=== PATIENT | female | born 1935 | race Caucasian/White ===

== ENCOUNTER 2017-12-14 06:39 | Emergency (ER) | payer MEDICARE ==
[2017-12-14 06:48] VITALS: TEMP 98
--- NOTE | 2017-12-14 07:25 | ED ---
General Adult HPI - General Chief complaint: Recheck/Abnormal Lab/Rx Stated complaint: hypertension Time Seen by Provider: 12/14/17 07:00 Source: patient, RN notes reviewed Mode of arrival: ambulatory Limitations: no limitations - History of Present Illness Initial comments: Patient is a pleasant 82-year-old female presenting to the emergency department for just not feeling well. Onset was last night. Patient does admit to feeling somewhat lightheaded however states this is a chronic problem for her. Patient is unable to state any other complaints. Patient states she took her blood pressure and it was near 200. Patient believes maybe she just got nervous. Patient denies any weakness or isolated area of weakness. No chest pain. No dyspnea. Patient also questions if she could have a urinary tract infection because she did urinate a couple times throughout the night. - Related Data Home Medications Medication Instructions Recorded Confirmed Acetaminophen Tab [Tylenol] 1,000 mg PO Q6H PRN 02/25/16 12/14/17 Dorzolamide HCl [Dorzolamide HCl] 1 drop LEFT EYE BID 02/25/16 12/14/17 Latanoprost [Latanoprost] 1 drop LEFT EYE HS 02/25/16 12/14/17 Multivitamins, Thera [Multivitamin] 1 tab PO DAILY 02/25/16 12/14/17 L.acidoph,Paracasei, B.lactis 1 cap PO DAILY 12/14/17 12/14/17 [Probiotic] Loperamide HCl [Imodium A-D] 2 mg PO HS 12/14/17 12/14/17 Previous Rx's Medication Instructions Recorded amLODIPine [Norvasc] 2.5 mg PO DAILY #7 tablet 12/14/17 Allergies Allergy/AdvReac Type Severity Reaction Status Date / Time No Known Allergies Allergy Verified 12/14/17 07:46 Review of Systems ROS Statement: Those systems with pertinent positive or pertinent negative responses have been documented in the HPI. ROS Other: All systems not noted in ROS Statement are negative. 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 Wilson; bilateral cataracts removed, Past Anesthesia/Blood Transfusion Reactions: No Reported Reaction Past Psychological History: Anxiety Smoking Status: Never smoker Past Alcohol Use History: None Reported Past Drug Use History: None Reported - Past Family History Father Additional Family Medical History / Comment(s): kidney disorder per patient Mother Additional Family Medical History / Comment(s): fell had surgery and from a hospital aquired infection per patient General Exam Limitations: no limitations General appearance: alert, in no apparent distress Head exam: Present: atraumatic Eye exam: Present: normal appearance, PERRL, EOMI. Absent: nystagmus ENT exam: Present: normal oropharynx Neck exam: Present: normal inspection Respiratory exam: Present: normal lung sounds bilaterally Cardiovascular Exam: Present: regular rate, normal rhythm GI/Abdominal exam: Present: soft. Absent: tenderness Extremities exam: Present: normal inspection Neurological exam: Present: alert, oriented X3, CN II-XII intact. Absent: motor sensory deficit Expanded Neurological exam: Present: protecting the airway Speech: Present: fluid speech Cranial nerves: EOM's Intact: Normal, Facial Sensation: Normal Cerebellar function: Finger to Nose: Normal Sensory exam: Upper Extremity Light Touch: Normal, Lower Extremity Light Touch: Normal Motor strength exam: RUE: 5, LUE: 5, RLE: 5, LLE: 5 Eye Response: (4) open spontaneously Motor Response: (6) obeys commands Verbal Response: (5) oriented Psychiatric exam: Present: normal affect, normal mood Skin exam: Present: normal color Course Vital Signs 12/14/17 12/14/17 12/14/17 06:41 07:19 08:17 Temperature 98 F Pulse Rate 74 61 64 Respiratory 18 16 16 Rate Blood Pressure 221/100 179/77 224/94 O2 Sat by Pulse 96 97 97 Oximetry 12/14/17 12/14/17 12/14/17 08:46 09:08 09:21 Temperature Pulse Rate 76 71 69 Respiratory 18 18 16 Rate Blood Pressure 219/98 189/89 186/90 O2 Sat by Pulse 96 96 96 Oximetry EKG Findings - EKG Comments: EKG Findings:: Normal sinus rhythm 61. [place] 152. QRS 106. QT 442. QTC 444. Left axis. Incomplete right bundle-branch block. Nonspecific T waves. Medical Decision Making - Medical Decision Making Patient reevaluated and symptom-free and comfortable with discharge. Blood pressure is improved. Patient states she does have an appointment with her doctor in the beginning of the week. - Lab Data Result diagrams: 12/14/17 06:55 12/14/17 06:55 Lab Results 12/14/17 12/14/17 12/14/17 Range/Units 06:55 06:55 06:55 WBC 6.0 (3.8-10.6) k/uL RBC 5.18 (3.80-5.40) m/uL Hgb 14.9 (11.4-16.0) gm/dL Hct 46.0 (34.0-46.0) % MCV 88.9 (80.0-100.0) fL MCH 28.7 (25.0-35.0) pg MCHC 32.3 (31.0-37.0) g/dL RDW 14.0 (11.5-15.5) % Plt Count 263 (150-450) k/uL Neutrophils % 58 % Lymphocytes % 27 % Monocytes % 10 % Eosinophils % 3 % Basophils % 1 % Neutrophils # 3.4 (1.3-7.7) k/uL Lymphocytes # 1.6 (1.0-4.8) k/uL Monocytes # 0.6 (0-1.0) k/uL Eosinophils # 0.2 (0-0.7) k/uL Basophils # 0.0 (0-0.2) k/uL Sodium 146 H (137-145) mmol/L Potassium 3.8 (3.5-5.1) mmol/L Chloride 106 (98-107) mmol/L Carbon Dioxide 29 (22-30) mmol/L Anion Gap 11 mmol/L BUN 22 H (7-17) mg/dL Creatinine 0.85 (0.52-1.04) mg/dL Est GFR (CKD-EPI)AfAm 74 (>60 ml/min/1.73 sqM) Est GFR (CKD-EPI)NonAf 64 (>60 ml/min/1.73 sqM) Glucose 86 (74-99) mg/dL Calcium 9.7 (8.4-10.2) mg/dL Total Bilirubin 0.6 (0.2-1.3) mg/dL AST 24 (14-36) U/L ALT 23 (9-52) U/L Alkaline Phosphatase 100 (38-126) U/L Total Creatine Kinase 43 (30-135) U/L CK-MB (CK-2) 0.7 (0.0-2.4) ng/mL CK-MB (CK-2) Rel Index 1.6 Troponin I <0.012 (0.000-0.034) ng/mL Total Protein 7.4 (6.3-8.2) g/dL Albumin 4.5 (3.5-5.0) g/dL Urine Color Urine Appearance (Clear) Urine pH (5.0-8.0) Ur Specific [place] (1.001-1.035) Urine Protein (Negative) Urine Glucose (UA) (Negative) Urine Ketones (Negative) Urine Blood (Negative) Urine Nitrite (Negative) Urine Bilirubin (Negative) Urine Urobilinogen (<2.0) mg/dL Ur Leukocyte Esterase (Negative) 12/14/17 Range/Units 07:50 WBC (3.8-10.6) k/uL RBC (3.80-5.40) m/uL Hgb (11.4-16.0) gm/dL Hct (34.0-46.0) % MCV (80.0-100.0) fL MCH (25.0-35.0) pg MCHC (31.0-37.0) g/dL RDW (11.5-15.5) % Plt Count (150-450) k/uL Neutrophils % % Lymphocytes % % Monocytes % % Eosinophils % % Basophils % % Neutrophils # (1.3-7.7) k/uL Lymphocytes # (1.0-4.8) k/uL Monocytes # (0-1.0) k/uL Eosinophils # (0-0.7) k/uL Basophils # (0-0.2) k/uL Sodium (137-145) mmol/L Potassium (3.5-5.1) mmol/L Chloride (98-107) mmol/L Carbon Dioxide (22-30) mmol/L Anion Gap mmol/L BUN (7-17) mg/dL Creatinine (0.52-1.04) mg/dL Est GFR (CKD-EPI)AfAm (>60 ml/min/1.73 sqM) Est GFR (CKD-EPI)NonAf (>60 ml/min/1.73 sqM) Glucose (74-99) mg/dL Calcium (8.4-10.2) mg/dL Total Bilirubin (0.2-1.3) mg/dL AST (14-36) U/L ALT (9-52) U/L Alkaline Phosphatase (38-126) U/L Total Creatine Kinase (30-135) U/L CK-MB (CK-2) (0.0-2.4) ng/mL CK-MB (CK-2) Rel Index Troponin I (0.000-0.034) ng/mL Total Protein (6.3-8.2) g/dL Albumin (3.5-5.0) g/dL Urine Color Colorless Urine Appearance Clear (Clear) Urine pH 6.5 (5.0-8.0) Ur Specific [place] 1.005 (1.001-1.035) Urine Protein Negative (Negative) Urine Glucose (UA) Negative (Negative) Urine Ketones Negative (Negative) Urine Blood Negative (Negative) Urine Nitrite Negative (Negative) Urine Bilirubin Negative (Negative) Urine Urobilinogen <2.0 (<2.0) mg/dL Ur Leukocyte Esterase Negative (Negative) - Radiology Data Radiology results: image reviewed (Chest x-ray shows no acute process) Disposition Clinical Impression: Hypertension Disposition: HOME SELF-CARE Condition: Stable Instructions: Hypertension (ED) Additional Instructions: Please follow-up with your primary care physician in the beginning of the week. Return for increased blood pressure, weakness, chest pain, confusion, worsening symptoms or other concerns. Prescriptions: amLODIPine [Norvasc] 2.5 mg PO DAILY #7 tablet Referrals: Tamika Oquendo MD [Primary Care Provider] - 1-2 days Time of Disposition: 09:31
--- NOTE | 2017-12-14 07:45 | XR ---
EXAMINATION TYPE: XR chest 2V DATE OF EXAM: 12/14/2017 COMPARISON: 02/25/2016 HISTORY: Shortness of breath TECHNIQUE: Frontal and lateral views of the chest are obtained. FINDINGS: Scattered senescent parenchymal changes noted. Hyperinflation compatible with COPD. No evidence for infiltrate. No evidence for atelectasis. Heart size is stable. Mediastinal structures are stable and grossly unremarkable. No evidence for hilar prominence. Degenerative changes dorsal spine. IMPRESSION: 1. No evidence for acute pulmonary disease.
[2017-12-14 07:46] LABS: Albumin 4.5 g/dL (3.5-5.0); Calcium 9.7 mg/dL (8.4-10.2); Potassium 3.8 mmol/L (3.5-5.1); Total Bilirubin 0.6 mg/dL (0.2-1.3); Total Protein 7.4 g/dL (6.3-8.2)
[2017-12-14 07:51] LABS: Creatine Kinase 43 U/L (30-135)
[2017-12-14 08:00] LABS: Appearance,Urine Clear (Clear); Bilirubin,Urine Negative (Negative); Blood,Urine Negative (Negative); Color,Urine Colorless; Glucose,Urine (UA) Negative (Negative); Ketones,Urine Negative (Negative); Leukocyte Esterase,Urine Negative (Negative); Nitrite,Urine Negative (Negative); PH, Urine 6.5 (5.0-8.0); Protein,Urine Negative (Negative); Specific Gravity,Urine 1.005 (1.001-1.035); Urobilinogen,Urine <2.0 mg/dL (<2.0)
[2017-12-14 08:03] LABS: Basophils % (A) 1 %; Eosinophils # (A) 0.2 k/uL (0-0.7); Eosinophils % (A) 3 %; HGB 14.9 gm/dL (11.4-16.0); Lymphocytes # (A) 1.6 k/uL (1.0-4.8); Lymphocytes % (A) 27 %; MCH 28.7 pg (25.0-35.0); MCHC 32.3 g/dL (31.0-37.0); MCV 88.9 fL (80.0-100.0); Mean Platelet Volume 11.5; Monocytes # (A) 0.6 k/uL (0-1.0); Monocytes % (A) 10 %; Neutrophils # (A) 3.4 k/uL (1.3-7.7); Neutrophils % (A) 58 %; Platelet Count 263 k/uL (150-450); RBC 5.18 m/uL (3.80-5.40)
[2017-12-14 08:04] LABS: Creatine Kinase MB 0.7 ng/mL (0.0-2.4); Troponin I <0.012 ng/mL (0.000-0.034)
[2017-12-14] MEDS ORDERED: LORazepam 2 MG/ML INJ IV STA (08:18)
[2017-12-14] MEDS ORDERED: ENALAPRILAT 1.25 MG/ML 1 ML VIAL IVP STA (08:46)
[2017-12-14 09:22] VITALS: BP 186/90; PULSE 69; RESP 16
== END 2017-12-14 09:38 | disposition home or self-care (01) ==
LOC: EC 06:39
DX: I10 Essential (primary) hypertension (principal); R42 Dizziness and giddiness; K58.9 Irritable bowel syndrome, unspecified; Z79.899 Other long term (current) drug therapy
CPT/HCPCS: 36415; 93005; 80053; 82550; 82553; 84484; 85025; 81003; 87086; 71046; 99283; 96374; 96375; J2060

== ENCOUNTER 2019-09-20 06:45 | Emergency (ER) | payer MEDICARE ==
--- NOTE | 2019-09-20 07:27 | ED ---
General Adult HPI - General Chief complaint: Urogenital Stated complaint: female Time Seen by Provider: 09/20/19 07:02 Source: patient, family, RN notes reviewed Mode of arrival: wheelchair Limitations: no limitations - History of Present Illness Initial comments: Patient is a pleasant 84-year-old female presenting to the emergency department with urinary problems. Onset of symptoms was last night. Patient had urinary urgency however and difficulty with urinating. Symptoms lasted a couple hours then seemed to resolve around 4 AM. Patient states urination has been fairly normal since that time. No incontinence. Patient is also complaining of some right sciatic discomfort/low back pain also since yesterday. Patient does have history of similar symptoms previously associated with her sciatica. Patient denies any leg weakness however does have some burning going more towards the right leg. No abdominal pain. No fevers. - Related Data Home Medications Medication Instructions Recorded Confirmed Acetaminophen Tab [Tylenol] 1,000 mg PO Q6H PRN 02/25/16 06/11/18 Latanoprost 1 drop LEFT EYE HS 02/25/16 06/11/18 L.acidoph,Paracasei, B.lactis 1 cap PO DAILY 12/14/17 06/11/18 [Probiotic] Loperamide HCl [Imodium A-D] 2 mg PO HS 12/14/17 06/11/18 Celecoxib [CeleBREX] 200 mg PO HS 06/11/18 06/11/18 Dorzolamide HCl [Trusopt 2%] 1 drop BOTH EYES HS 06/11/18 06/11/18 Naproxen Sodium [Aleve] 220 mg PO DAILY PRN 06/11/18 06/11/18 tiZANidine HCL [Zanaflex] 4 mg PO DAILY PRN 06/11/18 06/11/18 Previous Rx's Medication Instructions Recorded amLODIPine [Norvasc] 2.5 mg PO DAILY #7 tablet 12/14/17 Cyclobenzaprine [Flexeril] 10 mg PO TID PRN #12 tablet 09/20/19 methylPREDNISolone Dose Pack 24 mg PO DAILY #1 tab 09/20/19 [Medrol Dose Pack] Allergies Allergy/AdvReac Type Severity Reaction Status Date / Time No Known Allergies Allergy Verified 09/20/19 07:00 Review of Systems ROS Statement: Those systems with pertinent positive or pertinent negative responses have been documented in the HPI. ROS Other: All systems not noted in ROS Statement are negative. 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 Wilson; bilateral cataracts removed, Past Anesthesia/Blood Transfusion Reactions: No Reported Reaction Past Psychological History: No Psychological Hx Reported Smoking Status: Never smoker Past Alcohol Use History: None Reported Past Drug Use History: None Reported - Past Family History Father Additional Family Medical History / Comment(s): kidney disorder per patient Mother Additional Family Medical History / Comment(s): fell had surgery and from a hospital aquired infection per patient General Exam Limitations: no limitations General appearance: alert, in no apparent distress Head exam: Present: normocephalic Eye exam: Present: normal appearance, PERRL ENT exam: Present: normal oropharynx Neck exam: Present: normal inspection Respiratory exam: Present: normal lung sounds bilaterally Cardiovascular Exam: Present: regular rate, normal rhythm Expanded Peripheral pulses: 2+: Dorsalis Pedis (R), Dorsalis Pedis (L) GI/Abdominal exam: Present: soft. Absent: distended, tenderness, pulsatile mass Extremities exam: Present: normal inspection, full ROM (Pain with straight leg raise on the right). Absent: tenderness Back exam: Present: tenderness (Sacral region, more so on the right, specifically right sacroiliac.) Neurological exam: Present: alert. Absent: motor sensory deficit Expanded Sensory exam: Lower Extremity Light Touch: Normal Motor strength exam: RUE: 5, LUE: 5, RLE: 5, LLE: 5 Psychiatric exam: Present: normal affect, normal mood Skin exam: Present: normal color Course Vital Signs 09/20/19 06:55 Temperature 98.3 F Pulse Rate 68 Respiratory 20 Rate Blood Pressure 196/65 O2 Sat by Pulse 97 Oximetry Medical Decision Making - Medical Decision Making Patient requesting discharge home. Patient had 120 on bladder scan prior to urination. Patient and family updated on results and plan. Patient walking around the emergency department without any difficulty. - Lab Data Result diagrams: 09/20/19 08:21 09/20/19 08:21 Lab Results 09/20/19 09/20/19 09/20/19 Range/Units 07:28 08:21 08:21 WBC 5.7 (3.8-10.6) k/uL RBC 4.91 (3.80-5.40) m/uL Hgb 14.6 (11.4-16.0) gm/dL Hct 43.5 (34.0-46.0) % MCV 88.6 (80.0-100.0) fL MCH 29.7 (25.0-35.0) pg MCHC 33.5 (31.0-37.0) g/dL RDW 13.9 (11.5-15.5) % Plt Count 222 (150-450) k/uL Neutrophils % 71 % Lymphocytes % 15 % Monocytes % 9 % Eosinophils % 2 % Basophils % 0 % Neutrophils # 4.0 (1.3-7.7) k/uL Lymphocytes # 0.9 L (1.0-4.8) k/uL Monocytes # 0.5 (0-1.0) k/uL Eosinophils # 0.1 (0-0.7) k/uL Basophils # 0.0 (0-0.2) k/uL Manual Slide Review Performed Large Platelets Present RBC Morphology Normal PT (9.0-12.0) sec INR (<1.2) APTT (22.0-30.0) sec Sodium 144 (137-145) mmol/L Potassium 3.9 (3.5-5.1) mmol/L Chloride 109 H (98-107) mmol/L Carbon Dioxide 27 (22-30) mmol/L Anion Gap 8 mmol/L BUN 18 H (7-17) mg/dL Creatinine 0.75 (0.52-1.04) mg/dL Est GFR (CKD-EPI)AfAm 85 (>60 ml/min/1.73 sqM) Est GFR (CKD-EPI)NonAf 74 (>60 ml/min/1.73 sqM) Glucose 99 (74-99) mg/dL Calcium 9.9 (8.4-10.2) mg/dL Total Bilirubin 1.0 (0.2-1.3) mg/dL AST 26 (14-36) U/L ALT 15 (4-34) U/L Alkaline Phosphatase 95 (38-126) U/L Total Protein 7.2 (6.3-8.2) g/dL Albumin 4.5 (3.5-5.0) g/dL Amylase 33 (30-110) U/L Lipase 25 (23-300) U/L Urine Color Light Yellow Urine Appearance Clear (Clear) Urine pH 5.5 (5.0-8.0) Ur Specific [place] 1.009 (1.001-1.035) Urine Protein Negative (Negative) Urine Glucose (UA) Negative (Negative) Urine Ketones Negative (Negative) Urine Blood Negative (Negative) Urine Nitrite Negative (Negative) Urine Bilirubin Negative (Negative) Urine Urobilinogen <2.0 (<2.0) mg/dL Ur Leukocyte Esterase Negative (Negative) 09/20/19 Range/Units 08:21 WBC (3.8-10.6) k/uL RBC (3.80-5.40) m/uL Hgb (11.4-16.0) gm/dL Hct (34.0-46.0) % MCV (80.0-100.0) fL MCH (25.0-35.0) pg MCHC (31.0-37.0) g/dL RDW (11.5-15.5) % Plt Count (150-450) k/uL Neutrophils % % Lymphocytes % % Monocytes % % Eosinophils % % Basophils % % Neutrophils # (1.3-7.7) k/uL Lymphocytes # (1.0-4.8) k/uL Monocytes # (0-1.0) k/uL Eosinophils # (0-0.7) k/uL Basophils # (0-0.2) k/uL Manual Slide Review Large Platelets RBC Morphology PT 10.2 (9.0-12.0) sec INR 0.9 (<1.2) APTT 24.4 (22.0-30.0) sec Sodium (137-145) mmol/L Potassium (3.5-5.1) mmol/L Chloride (98-107) mmol/L Carbon Dioxide (22-30) mmol/L Anion Gap mmol/L BUN (7-17) mg/dL Creatinine (0.52-1.04) mg/dL Est GFR (CKD-EPI)AfAm (>60 ml/min/1.73 sqM) Est GFR (CKD-EPI)NonAf (>60 ml/min/1.73 sqM) Glucose (74-99) mg/dL Calcium (8.4-10.2) mg/dL Total Bilirubin (0.2-1.3) mg/dL AST (14-36) U/L ALT (4-34) U/L Alkaline Phosphatase (38-126) U/L Total Protein (6.3-8.2) g/dL Albumin (3.5-5.0) g/dL Amylase (30-110) U/L Lipase (23-300) U/L Urine Color Urine Appearance (Clear) Urine pH (5.0-8.0) Ur Specific [place] (1.001-1.035) Urine Protein (Negative) Urine Glucose (UA) (Negative) Urine Ketones (Negative) Urine Blood (Negative) Urine Nitrite (Negative) Urine Bilirubin (Negative) Urine Urobilinogen (<2.0) mg/dL Ur Leukocyte Esterase (Negative) - Radiology Data Radiology results: report reviewed (ET scan abdomen pelvis does show cholelithiasis. There is also degenerative changes lumbar spine, mostly L4-L5 loss. Grade 1 spondylolisthesis. ) Disposition Clinical Impression: Low back pain Disposition: HOME SELF-CARE Condition: Stable Instructions (If sedation given, give patient instructions): Lumbar Radiculopathy (ED), Acute Low Back Pain (ED) Additional Instructions: Please follow-up with primary care physician and Dr. Barron in the being the week. Return for difficulty with urination, unable to urinate or loss of control of urination or bowel movements, leg weakness, loss of sensation, worsening symptoms or any other concerns. Prescriptions have been sent to pharmacy in [place]. Prescriptions: Cyclobenzaprine [Flexeril] 10 mg PO TID PRN #12 tablet PRN Reason: Pain methylPREDNISolone Dose Pack [Medrol Dose Pack] 24 mg PO DAILY #1 tab Is patient prescribed a controlled substance at d/c from ED?: No Referrals: Tamika Oquendo MD [Primary Care Provider] - 1-2 days Time of Disposition: 10:27
[2019-09-20 08:11] LABS: Appearance,Urine Clear (Clear); Bilirubin,Urine Negative (Negative); Blood,Urine Negative (Negative); Color,Urine Light Yellow; Glucose,Urine (UA) Negative (Negative); Ketones,Urine Negative (Negative); Leukocyte Esterase,Urine Negative (Negative); Nitrite,Urine Negative (Negative); PH, Urine 5.5 (5.0-8.0); Protein,Urine Negative (Negative); Specific Gravity,Urine 1.009 (1.001-1.035); Urobilinogen,Urine <2.0 mg/dL (<2.0)
[2019-09-20] MEDS ORDERED: MORPHINE SULFATE 4 MG/ML SYRINGE IV STA (08:11)
[2019-09-20 08:43] LABS: Albumin 4.5 g/dL (3.5-5.0); Calcium 9.9 mg/dL (8.4-10.2); Potassium 3.9 mmol/L (3.5-5.1); Total Protein 7.2 g/dL (6.3-8.2)
[2019-09-20 08:49] LABS: Basophils % (A) 0 %; Eosinophils # (A) 0.1 k/uL (0-0.7); Eosinophils % (A) 2 %; HCT 43.5 % (34.0-46.0); HGB 14.6 gm/dL (11.4-16.0); Lymphocytes # (A) 0.9 k/uL (1.0-4.8); Lymphocytes % (A) 15 %; MCH 29.7 pg (25.0-35.0); MCHC 33.5 g/dL (31.0-37.0); MCV 88.6 fL (80.0-100.0); Mean Platelet Volume 12.6; Monocytes # (A) 0.5 k/uL (0-1.0); Monocytes % (A) 9 %; Neutrophils % (A) 71 %; Platelet Count 222 k/uL (150-450); RBC 4.91 m/uL (3.80-5.40); RDW 13.9 % (11.5-15.5); WBC 5.7 k/uL (3.8-10.6)
[2019-09-20 08:56] LABS: INR 0.9 (<1.2)
[2019-09-20 08:57] LABS: Partial Thromboplastin Time 24.4 sec (22.0-30.0); Prothrombin Time 10.2 sec (9.0-12.0)
[2019-09-20 09:05] LABS: Large Platelets Present
--- NOTE | 2019-09-20 10:12 | CT ---
EXAMINATION TYPE: CT abdomen pelvis w con DATE OF EXAM: 09/20/2019 REFERENCE: Previous study dated 02/25/2016. HISTORY: Low back pain HISTORY: Low back pain, difficult urination CT DLP: 1236.9 mGy Automated exposure control for dose reduction was used. TECHNIQUE: Helical acquisition through the abdomen and pelvis was obtained following the oral ingesti on of without Oral Contrast and following intravenous administration of 100 mL of Isovue 300. The donald a was reformatted in axial, coronal and sagittal projections. FINDINGS: There is minimal dependent atelectasis in the dependent portions of both lungs. There is n o pleural or pericardial fluid. The heart is enlarged. There is partial eventration of the right hemidiaphragm. The liver is slightly low attenuating and may be fatty infiltrated. There are innumerable gallstones within the gallbladder. No definite gallbladder wall thickening or pericholecystic fluid is seen. Both adrenal glands are normal. A simple appearing cyst in the upper pole of the left kidney is increased in size from 4.8 cm to 6.1 cm since the previous study. The kidneys are otherwise normal. There is stable atrophy and fatty infiltration of the pancreas. There is no significant retroperitoneal, iliac or inguinal adenopathy. The uterus and ovaries are not visualized. The bladder is unremarkable. There is colonic wall thickening involving the sigmoid colon. There are scattered diverticula. There is no radiographic evidence of diverticulitis. There are also scattered diverticula throughout the le ft-sided colon. There is a large ventral hernia containing loops of large bowel which appear unobstru cted. The mouth measures 6 cm. There has been a previous partial right hemicolectomy. The appendix is not visualized. Small bowel loops are normal in size. There is degenerative disc disease within the lower dorsal and lumbar spines. This is most severe at L4-5 where there is a degenerative grade 1 spondylolisthesis of L4 on L5. IMPRESSION: 1. MILD CARDIOMEGALY. 2. CHOLELITHIASIS. 3. PROBABLE FATTY INFILTRATION OF THE LIVER. 4. SIMPLE APPEARING LEFT RENAL CYST HAS INCREASED IN SIZE. 5. POSTSURGICAL CHANGE. 6. DEGENERATIVE CHANGES WITHIN THE SPINE MOST MARKED AT L4-5 WHERE THERE IS NEAR COMPLETE LOSS OF DIS C SPACE WELL A DEGENERATIVE GRADE 1 SPONDYLOLISTHESIS OF L4 ON L5.
[2019-09-20 10:30] VITALS: BP 144/77; PULSE 70; RESP 16; TEMP 98
== END 2019-09-20 10:30 | disposition home or self-care (01) ==
LOC: EC 06:45
DX: M54.5 Low back pain (principal); M19.90 Unspecified osteoarthritis, unspecified site; H40.9 Unspecified glaucoma; K58.9 Irritable bowel syndrome, unspecified; Z79.1 Long term (current) use of non-steroidal anti-inflammatories (NSAID); Z79.899 Other long term (current) drug therapy; Z87.718 Personal history of other specified (corrected) congenital malformations of genitourinary system
CPT/HCPCS: 51798; 36415; 80053; 82150; 83690; 85025; 85610; 85730; 81003; 74177; 99284; 96374; J2270; Q9967

== ENCOUNTER 2019-10-25 01:59 | Inpatient (IN) | payer MEDICARE ==
[2019-10-25] MEDS ORDERED: MORPHINE SULFATE 4 MG/ML SYRINGE IV STA ×2 (02:26→05:20)
[2019-10-25] MEDS ORDERED: ONDANSETRON 4 MG/2 ML VIAL IVP STA (02:51)
[2019-10-25 03:10] LABS: Basophils # (A) 0.2 k/uL (0-0.2); Basophils % (A) 2 %; Eosinophils # (A) 0.2 k/uL (0-0.7); Eosinophils % (A) 2 %; HCT 49.8 % (34.0-46.0); HGB 16.2 gm/dL (11.4-16.0); Lymphocytes # (A) 1.1 k/uL (1.0-4.8); Lymphocytes % (A) 9 %; MCHC 32.5 g/dL (31.0-37.0); MCV 89.1 fL (80.0-100.0); Mean Platelet Volume 12.6; Monocytes # (A) 1.1 k/uL (0-1.0); Monocytes % (A) 9 %; Neutrophils # (A) 8.5 k/uL (1.3-7.7); Neutrophils % (A) 76 %; Platelet Count 261 k/uL (150-450); RBC 5.59 m/uL (3.80-5.40); RDW 14.1 % (11.5-15.5); WBC 11.3 k/uL (3.8-10.6)
[2019-10-25 03:15] LABS: Albumin 4.1 g/dL (3.5-5.0); Calcium 9.6 mg/dL (8.4-10.2); Potassium 4.2 mmol/L (3.5-5.1); Total Bilirubin 0.7 mg/dL (0.2-1.3); Total Protein 6.7 g/dL (6.3-8.2)
--- NOTE | 2019-10-25 03:19 | ED ---
Abdominal Pain HPI - General Chief Complaint: Abdominal Pain Stated Complaint: Abd Pain Time Seen by Provider: 10/25/19 02:11 Source: patient, family Mode of arrival: wheelchair Limitations: no limitations - History of Present Illness Initial Comments: This patient is an 84-year-old woman presenting to be evaluated for abdominal pains that started approximately 9 PM. She indicates the periumbilical area. The pains have been intermittent. She states that when they come on they are sharp and severe. They seem to last for about 30 seconds at a time. She has not noted worsening or relieving factors. MD Complaint: abdominal pain Onset/Timin -: hour(s) Location: periumbilical Radiation: none Migration to: no migration Severity: severe Quality: sharp Consistency: intermittent Improves With: nothing Worsens With: nothing Associated Symptoms: nausea - Related Data Home Medications Medication Instructions Recorded Confirmed Acetaminophen Tab [Tylenol] 1,000 mg PO Q6H PRN 02/25/16 10/25/19 Latanoprost 1 drop LEFT EYE HS 02/25/16 10/25/19 Dorzolamide HCl [Trusopt 2%] 1 drop BOTH EYES BID 06/11/18 10/25/19 Triamcinolone 0.1% Ointment 1 applic TOPICAL TID PRN 10/25/19 10/25/19 [Kenalog 0.1% Ointment] Previous Rx's Medication Instructions Recorded amLODIPine [Norvasc] 2.5 mg PO DAILY #7 tablet 12/14/17 Allergies Allergy/AdvReac Type Severity Reaction Status Date / Time No Known Allergies Allergy Verified 10/25/19 08:15 Review of Systems ROS Statement: Those systems with pertinent positive or pertinent negative responses have been documented in the HPI. ROS Other: All systems not noted in ROS Statement are negative. Constitutional: Denies: fever, chills Respiratory: Denies: cough, dyspnea Cardiovascular: Denies: chest pain, palpitations Gastrointestinal: Reports: abdominal pain, nausea. 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 Wilson; bilateral cataracts removed, Past Anesthesia/Blood Transfusion Reactions: No Reported Reaction Past Psychological History: No Psychological Hx Reported Smoking Status: Never smoker Past Alcohol Use History: None Reported Past Drug Use History: None Reported - Past Family History Father Additional Family Medical History / Comment(s): kidney disorder per patient Mother Additional Family Medical History / Comment(s): fell had surgery and from a hospital aquired infection per patient General Exam Limitations: no limitations General appearance: alert, in no apparent distress Head exam: Present: atraumatic, normocephalic Eye exam: Present: normal appearance. Absent: scleral icterus, conjunctival injection Respiratory exam: Present: normal lung sounds bilaterally. Absent: respiratory distress, wheezes, rales, rhonchi, stridor Cardiovascular Exam: Present: regular rate, normal rhythm, systolic murmur (4/6 systolic ejection murmur). Absent: diastolic murmur, rubs, gallop GI/Abdominal exam: Present: soft. Absent: distended, tenderness, guarding, rebound, rigid, mass, pulsatile mass, hernia Extremities exam: Present: normal inspection, normal capillary refill. Absent: pedal edema, calf tenderness Back exam: Present: normal inspection. Absent: CVA tenderness (R), CVA tenderness (L) Neurological exam: Present: alert Skin exam: Present: warm, dry, intact, normal color. Absent: rash Course Vital Signs 10/25/19 10/25/19 10/25/19 02:02 03:07 05:00 Temperature 97.5 F L 97.8 F 97.8 F Pulse Rate 68 80 80 Respiratory 18 18 18 Rate Blood Pressure 171/94 175/75 165/70 O2 Sat by Pulse 99 98 100 Oximetry Medical Decision Making - Lab Data Result diagrams: 10/26/19 06:41 10/25/19 02:38 Lab Results 10/25/19 10/25/19 10/25/19 Range/Units 02:38 02:38 02:38 WBC 11.3 H (3.8-10.6) k/uL RBC 5.59 H (3.80-5.40) m/uL Hgb 16.2 H (11.4-16.0) gm/dL Hct 49.8 H (34.0-46.0) % MCV 89.1 (80.0-100.0) fL MCH 29.0 (25.0-35.0) pg MCHC 32.5 (31.0-37.0) g/dL RDW 14.1 (11.5-15.5) % Plt Count 261 (150-450) k/uL Neutrophils % 76 % Lymphocytes % 9 % Monocytes % 9 % Eosinophils % 2 % Basophils % 2 % Neutrophils # 8.5 H (1.3-7.7) k/uL Lymphocytes # 1.1 (1.0-4.8) k/uL Monocytes # 1.1 H (0-1.0) k/uL Eosinophils # 0.2 (0-0.7) k/uL Basophils # 0.2 (0-0.2) k/uL Sodium 140 (137-145) mmol/L Potassium 4.2 (3.5-5.1) mmol/L Chloride 106 (98-107) mmol/L Carbon Dioxide 25 (22-30) mmol/L Anion Gap 9 mmol/L BUN 32 H (7-17) mg/dL Creatinine 0.85 (0.52-1.04) mg/dL Est GFR (CKD-EPI)AfAm 73 (>60 ml/min/1.73 sqM) Est GFR (CKD-EPI)NonAf 63 (>60 ml/min/1.73 sqM) Glucose 95 (74-99) mg/dL Lactic Ac Sepsis Rflx Plasma Lactic Acid Pepe 2.9 H* (0.7-2.0) mmol/L Calcium 9.6 (8.4-10.2) mg/dL Total Bilirubin 0.7 (0.2-1.3) mg/dL AST 119 H (14-36) U/L ALT 44 H (4-34) U/L Alkaline Phosphatase 82 (38-126) U/L Total Protein 6.7 (6.3-8.2) g/dL Albumin 4.1 (3.5-5.0) g/dL Amylase 39 (30-110) U/L Lipase 113 (23-300) U/L 10/25/19 Range/Units 03:30 WBC (3.8-10.6) k/uL RBC (3.80-5.40) m/uL Hgb (11.4-16.0) gm/dL Hct (34.0-46.0) % MCV (80.0-100.0) fL MCH (25.0-35.0) pg MCHC (31.0-37.0) g/dL RDW (11.5-15.5) % Plt Count (150-450) k/uL Neutrophils % % Lymphocytes % % Monocytes % % Eosinophils % % Basophils % % Neutrophils # (1.3-7.7) k/uL Lymphocytes # (1.0-4.8) k/uL Monocytes # (0-1.0) k/uL Eosinophils # (0-0.7) k/uL Basophils # (0-0.2) k/uL Sodium (137-145) mmol/L Potassium (3.5-5.1) mmol/L Chloride (98-107) mmol/L Carbon Dioxide (22-30) mmol/L Anion Gap mmol/L BUN (7-17) mg/dL Creatinine (0.52-1.04) mg/dL Est GFR (CKD-EPI)AfAm (>60 ml/min/1.73 sqM) Est GFR (CKD-EPI)NonAf (>60 ml/min/1.73 sqM) Glucose (74-99) mg/dL Lactic Ac Sepsis Rflx Y Plasma Lactic Acid Pepe (0.7-2.0) mmol/L Calcium (8.4-10.2) mg/dL Total Bilirubin (0.2-1.3) mg/dL AST (14-36) U/L ALT (4-34) U/L Alkaline Phosphatase (38-126) U/L Total Protein (6.3-8.2) g/dL Albumin (3.5-5.0) g/dL Amylase (30-110) U/L Lipase (23-300) U/L Disposition Clinical Impression: Abdominal pain Disposition: ADMITTED IP TO THIS HOSP Condition: Fair
[2019-10-25] MEDS ORDERED: SODIUM CHLORIDE 0.9% 1,700 ML IV ONE (03:30)
--- NOTE | 2019-10-25 03:40 | CT ---
EXAMINATION TYPE: CT abdomen pelvis w con DATE OF EXAM: 10/25/2019 COMPARISON: 09/20/2019 HISTORY: Abd pain CT DLP: 1008.6 mGycm Automated exposure control for dose reduction was used. CONTRAST: Performed with IV Contrast, patient injected with 100 mL of Isovue 300. There is mild subsegmental atelectasis at the lung bases. Heart is borderline enlarged. There is no p ericardial effusion. There is no pleural effusion. Liver spleen stomach pancreas appear normal. Bile ducts are not dilated. There are calcified multiple gallstones. There is no adrenal mass. Kidneys show satisfactory contrast opacification. There is no hydronephrosi s. There is 5.5 cm cortical cyst posterior left kidney. Ureters are not dilated. There is no retroper itoneal adenopathy. Bladder distends smoothly. There is no inguinal hernia. There are a few distended fluid-filled loops of small bowel in the mid abdomen. There is previous jorge balaji and apparent right hemicolectomy. There is ventral hernia that contains some incarcerated loop of transverse colon. I do not see eviden ce for obstruction. There is a few millimeter degenerative spondylolisthesis at L4-5. There is no lumbar compression frac ture. Bony pelvis is intact. There is L4-5 and L2-3 disc space narrowing. Hip joints are intact. There is no mesenteric edema. There is no ascites or free air. IMPRESSION: Distended small bowel with fluid could relate to mild ileus or partial mechanical obstruction. Transition point not seen. Sigmoid diverticulosis without diverticulitis. Incarcerated ventral hernia contains transverse colon without definite sign of obstruction. Hernia appears unchanged compared to old exam. Numerous gallstones. Distended small bowel is a change compared to old exam.
[2019-10-25] MEDS ORDERED: diphenhydrAMINE 50 MG/ML 1 ML VIAL IVP STA (05:27)
[2019-10-25] MEDS ORDERED: NALOXONE 0.4 MG/ML 1 ML VIAL IV PRN (05:33)
[2019-10-25] MEDS ORDERED: ONDANSETRON 4 MG/2 ML VIAL IVP PRN (05:33)
[2019-10-25 06:09] LABS: Appearance,Urine Clear (Clear); Bilirubin,Urine Negative (Negative); Blood,Urine Negative (Negative); Color,Urine Yellow; Glucose,Urine (UA) Negative (Negative); Ketones,Urine Negative (Negative); Leukocyte Esterase,Urine Negative (Negative); Nitrite,Urine Negative (Negative); PH, Urine 5.5 (5.0-8.0); Protein,Urine Negative (Negative); Urobilinogen,Urine <2.0 mg/dL (<2.0)
[2019-10-25] MEDS: SODIUM CHLORIDE 0.9% 1,000 ML IV SCH ×3 (06:29→23:16)
[2019-10-25 06:32] LABS: Specific Gravity,Urine >1.050 (1.001-1.035)
[2019-10-25] MEDS: amLODIPine 2.5 MG TAB PO SCH (09:22)
[2019-10-25] MEDS: MORPHINE SULFATE 4 MG/ML SYRINGE IV PRN ×2 (09:26→13:21)
[2019-10-25] MEDS ORDERED: SODIUM CHLORIDE 0.9% 1,000 ML IV ONE (12:41)
--- NOTE | 2019-10-25 14:04 | P.HPIM ---
History of Present Illness H&P Date: 10/25/19 Chief Complaint: Abdominal pain Ekta Yañez is an 84-year-old female patient of Dr. Oquendo, who presented to [facility] emergency room with a chief complaint of abdominal pain, patient stated that last night she started having abdominal pain which was quite severe in the periumbilical area there was no fever or chills no nausea or vomiting no diarrhea no blood in the stools, pain was severe and patient decided to come to emergency room for evaluation. Computed tomography scan of the abdomen and pelvis was done in the emergency room and revealed evidence of distended small bowel related to mild ileus or partial mechanical obstruction patient was admitted to medical floor and surgical consultation was requested. Computed tomography scan also revealed evidence of incarcerated ventral hernia containing transverse colon on without definite signs of obstruction, this is a chronic finding that was present on previous exams and is unchanged from pre vious. 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 Wilson; bilateral cataracts removed, Past Anesthesia/Blood Transfusion Reactions: No Reported Reaction Past Psychological History: No Psychological Hx Reported Additional Psychological History / Comment(s): claustrophobic Smoking Status: Never smoker Past Alcohol Use History: None Reported Past Drug Use History: None Reported - Past Family History Father Additional Family Medical History / Comment(s): kidney disorder per patient Mother Additional Family Medical History / Comment(s): fell had surgery and from a hospital aquired infection per patient Medications and Allergies Home Medications Medication Instructions Recorded Confirmed Type Acetaminophen Tab [Tylenol] 1,000 mg PO Q6H PRN 02/25/16 10/25/19 History Latanoprost 1 drop LEFT EYE HS 02/25/16 10/25/19 History amLODIPine [Norvasc] 2.5 mg PO DAILY #7 tablet 12/14/17 10/25/19 Rx Dorzolamide HCl [Trusopt 2%] 1 drop BOTH EYES BID 06/11/18 10/25/19 History Triamcinolone 0.1% Ointment 1 applic TOPICAL TID PRN 10/25/19 10/25/19 History [Kenalog 0.1% Ointment] Allergies Allergy/AdvReac Type Severity Reaction Status Date / Time No Known Allergies Allergy Verified 10/25/19 08:15 Physical Exam Vitals: Vital Signs Temp Pulse Pulse Resp BP BP Pulse Ox 10/25/19 07:51 65 12 10/25/19 06:23 97.9 F 65 12 149/74 99 10/25/19 05:00 97.8 F 80 18 165/70 100 10/25/19 03:07 97.8 F 80 18 175/75 98 10/25/19 02:02 97.5 F L 68 18 171/94 99 Intake and Output 10/24/19 10/25/19 10/25/19 22:59 06:59 14:59 Other: Weight 71.668 kg In general patient is alert and oriented 3 in no apparent distress HEENT head normocephalic and atraumatic Neck is supple no JVD no goiter no lymphadenopathy Chest exam reveals a few scattered rhonchi bilaterally no wheezing Cardiac exam reveals regular heart sounds S1 and S2 no gallops no murmurs Abdomen is soft nontender no organomegaly with normal bowel sounds Extremity exam reveals no edema no cyanosis or clubbing Neurological examination reveals no gross focal deficit Results CBC & Chem 7: 10/25/19 02:38 10/25/19 02:38 Labs: Abnormal Lab Results - Last 24 Hours (Table) 10/25/19 10/25/19 10/25/19 Range/Units 02:38 02:38 02:38 WBC 11.3 H (3.8-10.6) k/uL RBC 5.59 H (3.80-5.40) m/uL Hgb 16.2 H (11.4-16.0) gm/dL Hct 49.8 H (34.0-46.0) % Neutrophils # 8.5 H (1.3-7.7) k/uL Monocytes # 1.1 H (0-1.0) k/uL BUN 32 H (7-17) mg/dL Plasma Lactic Acid Pepe 2.9 H* (0.7-2.0) mmol/L AST 119 H (14-36) U/L ALT 44 H (4-34) U/L Ur Specific [place] (1.001-1.035) 10/25/19 Range/Units 05:37 WBC (3.8-10.6) k/uL RBC (3.80-5.40) m/uL Hgb (11.4-16.0) gm/dL Hct (34.0-46.0) % Neutrophils # (1.3-7.7) k/uL Monocytes # (0-1.0) k/uL BUN (7-17) mg/dL Plasma Lactic Acid Pepe (0.7-2.0) mmol/L AST (14-36) U/L ALT (4-34) U/L Ur Specific [place] >1.050 H (1.001-1.035) Thrombosis Risk Factor Assmnt - Choose All That Apply Each Factor Represents 1 point: Obesity (BMI >25) Other Risk Factors: Yes Each Risk Factor Represents 3 Points: Age 75 years or older Thrombosis Risk Factor Assessment Total Risk Factor Score: 4 Thrombosis Risk Factor Assessment Level: Moderate Risk Assessment and Plan Plan: #1 abdominal pain with computed tomography scan findings revealing evidence of distended small bowel related to ileus versus partial mechanical obstruction at this time patient is kept nothing by mouth surgical consultation is requested, abdominal pain has improved with conservative measures Will monitor. #2 ventral hernia, containing transverse colon without signs of obstruction, unchanged from previous testing #3 evidence of numerous gallstones on computed tomography scan #4 underlying history of hypertension maintained on Norvasc at home continue #5 evidence of diverticulosis without evidence of acute diverticulitis #6 underlying history of glaucoma #7 skin rash on chest back scalp and bilateral upper extremity cause is unclear Will consult dermatology #7 for DVT prophylaxis SCD stockings and ambulation For GI prophylaxis Will add Pepcid
--- NOTE | 2019-10-25 15:18 | P.GSCN ---
History of Present Illness Consult date: 10/25/19 History of present illness: CHIEF COMPLAINT: Abdominal pain HISTORY OF PRESENT ILLNESS: The patient is a 84-year-old female reports last night developed an acute crampy abdominal pain after getting ready for bed last night. She has known history of incisional hernia prior and present for over 2 years. She sees her surgeon for blood in stools. She reports her abdominal pain is now resolved today. She reports positive stool study Cologaurd. She has not followed up with her surgeon regarding repeat colonoscopy. She reports past history of perforated colon following colonoscopy and barium enema requiring colectomy Over 3+ years ago. She has known history of diverticulosis including intermittent left lower quadrant abdominal pain. She has been hospitalized for similar episode last 2 years. She has hunger. She is passing flatus. She was admitted secondary to potential bowel obstruction. PAST MEDICAL HISTORY: See list. PAST SURGICAL HISTORY: See list. MEDICATIONS: See list. ALLERGIES: See list. SOCIAL HISTORY: See list. FAMILY HISTORY: See list. REVIEW OF ORGAN SYSTEMS: CONSTITUTIONAL: No fevers or chills. . EYES: No glasses. HEENT: No difficulties with hearing. No nosebleeds. No difficulty swallowing. RESPIRATORY: Denies pneumonia. Denies any troubles with breathing or dyspnea on exertion. CARDIOVASCULAR: Denies any chest pain, palpitations, or recent heart attacks. GASTROINTESTINAL: Denies fatty food intolerance. Past history of colon perforation including diverticulosis GENITOURINARY: Denies any blood in urine or increased urinary frequency. NEUROLOGICAL: Denies any numbness or tingling along the distal extremities. No seizure disorders or headaches. MUSCULOSKELETAL: Hasback pain, stiffness or joint arthritis. SKIN: Has rash PSYCHIATRIC: Denies current depression or suicidal thoughts. ENDOCRINE: Denies current thyroid disorders. Denies any blood sugar glucose intolerance. HEME/LYMPHATIC: Denies any lumps and bumps around the neck. No recent deep venous thrombosis. ALLERGY/IMMUNOLOGY: No immunoglobulin therapy. No immune deficiencies. BREAST: Denies current breast lumps, pain or nipple discharge. PHYSICAL EXAM: VITALS: Reviewed CONSTITUTIONAL: Well developed and in no acute distress. EYES: Conjuctivae without sclera icterus. Pupils are equally round and reactive to light. Extraocular movements grossly intact. HEAD, EARS, NOSE, THROAT: Moist buccal mucosa. Head is atraumatic, normoc ephalic. Hears conversational speech. No nasal drainage. NECK: Supple. No JV distention. RESPIRATORY: Non-labored respirations and equal bilateral excursions. No gross wheezes. CARDIOVASCULAR: Regular rate and rhythm. Extremities without moderate edema. Palpable 2+ radial pulses. ABDOMEN: Soft. Non-tender. Nondistended. LYMPH: No neck lymphadenopathy. No axillary lymphadenopathy. MUSCULOSKELETAL: Nail and fingers with good capillary refill. SKIN: Warm and well perfused with good skin turgor. NEUROLOGIC: Cranial nerves I through XII grossly intact. Sensation upper and extremities intact. No focal or lateralizing signs. PSYCH: Alert and oriented to person, place and time. Displays appropriate insight. She has mild forgetfulness. CLINCAL LABS: Reviewed WBC over 11,000. Lactate 2. now now normal at 1.3. ALT and AST elevated IMAGING: Independently reviewed CT of the abdomen and pelvis with incisional hernia involving mid transverse colon without bowel obstruction of the large colon. No free air. Also multiple gallstones. Has moderate mistry diverticulosis including the sigmoid colon RADIOLOGY: Report reviewed consistent with gallstones including incisional hernia without large bowel obstruction ASSESSMENT: 1. Incisional hernia with transverse colon 2. Abdominal pain 3. Elevated lactate 4. Past history of colectomy secondary to perforated bowel PLAN: 1. May start trial of diet. She reports abdominal pain is resolved 2. May discharge home once tolerating diet 3. Follow-up with her surgeon regarding positive Cologaurd and symptomatic incisional hernia involving transverse colon Thank you for this kind consultation. 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 Wilson; bilateral cataracts removed, Past Anesthesia/Blood Transfusion Reactions: No Reported Reaction Past Psychological History: No Psychological Hx Reported Additional Psychological History / Comment(s): claustrophobic Smoking Status: Never smoker Past Alcohol Use History: None Reported Past Drug Use History: None Reported - Past Family History Father Additional Family Medical History / Comment(s): kidney disorder per patient Mother Additional Family Medical History / Comment(s): fell had surgery and from a hospital aquired infection per patient Medications and Allergies Home Medications Medication Instructions Recorded Confirmed Type Acetaminophen Tab [Tylenol] 1,000 mg PO Q6H PRN 02/25/16 10/25/19 History Latanoprost 1 drop LEFT EYE HS 02/25/16 10/25/19 History amLODIPine [Norvasc] 2.5 mg PO DAILY #7 tablet 12/14/17 10/25/19 Rx Dorzolamide HCl [Trusopt 2%] 1 drop BOTH EYES BID 06/11/18 10/25/19 History Triamcinolone 0.1% Ointment 1 applic TOPICAL TID PRN 10/25/19 10/25/19 History [Kenalog 0.1% Ointment] Allergies Allergy/AdvReac Type Severity Reaction Status Date / Time No Known Allergies Allergy Verified 10/25/19 08:15 Surgical - Exam Vital Signs Temp Pulse Resp BP Pulse Ox 97.5 F L 68 18 171/94 99 10/25/19 02:02 10/25/19 02:02 10/25/19 02:02 10/25/19 02:02 10/25/19 02:02 Results - Labs 10/25/19 02:38 10/25/19 02:38 Abnormal Lab Results - Last 24 Hours (Table) 10/25/19 10/25/19 10/25/19 Range/Units 02:38 02:38 02:38 WBC 11.3 H (3.8-10.6) k/uL RBC 5.59 H (3.80-5.40) m/uL Hgb 16.2 H (11.4-16.0) gm/dL Hct 49.8 H (34.0-46.0) % Neutrophils # 8.5 H (1.3-7.7) k/uL Monocytes # 1.1 H (0-1.0) k/uL BUN 32 H (7-17) mg/dL Plasma Lactic Acid Pepe 2.9 H* (0.7-2.0) mmol/L AST 119 H (14-36) U/L ALT 44 H (4-34) U/L Ur Specific [place] (1.001-1.035) 10/25/19 Range/Units 05:37 WBC (3.8-10.6) k/uL RBC (3.80-5.40) m/uL Hgb (11.4-16.0) gm/dL Hct (34.0-46.0) % Neutrophils # (1.3-7.7) k/uL Monocytes # (0-1.0) k/uL BUN (7-17) mg/dL Plasma Lactic Acid Pepe (0.7-2.0) mmol/L AST (14-36) U/L ALT (4-34) U/L Ur Specific [place] >1.050 H (1.001-1.035) Diabetes panel 10/25/19 Range/Units 02:38 Sodium 140 (137-145) mmol/L Potassium 4.2 (3.5-5.1) mmol/L Chloride 106 (98-107) mmol/L Carbon Dioxide 25 (22-30) mmol/L BUN 32 H (7-17) mg/dL Creatinine 0.85 (0.52-1.04) mg/dL Glucose 95 (74-99) mg/dL Calcium 9.6 (8.4-10.2) mg/dL AST 119 H (14-36) U/L ALT 44 H (4-34) U/L Alkaline Phosphatase 82 (38-126) U/L Total Protein 6.7 (6.3-8.2) g/dL Albumin 4.1 (3.5-5.0) g/dL Calcium panel 10/25/19 Range/Units 02:38 Calcium 9.6 (8.4-10.2) mg/dL Albumin 4.1 (3.5-5.0) g/dL Pituitary panel 10/25/19 Range/Units 02:38 Sodium 140 (137-145) mmol/L Potassium 4.2 (3.5-5.1) mmol/L Chloride 106 (98-107) mmol/L Carbon Dioxide 25 (22-30) mmol/L BUN 32 H (7-17) mg/dL Creatinine 0.85 (0.52-1.04) mg/dL Glucose 95 (74-99) mg/dL Calcium 9.6 (8.4-10.2) mg/dL Adrenal panel 10/25/19 Range/Units 02:38 Sodium 140 (137-145) mmol/L Potassium 4.2 (3.5-5.1) mmol/L Chloride 106 (98-107) mmol/L Carbon Dioxide 25 (22-30) mmol/L BUN 32 H (7-17) mg/dL Creatinine 0.85 (0.52-1.04) mg/dL Glucose 95 (74-99) mg/dL Calcium 9.6 (8.4-10.2) mg/dL Total Bilirubin 0.7 (0.2-1.3) mg/dL AST 119 H (14-36) U/L ALT 44 H (4-34) U/L Alkaline Phosphatase 82 (38-126) U/L Total Protein 6.7 (6.3-8.2) g/dL Albumin 4.1 (3.5-5.0) g/dL Assessment and Plan (1) Incisional hernia with obstruction Current Visit: Yes Status: Acute Code(s): K43.0 - INCISIONAL HERNIA WITH OBSTRUCTION, WITHOUT GANGRENE SNOMED Code(s): 965939636 (2) H/O colectomy Current Visit: Yes Status: Acute Code(s): Z90.49 - ACQUIRED ABSENCE OF OTHER SPECIFIED PARTS OF DIGESTIVE TRACT SNOMED Code(s): 201484080 (3) Diverticulosis Current Visit: Yes Status: Acute Code(s): K57.90 - DVRTCLOS OF INTEST, PART UNSP, W/O PERF OR ABSCESS W/O BLEED SNOMED Code(s): 143846923 (4) Gallstone Current Visit: Yes Status: Acute Code(s): K80.20 - CALCULUS OF GALLBLADDER W/O CHOLECYSTITIS W/O OBSTRUCTION SNOMED Code(s): 073477790 (5) Elevated liver enzymes Current Visit: Yes Status: Acute Code(s): R74.8 - ABNORMAL LEVELS OF OTHER SERUM ENZYMES SNOMED Code(s): 226888756
[2019-10-25] MEDS ORDERED: LATANOPROST 0.005% OPHTH DROPS 2.5 ML BTL LEFT EYE SCH (21:00)
[2019-10-25] MEDS ORDERED: DORZOLAMIDE HCL 2% DROPS 10 ML BTL BOTH EYES SCH (21:00)
[2019-10-26 01:38] VITALS: RESP 16
[2019-10-26] MEDS: SODIUM CHLORIDE 0.9% 1,000 ML IV SCH ×2 (01:56→11:30)
[2019-10-26 07:15] LABS: Basophils # (A) 0.1 k/uL (0-0.2); Basophils % (A) 1 %; Eosinophils # (A) 0.2 k/uL (0-0.7); Eosinophils % (A) 2 %; HCT 43.8 % (34.0-46.0); HGB 13.7 gm/dL (11.4-16.0); Lymphocytes # (A) 0.8 k/uL (1.0-4.8); Lymphocytes % (A) 9 %; MCH 28.9 pg (25.0-35.0); MCHC 31.3 g/dL (31.0-37.0); MCV 92.3 fL (80.0-100.0); Mean Platelet Volume 11.3; Monocytes # (A) 0.7 k/uL (0-1.0); Monocytes % (A) 8 %; Neutrophils # (A) 6.3 k/uL (1.3-7.7); Neutrophils % (A) 77 %; Platelet Count 181 k/uL (150-450); RBC 4.75 m/uL (3.80-5.40); RDW 14.3 % (11.5-15.5); WBC 8.2 k/uL (3.8-10.6)
[2019-10-26 07:25] LABS: ALT 46 U/L (4-34); AST 123 U/L (14-36); African American GFR (CKD) >90 (>60 ml/min/1.73 sqM); Albumin 3.5 g/dL (3.5-5.0); Alkaline Phosphatase 66 U/L (38-126); Anion Gap 5 mmol/L; Blood Urea Nitrogen 19 mg/dL (7-17); Calcium 8.7 mg/dL (8.4-10.2); Carbon Dioxide 26 mmol/L (22-30); Chloride 110 mmol/L (98-107); Glucose 107 mg/dL (74-99); Non-African American GFR(CKD) 79 (>60 ml/min/1.73 sqM); Potassium 4.3 mmol/L (3.5-5.1); Sodium 141 mmol/L (137-145); Total Bilirubin 0.8 mg/dL (0.2-1.3)
[2019-10-26] MEDS: amLODIPine 2.5 MG TAB PO SCH (07:39)
[2019-10-26] MEDS ORDERED: FAMOTIDINE 20 MG/2 ML VIAL IV SCH (09:00)
[2019-10-26 11:08] VITALS: BP 174/77; PULSE 57; TEMP 98.5
--- NOTE | 2019-10-26 13:33 | P.DS ---
Providers Date of admission: 10/25/19 05:33 Expected date of discharge: 10/26/19 Attending physician: Juany Hamilton Consults: 10/25/19 05:33 Consult Physician Stat Consulting Provider: Jess King Consult Reason/Comments: abdominal pain Do you want consulting provider notified?: Already Contacted 10/25/19 15:42 Consult Physician Routine Consulting Provider: Zain Hernandez Consult Reason/Comments: generalized skin rash Do you want consulting provider notified?: Yes Primary care physician: Tamika Oquendo Hospital Course: Diagnoses on discharge: #1 abdominal pain with computed tomography scan findings revealing evidence of distended small bowel related to ileus versus partial mechanical obstruction at this time patient is kept nothing by mouth surgical consultation is requested, abdominal pain has improved with conservative measures Will monitor. Patient was seen by surgery her symptoms improved, she was able to tolerate liquid diet which was gradually increased to regular diet, she started having bowel movements, patient was cleared by surgery to be discharged home, most likely diagnosis is ileus which resolved spontaneously. #2 ventral hernia, containing transverse colon without signs of obstruction, unchanged from previous testing #3 evidence of numerous gallstones on computed tomography scan #4 underlying history of hypertension maintained on Norvasc at home continue #5 evidence of diverticulosis without evidence of acute diverticulitis #6 underlying history of glaucoma. Hospital course: Ekta Yañez is an 84-year-old female patient of Dr. Oquendo, who presented to [facility] emergency room with a chief complaint of abdominal pain, patient stated that last night she started having abdominal pain which was quite severe in the periumbilical area there was no fever or chills no nausea or vomiting no diarrhea no blood in the stools, pain was severe and patient decided to come to emergency room for evaluation. Computed tomography scan of the abdomen and pelvis was done in the emergency room and revealed evidence of distended small bowel related to mild ileus or partial mechanical obstruction patient was admitted to medical floor and surgical consultation was requested. Computed tomography scan also revealed evidence of incarcerated ventral hernia containing transverse colon on without definite signs of obstruction, this is a chronic finding that was present on previous exams and is unchanged from previous.Patient was asymptomatic throughout this admission she was started on liquid diet which was gradually increased to regular diet patient was able to tolerate well, on 10/26/2019 she was having bowel movements, she was evaluated by surgery and was cleared for discharge, patient was eager to go home, she was discharged home on 10/26/2019 no change in her medications she will follow-up with her primary care physician within one week. Patient Condition at Discharge: Fair Plan - Discharge Summary Discharge Rx Participant: No New Discharge Prescriptions: Continue Latanoprost 1 drop LEFT EYE HS Acetaminophen Tab [Tylenol] 1,000 mg PO Q6H PRN PRN Reason: Pain amLODIPine [Norvasc] 2.5 mg PO DAILY #7 tablet Dorzolamide HCl [Trusopt 2%] 1 drop BOTH EYES BID Triamcinolone 0.1% Ointment [Kenalog 0.1% Ointment] 1 applic TOPICAL TID PRN PRN Reason: Rash Discharge Medication List Acetaminophen Tab [Tylenol] 1,000 mg PO Q6H PRN 02/25/16 [History] Latanoprost 1 drop LEFT EYE HS 02/25/16 [History] amLODIPine [Norvasc] 2.5 mg PO DAILY #7 tablet 12/14/17 [Rx] Dorzolamide HCl [Trusopt 2%] 1 drop BOTH EYES BID 06/11/18 [History] Triamcinolone 0.1% Ointment [Kenalog 0.1% Ointment] 1 applic TOPICAL TID PRN 10/25/19 [History] Follow up Appointment(s)/Referral(s): Tamika Oquendo MD [Primary Care Provider] - 1-2 days Patient Instructions/Handouts: Abdominal Pain (ED)
--- NOTE | 2019-10-26 14:24 | P.PN ---
Subjective Progress Note Date: 10/26/19 CHIEF COMPLAINT: Abdominal pain HISTORY OF PRESENT ILLNESS: The patient is a 84-year-old female admitted secondary to abdominal pain and history of incisional hernia involving the transverse colon. She is passing flatus. She is tolerating diet. Abdominal pain improved. REVIEW OF ORGAN SYSTEMS: No fevers. No chills. Passing flatus. No chest pain. PHYSICAL EXAM: VITALS: Reviewed CONSTITUTIONAL: Well developed and in no acute distress. EYES: Conjuctivae without sclera icterus. Pupils are equally round and reactive to light. Extraocular movements grossly intact. HEAD, EARS, NOSE, THROAT: Moist buccal mucosa. Head is atraumatic, normocephalic. Hears conversational speech. No nasal drainage. RESPIRATORY: Non-labored respirations and equal bilateral excursions. CARDIOVASCULAR: Palpable 2+ radial pulses. ABDOMEN: Soft. Non-tender. Nondistended. Large palpable incisional hernia re ducible epigastrium MUSCULOSKELETAL: Nail and fingers with good capillary refill. SKIN: Warm and well perfused with good skin turgor. NEUROLOGIC: Cranial nerves I through XII grossly intact. Sensation upper and extremities intact. No focal or lateralizing signs. PSYCH: Alert and oriented to person, place and time. Displays appropriate insight. She has mild forgetfulness. CLINCAL LABS: Reviewed WBC over 11,000 now normal 8200 ASSESSMENT: 1. Incisional hernia with transverse colon 2. Abdominal pain, resolved 3. Elevated lactate 4. Past history of colectomy secondary to perforated bowel PLAN: 1. Overall, stable for discharge. 2. I have discussed with her meet follow-up with her surgeon regarding her symptomatic incisional hernia Objective - Vital Signs Vital signs: Vital Signs Temp 98.5 F 10/26/19 07:39 Pulse 57 L 10/26/19 07:39 Resp 16 10/26/19 07:39 BP 174/77 10/26/19 07:39 Pulse Ox 98 10/26/19 07:39 Intake & Output 10/25/19 10/26/19 10/26/19 18:59 06:59 18:59 Intake Total 2149 Balance 2149 Intake: Intake, IV Titration 1749 Amount Sodium Chloride 0.9% 1, 750 000 ml @ 125 mls/hr IV . Q8H [facility] Rx#:[id number] Sodium Chloride 0.9% 1, 999 000 ml @ 999 mls/hr IV . Q1H1M ONE Rx#:[id number] Oral 400 Other: Voiding Method Toilet # Voids 3 1 - Labs CBC & Chem 7: 10/26/19 06:41 10/26/19 06:41 Labs: Abnormal Lab Results - Last 24 Hours (Table) 10/26/19 10/26/19 Range/Units 06:41 06:41 Lymphocytes # 0.8 L (1.0-4.8) k/uL Chloride 110 H (98-107) mmol/L BUN 19 H (7-17) mg/dL Glucose 107 H (74-99) mg/dL AST 123 H (14-36) U/L ALT 46 H (4-34) U/L Total Protein 6.0 L (6.3-8.2) g/dL Assessment and Plan (1) Incisional hernia with obstruction Current Visit: Yes Status: Acute Code(s): K43.0 - INCISIONAL HERNIA WITH OBSTRUCTION, WITHOUT GANGRENE SNOMED Code(s): 400074152 (2) H/O colectomy Current Visit: Yes Status: Acute Code(s): Z90.49 - ACQUIRED ABSENCE OF OTHER SPECIFIED PARTS OF DIGESTIVE TRACT SNOMED Code(s): 701419112 (3) Diverticulosis Current Visit: Yes Status: Acute Code(s): K57.90 - DVRTCLOS OF INTEST, PART UNSP, W/O PERF OR ABSCESS W/O BLEED SNOMED Code(s): 978265460 (4) Gallstone Current Visit: Yes Status: Acute Code(s): K80.20 - CALCULUS OF GALLBLADDER W/O CHOLECYSTITIS W/O OBSTRUCTION SNOMED Code(s): 477411709 (5) Elevated liver enzymes Current Visit: Yes Status: Acute Code(s): R74.8 - ABNORMAL LEVELS OF OTHER SERUM ENZYMES SNOMED Code(s): 196916133
--- NOTE | 2019-10-31 04:32 | CDI ---
Documentation Clarification Form Date: 10/31/2019 From: Rickie Hilliard Phone: If you have a question about this query, please contact Kathy Motley Outreach Clinician at [phone] between 8am and 5pm. Admit Date: 10/25/2019 Discharge Date: 10/26/2019 Patient Name: Ekta Yañez Visit Number: [id number] ATTENTION: The Clinical Documentation Specialists (CDI) and [facility] Coding Staff appreciate your assistance in clarifying documentation. Please respond to the clarification below the line at the bottom and electronically sign. The CDI & [facility] Coding staff will review the response and follow-up if needed. Please note: Queries are made part of the Legal Health Record. If you have any questions, please contact the author of this message via ITS. Dear Juany Reynoso., The patient presented with the Ileus vs small bowel obstruction History/Risk Factors: Bowel resection Radiology findings: Computed tomography scan of the abdomen and pelvis was done in the emergency room and revealed evidence of distended small bowel related to mild ileus or partial mechanical obstruction. Other Clinical Indicators:Computed tomography scan also revealed evidence of incarcerated ventral hernia containing transverse colon Consults: Jess King MD Patient was seen by surgery her symptoms improved, she was able to tolerate liquid diet which was gradually increased to regular diet, she started having bowel movements, patient was cleared by surgery to be discharged home, most likely diagnosis is ileus which resolved spontaneously. -Colectomy Over 3+ years ago. In your professional opinion, can you please clarify Ileus resulted from Previous Colectomy surgical complication? YES NO Other, please specify Unable to determine unable to determine MTDD
== END 2019-10-26 14:50 | disposition home or self-care (01) | DRG 389 ==
LOC: EC 01:59 → 4SSUR 05:33
PROVIDERS: ADMIT Internal Medicine; ATTEND Internal Medicine
DX: K56.7 Ileus, unspecified (principal); K43.0 Incisional hernia with obstruction, without gangrene; K43.9 Ventral hernia without obstruction or gangrene; M19.90 Unspecified osteoarthritis, unspecified site; I10 Essential (primary) hypertension; K58.0 Irritable bowel syndrome with diarrhea; K80.20 Calculus of gallbladder without cholecystitis without obstruction; K57.90 Diverticulosis of intestine, part unspecified, without perforation or abscess without bleeding; H40.9 Unspecified glaucoma; R21 Rash and other nonspecific skin eruption; Z90.49 Acquired absence of other specified parts of digestive tract; Z79.899 Other long term (current) drug therapy; Z90.89 Acquired absence of other organs; Z90.710 Acquired absence of both cervix and uterus; Z84.1 Family history of disorders of kidney and ureter
CPT/HCPCS: 36415; 74177; 80053; 81003; 82150; 83605; 83690; 85025; 96361; 96374; 96375; 96376; 99285

== ENCOUNTER → 2019-11-06 | Outpatient (CLI) | payer MEDICARE ==
--- NOTE | 2019-11-06 14:49 | CT ---
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 CONTRAST: CT scan of the chest is performed with IV Contrast, patient injected with 100 mL of Isovue 300. FINDINGS: The heart is mildly enlarged. LUNGS: The lungs are grossly clear, there is no concerning parenchymal mass or nodule identified. [place] bpleural nodular focus on axial image 14 is thought likely to be postinflammatory. There are intersti tial changes within the lungs. Some areas of probable scarring noted. There is no pleural effusion or pneumothorax seen. The tracheobronchial tree is patent. MEDIASTINUM: There are no greater than 1 cm hilar or mediastinal lymph nodes. No pericardial effusi on is seen. AORTA: No additional significant abnormality is seen. OTHER: Large exophytic cyst present at the upper pole left kidney measures 5.7 cm. Multiple calcifie d gallstones are noted to be contracted gallbladder. Low-attenuation within the liver may be due to h epatic steatosis. IMPRESSION: Cardiomegaly. Interstitial lung disease. Nonspecific nodular density at the lung felt li sandhya to be benign, follow-up could be performed to assess for stability. Cholelithiasis. Additional f indings above.
== END | disposition home or self-care (01) ==
LOC: RADCTMAIN 13:44
PROVIDERS: ATTEND Internal Medicine Rheumatology
DX: J84.9 Interstitial pulmonary disease, unspecified (principal); I51.7 Cardiomegaly; J98.4 Other disorders of lung
CPT/HCPCS: 71260; Q9967

== ENCOUNTER 2019-11-16 08:22 | Inpatient (IN) | payer MEDICARE ==
--- NOTE | 2019-11-16 08:52 | ED ---
General Adult HPI - General Chief complaint: Weakness Stated complaint: weakness Time Seen by Provider: 11/16/19 08:27 Source: patient, RN notes reviewed Mode of arrival: wheelchair Limitations: no limitations - History of Present Illness Initial comments: Patient is a pleasant 84-year-old female presenting to the emergency Department with general weakness. Symptoms have been occurring for a month. Patient saw Dr. Medina week ago and was started on steroids. Symptoms have been improving and then worsened again last night. Patient is proximal muscle weakness of her arms and legs. Patient does have difficulty walking. Patient does have diffuse rash of her upper body. No isolated area of weakness. Patient states there was an episode this morning when she forgot her address otherwise no confusion. No speech problems. - Related Data Home Medications Medication Instructions Recorded Confirmed Acetaminophen Tab [Tylenol] 1,000 mg PO Q6H PRN 02/25/16 10/25/19 Latanoprost 1 drop LEFT EYE HS 02/25/16 10/25/19 Dorzolamide HCl [Trusopt 2%] 1 drop BOTH EYES BID 06/11/18 10/25/19 Triamcinolone 0.1% Ointment 1 applic TOPICAL TID PRN 10/25/19 10/25/19 [Kenalog 0.1% Ointment] Previous Rx's Medication Instructions Recorded amLODIPine [Norvasc] 2.5 mg PO DAILY #7 tablet 12/14/17 Allergies Allergy/AdvReac Type Severity Reaction Status Date / Time No Known Allergies Allergy Verified 11/16/19 08:30 Review of Systems ROS Statement: Those systems with pertinent positive or pertinent negative responses have been documented in the HPI. ROS Other: All systems not noted in ROS Statement are negative. 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 Wilson; bilateral cataracts removed, L leg muscle biopsy Past Anesthesia/Blood Transfusion Reactions: No Reported Reaction Past Psychological History: No Psychological Hx Reported Smoking Status: Never smoker Past Alcohol Use History: None Reported Past Drug Use History: None Reported - Past Family History Father Additional Family Medical History / Comment(s): kidney disorder per patient Mother Additional Family Medical History / Comment(s): fell had surgery and from a hospital aquired infection per patient General Exam Limitations: no limitations General appearance: alert, in no apparent distress Head exam: Present: normocephalic Eye exam: Present: normal appearance, PERRL, EOMI ENT exam: Present: normal oropharynx Neck exam: Present: normal inspection. Absent: tenderness Respiratory exam: Present: normal lung sounds bilaterally Cardiovascular Exam: Present: regular rate, normal rhythm GI/Abdominal exam: Present: soft, hernia (Easily reducible ventral hernia). Absent: tenderness Extremities exam: Present: normal inspection Back exam: Present: normal inspection Neurological exam: Present: alert, oriented X3, CN II-XII intact Expanded Neurological exam: Present: protecting the airway Patient oriented to: Present: person, place, time Speech: Present: fluid speech Cranial nerves: EOM's Intact: Normal Motor strength exam: RUE: 3, LUE: 3, RLE: 3, LLE: 2/1 Eye Response: (4) open spontaneously Motor Response: (6) obeys commands Verbal Response: (5) oriented Psychiatric exam: Present: normal affect, normal mood Skin exam: Present: rash (Diffuse patchy erythematous rash of the face upper back and bilateral arms, mild on the abdomen.) Course Vital Signs 11/16/19 11/16/19 11/16/19 08:27 08:52 09:12 Temperature 97.7 F 98.6 F Pulse Rate 72 72 Pulse Rate [ 67 [employer] Adjuster ] Respiratory 18 20 22 Rate Blood Pressure 178/89 146/65 O2 Sat by Pulse 99 97 Oximetry - Reevaluation(s) Reevaluation #1: 11/16/19 08:59 Case was discussed with Dr. Medina who states patient did have recent positive biopsy for dermatomyositis. She does recommend admission of patient with IV soluMedrol 125 bolus followed by 60 q6. She is out of town until Sunday and can be consult at that time if needed, however she would hope patient does not need to be in the hospital that long. She states she could always be called if needed. 11/16/19 09:19 Case was discussed in detail with Dr. Rodgers, covering for Dr. Hamilton, who admits for Dr. sinclair. Patient reevaluated. Patient and family updated. EKG Findings - EKG Comments: EKG Findings:: Sinus rhythm at 75. PA 128. QRS 98. QT 370. QTc 413. Left axis. Incomplete right bundle-branch block. Nonspecific ST-T. Medical Decision Making - Lab Data Result diagrams: 11/16/19 08:42 Lab Results 11/16/19 11/16/19 11/16/19 Range/Units 08:42 08:42 08:42 PT 10.9 (9.0-12.0) sec INR 1.1 (<1.2) APTT 20.1 L (22.0-30.0) sec Sodium 139 (137-145) mmol/L Potassium 4.0 (3.5-5.1) mmol/L Chloride 106 (98-107) mmol/L Carbon Dioxide 23 (22-30) mmol/L Anion Gap 10 mmol/L BUN 33 H (7-17) mg/dL Creatinine 0.84 (0.52-1.04) mg/dL Est GFR (CKD-EPI)AfAm 74 (>60 ml/min/1.73 sqM) Est GFR (CKD-EPI)NonAf 64 (>60 ml/min/1.73 sqM) Glucose 137 H (74-99) mg/dL Plasma Lactic Acid Pepe 3.2 H* (0.7-2.0) mmol/L Calcium 9.7 (8.4-10.2) mg/dL Phosphorus 2.7 (2.5-4.5) mg/dL Magnesium 2.4 H (1.6-2.3) mg/dL Total Bilirubin 1.1 (0.2-1.3) mg/dL AST 40 H (14-36) U/L ALT 43 H (4-34) U/L Alkaline Phosphatase 61 (38-126) U/L Creatine Kinase 166 H (30-135) U/L Total Protein 6.7 (6.3-8.2) g/dL Albumin 4.1 (3.5-5.0) g/dL Disposition Clinical Impression: Dermatomyositis, Proximal muscle weakness, Ataxia Disposition: ADMITTED IP TO THIS HOSP Condition: Serious Is patient prescribed a controlled substance at d/c from ED?: No Referrals: Tamika Oquendo MD [Primary Care Provider] - 1-2 days Decision Time: 09:02
[2019-11-16] MEDS ORDERED: methylPREDNISolone SOD SUCCI 125 MG/2 ML VIAL IV STA (09:02)
[2019-11-16] MEDS ORDERED: NALOXONE 0.4 MG/ML 1 ML VIAL IV PRN (09:03)
[2019-11-16 09:11] LABS: Albumin 4.1 g/dL (3.5-5.0); Calcium 9.7 mg/dL (8.4-10.2); Magnesium 2.4 mg/dL (1.6-2.3); Phosphorus 2.7 mg/dL (2.5-4.5); Total Bilirubin 1.1 mg/dL (0.2-1.3); Total Protein 6.7 g/dL (6.3-8.2)
[2019-11-16] MEDS: SODIUM CHLORIDE 0.9% 1,000 ML IV SCH (09:11)
[2019-11-16 09:16] LABS: INR 1.1 (<1.2); Prothrombin Time 10.9 sec (9.0-12.0)
[2019-11-16 09:19] LABS: Partial Thromboplastin Time 20.1 sec (22.0-30.0)
[2019-11-16 09:21] LABS: Basophils # (A) 0.2 k/uL (0-0.2); Basophils % (A) 1 %; Eosinophils % (A) 0 %; HCT 52.1 % (34.0-46.0); HGB 17.3 gm/dL (11.4-16.0); Lymphocytes # (A) 0.7 k/uL (1.0-4.8); Lymphocytes % (A) 5 %; MCH 29.4 pg (25.0-35.0); MCHC 33.2 g/dL (31.0-37.0); MCV 88.8 fL (80.0-100.0); Mean Platelet Volume 12.7; Monocytes # (A) 0.7 k/uL (0-1.0); Monocytes % (A) 5 %; Neutrophils % (A) 89 %; Platelet Count 318 k/uL (150-450); RBC 5.87 m/uL (3.80-5.40); RDW 14.6 % (11.5-15.5); WBC 14.6 k/uL (3.8-10.6)
[2019-11-16 09:26] LABS: T4, Free (Free Thyroxine) 1.24 ng/dL (0.78-2.19)
[2019-11-16] MEDS ORDERED: SODIUM CHLORIDE 0.9% 250 ML IV STA (09:28)
--- NOTE | 2019-11-16 09:32 | XR ---
EXAMINATION TYPE: XR chest 2V DATE OF EXAM: 11/16/2019 HISTORY: Weakness. REFERENCE: Previous study dated 12/14/2017. FINDINGS: The heart is enlarged. The lungs are clear. Pleural spaces are clear. IMPRESSION: CARDIOMEGALY.
[2019-11-16 09:37] LABS: Large Platelets Present
[2019-11-16] MEDS: FAMOTIDINE 20 MG TAB PO SCH (12:31)
[2019-11-16] MEDS: methylPREDNISolone SOD SUCCI 125 MG/2 ML VIAL IV SCH ×3 (13:09→23:35)
[2019-11-16 13:31] LABS: Appearance,Urine Clear (Clear); Bilirubin,Urine Negative (Negative); Blood,Urine Negative (Negative); Color,Urine Yellow; Glucose,Urine (UA) Negative (Negative); Ketones,Urine Negative (Negative); Protein,Urine Negative (Negative)
[2019-11-16 13:32] LABS: Leukocyte Esterase,Urine Negative (Negative); Nitrite,Urine Negative (Negative); Urobilinogen,Urine <2.0 mg/dL (<2.0)
[2019-11-16] MEDS ORDERED: ACETAMINOPHEN TAB 500 MG TAB PO PRN (14:19)
[2019-11-16] MEDS: LOSARTAN 50 MG TAB PO SCH (15:06)
[2019-11-16 20:16] LABS: Glucose,Whole Blood 146 mg/dL (75-99)
[2019-11-16] MEDS ORDERED: FAMOTIDINE 20 MG TAB PO SCH (21:00)
[2019-11-16] MEDS: LATANOPROST 0.005% OPHTH DROPS 2.5 ML BTL LEFT EYE SCH (21:00)
[2019-11-16] MEDS: DORZOLAMIDE HCL 2% DROPS 10 ML BTL LEFT EYE SCH (21:00)
[2019-11-16] MEDS: INSULIN ASPART (NovoLOG) 100 UNIT/ML VIAL SQ SCH (21:01)
[2019-11-16] MEDS ORDERED: amLODIPine 5 MG TAB PO STA (22:09)
--- NOTE | 2019-11-17 01:27 | P.HPPUL ---
History of Present Illness H&P Date: 11/16/19 Chief Complaint: Exacerbation of dermatomyositis This is a 84-year-old female who presented with them generalized weakness to emergency department symptoms have been progressive for a month now patient has been seen by Dr. Medina advised to have IV steroids due to progressive weakness, recent biopsy done by Dr. 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 Wilson; bilateral cataracts removed, L leg muscle biopsy Past Anesthesia/Blood Transfusion Reactions: No Reported Reaction Past Psychological History: No Psychological Hx Reported Additional Psychological History / Comment(s): claustrophobic Smoking Status: Never smoker Past Alcohol Use History: None Reported Past Drug Use History: None Reported - Past Family History Father Additional Family Medical History / Comment(s): kidney disorder per patient Mother Additional Family Medical History / Comment(s): fell had surgery and from a hospital aquired infection per patient Medications and Allergies Home Medications Medication Instructions Recorded Confirmed Type Acetaminophen Tab [Tylenol] 1,000 mg PO Q6H PRN 02/25/16 11/16/19 History Latanoprost 1 drop LEFT EYE HS 02/25/16 11/16/19 History Dorzolamide HCl [Trusopt 2%] 1 drop LEFT EYE BID 06/11/18 11/16/19 History Loperamide HCl [Imodium A-D] 4 mg PO DAILY 11/16/19 11/16/19 History predniSONE [Deltasone] 20 mg PO TID 11/16/19 11/16/19 History Allergies Allergy/AdvReac Type Severity Reaction Status Date / Time No Known Allergies Allergy Verified 11/16/19 10:15 Physical Examination Vital signs: Vital Signs Temp Pulse Resp BP Pulse Ox 97.7 F 72 18 178/89 99 11/16/19 08:27 11/16/19 08:27 11/16/19 08:27 11/16/19 08:27 11/16/19 08:27 General appearance: no acute distress, alert Eyes: nonicteric ENT: oropharynx moist Effort: normal Percussion: Bilateral: not dull Tactile fremitus: Bilateral: normal Cardiovascular: regular rate and rhythm Gastrointestinal: normoactive bowel sounds Integumentary: normal Extremities: pink and warm, pulses normal, no ischemia or petechiae Musculoskeletal: no deformities normal mental status, non-focal exam, pupils equal and round, CN II-XII normal, motor strength normal and symmetric Results - Laboratory Findings CBC and BMP: 11/16/19 08:42 11/16/19 08:42 PT/INR, D-dimer PT 10.9 sec (9.0-12.0) 11/16/19 08:42 INR 1.1 (<1.2) 11/16/19 08:42 Abnormal lab findings: Abnormal Labs 11/16/19 11/16/19 11/16/19 08:42 08:42 08:42 WBC 14.6 H RBC 5.87 H Hgb 17.3 H Hct 52.1 H Neutrophils # 13.0 H Lymphocytes # 0.7 L APTT BUN 33 H Glucose 137 H POC Glucose (mg/dL) Plasma Lactic Acid Pepe 3.2 H* Magnesium 2.4 H AST 40 H ALT 43 H Creatine Kinase 166 H Troponin I Free T3 pg/mL 2.5 L 11/16/19 11/16/19 11/16/19 08:42 08:42 14:49 WBC RBC Hgb Hct Neutrophils # Lymphocytes # APTT 20.1 L BUN Glucose POC Glucose (mg/dL) Plasma Lactic Acid Pepe Magnesium AST ALT Creatine Kinase Troponin I 0.070 H* 0.064 H* Free T3 pg/mL 11/16/19 11/16/19 20:08 20:11 WBC RBC Hgb Hct Neutrophils # Lymphocytes # APTT BUN Glucose POC Glucose (mg/dL) 146 H Plasma Lactic Acid Pepe Magnesium AST ALT Creatine Kinase Troponin I 0.083 H* Free T3 pg/mL - Diagnostic Findings Chest x-ray: report reviewed (Besides cardiomegaly otherwise fairly unremarkable), image reviewed Assessment and Plan Assessment: Acute exacerbation of her dermatomyositis Plan: IV steroids as per recommendation of Dr. Medina Time with Patient: Greater than 30
[2019-11-17] MEDS: methylPREDNISolone SOD SUCCI 125 MG/2 ML VIAL IV SCH ×3 (05:55→17:56)
[2019-11-17 07:06] LABS: Glucose,Whole Blood 110 mg/dL (75-99)
[2019-11-17] MEDS: INSULIN ASPART (NovoLOG) 100 UNIT/ML VIAL SQ SCH ×4 (07:35→20:21)
[2019-11-17] MEDS: DORZOLAMIDE HCL 2% DROPS 10 ML BTL LEFT EYE SCH ×2 (07:51→20:23)
[2019-11-17] MEDS: LOSARTAN 50 MG TAB PO SCH (07:53)
[2019-11-17] MEDS: FAMOTIDINE 20 MG TAB PO SCH (07:53)
[2019-11-17] MEDS: LOPERAMIDE 2 MG CAP PO SCH (07:53)
[2019-11-17 10:54] LABS: Glucose,Whole Blood 153 mg/dL (75-99)
[2019-11-17] MEDS: SODIUM CHLORIDE 0.9% 1,000 ML IV SCH (12:40)
--- NOTE | 2019-11-17 15:56 | P.PN ---
Subjective Progress Note Date: 11/17/19 Principal diagnosis: Acute exacerbation of dermatomyositis Elevated troponin related to above Irritable bowel syndrome Glaucoma of the right eye History of shingles 11/17/2019, patient seen eval examined and updated about biopsy finding, also updated about plans of rheumatology service, patient continued to be on high- dose steroid already very well will follow clinical course closely labs reviewed medications reviewed This is a 84-year-old female who presented with them generalized weakness to emergency department symptoms have been progressive for a month now patient has been seen by Dr. Medina advised to have IV steroids due to progressive weakness, recent biopsy done by Dr. Crane is positive Objective - Vital Signs Vital signs: Vital Signs Temp 98.9 F 11/17/19 11:48 Pulse 72 11/17/19 11:48 Resp 18 11/17/19 11:48 BP 127/73 11/17/19 11:48 Pulse Ox 93 L 11/17/19 11:48 Intake & Output 11/16/19 11/17/19 11/17/19 18:59 06:59 18:59 Intake Total 1510 240 Balance 1510 240 Weight 68.492 kg Intake: Intake, IV Titration 310 Amount Sodium Chloride 0.9% 1, 60 000 ml @ 20 mls/hr IV . Q24H [facility] Rx#:[id number] Sodium Chloride 0.9% 250 250 ml @ 999 mls/hr IV .Q16M [facility] Rx#:[id number] Oral 1200 240 Other: Voiding Method Toilet Toilet Toilet Bedside Commode Bedside Commode Bedside Commode # Voids 2 1 - Exam General appearance: no acute distress, alert Eyes: nonicteric ENT: oropharynx moist Effort: normal Percussion: Bilateral: not dull Tactile fremitus: Bilateral: normal Cardiovascular: regular rate and rhythm Gastrointestinal: normoactive bowel sounds Integumentary: normal Extremities: pink and warm, pulses normal, no ischemia or petechiae Musculoskeletal: no deformities normal mental status, non-focal exam, pupils equal and round, CN II-XII normal, motor strength normal and symmetric - Labs CBC & Chem 7: 11/16/19 08:42 11/16/19 08:42 Labs: Abnormal Lab Results - Last 24 Hours (Table) 11/16/19 11/16/19 11/16/19 Range/Units 14:49 20:08 20:11 POC Glucose (mg/dL) 146 H (75-99) mg/dL Troponin I 0.064 H* 0.083 H* (0.000-0.034) ng/mL 11/17/19 11/17/19 11/17/19 Range/Units 07:04 09:24 10:54 POC Glucose (mg/dL) 110 H 153 H (75-99) mg/dL Troponin I 0.070 H* (0.000-0.034) ng/mL Assessment and Plan Assessment: Acute exacerbation of dermatomyositis Elevated troponin related to above Irritable bowel syndrome Glaucoma of the right eye History of shingles Plan: IV steroids as per recommendation of Dr. Medina Follow clinical course closely closely Mildly elevated troponin likely due to dermatomyositis we'll observe clinical course closely Time with Patient: Greater than 30
[2019-11-17 17:09] LABS: Glucose,Whole Blood 126 mg/dL (75-99)
--- NOTE | 2019-11-17 19:31 | P.CRDCN ---
History of Present Illness History of present illness: This is Dr. Neff dictating a consult on this patient The patient was interviewed and examined by me IMPRESSION / ASSESSMENT: Minimally abnormal troponins without a rise and fall pattern likely skeletal muscle origin. 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 Hold off and statins Twelve-lead EKG HPI Patient presented to the emergency room with generalized weakness and discomfort. 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 She is complaining of possible proximal muscle weakness with difficulty walking she also has diffuse rash in the upper half of her body Coronary was consulted and content of abnormal troponins She denies any angina like symptoms undue shortness of breath dizziness or palpitations ROS: No fever chills or rigors, no cough, phlegm or expectoration, no nausea, vomiting or diarrhea, no hematuria, dysuria, no musculoskeletal complaints, no strokes or seizures, no skin lesions. EXAMINATION: On examination blood pressure is 146/72 mmHg 167/76 mg of mercury Heart rates in the 60s and 70s Afebrile 97.8F Breath sounds are clear no rhonchi no crackles Normal heart sounds normal S1 normal S2 REVIEW OF LABS, ECG & MEDICAL DATA White count elevated hemoglobin 17.3 BUN 33 creatinine 0.84 Troponins are 0.07 0.06 0.08 and 0.07, flat pattern TSH 2.9, normal Twelve-lead ECG shows sinus rhythm with left axis deviation, incomplete right bundle branch block pattern PVCs Past Medical History Past Medical History: Hypertension, Osteoarthritis (OA) Additional Past Medical History / Comment(s): 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 Wilson; bilateral cataracts removed, L leg muscle biopsy Past Anesthesia/Blood Transfusion Reactions: No Reported Reaction Past Psychological History: No Psychological Hx Reported Additional Psychological History / Comment(s): claustrophobic Smoking Status: Never smoker Past Alcohol Use History: None Reported Past Drug Use History: None Reported - Past Family History Father Additional Family Medical History / Comment(s): kidney disorder per patient Mother Additional Family Medical History / Comment(s): fell had surgery and from a hospital aquired infection per patient Medications and Allergies Home Medications Medication Instructions Recorded Confirmed Type RX: Acetaminophen Tab [Tylenol] 1,000 mg PO Q6H PRN 02/25/16 11/16/19 History RX: Latanoprost 1 drop LEFT EYE HS 02/25/16 11/16/19 History RX: Dorzolamide HCl [Trusopt 2%] 1 drop LEFT EYE BID 06/11/18 11/16/19 History Loperamide HCl [Imodium A-D] 4 mg PO DAILY 11/16/19 11/16/19 History predniSONE [Deltasone] 20 mg PO TID 11/16/19 11/16/19 History Allergies Allergy/AdvReac Type Severity Reaction Status Date / Time No Known Allergies Allergy Verified 11/16/19 10:15 Physical Exam Vitals: Vital Signs Temp Pulse Resp BP Pulse Ox 11/17/19 11:48 98.9 F 72 18 127/73 93 L 11/17/19 04:52 97.8 F 66 22 167/76 97 11/16/19 23:36 146/72 11/16/19 22:20 161/78 11/16/19 20:57 98.2 F 61 18 173/81 94 L Intake and Output 11/17/19 11/17/19 11/17/19 06:59 14:59 22:59 Intake Total 240 Balance 240 Intake: Oral 240 Other: Voiding Method Toilet Toilet Toilet Bedside Commode Bedside Commode Bedside Commode # Voids 1 3 Results 11/16/19 08:42 11/16/19 08:42 Cardiac Enzymes 11/16/19 11/17/19 Range/Units 20:08 09:24 Troponin I 0.083 H* 0.070 H* (0.000-0.034) ng/mL Current Medications Generic Name Dose Route Start Last Admin Trade Name Freq PRN Reason Stop Dose Admin Acetaminophen 1,000 mg 11/16/19 14:19 Tylenol Tab PO Q6H PRN Mild Pain Dorzolamide HCl 1 drops 11/16/19 21:00 11/17/19 07:51 Trusopt LEFT EYE 1 drops BID SANTY Administration Famotidine 20 mg 11/16/19 12:00 11/17/19 07:53 Pepcid PO 20 mg DAILY SANTY Administration Sodium Chloride 1,000 mls @ 20 mls/hr 11/16/19 09:15 11/17/19 12:40 Saline 0.9% IV Not Given .Q24H SANTY Insulin Aspart 0 unit 11/16/19 21:00 11/17/19 17:09 Novolog SQ Not Given ACHS [facility] Protocol Latanoprost 1 drops 11/16/19 21:00 11/16/19 21:00 Xalatan 0.005% LEFT EYE 1 drops HS SANTY Administration Loperamide HCl 4 mg 11/17/19 09:00 11/17/19 07:53 Imodium PO 4 mg DAILY SANTY Administration Losartan Potassium 50 mg 11/16/19 14:30 11/17/19 07:53 Cozaar PO 50 mg DAILY SANTY Administration Methylprednisolone Sodium Succinate 60 mg 11/16/19 12:00 11/17/19 17:56 Solu-Medrol IV 60 mg Q6HR SANTY Administration Naloxone HCl 0.2 mg 11/16/19 09:03 Narcan IV Q2M PRN Opioid Reversal Intake and Output 11/17/19 11/17/19 11/17/19 06:59 14:59 22:59 Intake Total 240 Balance 240 Intake: Oral 240 Other: Voiding Method Toilet Toilet Toilet Bedside Commode Bedside Commode Bedside Commode # Voids 1 3 11/16/19 08:42 11/16/19 08:42
[2019-11-17 20:16] LABS: Glucose,Whole Blood 144 mg/dL (75-99)
[2019-11-17] MEDS: LATANOPROST 0.005% OPHTH DROPS 2.5 ML BTL LEFT EYE SCH (20:23)
[2019-11-18] MEDS ORDERED: HALOPERIDOL 5 MG TAB PO STA (00:02)
[2019-11-18] MEDS: methylPREDNISolone SOD SUCCI 125 MG/2 ML VIAL IV SCH (00:19)
[2019-11-18 07:17] LABS: Glucose,Whole Blood 105 mg/dL (75-99)
[2019-11-18] MEDS: DORZOLAMIDE HCL 2% DROPS 10 ML BTL LEFT EYE SCH ×2 (07:53→21:42)
[2019-11-18] MEDS: INSULIN ASPART (NovoLOG) 100 UNIT/ML VIAL SQ SCH ×4 (07:53→21:00)
[2019-11-18] MEDS: FAMOTIDINE 20 MG TAB PO SCH (07:54)
[2019-11-18] MEDS: LOPERAMIDE 2 MG CAP PO SCH (07:54)
[2019-11-18] MEDS: methylPREDNISolone SOD SUCCI 40 MG/ML 1 ML VIAL IV SCH ×2 (07:54→21:47)
[2019-11-18] MEDS: LOSARTAN 50 MG TAB PO SCH ×2 (07:54→21:42)
[2019-11-18 08:19] LABS: Basophils % (A) 0 %; Eosinophils % (A) 0 %; HCT 45.7 % (34.0-46.0); HGB 14.9 gm/dL (11.4-16.0); Lymphocytes # (A) 0.7 k/uL (1.0-4.8); Lymphocytes % (A) 3 %; MCHC 32.5 g/dL (31.0-37.0); MCV 89.1 fL (80.0-100.0); Mean Platelet Volume 12.4; Monocytes # (A) 1.4 k/uL (0-1.0); Monocytes % (A) 7 %; Neutrophils # (A) 18.1 k/uL (1.3-7.7); Neutrophils % (A) 88 %; Platelet Count 250 k/uL (150-450); RBC 5.13 m/uL (3.80-5.40); RDW 14.7 % (11.5-15.5); WBC 20.5 k/uL (3.8-10.6)
[2019-11-18 08:30] LABS: Albumin 3.5 g/dL (3.5-5.0); Calcium 9.3 mg/dL (8.4-10.2); Potassium 4.2 mmol/L (3.5-5.1); Total Bilirubin 1.1 mg/dL (0.2-1.3); Total Protein 5.9 g/dL (6.3-8.2)
[2019-11-18 10:46] LABS: Large Platelets Present
[2019-11-18 11:50] LABS: Glucose,Whole Blood 128 mg/dL (75-99)
[2019-11-18] MEDS: SODIUM CHLORIDE 0.9% 1,000 ML IV SCH (12:14)
[2019-11-18 16:59] LABS: Glucose,Whole Blood 138 mg/dL (75-99)
[2019-11-18 20:17] LABS: Glucose,Whole Blood 84 mg/dL (75-99)
[2019-11-18] MEDS: LATANOPROST 0.005% OPHTH DROPS 2.5 ML BTL LEFT EYE SCH (21:42)
[2019-11-19 07:41] LABS: Glucose,Whole Blood 81 mg/dL (75-99)
[2019-11-19] MEDS: INSULIN ASPART (NovoLOG) 100 UNIT/ML VIAL SQ SCH ×4 (08:39→21:38)
[2019-11-19] MEDS: DORZOLAMIDE HCL 2% DROPS 10 ML BTL LEFT EYE SCH ×2 (09:06→21:48)
[2019-11-19] MEDS: LOSARTAN 50 MG TAB PO SCH ×2 (09:06→21:48)
[2019-11-19] MEDS: methylPREDNISolone SOD SUCCI 40 MG/ML 1 ML VIAL IV SCH ×2 (09:07→21:48)
[2019-11-19] MEDS: LOPERAMIDE 2 MG CAP PO SCH ×2 (09:07→12:17)
[2019-11-19] MEDS: FAMOTIDINE 20 MG TAB PO SCH (09:07)
[2019-11-19 10:46] LABS: Albumin 3.3 g/dL (3.5-5.0); Potassium 4.1 mmol/L (3.5-5.1); Total Protein 5.5 g/dL (6.3-8.2)
[2019-11-19 11:02] LABS: Glucose,Whole Blood 114 mg/dL (75-99)
[2019-11-19 11:26] LABS: Basophils % (A) 0 %; Eosinophils % (A) 0 %; HCT 45.4 % (34.0-46.0); HGB 14.8 gm/dL (11.4-16.0); Lymphocytes # (A) 0.6 k/uL (1.0-4.8); Lymphocytes % (A) 3 %; MCH 29.4 pg (25.0-35.0); MCHC 32.5 g/dL (31.0-37.0); MCV 90.3 fL (80.0-100.0); Mean Platelet Volume 13.8; Monocytes # (A) 0.8 k/uL (0-1.0); Monocytes % (A) 5 %; Neutrophils # (A) 15.7 k/uL (1.3-7.7); Neutrophils % (A) 90 %; Platelet Count 239 k/uL (150-450); RBC 5.03 m/uL (3.80-5.40); RDW 14.7 % (11.5-15.5); WBC 17.3 k/uL (3.8-10.6)
--- NOTE | 2019-11-19 11:31 | ECHOF ---
Referral Reason:abnormal troponins, weakness MEASUREMENTS -------- HEIGHT: 154.9 cm WEIGHT: 68.5 kg BP: 169/79 RVIDd: 2.7 cm (< 3.3) IVSd: 1.4 cm (0.6 - 1.1) LVIDd: 3.9 cm (3.9 - 5.3) LVPWd: 1.2 cm (0.6 - 1.1) IVSs: 1.7 cm LVIDs: 2.5 cm LVPWs: 1.6 cm LA Diam: 3.1 cm (2.7 - 3.8) LAESV Index (A-L): 18.10 ml/m Ao Diam: 3.6 cm (2.0 - 3.7) AV Cusp: 2.1 cm (1.5 - 2.6) MV EXCURSION: 11.892 mm (> 18.000) MV EF SLOPE: 8 mm/s (70 - 150) EPSS: 0.4 cm MV E Pablito: 0.58 m/s MV DecT: 381 ms MV A P[place]ito: 1.28 m/s MV E/A Ratio: 0.45 AV maxP.73 mmHg AV meanP.59 mmHg AR PHT: 738 ms RAP: 5.00 mmHg RVSP: 38.76 mmHg FINDINGS -------- Sinus rhythm. This was a technically adequate study. The left ventricular size is normal. There is moderate concentric left ventricular hypertrophy. O verall left ventricular systolic function is normal with, an EF between 65 - 70 %. The right ventricle is normal in size. Normal LA size by volume 22+/-6 ml/m2. The right atrium is normal in size. Interatrial and interventricular septum intact. There is mild aortic valve sclerosis. There is itbe-nh-[id number] aortic regurgitation. There is mi ld aortic stenosis present. The mitral valve leaflets are mildly thickened. Mild mitral annular calcification present. There is trace mitral regurgitation. Mild tricuspid regurgitation present. There is mild pulmonary hypertension. Trace/mild (physiologic) pulmonic regurgitation. The aortic root size is normal. Normal inferior vena cava with normal inspiratory collapse consistent with estimated right atrial pre ssure of 5 mmHg. There is a trivial pericardial effusion present. CONCLUSIONS -------- 1. Sinus rhythm. 2. This was a technically adequate study. 3. The left ventricular size is normal. 4. There is moderate concentric left ventricular hypertrophy. 5. Overall left ventricular systolic function is normal with, an EF between 65 - 70 %. 6. The right ventricle is normal in size. 7. Normal LA size by volume 22+/-6 ml/m2. 8. The right atrium is normal in size. 9. Interatrial and interventricular septum intact. 10. There is mild aortic valve sclerosis. 11. There is lgus-rq-[id number] aortic regurgitation. 12. There is mild aortic stenosis present. 13. The mitral valve leaflets are mildly thickened. 14. Mild mitral annular calcification present. 15. There is trace mitral regurgitation. 16. Mild tricuspid regurgitation present. 17. There is mild pulmonary hypertension. 18. Trace/mild (physiologic) pulmonic regurgitation. 19. The aortic root size is normal. 20. Normal inferior vena cava with normal inspiratory collapse consistent with estimated right atrial pressure of 5 mmHg. 21. There is a trivial pericardial effusion present. [employer]: AUNDREA Espino
--- NOTE | 2019-11-19 11:46 | P.PN ---
Subjective Progress Note Date: 11/19/19 Patient was seen evaluated by Dr. Rodgers from 11/16/2019 until 11/18/2019 he was covering for Dr. Hamilton. 11/19/2019 patient currently on a regular medical floor. 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 She's currently on IV steroids which was advised by rheumatology. Per patient rheumatology's library clerical assistant and did come through and evaluate her yesterday. Apparently there was a muscle biopsy done by Dr. Crane which was positive for the dermatomyositis. Patient is still complaining of feeling very weak. She denies any pain. She was evaluated by cardiology due to her elevated troponins. Echo was ordered. She denies any chest pain or shortness of breath. Denies any nausea or vomiting. Reports having a bowel movement. Denies any difficulty urinating. Echo was completed this morning. Objective - Vital Signs Vital signs: Vital Signs Temp 98.5 F 11/19/19 11:23 Pulse 72 11/19/19 11:23 Resp 16 11/19/19 11:23 BP 136/75 11/19/19 11:23 Pulse Ox 97 11/19/19 11:23 Intake & Output 11/18/19 11/19/19 11/19/19 18:59 06:59 18:59 Intake Total 910 290 Balance 910 290 Intake: Oral 910 290 Other: Voiding Method Toilet Toilet Toilet Bedside Commode Bedside Commode Bedside Commode # Voids 3 1 - Exam Head normocephalic Neck supple Lungs clear to auscultation bilaterally no wheezing or crackles Heart regular rate and rhythm S1-S2, no rub or gallop Abdomen is soft nontender nondistended positive bowel sounds no hepatosplenomegaly Extremities no edema Neuro alert and orientated to 3. Patient sitting at bedside chair. She is receiving a massage. Hand dictaphone typist equal bilaterally. Lower extremity strength equal bilaterally. Patient is able to take a cough and raise it from the table to her mouth with some effort. - Labs CBC & Chem 7: 11/18/19 07:35 11/19/19 09:28 Labs: Abnormal Lab Results - Last 24 Hours (Table) 11/18/19 11/18/19 11/19/19 Range/Units 11:42 16:57 09:28 Sodium 136 L (137-145) mmol/L BUN 46 H (7-17) mg/dL Glucose 196 H (74-99) mg/dL POC Glucose (mg/dL) 128 H 138 H (75-99) mg/dL ALT 36 H (4-34) U/L Total Protein 5.5 L (6.3-8.2) g/dL Albumin 3.3 L (3.5-5.0) g/dL 11/19/19 Range/Units 11:00 Sodium (137-145) mmol/L BUN (7-17) mg/dL Glucose (74-99) mg/dL POC Glucose (mg/dL) 114 H (75-99) mg/dL ALT (4-34) U/L Total Protein (6.3-8.2) g/dL Albumin (3.5-5.0) g/dL Assessment and Plan Assessment: 1. Acute exacerbation of dermatomyositis. Continue with the IV Solu-Medrol. Patient seen by rheumatology 2. elevated troponin related to dermatomyositis. Patient seen by cardiology. They have ordered an echo. 3. Histor of Irritable bowel syndrome 4. Glaucoma of the right eye 5. History of shingles Continue with PT OT GI prophylaxis Pepcid and DVT prophylaxis subcu Lovenox I performed an examination of the patient and discussed their management with the physician Dining Service Supervisor. I have reviewed the Physician Dining Service Supervisor's notes and agree with the documented findings and plan of care
[2019-11-19] MEDS: SODIUM CHLORIDE 0.9% 1,000 ML IV SCH (12:17)
[2019-11-19 13:10] LABS: Large Platelets Present
[2019-11-19 13:11] LABS: Toxic Granulation Present
[2019-11-19] MEDS: ENOXAPARIN 40 MG/0.4 ML SYRINGE SQ SCH (14:51)
[2019-11-19 17:01] LABS: Glucose,Whole Blood 109 mg/dL (75-99)
[2019-11-19 20:17] LABS: Glucose,Whole Blood 127 mg/dL (75-99)
[2019-11-19] MEDS: LATANOPROST 0.005% OPHTH DROPS 2.5 ML BTL LEFT EYE SCH (21:49)
[2019-11-20 07:11] LABS: Glucose,Whole Blood 96 mg/dL (75-99)
[2019-11-20] MEDS: INSULIN ASPART (NovoLOG) 100 UNIT/ML VIAL SQ SCH ×4 (07:48→21:34)
--- NOTE | 2019-11-20 08:08 | P.CON ---
Consult Note - . Consult date: 11/18/19 Assessment/Plan:: Patient initially seen us on 11/05/2019 sent as a referral by Dr. Hernandez for dermatomyositis. Patient stated for the past month and a half she has been having an all over body rash. Dermatology did a skin biopsy and results were pending. She complained of weakness in the upper and lower extremities and was found to have a violaceous erythematous rash in a shawl-like distribution, as well as on the left superior chest, face, and trunk. There was also concern of neoplasm as this can be the etiology of dermatomyositis at times. Labs performed by dermatology on 10/20/2019 revealed an elevated CPK of 3553, negative Cooper antibody, negative Cooper/WIRE MESH FILTER FABRICATOR antibody, negative SSA, negative SSB, positive BLAKE 1:320 speckled pattern, and elevated aldolase at 8.5. We performed labs in the office in 11/05/2019 which revealed a elevated CRP at 0.9 protein electrophoresis revealing low albumin at 3.5 which may be due to insufficient protein, intestinal malabsorption, impaired synthesis, protein- losing enteropathy, nephrotic syndrome, and other various disorders, elevated alpha-1 globulin at 0.4, and elevated alpha-2 globulin at 1.0 which may be due to an acute phase response, low total protein at 6.0, low beta-1 globulin at 0.3, and low gammaglobulin at 0.5 and was without monoclonal immunoglobulin, normal light chains, positive BLAKE 1:160 nuclear speckled pattern, and a myositis panel revealing elevated nxp-2 Ab above 100. In the myositis panel interpretation it is noted that Eighty-three percent of adults with cancer-associated dermatomyositis test positive for either TIF-1 y or NXP-2 antibodies. Patients CK Trends: 10/20/2019: 3,553 11/05/2019: 2,938 11/16/2019: 166 11/17/2019:[address] did have a [address] of the abdomen with contrast performed on 10/25/2019 which revealed dilated small bowel with differentials of possible mild ileus or partial mechanical obstruction. When we seen her as a new patient she did mention that she had blood in his stool prior to the holidays and had a positive fecal occult blood test. CT of the chest performed on 11/06/2019 revealed cardiomegaly, interstitial lung disease, nonspecific nodular density at the lung but likely to be benign. No concerning parenchymal mass or nodule identified. Subpleural nodular focus on axial image 14 is thought likely to be postinflammatory. No greater than 1 cm hilar or mediastinal lymph nodes. No pericardial effusion is seen. Large exophytic cyst present at the upper pole left kidney measures 5.7 cm. Multiple calcified gallstones are noted and contracted gallbladder. Low-attenuation within the liver may be due to hepatic steatosis. Patient was supposed to have an EMG performed at Dr. [place] office. She was scheduled for this yesterday at noon and today at noon although she was in the hospital so these were not performed. Muscle biopsy performed on 11/10/2019 of the left quadriceps muscle revealed skeletal muscle with moderate fiber size variation including. Fascicular atrophy, inflammatory cells not identified but expression of the MHC class I present, mild neurogenic atrophy, mild to moderate chronic neurogenic changes, and mild to moderate type II fiber atrophy. There is no final diagnosis although we did receive a call from dermatopathologists out of [facility] stating it did have the appearance of dermatomyositis although it was not severe. Patient started prednisone 60 mg daily after muscle biopsy was performed on 11/10. Prednisone was increased by patient's PCP to 80 mg daily around 11/12/2019. Patient stated after increasing to prednisone 80 mg daily she was feeling somewhat better and had less weakness in the hips and a little bit more range of motion in the shoulders. Patient states on 11/16/2019 symptoms worsened and she had significant weakness in the hips and was unable to walk which is why she went to ED. Today patient is ambulating independently with a walker and states the weakness in the hips and legs is significantly better. Her rash is clearing on the arms and seems to be drying up on the chest. She continues to have weakness and decreased range of motion in the shoulders and this is somewhat better compared to when she initially presented to us although still significantly decreased. We are still awaiting final diagnostic results of the muscle biopsy. I feel symptoms are due to dermatomyositis and at this time this is likely related to malignancy. Sometimes malignancy is not apparent on initial presentation so we recommend routine cancer screening at this time. From my standpoint she is okay to be discharged home on 60 mg of prednisone daily after her workup from other s pecialties as completed. I will need to see her within 1 week of discharge. Document scribed by Siomara Hsu PA-C
[2019-11-20 08:17] LABS: Basophils % (A) 0 %; Eosinophils % (A) 0 %; HCT 47.2 % (34.0-46.0); HGB 15.3 gm/dL (11.4-16.0); Lymphocytes # (A) 0.6 k/uL (1.0-4.8); Lymphocytes % (A) 4 %; MCH 29.2 pg (25.0-35.0); MCHC 32.4 g/dL (31.0-37.0); MCV 90.1 fL (80.0-100.0); Mean Platelet Volume 13.1; Monocytes # (A) 0.7 k/uL (0-1.0); Monocytes % (A) 4 %; Neutrophils # (A) 14.2 k/uL (1.3-7.7); Neutrophils % (A) 90 %; Platelet Count 241 k/uL (150-450); RBC 5.24 m/uL (3.80-5.40); RDW 14.8 % (11.5-15.5); WBC 15.7 k/uL (3.8-10.6)
[2019-11-20 08:21] LABS: Albumin 3.7 g/dL (3.5-5.0); Calcium 9.1 mg/dL (8.4-10.2); Potassium 4.6 mmol/L (3.5-5.1); Total Bilirubin 1.4 mg/dL (0.2-1.3); Total Protein 6.1 g/dL (6.3-8.2)
[2019-11-20 09:02] LABS: Large Platelets Present
[2019-11-20] MEDS: LOPERAMIDE 2 MG CAP PO SCH (09:34)
[2019-11-20] MEDS: LOSARTAN 50 MG TAB PO SCH ×2 (09:35→21:44)
[2019-11-20] MEDS: FAMOTIDINE 20 MG TAB PO SCH (09:35)
[2019-11-20] MEDS: ENOXAPARIN 40 MG/0.4 ML SYRINGE SQ SCH (09:35)
[2019-11-20] MEDS: methylPREDNISolone SOD SUCCI 40 MG/ML 1 ML VIAL IV SCH ×2 (09:35→21:44)
[2019-11-20] MEDS: SODIUM CHLORIDE 0.9% 1,000 ML IV SCH (09:36)
[2019-11-20] MEDS: DORZOLAMIDE HCL 2% DROPS 10 ML BTL LEFT EYE SCH ×2 (09:36→21:44)
[2019-11-20 12:00] LABS: Glucose,Whole Blood 92 mg/dL (75-99)
[2019-11-20] MEDS: amLODIPine 5 MG TAB PO SCH (13:18)
--- NOTE | 2019-11-20 13:21 | P.PN ---
Subjective Progress Note Date: 11/20/19 Patient was seen evaluated by Dr. Rodgers from 11/16/2019 until 11/18/2019 he was covering for Dr. Hamilton. 11/19/2019 patient currently on a regular medical floor. 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 She's currently on IV steroids which was advised by rheumatology. Per patient rheumatology's payroll and benefits assistant and did come through and evaluate her yesterday. Apparently there was a muscle biopsy done by Dr. Gamino which was positive for the dermatomyositis. Patient is still complaining of feeling very weak. She denies any pain. She was evaluated by cardiology due to her elevated troponins. Echo was ordered. She denies any chest pain or shortness of breath. Denies any nausea or vomiting. Reports having a bowel movement. Denies any difficulty urinating. Echo was completed this morning. 11/20/2019 patient is sitting in bedside chair. She is still having muscle weakness noted especially when grabbing for objects. However she does report improvement with the IV steroids. She has been up and ambulating with physical therapy. She has noted some lower extremity edema bilaterally. Denies any pain in the legs. Blood pressure is elevated at 175/85. Patient does report being on Norvasc the past. She says her PCP had stopped it outpatient. Norvasc will be resumed at 5 mg daily. Patient denies any chest pain, shortness of breath, nausea or vomiting, urinary symptoms. She does report having bowel movements. Objective - Vital Signs Vital signs: Vital Signs Temp 97.6 F 11/20/19 12:32 Pulse 71 11/20/19 12:32 Resp 17 11/20/19 12:32 BP 161/77 11/20/19 12:32 Pulse Ox 97 11/20/19 12:32 Intake & Output 11/19/19 11/20/19 11/20/19 18:59 06:59 18:59 Other: Voiding Method Toilet Toilet Toilet Bedside Commode Bedside Commode Bedside Commode # Voids 3 4 - Exam Head normocephalic Neck supple Lungs clear to auscultation bilaterally no wheezing or crackles Heart regular rate and rhythm S1-S2, no rub or gallop Abdomen is soft nontender nondistended positive bowel sounds no hepatospl enomegaly Extremities edema plus 1 present bilaterally Neuro alert and orientated to 3. Patient sitting at bedside chair. She is receiving a massage. Hand manager sign equal bilaterally. Lower extremity strength equal bilaterally. Patient is able to take a cough and raise it from the table to her mouth with some effort. skin: rash on the chest wall and back - Labs CBC & Chem 7: 11/20/19 07:28 11/20/19 07:28 Labs: Abnormal Lab Results - Last 24 Hours (Table) 11/19/19 11/19/19 11/20/19 Range/Units 16:58 20:15 07:28 WBC 15.7 H (3.8-10.6) k/uL Hct 47.2 H (34.0-46.0) % Neutrophils # 14.2 H (1.3-7.7) k/uL Lymphocytes # 0.6 L (1.0-4.8) k/uL BUN (7-17) mg/dL POC Glucose (mg/dL) 109 H 127 H (75-99) mg/dL Total Bilirubin (0.2-1.3) mg/dL ALT (4-34) U/L Total Protein (6.3-8.2) g/dL 11/20/19 Range/Units 07:28 WBC (3.8-10.6) k/uL Hct (34.0-46.0) % Neutrophils # (1.3-7.7) k/uL Lymphocytes # (1.0-4.8) k/uL BUN 40 H (7-17) mg/dL POC Glucose (mg/dL) (75-99) mg/dL Total Bilirubin 1.4 H (0.2-1.3) mg/dL ALT 40 H (4-34) U/L Total Protein 6.1 L (6.3-8.2) g/dL Assessment and Plan Assessment: 1. Acute exacerbation of dermatomyositis. Continue with the IV Solu-Medrol. Patient seen by rheumatology. Final diagnostic results of the muscle biopsy are pending. Rheumatology felt patient's symptoms are due to dermatomyositis and at this present time is likely related to malignancy. And they are recommending routine cancer screening. Also recommending at time of discharge the patient be discharged on prednisone 60 mg daily. 2. elevated troponin related to dermatomyositis. Patient seen by cardiology. Echo completed showing an EF of 65-70%, mild to moderate aortic regurgitation, mild aortic stenosis, mild tricuspid regurgitation, mild pulmonary hypertension. And trivial pericardial effusion. 3. History of Irritable bowel syndrome 4. Glaucoma of the right eye. Continue eyedrops 5. History of shingles 6. Essential hypertension: Blood pressures are elevated. We'll add Norvasc 5 mg daily. 7. Bilateral lower extremity edema: Add DIAMOND hose. Keep legs elevated. Patient is always sitting with her legs down. Encourage patient to keep legs elevated. Continue with PT OT GI prophylaxis Pepcid and DVT prophylaxis subcu Lovenox I performed an examination of the patient and discussed their management with the physician Glass Scullion. I have reviewed the Physician Glass Scullion's notes and agree with the documented findings and plan of care
[2019-11-20 17:09] LABS: Glucose,Whole Blood 125 mg/dL (75-99)
[2019-11-20 19:55] LABS: Glucose,Whole Blood 115 mg/dL (75-99)
[2019-11-20] MEDS: LATANOPROST 0.005% OPHTH DROPS 2.5 ML BTL LEFT EYE SCH (21:43)
[2019-11-21 06:51] LABS: Glucose,Whole Blood 98 mg/dL (75-99)
[2019-11-21 08:12] LABS: Basophils % (A) 0 %; Eosinophils % (A) 0 %; HCT 46.3 % (34.0-46.0); HGB 15.2 gm/dL (11.4-16.0); Lymphocytes # (A) 0.6 k/uL (1.0-4.8); Lymphocytes % (A) 4 %; MCH 29.7 pg (25.0-35.0); MCHC 32.8 g/dL (31.0-37.0); MCV 90.5 fL (80.0-100.0); Mean Platelet Volume 12.5; Monocytes # (A) 0.7 k/uL (0-1.0); Monocytes % (A) 5 %; Neutrophils # (A) 14.7 k/uL (1.3-7.7); Neutrophils % (A) 90 %; Platelet Count 253 k/uL (150-450); RBC 5.11 m/uL (3.80-5.40); RDW 14.8 % (11.5-15.5); WBC 16.4 k/uL (3.8-10.6)
[2019-11-21 08:19] LABS: Albumin 3.7 g/dL (3.5-5.0); Calcium 9.2 mg/dL (8.4-10.2); Potassium 4.7 mmol/L (3.5-5.1); Total Bilirubin 1.4 mg/dL (0.2-1.3); Total Protein 6.2 g/dL (6.3-8.2)
[2019-11-21] MEDS: INSULIN ASPART (NovoLOG) 100 UNIT/ML VIAL SQ SCH ×4 (08:46→20:36)
[2019-11-21] MEDS: LOPERAMIDE 2 MG CAP PO SCH (08:47)
[2019-11-21] MEDS: LOSARTAN 50 MG TAB PO SCH ×2 (08:47→20:37)
[2019-11-21] MEDS: ENOXAPARIN 40 MG/0.4 ML SYRINGE SQ SCH (08:48)
[2019-11-21] MEDS: FAMOTIDINE 20 MG TAB PO SCH (08:48)
[2019-11-21] MEDS: amLODIPine 5 MG TAB PO SCH (08:48)
[2019-11-21] MEDS: DORZOLAMIDE HCL 2% DROPS 10 ML BTL LEFT EYE SCH ×2 (08:48→20:37)
[2019-11-21] MEDS: methylPREDNISolone SOD SUCCI 40 MG/ML 1 ML VIAL IV SCH ×2 (08:48→20:37)
--- NOTE | 2019-11-21 09:57 | P.PN ---
Subjective Progress Note Date: 11/21/19 Patient was seen evaluated by Dr. Rodgers from 11/16/2019 until 11/18/2019 he was covering for Dr. Hamilton. 11/19/2019 patient currently on a regular medical floor. 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 She's currently on IV steroids which was advised by rheumatology. Per patient rheumatology's hearing aid assistant and did come through and evaluate her yesterday. Apparently there was a muscle biopsy done by Dr. Gamino which was positive for the dermatomyositis. Patient is still complaining of feeling very weak. She denies any pain. She was evaluated by cardiology due to her elevated troponins. Echo was ordered. She denies any chest pain or shortness of breath. Denies any nausea or vomiting. Reports having a bowel movement. Denies any difficulty urinating. Echo was completed this morning. 11/20/2019 patient is sitting in bedside chair. She is still having muscle weakness noted especially when grabbing for objects. However she does report improvement with the IV steroids. She has been up and ambulating with physical therapy. She has noted some lower extremity edema bilaterally. Denies any pain in the legs. Blood pressure is elevated at 175/85. Patient does report being on Norvasc the past. She says her PCP had stopped it outpatient. Norvasc will be resumed at 5 mg daily. Patient denies any chest pain, shortness of breath, nausea or vomiting, urinary symptoms. She does report having bowel movements. 11/21/2019 patient still reporting weakness in her arms when she tries to lift things. Her rash is improving. She remains on the IV steroids. She is awaiting the oncology consult regarding possible cancer screening for evaluation of the cause of her dermatomyositis. Patient denies any chest pain or shortness of breath. Denies any nausea or vomiting. Reports having bowel movements. Denies any difficulty urinating. Objective - Vital Signs Vital signs: Vital Signs Temp 97.7 F 11/21/19 04:57 Pulse 67 11/21/19 04:57 Resp 20 11/21/19 04:57 BP 171/86 11/21/19 04:57 Pulse Ox 97 11/21/19 04:57 Intake & Output 11/20/19 11/21/19 11/21/19 18:59 06:59 18:59 Intake Total 480 720 350 Balance 480 720 350 Intake: Intake, IV Titration 480 Amount Sodium Chloride 0.9% 1, 480 000 ml @ 20 mls/hr IV . Q24H [facility] Rx#:[id number] Oral 480 240 350 Other: Voiding Method Toilet Toilet Toilet Bedside Commode Bedside Commode Bedside Commode # Voids 2 2 # Bowel Movements 1 - Exam Head normocephalic Neck supple Lungs clear to auscultation bilaterally no wheezing or crackles Heart regular rate and rhythm S1-S2, no rub or gallop Abdomen is soft nontender nondistended positive bowel sounds no hepatosplenomegaly Extremities edema plus 1 present bilaterally Neuro alert and orientated to 3. Patient sitting at bedside chair. She is receiving a massage. Hand cuprous chloride helper equal bilaterally. Lower extremity strength equal bilaterally. Patient is able to take a cup and raise it from the table to her mouth with some effort. skin: rash on the chest wall and back - Labs CBC & Chem 7: 11/21/19 07:51 11/21/19 07:51 Labs: Abnormal Lab Results - Last 24 Hours (Table) 11/20/19 11/20/19 11/21/19 Range/Units 17:05 19:54 07:51 WBC 16.4 H (3.8-10.6) k/uL Hct 46.3 H (34.0-46.0) % Neutrophils # 14.7 H (1.3-7.7) k/uL Lymphocytes # 0.6 L (1.0-4.8) k/uL BUN (7-17) mg/dL POC Glucose (mg/dL) 125 H 115 H (75-99) mg/dL Total Bilirubin (0.2-1.3) mg/dL ALT (4-34) U/L Total Protein (6.3-8.2) g/dL 11/21/19 Range/Units 07:51 WBC (3.8-10.6) k/uL Hct (34.0-46.0) % Neutrophils # (1.3-7.7) k/uL Lymphocytes # (1.0-4.8) k/uL BUN 33 H (7-17) mg/dL POC Glucose (mg/dL) (75-99) mg/dL Total Bilirubin 1.4 H (0.2-1.3) mg/dL ALT 42 H (4-34) U/L Total Protein 6.2 L (6.3-8.2) g/dL Assessment and Plan Assessment: 1. Acute exacerbation of dermatomyositis. Continue with the IV Solu-Medrol. Patient seen by rheumatology. Final diagnostic results of the muscle biopsy are pending. Rheumatology felt patient's symptoms are due to dermatomyositis and at this present time is likely related to malignancy. And they are recommending routine cancer screening. Also recommending at time of discharge the patient be discharged on prednisone 60 mg daily. Consult oncology for evaluation regarding the cancer screening 2. elevated troponin related to dermatomyositis. Patient seen by cardiology. Echo completed showing an EF of 65-70%, mild to moderate aortic regurgitation, mild aortic stenosis, mild tricuspid regurgitation, mild pulmonary hypertension. And trivial pericardial effusion. 3. History of Irritable bowel syndrome 4. Glaucoma of the right eye. Continue eyedrops 5. History of shingles 6. Essential hypertension: Blood pressures are elevated. We'll add Norvasc 5 mg daily. 7. Bilateral lower extremity edema: Discussed with nursing staff to place DIAMOND hose on patient's legs. Keep legs elevated. Patient is always sitting with her legs down. Encourage patient to keep legs elevated. Continue with PT OT GI prophylaxis Pepcid and DVT prophylaxis subcu Lovenox I performed an examination of the patient and discussed their management with the physician Hose Inspector And Patcher. I have reviewed the Physician Hose Inspector And Patcher's notes and agree with the documented findings and plan of care
[2019-11-21 11:19] LABS: Glucose,Whole Blood 101 mg/dL (75-99)
[2019-11-21 13:14] VITALS: BMI 28.5
[2019-11-21] MEDS: SODIUM CHLORIDE 0.9% 1,000 ML IV SCH (14:01)
--- NOTE | 2019-11-21 16:57 | USB ---
Ultrasound of the left axilla. History possible mass. Comparison none. FINDINGS: The left axilla was scanned in the area of concern and no discrete solid or cystic mass identified in the upper outer quadrant of the left breast. IMPRESSION: Negative ultrasound of the left axilla.
[2019-11-21 17:14] LABS: Glucose,Whole Blood 116 mg/dL (75-99)
[2019-11-21 20:26] LABS: Glucose,Whole Blood 132 mg/dL (75-99)
[2019-11-21] MEDS: LATANOPROST 0.005% OPHTH DROPS 2.5 ML BTL LEFT EYE SCH (20:37)
--- NOTE | 2019-11-22 00:15 | P.CONS ---
History of Present Illness - Reason for Consult Consult date: 11/21/19 Dermatomyositis, concern for underlying malignancy - History of Present Illness Patient is a 89-year-old white female with a fairly complicated past medical/surgical history, especially recently. She had been referred to r heumatology in early 11/20 with a skin rash, and muscle weakness especially around the shoulder girdle, that had started about a month ago. Clinical evaluation was highly suggestive of dermatomyositis. The patient had muscle biopsy confirming myositis. 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 The patient had been started on oral steroids as an outpatient but due to suboptimal response was admitted for IV steroids. Consult was placed for further evaluation and recommendations The patient had a CT of the abdomen and pelvis done on 10/25/19 when she was admitted with abdominal pain. This revealed small bowel dilatation concerning for ileus versus partial obstruction. However no abnormal masses or adenopathy suggestive of malignancy were seen. She had CT chest this admission, also negative for any definite masses or adenopathy The patient states that she has never had a mammogram. She had a Pap smear many years ago. Her last colonoscopy was about 8 or 9 years ago when she developed a bowel perforation and had to have surgery. Therefore she has been very reluctant to have a repeat procedure. Within the last couple of months she has had at least one episode where she noted some bright red blood in the toilet. She is also had a positive Cologard as an outpatient. There is no prior history of malignancy. She denies any weight loss, unexplained fevers or loss of appetite. Review of Systems Constitutional: Reports fatigue, Reports weakness Eyes: denies blurred vision, denies pain Ears: deny: decreased hearing, ear discharge, earache, tinnitus Ears, nose, mouth and throat: Denies headache, Denies sore throat Cardiovascular: Reports decreased exercise tolerance Respiratory: Denies cough Gastrointestinal: Reports abdominal pain, Reports bloating, Reports diarrhea, Denies nausea, Denies vomiting Genitourinary: Denies dysuria, Denies hematuria Menstruation: Reports postmenopausal Musculoskeletal: Reports as per HPI, Reports muscle weakness Musculoskeletal: bilateral: shoulder stiffness Integumentary: Reports rash, Reports sores Neurological: Reports weakness Psychiatric: Denies anxiety, Denies depression Endocrine: Reports fatigue Hematologic/Lymphatic: Reports as per HPI Past Medical History Past Medical History: Hypertension, Osteoarthritis (OA) Additional Past Medical History / Comment(s): 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 Wilson; bilateral cataracts removed, L leg muscle biopsy Past Anesthesia/Blood Transfusion Reactions: No Reported Reaction Past Psychological History: No Psychological Hx Reported Additional Psychological History / Comment(s): claustrophobic Smoking Status: Never smoker Past Alcohol Use History: None Reported Past Drug Use History: None Reported - Past Family History Father Additional Family Medical History / Comment(s): kidney disorder per patient Mother Additional Family Medical History / Comment(s): fell had surgery and from a hospital aquired infection per patient Medications and Allergies Home Medications Medication Instructions Recorded Confirmed Type Acetaminophen Tab [Tylenol] 1,000 mg PO Q6H PRN 02/25/16 11/16/19 History Latanoprost 1 drop LEFT EYE HS 02/25/16 11/16/19 History Dorzolamide HCl [Trusopt 2%] 1 drop LEFT EYE BID 06/11/18 11/16/19 History Loperamide HCl [Imodium A-D] 4 mg PO DAILY 11/16/19 11/16/19 History predniSONE [Deltasone] 20 mg PO TID 11/16/19 11/16/19 History Allergies Allergy/AdvReac Type Severity Reaction Status Date / Time No Known Allergies Allergy Verified 11/16/19 10:15 Physical Exam Vitals: Vital Signs Temp Pulse Resp BP Pulse Ox 11/21/19 11:48 97.4 F L 75 17 162/76 97 11/21/19 04:57 97.7 F 67 20 171/86 97 11/21/19 00:00 16 11/20/19 21:00 97.5 F L 72 16 146/82 96 Intake and Output 11/21/19 11/21/19 11/21/19 06:59 14:59 22:59 Intake Total 240 1300 Balance 240 1300 Intake: Intake, IV Titration 240 Amount Sodium Chloride 0.9% 1, 240 000 ml @ 20 mls/hr IV . Q24H [facility] Rx#:[id number] Oral 1300 Other: Voiding Method Toilet Toilet Bedside Commode Bedside Commode # Voids 2 3 # Bowel Movements 1 Weight 68.492 kg - Constitutional General appearance: no acute distress - EENT Eyes: EOMI, PERRLA ENT: hearing grossly normal, normal oropharynx - Neck Neck: no lymphadenopathy Thyroid: bilateral: normal size - Respiratory Respiratory: bilateral: CTA - Cardiovascular Rhythm: regular Heart sounds: normal: S1, S2 - Gastrointestinal General gastrointestinal: normal bowel sounds, soft - Integumentary Integumentary: rash (Linear confluent erythematous rash involving upper back and chest, with scattered ulcers, mostly scabbed), ulcer - Neurologic Neurologic: CNII-XII intact - Musculoskeletal Weakness and shoulder and pelvic girdle. Patient unable to raise arms above shoulders. 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 Rt _ No mass, tenderness or discharge Lt - mass like area 2.5-3cm UOQ /medial axilla, mildly tender Results CBC & Chem 7: 11/21/19 07:51 11/21/19 07:51 Labs: Abnormal Lab Results - Last 24 Hours (Table) 11/20/19 11/20/19 11/21/19 Range/Units 17:05 19:54 07:51 WBC 16.4 H (3.8-10.6) k/uL Hct 46.3 H (34.0-46.0) % Neutrophils # 14.7 H (1.3-7.7) k/uL Lymphocytes # 0.6 L (1.0-4.8) k/uL BUN (7-17) mg/dL POC Glucose (mg/dL) 125 H 115 H (75-99) mg/dL Total Bilirubin (0.2-1.3) mg/dL ALT (4-34) U/L Total Protein (6.3-8.2) g/dL 11/21/19 11/21/19 Range/Units 07:51 11:18 WBC (3.8-10.6) k/uL Hct (34.0-46.0) % Neutrophils # (1.3-7.7) k/uL Lymphocytes # (1.0-4.8) k/uL BUN 33 H (7-17) mg/dL POC Glucose (mg/dL) 101 H (75-99) mg/dL Total Bilirubin 1.4 H (0.2-1.3) mg/dL ALT 42 H (4-34) U/L Total Protein 6.2 L (6.3-8.2) g/dL Comments: ECHO report reviewed Chest x-ray: report reviewed CT scan - abdomen: report reviewed CT scan - chest: report reviewed CT scan - pelvis: report reviewed Assessment and Plan (1) Dermatomyositis Narrative/Plan: This can often occur as a paraneoplastic auto immune syndrome, thus there is concern for underlying malignancy, Leading to this consult. Case was discussed in detail with the admitting service and with rheumatology. The concern is more marked, as the patient has a specific antibody positive that has a higher association with underlying malignancy. Defer to rheumatology for ongoing treatment. Current Visit: Yes Status: Acute Code(s): M33.90 - DERMATOPOLYMYOSITIS, UNSP, ORGAN INVOLVEMENT UNSPECIFIED SNOMED Code(s): 024421752 (2) Occult malignancy Narrative/Plan: There is concern for occult malignancy as noted above. On evaluation areas of concern include possible masslike area in the left upper outer breast/left axilla, as well as the GI tract, given the patient's symptoms and finding on recent CT scan. The patient is also not up-to-date with her age-appropriate cancer workup as described in the HPI. CT of the chest abdomen pelvis did not show any definite mass or adenopathy. there was small bowel dilatation with concern for possible obstruction or ileus For additional workup ultrasound of the left breast/axilla will be ordered. I will also order upper GI with small bowel follow-through. Case discussed with rheumatology and admitting service as noted. Surgery has been consulted. The patient was strongly urged to consider repeat endoscopic evaluation to rule out possible occult GI malignancy. At this time she appears to be agreeable to the same. Await results of above testing for further recommendation Current Visit: Yes Status: Acute Code(s): C80.1 - MALIGNANT (PRIMARY) NEOPLASM, UNSPECIFIED SNOMED Code(s): 727545621 Plan: Defer to the admitting service and other consultants for management of her other medical problems.
[2019-11-22 07:02] LABS: Glucose,Whole Blood 101 mg/dL (75-99)
[2019-11-22] MEDS: INSULIN ASPART (NovoLOG) 100 UNIT/ML VIAL SQ SCH ×4 (07:11→21:22)
[2019-11-22 07:57] LABS: Albumin 3.6 g/dL (3.5-5.0); Calcium 9.2 mg/dL (8.4-10.2); Potassium 4.4 mmol/L (3.5-5.1); Total Bilirubin 1.3 mg/dL (0.2-1.3)
[2019-11-22] MEDS: ENOXAPARIN 40 MG/0.4 ML SYRINGE SQ SCH (08:04)
[2019-11-22] MEDS: LOPERAMIDE 2 MG CAP PO SCH (08:04)
[2019-11-22 08:24] LABS: Basophils % (A) 0 %; Eosinophils % (A) 0 %; HCT 46.6 % (34.0-46.0); HGB 15.1 gm/dL (11.4-16.0); Lymphocytes # (A) 0.6 k/uL (1.0-4.8); Lymphocytes % (A) 4 %; MCH 29.5 pg (25.0-35.0); MCHC 32.4 g/dL (31.0-37.0); MCV 91.1 fL (80.0-100.0); Mean Platelet Volume 13.4; Monocytes # (A) 0.9 k/uL (0-1.0); Monocytes % (A) 6 %; Neutrophils # (A) 14.2 k/uL (1.3-7.7); Neutrophils % (A) 88 %; Platelet Count 211 k/uL (150-450); RBC 5.11 m/uL (3.80-5.40); RDW 14.8 % (11.5-15.5); WBC 16.1 k/uL (3.8-10.6)
[2019-11-22] MEDS: amLODIPine 5 MG TAB PO SCH (09:27)
[2019-11-22] MEDS: FAMOTIDINE 20 MG TAB PO SCH (09:27)
[2019-11-22] MEDS: LOSARTAN 50 MG TAB PO SCH ×2 (09:27→21:22)
[2019-11-22] MEDS: methylPREDNISolone SOD SUCCI 40 MG/ML 1 ML VIAL IV SCH ×2 (09:27→21:22)
[2019-11-22] MEDS: DORZOLAMIDE HCL 2% DROPS 10 ML BTL LEFT EYE SCH ×2 (09:28→21:23)
[2019-11-22] MEDS: SODIUM CHLORIDE 0.9% 1,000 ML IV SCH (09:31)
[2019-11-22 09:39] LABS: Large Platelets Present
--- NOTE | 2019-11-22 10:15 | FL ---
EXAMINATION TYPE: FL small bowel follow through , DATE OF EXAM ORDERED: 11/22/2019 HISTORY: Small bowel ileus or obstruction. COMPARISON: None. FINDINGS: Small bowel caliber is normal. Mucosal pattern is unremarkable. There is a normal transit time of 130 minutes. The terminal ileum was spotted and is unremarkable. IMPRESSION: NORMAL DEDICATED SMALL BOWEL FOLLOW-THROUGH.
[2019-11-22 11:39] LABS: Glucose,Whole Blood 161 mg/dL (75-99)
--- NOTE | 2019-11-22 12:17 | P.GSCN ---
History of Present Illness Consult date: 11/22/19 Reason for Consult: Rectal bleeding History of present illness: 84-year-old female well-known to our service. Patient underwent recent left qu adriceps muscle biopsy. Patient with rash and muscle weakness consistent with dermatomyositis. Some of the patient's labs however suggest the possibility of underlying malignancy. Patient has had rectal bleeding within the last few months. No colonoscopy for the last 8-10 years. Last colonoscopy was complicated by a a postprocedural barium enema resulting in cecal perforation. Patient required right colectomy at that time. She did undergo cologuard testing 1-2 months ago which was positive. She has been reluctant to have colonoscopy. She is now agreeable. Also on recent CT chest some abnormalities left breast were noted. Patient underwent ultrasound left breast which was normal. Review of Systems The patient denies any acute changes in vision or hearing, no dysphagia or odynophagia, no chest pain or shortness of breath, no dysuria or hematuria, no h eadache, no runny nose, no melena, no unexplained weight loss Past Medical History Past Medical History: Hypertension, Osteoarthritis (OA) Additional Past Medical History / Comment(s): Glaucoma in right eye, gallstones, shingles, IBS, Dermatomyositis History of Any Multi-Drug Resistant Organisms: None Reported Past Surgical History: Bowel Resection, Hysterectomy, Tonsillectomy Additional Past Surgical History / Comment(s): "kidney surgery" due to congenti joann abnormality causing a blockage in ureter dr. Wilson; bilateral cataracts removed, L leg muscle biopsy Past Anesthesia/Blood Transfusion Reactions: No Reported Reaction Past Psychological History: No Psychological Hx Reported Additional Psychological History / Comment(s): claustrophobic Smoking Status: Never smoker Past Alcohol Use History: None Reported Past Drug Use History: None Reported - Past Family History Father Additional Family Medical History / Comment(s): kidney disorder per patient Mother Additional Family Medical History / Comment(s): fell had surgery and from a hospital aquired infection per patient Medications and Allergies Home Medications Medication Instructions Recorded Confirmed Type Acetaminophen Tab [Tylenol] 1,000 mg PO Q6H PRN 02/25/16 11/16/19 History Latanoprost 1 drop LEFT EYE HS 02/25/16 11/16/19 History Dorzolamide HCl [Trusopt 2%] 1 drop LEFT EYE BID 06/11/18 11/16/19 History Loperamide HCl [Imodium A-D] 4 mg PO DAILY 11/16/19 11/16/19 History predniSONE [Deltasone] 20 mg PO TID 11/16/19 11/16/19 History Allergies Allergy/AdvReac Type Severity Reaction Status Date / Time No Known Allergies Allergy Verified 11/16/19 10:15 Surgical - Exam Vital Signs Temp Pulse Resp BP Pulse Ox 97.7 F 72 18 178/89 99 11/16/19 08:27 11/16/19 08:27 11/16/19 08:27 11/16/19 08:27 11/16/19 08:27 Physical exam: General: Well-developed, well-nourished HEENT: Normocephalic, sclerae nonicteric Abdomen: Nontender, nondistended, hernia noted Extremities: Left thigh incision clean and dry, generalized weakness noted, rash present Neuro: Alert and oriented Results - Labs 11/22/19 07:02 11/22/19 07:02 Abnormal Lab Results - Last 24 Hours (Table) 11/21/19 11/21/19 11/22/19 Range/Units 17:12 20:25 07:01 WBC (3.8-10.6) k/uL Hct (34.0-46.0) % Neutrophils # (1.3-7.7) k/uL Lymphocytes # (1.0-4.8) k/uL Carbon Dioxide (22-30) mmol/L BUN (7-17) mg/dL POC Glucose (mg/dL) 116 H 132 H 101 H (75-99) mg/dL AST (14-36) U/L ALT (4-34) U/L Total Protein (6.3-8.2) g/dL 11/22/19 11/22/19 11/22/19 Range/Units 07:02 07:02 11:37 WBC 16.1 H (3.8-10.6) k/uL Hct 46.6 H (34.0-46.0) % Neutrophils # 14.2 H (1.3-7.7) k/uL Lymphocytes # 0.6 L (1.0-4.8) k/uL Carbon Dioxide 32 H (22-30) mmol/L BUN 36 H (7-17) mg/dL POC Glucose (mg/dL) 161 H (75-99) mg/dL AST 38 H (14-36) U/L ALT 52 H (4-34) U/L Total Protein 6.0 L (6.3-8.2) g/dL Diabetes panel 11/22/19 Range/Units 07:02 Sodium 137 (137-145) mmol/L Potassium 4.4 (3.5-5.1) mmol/L Chloride 101 (98-107) mmol/L Carbon Dioxide 32 H (22-30) mmol/L BUN 36 H (7-17) mg/dL Creatinine 0.83 (0.52-1.04) mg/dL Glucose 88 (74-99) mg/dL Calcium 9.2 (8.4-10.2) mg/dL AST 38 H (14-36) U/L ALT 52 H (4-34) U/L Alkaline Phosphatase 51 (38-126) U/L Total Protein 6.0 L (6.3-8.2) g/dL Albumin 3.6 (3.5-5.0) g/dL Calcium panel 11/22/19 Range/Units 07:02 Calcium 9.2 (8.4-10.2) mg/dL Albumin 3.6 (3.5-5.0) g/dL Pituitary panel 11/22/19 Range/Units 07:02 Sodium 137 (137-145) mmol/L Potassium 4.4 (3.5-5.1) mmol/L Chloride 101 (98-107) mmol/L Carbon Dioxide 32 H (22-30) mmol/L BUN 36 H (7-17) mg/dL Creatinine 0.83 (0.52-1.04) mg/dL Glucose 88 (74-99) mg/dL Calcium 9.2 (8.4-10.2) mg/dL Adrenal panel 11/22/19 Range/Units 07:02 Sodium 137 (137-145) mmol/L Potassium 4.4 (3.5-5.1) mmol/L Chloride 101 (98-107) mmol/L Carbon Dioxide 32 H (22-30) mmol/L BUN 36 H (7-17) mg/dL Creatinine 0.83 (0.52-1.04) mg/dL Glucose 88 (74-99) mg/dL Calcium 9.2 (8.4-10.2) mg/dL Total Bilirubin 1.3 (0.2-1.3) mg/dL AST 38 H (14-36) U/L ALT 52 H (4-34) U/L Alkaline Phosphatase 51 (38-126) U/L Total Protein 6.0 L (6.3-8.2) g/dL Albumin 3.6 (3.5-5.0) g/dL Assessment and Plan (1) Rectal bleeding Narrative/Plan: Options reviewed with the patient. We'll proceed with colonoscopy 11/24. Begin bowel prep tomorrow. Current Visit: Yes Status: Acute Code(s): K62.5 - HEMORRHAGE OF ANUS AND RECTUM SNOMED Code(s): 17638308
[2019-11-22 17:00] LABS: Glucose,Whole Blood 98 mg/dL (75-99)
--- NOTE | 2019-11-22 18:01 | P.PN ---
Subjective Progress Note Date: 11/22/19 11/19/2019 patient currently on a regular medical floor. 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 She's currently on IV steroids which was advised by rheumatology. Per patient rheumatology's speech correction assistant and did come through and evaluate her yesterday. Apparently there was a muscle biopsy done by Dr. Gamino which was positive for the dermatomyositis. Patient is still complaining of feeling very weak. She denies any pain. She was evaluated by cardiology due to her elevated troponins. Echo was ordered. She denies any chest pain or shortness of breath. Denies any nausea or vomiting. Reports having a bowel movement. Denies any difficulty urinating. Echo was completed this morning. 11/20/2019 patient is sitting in bedside chair. She is still having muscle weakness noted especially when grabbing for objects. However she does report improvement with the IV steroids. She has been up and ambulating with physical therapy. She has noted some lower extremity edema bilaterally. Denies any pain in the legs. Blood pressure is elevated at 175/85. Patient does report being on Norvasc the past. She says her PCP had stopped it outpatient. Norvasc will be resumed at 5 mg daily. Patient denies any chest pain, shortness of breath, nausea or vomiting, urinary symptoms. She does report having bowel movements. 11/21/2019 patient still reporting weakness in her arms when she tries to lift things. Her rash is improving. She remains on the IV steroids. She is awaiting the oncology consult regarding possible cancer screening for evaluation of the cause of her dermatomyositis. Patient denies any chest pain or shortness of breath. Denies any nausea or vomiting. Reports having bowel movements. Denies any difficulty urinating. On 11/22/2019 patient is alert and oriented 3 in no apparent distress still complaining of weakness in the proximal upper extremity muscle groups otherwise no complaints at this time Objective - Vital Signs Vital signs: Vital Signs Temp 97.5 F L 11/22/19 12:11 Pulse 77 11/22/19 15:45 Resp 17 11/22/19 15:45 BP 125/65 11/22/19 12:11 Pulse Ox 97 11/22/19 12:11 Intake & Output 11/21/19 11/22/19 11/22/19 18:59 06:59 18:59 Intake Total 1540 1580 Balance 1540 1580 Weight 68.492 kg Intake: Oral 1540 1580 Other: Voiding Method Toilet Toilet Toilet Bedside Commode Bedside Commode # Voids 3 1 3 # Bowel Movements 2 - Exam Head normocephalic and atraumatic Neck supple no JVD no goiter Lungs clear to auscultation bilaterally no wheezing or crackles Heart regular rate and rhythm S1-S2, no rub or gallop Abdomen is soft nontender nondistended positive bowel sounds no hepatosplenomegaly Extremities edema plus 1 present bilaterally Neuro alert and orientated to 3. Patient sitting at bedside chair. She is receiving a massage. Hand jewel stringer equal bilaterally. Lower extremity strength equal bilaterally. Patient is able to take a cup and raise it from the table to her mouth with some effort. skin: rash on the chest wall and back - Labs CBC & Chem 7: 11/22/19 07:02 11/22/19 07:02 Labs: Abnormal Lab Results - Last 24 Hours (Table) 11/21/19 11/22/19 11/22/19 Range/Units 20:25 07:01 07:02 WBC 16.1 H (3.8-10.6) k/uL Hct 46.6 H (34.0-46.0) % Neutrophils # 14.2 H (1.3-7.7) k/uL Lymphocytes # 0.6 L (1.0-4.8) k/uL Carbon Dioxide (22-30) mmol/L BUN (7-17) mg/dL POC Glucose (mg/dL) 132 H 101 H (75-99) mg/dL AST (14-36) U/L ALT (4-34) U/L Total Protein (6.3-8.2) g/dL 11/22/19 11/22/19 Range/Units 07:02 11:37 WBC (3.8-10.6) k/uL Hct (34.0-46.0) % Neutrophils # (1.3-7.7) k/uL Lymphocytes # (1.0-4.8) k/uL Carbon Dioxide 32 H (22-30) mmol/L BUN 36 H (7-17) mg/dL POC Glucose (mg/dL) 161 H (75-99) mg/dL AST 38 H (14-36) U/L ALT 52 H (4-34) U/L Total Protein 6.0 L (6.3-8.2) g/dL Assessment and Plan Plan: 1. Acute exacerbation of dermatomyositis. Continue with the IV Solu-Medrol. Patient seen by rheumatology. Final diagnostic results of the muscle biopsy are pending. Rheumatology felt patient's symptoms are due to dermatomyositis and at this present time is likely related to malignancy. And they are recommending routine cancer screening. Also recommending at time of discharge the patient be discharged on prednisone 60 mg daily. Consult oncology for evaluation regarding the cancer screening 2. elevated troponin related to dermatomyositis. Patient seen by cardiology. Echo completed showing an EF of 65-70%, mild to moderate aortic regurgitation, mild aortic stenosis, mild tricuspid regurgitation, mild pulmonary hypertension. And trivial pericardial effusion. 3. History of Irritable bowel syndrome 4. Glaucoma of the right eye. Continue eyedrops 5. History of shingles 6. Essential hypertension: Blood pressures are elevated. We'll add Norvasc 5 mg daily. 7. Bilateral lower extremity edema: Discussed with nursing staff to place DIAMOND hose on patient's legs. Keep legs elevated. Patient is always sitting with her legs down. Encourage patient to keep legs elevated. Continue with PT OT GI prophylaxis Pepcid and DVT prophylaxis subcu Lovenox
[2019-11-22 20:09] LABS: Glucose,Whole Blood 139 mg/dL (75-99)
[2019-11-22] MEDS: LATANOPROST 0.005% OPHTH DROPS 2.5 ML BTL LEFT EYE SCH (21:23)
[2019-11-23 07:06] LABS: Glucose,Whole Blood 97 mg/dL (75-99)
[2019-11-23] MEDS: INSULIN ASPART (NovoLOG) 100 UNIT/ML VIAL SQ SCH ×4 (07:31→21:13)
[2019-11-23 07:35] LABS: Basophils % (A) 0 %; Eosinophils % (A) 0 %; HCT 48.7 % (34.0-46.0); HGB 15.5 gm/dL (11.4-16.0); Lymphocytes # (A) 0.5 k/uL (1.0-4.8); Lymphocytes % (A) 3 %; MCH 28.9 pg (25.0-35.0); MCHC 31.9 g/dL (31.0-37.0); MCV 90.7 fL (80.0-100.0); Mean Platelet Volume 12.8; Monocytes # (A) 0.9 k/uL (0-1.0); Monocytes % (A) 6 %; Neutrophils % (A) 90 %; RBC 5.37 m/uL (3.80-5.40); RDW 14.9 % (11.5-15.5); WBC 15.6 k/uL (3.8-10.6)
[2019-11-23] MEDS: DORZOLAMIDE HCL 2% DROPS 10 ML BTL LEFT EYE SCH ×2 (07:37→21:17)
[2019-11-23] MEDS: ENOXAPARIN 40 MG/0.4 ML SYRINGE SQ SCH (07:38)
[2019-11-23] MEDS: FAMOTIDINE 20 MG TAB PO SCH (07:38)
[2019-11-23] MEDS: amLODIPine 5 MG TAB PO SCH (07:38)
[2019-11-23] MEDS: LOSARTAN 50 MG TAB PO SCH ×2 (07:38→21:16)
[2019-11-23] MEDS: methylPREDNISolone SOD SUCCI 40 MG/ML 1 ML VIAL IV SCH ×2 (07:38→21:16)
[2019-11-23] MEDS: LOPERAMIDE 2 MG CAP PO SCH (07:39)
[2019-11-23 07:52] LABS: Albumin 3.7 g/dL (3.5-5.0); Calcium 9.2 mg/dL (8.4-10.2); Potassium 4.7 mmol/L (3.5-5.1); Total Bilirubin 1.4 mg/dL (0.2-1.3); Total Protein 5.7 g/dL (6.3-8.2)
[2019-11-23 08:31] LABS: Large Platelets Present
[2019-11-23 08:33] LABS: Platelet Count 214 k/uL (150-450)
--- NOTE | 2019-11-23 10:34 | P.PN ---
Subjective Progress Note Date: 11/23/19 11/19/2019 patient currently on a regular medical floor. 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 She's currently on IV steroids which was advised by rheumatology. Per patient rheumatology's spa assistant manager and did come through and evaluate her yesterday. Apparently there was a muscle biopsy done by Dr. Gamino which was positive for the dermatomyositis. Patient is still complaining of feeling very weak. She denies any pain. She was evaluated by cardiology due to her elevated troponins. Echo was ordered. She denies any chest pain or shortness of breath. Denies any nausea or vomiting. Reports having a bowel movement. Denies any difficulty urinating. Echo was completed this morning. 11/20/2019 patient is sitting in bedside chair. She is still having muscle weakness noted especially when grabbing for objects. However she does report improvement with the IV steroids. She has been up and ambulating with physical therapy. She has noted some lower extremity edema bilaterally. Denies any pain in the legs. Blood pressure is elevated at 175/85. Patient does report being on Norvasc the past. She says her PCP had stopped it outpatient. Norvasc will be resumed at 5 mg daily. Patient denies any chest pain, shortness of breath, nausea or vomiting, urinary symptoms. She does report having bowel movements. 11/21/2019 patient still reporting weakness in her arms when she tries to lift things. Her rash is improving. She remains on the IV steroids. She is awaiting the oncology consult regarding possible cancer screening for evaluation of the cause of her dermatomyositis. Patient denies any chest pain or shortness of breath. Denies any nausea or vomiting. Reports having bowel movements. Denies any difficulty urinating. On 11/22/2019 patient is alert and oriented 3 in no apparent distress still complaining of weakness in the proximal upper extremity muscle groups otherwise no complaints at this time. On 11/23/2019 patient was seen and examined on the medical floor she is alert and oriented 3 in no distress she is still complaining of weakness in her arm muscles and inability to lift her arms otherwise she denies any complaints there is no fever or chills no headache or dizziness no chest pain no shortness of breath no cough no nausea or vomiting no diarrhea and no urinary symptoms, case was discussed with Dr. Boutt yesterday plan for colonoscopy tomorrow, case was also discussed with oncology. Objective - Vital Signs Vital signs: Vital Signs Temp 97.5 F L 11/23/19 05:00 Pulse 75 11/23/19 05:00 Resp 16 11/23/19 05:00 BP 161/92 11/23/19 05:00 Pulse Ox 99 11/23/19 05:00 Intake & Output 11/22/19 11/23/19 11/23/19 18:59 06:59 18:59 Intake Total 1580 Balance 1580 Intake: Oral 1580 Other: Voiding Method Toilet Toilet Bedside Commode Bedside Commode # Voids 3 1 # Bowel Movements 2 - Exam Head normocephalic and atraumatic Neck supple no JVD no goiter Lungs clear to auscultation bilaterally no wheezing or crackles Heart regular rate and rhythm S1-S2, no rub or gallop Abdomen is soft nontender nondistended positive bowel sounds no hepatos plenomegaly Extremities edema plus 1 present bilaterally Neuro alert and orientated to 3. Patient sitting at bedside chair. She is receiving a massage. Hand life care planner equal bilaterally. Lower extremity strength equal bilaterally. Patient is able to take a cup and raise it from the table to her mouth with some effort. skin: rash on the chest wall and back - Labs CBC & Chem 7: 11/23/19 06:52 11/23/19 06:52 Labs: Abnormal Lab Results - Last 24 Hours (Table) 11/22/19 11/22/19 11/22/19 Range/Units 07:02 07:02 11:37 WBC 16.1 H (3.8-10.6) k/uL Hct 46.6 H (34.0-46.0) % Neutrophils # 14.2 H (1.3-7.7) k/uL Lymphocytes # 0.6 L (1.0-4.8) k/uL Carbon Dioxide 32 H (22-30) mmol/L BUN 36 H (7-17) mg/dL POC Glucose (mg/dL) 161 H (75-99) mg/dL AST 38 H (14-36) U/L ALT 52 H (4-34) U/L Total Protein 6.0 L (6.3-8.2) g/dL 11/22/19 Range/Units 20:08 WBC (3.8-10.6) k/uL Hct (34.0-46.0) % Neutrophils # (1.3-7.7) k/uL Lymphocytes # (1.0-4.8) k/uL Carbon Dioxide (22-30) mmol/L BUN (7-17) mg/dL POC Glucose (mg/dL) 139 H (75-99) mg/dL AST (14-36) U/L ALT (4-34) U/L Total Protein (6.3-8.2) g/dL Assessment and Plan Plan: 1. Acute exacerbation of dermatomyositis. Continue with the IV Solu-Medrol. Patient seen by rheumatology. Final diagnostic results of the muscle biopsy are pending. Rheumatology felt patient's symptoms are due to dermatomyositis and at this present time is likely related to malignancy. And they are recommending routine cancer screening. Also recommending at time of discharge the patient be discharged on prednisone 60 mg daily. Consult oncology for evaluation regarding the cancer screening 2. elevated troponin related to dermatomyositis. Patient seen by cardiology. Echo completed showing an EF of 65-70%, mild to moderate aortic regurgitation, mild aortic stenosis, mild tricuspid regurgitation, mild pulmonary hypertension. And trivial pericardial effusion. 3. History of Irritable bowel syndrome 4. Glaucoma of the right eye. Continue eyedrops 5. History of shingles 6. Essential hypertension: Blood pressures are elevated. We'll add Norvasc 5 mg daily. 7. Bilateral lower extremity edema: Discussed with nursing staff to place DIAMOND hose on patient's legs. Keep legs elevated. Patient is always sitting with her legs down. Encourage patient to keep legs elevated. Continue with PT OT GI prophylaxis Pepcid and DVT prophylaxis subcu Lovenox
[2019-11-23] MEDS: SODIUM CHLORIDE 0.9% 1,000 ML IV SCH (11:02)
--- NOTE | 2019-11-23 11:03 | P.PN ---
Subjective Progress Note Date: 11/18/19 Principal diagnosis: Acute exacerbation of dermatomyositis Elevated troponin related to above Irritable bowel syndrome Glaucoma of the right eye History of shingles 11/18/2019, patient had a rough night last night was a V/Q agitated and anxious, likely due to high-dose IV steroids they have been cut down to a smaller dose, she required a dose of Haldol as well with that agitation improved and able to get some sleep, patient to be evaluated by rheumatology 11/17/2019, patient seen eval examined and updated about biopsy finding, also updated about plans of rheumatology service, patient continued to be on high- dose steroid already very well will follow clinical course closely labs reviewed medications reviewed This is a 84-year-old female who presented with them generalized weakness to emergency department symptoms have been progressive for a month now patient has been seen by Dr. Medina advised to have IV steroids due to progressive weakness, recent biopsy done by Dr. Crane is positive Objective - Vital Signs Vital signs: Vital Signs Temp 97.7 F 11/18/19 12:33 Pulse 62 11/18/19 12:33 Resp 17 11/18/19 12:33 BP 166/71 11/18/19 12:33 Pulse Ox 98 11/18/19 12:33 Intake & Output 11/17/19 11/18/19 11/18/19 18:59 06:59 18:59 Intake Total 240 290 240 Balance 240 290 240 Intake: Oral 240 290 240 Other: Voiding Method Toilet Toilet Toilet Bedside Commode Bedside Commode Bedside Commode # Voids 3 3 - Exam General appearance: no acute distress, alert Eyes: nonicteric ENT: oropharynx moist Effort: normal Percussion: Bilateral: not dull Tactile fremitus: Bilateral: normal Cardiovascular: regular rate and rhythm Gastrointestinal: normoactive bowel sounds Integumentary: normal Extremities: pink and warm, pulses normal, no ischemia or petechiae Musculoskeletal: no deformities normal mental status, non-focal exam, pupils equal and round, CN II-XII normal, motor strength normal and symmetric - Labs CBC & Chem 7: 11/23/19 06:52 11/23/19 06:52 Labs: Abnormal Lab Results - Last 24 Hours (Table) 11/17/19 11/17/19 11/18/19 Range/Units 17:06 20:15 07:10 WBC (3.8-10.6) k/uL Neutrophils # (1.3-7.7) k/uL Lymphocytes # (1.0-4.8) k/uL Monocytes # (0-1.0) k/uL BUN (7-17) mg/dL POC Glucose (mg/dL) 126 H 144 H 105 H (75-99) mg/dL Troponin I (0.000-0.034) ng/mL Total Protein (6.3-8.2) g/dL 11/18/19 11/18/19 11/18/19 Range/Units 07:35 07:35 07:35 WBC 20.5 H (3.8-10.6) k/uL Neutrophils # 18.1 H (1.3-7.7) k/uL Lymphocytes # 0.7 L (1.0-4.8) k/uL Monocytes # 1.4 H (0-1.0) k/uL BUN 41 H (7-17) mg/dL POC Glucose (mg/dL) (75-99) mg/dL Troponin I 0.097 H* (0.000-0.034) ng/mL Total Protein 5.9 L (6.3-8.2) g/dL 11/18/19 Range/Units 11:42 WBC (3.8-10.6) k/uL Neutrophils # (1.3-7.7) k/uL Lymphocytes # (1.0-4.8) k/uL Monocytes # (0-1.0) k/uL BUN (7-17) mg/dL POC Glucose (mg/dL) 128 H (75-99) mg/dL Troponin I (0.000-0.034) ng/mL Total Protein (6.3-8.2) g/dL Assessment and Plan Assessment: Acute delirium Acute exacerbation of dermatomyositis Elevated troponin related to above Irritable bowel syndrome Glaucoma of the right eye History of shingles Plan: IV steroids as per recommendation of Dr. Medina, Will lower the doses however, observe closely Follow clinical course closely closely Mildly elevated troponin likely due to dermatomyositis we'll observe clinical course closely Time with Patient: Greater than 30
[2019-11-23 11:45] LABS: Glucose,Whole Blood 85 mg/dL (75-99)
[2019-11-23] MEDS ORDERED: PEG 3350-NA SULF,BICARB,CL/KCL 4,000 ML BOTTLE PO ONE (14:00)
[2019-11-23 17:05] LABS: Glucose,Whole Blood 94 mg/dL (75-99)
[2019-11-23 20:57] LABS: Glucose,Whole Blood 105 mg/dL (75-99)
[2019-11-23] MEDS: LATANOPROST 0.005% OPHTH DROPS 2.5 ML BTL LEFT EYE SCH (21:17)
[2019-11-24 08:10] LABS: Albumin 3.6 g/dL (3.5-5.0); Calcium 9.2 mg/dL (8.4-10.2); Potassium 5.2 mmol/L (3.5-5.1); Total Bilirubin 1.7 mg/dL (0.2-1.3); Total Protein 6.1 g/dL (6.3-8.2)
[2019-11-24 08:19] LABS: Basophils % (A) 0 %; Eosinophils % (A) 0 %; HCT 47.2 % (34.0-46.0); HGB 15.5 gm/dL (11.4-16.0); Lymphocytes # (A) 0.8 k/uL (1.0-4.8); Lymphocytes % (A) 5 %; MCHC 32.8 g/dL (31.0-37.0); MCV 91.5 fL (80.0-100.0); Monocytes # (A) 0.9 k/uL (0-1.0); Monocytes % (A) 6 %; Neutrophils # (A) 12.4 k/uL (1.3-7.7); Neutrophils % (A) 86 %; Platelet Count 202 k/uL (150-450); RBC 5.16 m/uL (3.80-5.40); RDW 14.9 % (11.5-15.5); WBC 14.5 k/uL (3.8-10.6)
[2019-11-24 08:53] LABS: Large Platelets Present; Poikilocytosis (M) Present
[2019-11-24] MEDS: INSULIN ASPART (NovoLOG) 100 UNIT/ML VIAL SQ SCH ×4 (09:17→20:16)
[2019-11-24] MEDS: ENOXAPARIN 40 MG/0.4 ML SYRINGE SQ SCH (09:17)
[2019-11-24] MEDS: methylPREDNISolone SOD SUCCI 40 MG/ML 1 ML VIAL IV SCH ×2 (09:18→20:27)
[2019-11-24] MEDS: DORZOLAMIDE HCL 2% DROPS 10 ML BTL LEFT EYE SCH ×2 (09:18→20:27)
--- NOTE | 2019-11-24 10:00 | P.PN ---
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 She still cannot walk or lift her arms more then45 degrees. Objective - Vital Signs Vital signs: Vital Signs Temp 97.5 F L 11/24/19 05:00 Pulse 80 11/24/19 05:00 Resp 18 11/23/19 21:00 BP 115/77 11/24/19 05:00 Pulse Ox 99 11/24/19 05:00 Intake & Output 11/23/19 11/24/19 11/24/19 18:59 06:59 18:59 Intake Total 2190 Balance 2190 Intake: Oral 2190 Other: Voiding Method Toilet Toilet Bedside Commode Bedside Commode # Voids 3 2 # Bowel Movements 4 2 - Constitutional General appearance: Present: average body habitus, cooperative, no acute distress - EENT Eyes: Present: anicteric sclerae, EOMI ENT: Present: hearing grossly normal - Respiratory Respiratory: bilateral: CTA - Cardiovascular Heart sounds: normal: S1, S2 - Peripheral edema leg Peripheral Edema: bilateral: None - Gastrointestinal General gastrointestinal: Present: normal bowel sounds, soft - Musculoskeletal Musculoskeletal Comment(s): extremity weakness, equal bilaterally - Psychiatric Psychiatric: Present: A&O x's 3, appropriate affect, intact judgment & insight - Labs CBC & Chem 7: 11/24/19 07:15 11/24/19 07:15 Labs: Abnormal Lab Results - Last 24 Hours (Table) 11/23/19 11/24/19 11/24/19 Range/Units 20:55 07:15 07:15 WBC 14.5 H (3.8-10.6) k/uL Hct 47.2 H (34.0-46.0) % Neutrophils # 12.4 H (1.3-7.7) k/uL Lymphocytes # 0.8 L (1.0-4.8) k/uL Potassium 5.2 H (3.5-5.1) mmol/L BUN 29 H (7-17) mg/dL POC Glucose (mg/dL) 105 H (75-99) mg/dL Total Bilirubin 1.7 H (0.2-1.3) mg/dL AST 41 H (14-36) U/L ALT 64 H (4-34) U/L Total Protein 6.1 L (6.3-8.2) g/dL Assessment and Plan (1) Ataxia Current Visit: Yes Status: Acute Priority: High Code(s): R27.0 - ATAXIA, UNSPECIFIED SNOMED Code(s): 49371162 (2) Dermatomyositis Current Visit: Yes Status: Acute Priority: High Code(s): M33.90 - DERMATOPOLYMYOSITIS, UNSP, ORGAN INVOLVEMENT UNSPECIFIED SNOMED Code(s): 925451671 (3) Proximal muscle weakness Current Visit: Yes Status: Acute Priority: High Code(s): M62.81 - MUSCLE WEAKNESS (GENERALIZED) SNOMED Code(s): 613072827 Plan: Steroid refractory dermatomyositis. Have appealed to Pharmacy for IVIG. Dose is 5g/kg divided dose over 5 days. Pending appeal Concern for occult malignancy/paraneoplastic syndrome-work up in progress, no evidence of malignancy thus far. CT CAP stable LN in the chest, US lt axilla no adenopathy. Colonoscopy today. Mammogram outpatient. Doctor attests: I performed a history and physical examination of this patient, developed impression and plan of care. Discussed with dictator. I agree with dictators note, documented as a scribe.
[2019-11-24] MEDS ORDERED: PROPOFOL 10 MG/ML 20 ML VIAL IV ONE (11:02)
[2019-11-24] MEDS ORDERED: SODIUM CHLORIDE 0.9% 500 ML 500 ML IV ONE (11:07)
--- NOTE | 2019-11-24 11:36 | P.PCN ---
Date of Procedure: 11/24/19 Procedure(s) Performed: PREOPERATIVE DIAGNOSIS: Rectal bleeding POSTOPERATIVE DIAGNOSIS: Tortuous sigmoid, slightly suboptimal prep, internal and external hemorrhoids PROCEDURE: Attempted colonoscopy, unable to advance beyond sigmoid ANESTHESIA: MAC SURGEON: Aiden Friend M.D. SPECIMENS: None ENDOSCOPIC PROCEDURE: The patient was placed on the endoscopy table in the left decubitus position. The Olympus colonoscope was inserted into the anus and passed under direct visualization to the mid sigmoid colon. The patient had significant tortuosity that precluded advancing the scope further. The prep was slightly suboptimal. There were no abnormalities identified in the rectum or sigmoid. At the anus prominent internal and external hemorrhoids were noted. The patient was taken to the recovery room in stable condition per anesthesia guidelines. RECOMMENDATIONS: Will discuss options a barium enema with the patient.
[2019-11-24] MEDS: LOSARTAN 50 MG TAB PO SCH ×2 (12:24→20:26)
[2019-11-24] MEDS: FAMOTIDINE 20 MG TAB PO SCH (12:24)
[2019-11-24] MEDS: amLODIPine 5 MG TAB PO SCH (12:24)
[2019-11-24] MEDS: LOPERAMIDE 2 MG CAP PO SCH (12:24)
[2019-11-24 13:13] LABS: Glucose,Whole Blood 141 mg/dL (75-99)
[2019-11-24] MEDS: SODIUM CHLORIDE 0.9% 1,000 ML IV SCH (15:23)
--- NOTE | 2019-11-24 15:38 | P.PN ---
Subjective Progress Note Date: 11/24/19 11/19/2019 patient currently on a regular medical floor. 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 She's currently on IV steroids which was advised by rheumatology. Per patient rheumatology's assistant property manager and did come through and evaluate her yesterday. Apparently there was a muscle biopsy done by Dr. Gamino which was positive for the dermatomyositis. Patient is still complaining of feeling very weak. She denies any pain. She was evaluated by cardiology due to her elevated troponins. Echo was ordered. She denies any chest pain or shortness of breath. Denies any nausea or vomiting. Reports having a bowel movement. Denies any difficulty urinating. Echo was completed this morning. 11/20/2019 patient is sitting in bedside chair. She is still having muscle weakness noted especially when grabbing for objects. However she does report improvement with the IV steroids. She has been up and ambulating with physical therapy. She has noted some lower extremity edema bilaterally. Denies any pain in the legs. Blood pressure is elevated at 175/85. Patient does report being on Norvasc the past. She says her PCP had stopped it outpatient. Norvasc will be resumed at 5 mg daily. Patient denies any chest pain, shortness of breath, nausea or vomiting, urinary symptoms. She does report having bowel movements. 11/21/2019 patient still reporting weakness in her arms when she tries to lift things. Her rash is improving. She remains on the IV steroids. She is awaiting the oncology consult regarding possible cancer screening for evaluation of the cause of her dermatomyositis. Patient denies any chest pain or shortness of breath. Denies any nausea or vomiting. Reports having bowel movements. Denies any difficulty urinating. On 11/22/2019 patient is alert and oriented 3 in no apparent distress still complaining of weakness in the proximal upper extremity muscle groups otherwise no complaints at this time. On 11/23/2019 patient was seen and examined on the medical floor she is alert and oriented 3 in no distress she is still complaining of weakness in her arm muscles and inability to lift her arms otherwise she denies any complaints there is no fever or chills no headache or dizziness no chest pain no shortness of breath no cough no nausea or vomiting no diarrhea and no urinary symptoms, case was discussed with Dr. Boutt yesterday plan for colonoscopy tomorrow, case was also discussed with oncology. On 11/24/2019 patient is alert and oriented 3. Attempted colonoscopy per Dr. chadwick was unsuccessful due to significant tortuosity. Options including barium enema discussed with patient. Per oncology have appealed to pharmacy for IVIG infusions. Patient maintained on IV steroids still complaining of weakness in her arms inability to lift arms. Patient denies chest pain or shortness of breath. Patient denies nausea vomiting or diarrhea. Patient denies any urinary burning or frequency Objective - Vital Signs Vital signs: Vital Signs Temp 97.7 F 11/24/19 12:12 Pulse 63 11/24/19 12:12 Resp 18 11/24/19 12:12 BP 160/74 11/24/19 12:12 Pulse Ox 98 11/24/19 12:12 Intake & Output 11/23/19 11/24/19 11/24/19 18:59 06:59 18:59 Intake Total 2190 750 Balance 2190 750 Intake: IV 350 Oral 2190 400 Other: Voiding Method Toilet Toilet Toilet Bedside Commode Bedside Commode Bedside Commode # Voids 3 2 1 # Bowel Movements 4 2 - Exam Head normocephalic and atraumatic Neck supple no JVD no goiter Lungs clear to auscultation bilaterally no wheezing or crackles Heart regular rate and rhythm S1-S2, no rub or gallop Abdomen is soft nontender nondistended positive bowel sounds no hepatosplenomegaly Extremities edema plus 1 present bilaterally Neuro alert and orientated to 3. Patient sitting at bedside chair. She is receiving a massage. Hand metal reclamation kettle tender equal bilaterally. Lower extremity strength equal bilaterally. Patient is able to take a cup and raise it from the table to her mouth with some effort. skin: rash on the chest wall and back - Labs CBC & Chem 7: 11/24/19 07:15 11/24/19 07:15 Labs: Abnormal Lab Results - Last 24 Hours (Table) 11/23/19 11/24/19 11/24/19 Range/Units 20:55 07:15 07:15 WBC 14.5 H (3.8-10.6) k/uL Hct 47.2 H (34.0-46.0) % Neutrophils # 12.4 H (1.3-7.7) k/uL Lymphocytes # 0.8 L (1.0-4.8) k/uL Potassium 5.2 H (3.5-5.1) mmol/L BUN 29 H (7-17) mg/dL POC Glucose (mg/dL) 105 H (75-99) mg/dL Total Bilirubin 1.7 H (0.2-1.3) mg/dL AST 41 H (14-36) U/L ALT 64 H (4-34) U/L Total Protein 6.1 L (6.3-8.2) g/dL 11/24/19 Range/Units 13:11 WBC (3.8-10.6) k/uL Hct (34.0-46.0) % Neutrophils # (1.3-7.7) k/uL Lymphocytes # (1.0-4.8) k/uL Potassium (3.5-5.1) mmol/L BUN (7-17) mg/dL POC Glucose (mg/dL) 141 H (75-99) mg/dL Total Bilirubin (0.2-1.3) mg/dL AST (14-36) U/L ALT (4-34) U/L Total Protein (6.3-8.2) g/dL Assessment and Plan Assessment: 1. Acute exacerbation of dermatomyositis. Continue with the IV Solu-Medrol. Patient seen by rheumatology. Final diagnostic results of the muscle biopsy are pending. Rheumatology felt patient's symptoms are due to dermatomyositis and at this present time is likely related to malignancy. And they are recommending routine cancer screening. Also recommending at time of discharge the patient be discharged on prednisone 60 mg daily. Per oncology service is a pale to pharmacy for IVIG. Dose is 5 mg/kg divided over 5 days. Pending by mouth. Per oncology concerns for occult malignancy paraneoplastic syndrome workup in progress no evidence for malignancy thus far. 2. elevated troponin related to dermatomyositis. Patient seen by cardiology. Echo completed showing an EF of 65-70%, mild to moderate aortic regurgitation, mild aortic stenosis, mild tricuspid regurgitation, mild pulmonary hypertension. And trivial pericardial effusion. 3. History of Irritable bowel syndrome 4. Glaucoma of the right eye. Continue eyedrops 5. History of shingles 6. Essential hypertension: Blood pressures are elevated. We'll add Norvasc 5 mg daily. 7. Bilateral lower extremity edema: Discussed with nursing staff to place DIAMOND hose on patient's legs. Keep legs elevated. Patient is always sitting with her legs down. Encourage patient to keep legs elevated. 8. Concerns of rectal bleeding. Attempted colonoscopy per surgical services due to tortuosity was unsuccessful. Barium enema to be discussed with patient per surgical services Continue with PT OT GI prophylaxis Pepcid and DVT prophylaxis subcu Lovenox I performed an examination of the patient and discussed their management with the Nurse Practitioner. I have reviewed the Nurse Practitioner's notes and agree with the documented findings and plan of care
[2019-11-24 16:58] LABS: Glucose,Whole Blood 178 mg/dL (75-99)
[2019-11-24 20:02] LABS: Glucose,Whole Blood 96 mg/dL (75-99)
[2019-11-24] MEDS: LATANOPROST 0.005% OPHTH DROPS 2.5 ML BTL LEFT EYE SCH (20:27)
[2019-11-25 07:05] LABS: Glucose,Whole Blood 110 mg/dL (75-99)
[2019-11-25] MEDS: INSULIN ASPART (NovoLOG) 100 UNIT/ML VIAL SQ SCH ×4 (07:57→20:20)
[2019-11-25 08:41] LABS: Albumin 3.4 g/dL (3.5-5.0); Calcium 9.2 mg/dL (8.4-10.2); Potassium 4.7 mmol/L (3.5-5.1); Total Protein 5.7 g/dL (6.3-8.2)
[2019-11-25] MEDS: LOPERAMIDE 2 MG CAP PO SCH (08:41)
[2019-11-25] MEDS: LOSARTAN 50 MG TAB PO SCH ×2 (08:41→20:20)
[2019-11-25] MEDS: FAMOTIDINE 20 MG TAB PO SCH (08:41)
[2019-11-25] MEDS: ENOXAPARIN 40 MG/0.4 ML SYRINGE SQ SCH (08:42)
[2019-11-25] MEDS: amLODIPine 5 MG TAB PO SCH (08:42)
[2019-11-25] MEDS: methylPREDNISolone SOD SUCCI 40 MG/ML 1 ML VIAL IV SCH ×2 (08:42→20:20)
[2019-11-25] MEDS: DORZOLAMIDE HCL 2% DROPS 10 ML BTL LEFT EYE SCH ×2 (08:42→20:21)
[2019-11-25 08:57] LABS: Basophils % (A) 0 %; Eosinophils % (A) 0 %; HCT 45.2 % (34.0-46.0); HGB 14.8 gm/dL (11.4-16.0); Lymphocytes # (A) 0.5 k/uL (1.0-4.8); Lymphocytes % (A) 3 %; MCH 29.8 pg (25.0-35.0); MCHC 32.8 g/dL (31.0-37.0); Mean Platelet Volume 12.7; Monocytes # (A) 0.8 k/uL (0-1.0); Monocytes % (A) 5 %; Neutrophils % (A) 90 %; Platelet Count 203 k/uL (150-450); RBC 4.97 m/uL (3.80-5.40); RDW 14.8 % (11.5-15.5); WBC 15.7 k/uL (3.8-10.6)
[2019-11-25 11:02] LABS: Large Platelets Present
--- NOTE | 2019-11-25 11:10 | P.PN ---
<Anisa Gunderson - Last Filed: 11/25/19 11:05> Subjective Progress Note Date: 11/25/19 CHIEF COMPLAINT: Rectal bleeding HISTORY OF PRESENT ILLNESS: Patient is status post attempted colonoscopy which was unable to be advanced beyond the sigmoid colon secondary to tortuous colon. Patient was found to have internal and external hemorrhoids. Patient states she is feeling well today. She denies rectal bleeding this morning. Denies abdominal pain. Denies nausea or vomiting. PHYSICAL EXAM: VITAL SIGNS: Reviewed. GENERAL: Well-developed in no acute distress. HEENT: No sclera icterus. Extraocular movements grossly intact. Moist buccal mucosa. Head is atraumatic, normocephalic. ABDOMEN: Soft. Nondistended. Nontender. NEUROLOGIC: Alert and oriented. Cranial nerves II through XII grossly intact. ASSESSMENT: 1. Rectal bleeding PLAN: Spoke with patient regarding barium enema. She is adamantly refusing due to previous colonoscopy and barium enema that resulted in a cecal perforation Continue diet as tolerated Nurse practitioner note has been reviewed by physician. Signing provider agrees with the documented findings, assessment, and plan of care. Objective - Vital Signs Vital signs: Vital Signs Temp 98.1 F 11/25/19 05:00 Pulse 76 11/25/19 05:00 Resp 16 11/25/19 05:00 BP 140/74 11/25/19 05:00 Pulse Ox 97 11/25/19 05:00 Intake & Output 11/24/19 11/25/19 11/25/19 18:59 06:59 18:59 Intake Total 750 Balance 750 Intake: IV 350 Oral 400 Other: Voiding Method Toilet Toilet Toilet Bedside Commode # Voids 1 1 - Labs CBC & Chem 7: 11/25/19 07:56 11/25/19 07:56 Labs: Abnormal Lab Results - Last 24 Hours (Table) 11/24/19 11/24/19 11/25/19 Range/Units 13:11 16:57 07:04 WBC (3.8-10.6) k/uL Neutrophils # (1.3-7.7) k/uL Lymphocytes # (1.0-4.8) k/uL Sodium (137-145) mmol/L BUN (7-17) mg/dL Glucose (74-99) mg/dL POC Glucose (mg/dL) 141 H 178 H 110 H (75-99) mg/dL ALT (4-34) U/L Total Protein (6.3-8.2) g/dL Albumin (3.5-5.0) g/dL 11/25/19 11/25/19 Range/Units 07:56 07:56 WBC 15.7 H (3.8-10.6) k/uL Neutrophils # 14.0 H (1.3-7.7) k/uL Lymphocytes # 0.5 L (1.0-4.8) k/uL Sodium 136 L (137-145) mmol/L BUN 36 H (7-17) mg/dL Glucose 126 H (74-99) mg/dL POC Glucose (mg/dL) (75-99) mg/dL ALT 56 H (4-34) U/L Total Protein 5.7 L (6.3-8.2) g/dL Albumin 3.4 L (3.5-5.0) g/dL <Aiden Friend - Last Filed: 11/25/19 17:19> Subjective As above. Patient doing well today. Denies pain. Patient refusing any further GI evaluation. We'll sign off. Please call if needed. Objective - Vital Signs Vital signs: Vital Signs Temp 98.5 F 11/25/19 11:49 Pulse 71 11/25/19 11:49 Resp 17 11/25/19 11:49 BP 134/72 11/25/19 11:49 Pulse Ox 97 11/25/19 11:49 Intake & Output 11/24/19 11/25/19 11/25/19 18:59 06:59 18:59 Intake Total 750 157.571 Balance 750 157.571 Intake: IV 350 Intake, IV Titration 157.571 Amount Immune Globulin ( 157.571 Gammagard) 30 gm In Empty Bag 1 bag @ Per Protocol IV .Q0M NR Rx#:[id number] Oral 400 Other: Voiding Method Toilet Toilet Toilet Bedside Commode # Voids 1 1 3 - Labs CBC & Chem 7: 11/25/19 07:56 11/25/19 07:56 Labs: Abnormal Lab Results - Last 24 Hours (Table) 11/25/19 11/25/19 11/25/19 Range/Units 07:04 07:56 07:56 WBC 15.7 H (3.8-10.6) k/uL Neutrophils # 14.0 H (1.3-7.7) k/uL Lymphocytes # 0.5 L (1.0-4.8) k/uL Sodium 136 L (137-145) mmol/L BUN 36 H (7-17) mg/dL Glucose 126 H (74-99) mg/dL POC Glucose (mg/dL) 110 H (75-99) mg/dL ALT 56 H (4-34) U/L Total Protein 5.7 L (6.3-8.2) g/dL Albumin 3.4 L (3.5-5.0) g/dL 11/25/19 11/25/19 Range/Units 11:11 17:06 WBC (3.8-10.6) k/uL Neutrophils # (1.3-7.7) k/uL Lymphocytes # (1.0-4.8) k/uL Sodium (137-145) mmol/L BUN (7-17) mg/dL Glucose (74-99) mg/dL POC Glucose (mg/dL) 120 H 100 H (75-99) mg/dL ALT (4-34) U/L Total Protein (6.3-8.2) g/dL Albumin (3.5-5.0) g/dL Assessment and Plan (1) Rectal bleeding Current Visit: Yes Status: Acute Code(s): K62.5 - HEMORRHAGE OF ANUS AND RECTUM SNOMED Code(s): 91660882
[2019-11-25 11:12] LABS: Glucose,Whole Blood 120 mg/dL (75-99)
[2019-11-25] MEDS: SODIUM CHLORIDE 0.9% 1,000 ML IV SCH (11:20)
[2019-11-25] MEDS ORDERED: IMMUNE GLOBULIN (GAMMAGARD) 30 GM in EMPTY BAG 1 BAG IV NR (13:00)
--- NOTE | 2019-11-25 14:21 | P.PN ---
Subjective Progress Note Date: 11/25/19 Patient was seen evaluated by Dr. Rodgers from 11/16/2019 until 11/18/2019 he was covering for Dr. Hamilton. 11/19/2019 patient currently on a regular medical floor. 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 She's currently on IV steroids which was advised by rheumatology. Per patient rheumatology's plant attendant or assistant operator and did come through and evaluate her yesterday. Apparently there was a muscle biopsy done by Dr. Gamino which was positive for the dermatomyositis. Patient is still complaining of feeling very weak. She denies any pain. She was evaluated by cardiology due to her elevated troponins. Echo was ordered. She denies any chest pain or shortness of breath. Denies any nausea or vomiting. Reports having a bowel movement. Denies any difficulty urinating. Echo was completed this morning. 11/20/2019 patient is sitting in bedside chair. She is still having muscle weakness noted especially when grabbing for objects. However she does report improvement with the IV steroids. She has been up and ambulating with physical therapy. She has noted some lower extremity edema bilaterally. Denies any pain in the legs. Blood pressure is elevated at 175/85. Patient does report being on Norvasc the past. She says her PCP had stopped it outpatient. Norvasc will be resumed at 5 mg daily. Patient denies any chest pain, shortness of breath, nausea or vomiting, urinary symptoms. She does report having bowel movements. 11/21/2019 patient still reporting weakness in her arms when she tries to lift things. Her rash is improving. She remains on the IV steroids. She is awaiting the oncology consult regarding possible cancer screening for evaluation of the cause of her dermatomyositis. Patient denies any chest pain or shortness of breath. Denies any nausea or vomiting. Reports having bowel movements. Denies any difficulty urinating. On 11/22/2019 patient is alert and oriented 3 in no apparent distress still complaining of weakness in the proximal upper extremity muscle groups otherwise no complaints at this time. On 11/23/2019 patient was seen and examined on the medical floor she is alert and oriented 3 in no distress she is still complaining of weakness in her arm muscles and inability to lift her arms otherwise she denies any complaints there is no fever or chills no headache or dizziness no chest pain no shortness of breath no cough no nausea or vomiting no diarrhea and no urinary symptoms, case was discussed with Dr. Friend yesterday plan for colonoscopy tomorrow, case was also discussed with oncology. On 11/24/2019 patient is alert and oriented 3. Attempted colonoscopy per Dr. chadwick was unsuccessful due to significant tortuosity. Options including barium enema discussed with patient. Per oncology have appealed to pharmacy for IVIG infusions. Patient maintained on IV steroids still complaining of weakness in her arms inability to lift arms. Patient denies chest pain or shortness of breath. Patient denies nausea vomiting or diarrhea. Patient denies any urinary burning or frequency 11/26/2019 patient is reporting improvement in her weakness. She has been up and ambulating in the hallways. Discussed case with oncology service. They have started IVIG today and the scheduled another dose for tomorrow. They're planning on starting IVIG afternoon outpatient. Patient has been followed by surgical service. At this time. Patient is also refusing to have barium enema completed. Patient denies any chest pain or shortness of breath. Denies any nausea or vomiting. Reports having bowel movements. Denies any difficulty urinating. Anticipating discharge tomorrow afternoon after second d ose of IVIG Objective - Vital Signs Vital signs: Vital Signs Temp 98.5 F 11/25/19 11:49 Pulse 71 11/25/19 11:49 Resp 17 11/25/19 11:49 BP 134/72 11/25/19 11:49 Pulse Ox 97 11/25/19 11:49 Intake & Output 11/24/19 11/25/19 11/25/19 18:59 06:59 18:59 Intake Total 750 23.404 Balance 750 23.404 Intake: IV 350 Intake, IV Titration 23.404 Amount Immune Globulin ( 23.404 Gammagard) 30 gm In Empty Bag 1 bag @ Per Protocol IV .Q0M NR Rx#:[id number] Oral 400 Other: Voiding Method Toilet Toilet Toilet Bedside Commode # Voids 1 1 - Exam Head normocephalic Neck supple Lungs clear to auscultation bilaterally no wheezing or crackles Heart regular rate and rhythm S1-S2, no rub or gallop Abdomen is soft nontender nondistended positive bowel sounds no hepatosplenomegaly Extremities edema plus 1 present bilaterally Neuro alert and orientated to 3. skin: rash on the chest wall and back - Labs CBC & Chem 7: 11/25/19 07:56 11/25/19 07:56 Labs: Abnormal Lab Results - Last 24 Hours (Table) 11/24/19 11/25/19 11/25/19 Range/Units 16:57 07:04 07:56 WBC 15.7 H (3.8-10.6) k/uL Neutrophils # 14.0 H (1.3-7.7) k/uL Lymphocytes # 0.5 L (1.0-4.8) k/uL Sodium (137-145) mmol/L BUN (7-17) mg/dL Glucose (74-99) mg/dL POC Glucose (mg/dL) 178 H 110 H (75-99) mg/dL ALT (4-34) U/L Total Protein (6.3-8.2) g/dL Albumin (3.5-5.0) g/dL 11/25/19 11/25/19 Range/Units 07:56 11:11 WBC (3.8-10.6) k/uL Neutrophils # (1.3-7.7) k/uL Lymphocytes # (1.0-4.8) k/uL Sodium 136 L (137-145) mmol/L BUN 36 H (7-17) mg/dL Glucose 126 H (74-99) mg/dL POC Glucose (mg/dL) 120 H (75-99) mg/dL ALT 56 H (4-34) U/L Total Protein 5.7 L (6.3-8.2) g/dL Albumin 3.4 L (3.5-5.0) g/dL Assessment and Plan Assessment: 1. Acute exacerbation of dermatomyositis. Continue with the IV Solu-Medrol. Patient seen by rheumatology. Final diagnostic results of the muscle biopsy are pending. Rheumatology felt patient's symptoms are due to dermatomyositis and at this present time is likely related to malignancy. And they are recommending ro utine cancer screening. Also recommending at time of discharge the patient be discharged on prednisone 60 mg daily. Oncology has started IVIG on patient. First dose was today. She is scheduled for another dose tomorrow and then she'll start IVIG outpatient. Per oncology concerns for occult malignancy paraneoplastic syndrome workup in progress no evidence for malignancy thus far. 2. elevated troponin related to dermatomyositis. Patient seen by cardiology. Echo completed showing an EF of 65-70%, mild to moderate aortic regurgitation, mild aortic stenosis, mild tricuspid regurgitation, mild pulmonary hypertension. And trivial pericardial effusion. 3. History of Irritable bowel syndrome 4. Glaucoma of the right eye. Continue eyedrops 5. History of shingles 6. Essential hypertension: Blood pressures are elevated. We'll add Norvasc 5 mg daily. 7. Bilateral lower extremity edema: Discussed with nursing staff to place DIAMOND hose on patient's legs. Keep legs elevated. Patient is always sitting with her legs down. Encourage patient to keep legs elevated. 8. Mildly elevated ALT trending down. Continue with PT OT GI prophylaxis Pepcid and DVT prophylaxis subcu Lovenox I performed an examination of the patient and discussed their management with the physician Economics Teacher. I have reviewed the Physician Economics Teacher's notes and agree with the documented findings and plan of care
--- NOTE | 2019-11-25 15:29 | P.PN ---
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 She cannot lift the arms above 45 degrees, she has no other c/o today. Objective - Vital Signs Vital signs: Vital Signs Temp 98.5 F 11/25/19 11:49 Pulse 71 11/25/19 11:49 Resp 17 11/25/19 11:49 BP 134/72 11/25/19 11:49 Pulse Ox 97 11/25/19 11:49 Intake & Output 11/24/19 11/25/19 11/25/19 18:59 06:59 18:59 Intake Total 750 157.571 Balance 750 157.571 Intake: IV 350 Intake, IV Titration 157.571 Amount Immune Globulin ( 157.571 Gammagard) 30 gm In Empty Bag 1 bag @ Per Protocol IV .Q0M NR Rx#:[id number] Oral 400 Other: Voiding Method Toilet Toilet Toilet Bedside Commode # Voids 1 1 3 - Constitutional General appearance: Present: average body habitus, cooperative, no acute distress - EENT Eyes: Present: anicteric sclerae, EOMI ENT: Present: hearing grossly normal - Respiratory Details: respirations even and unlabored - Cardiovascular Details: skin warm and dry, radial pulse regular - Peripheral edema leg Peripheral Edema: bilateral: Trace - Musculoskeletal Musculoskeletal Comment(s): upper extremity weakness above the shoulders - Psychiatric Psychiatric: Present: A&O x's 3, appropriate affect, intact judgment & insight - Labs CBC & Chem 7: 11/25/19 07:56 11/25/19 07:56 Labs: Abnormal Lab Results - Last 24 Hours (Table) 11/24/19 11/25/19 11/25/19 Range/Units 16:57 07:04 07:56 WBC 15.7 H (3.8-10.6) k/uL Neutrophils # 14.0 H (1.3-7.7) k/uL Lymphocytes # 0.5 L (1.0-4.8) k/uL Sodium (137-145) mmol/L BUN (7-17) mg/dL Glucose (74-99) mg/dL POC Glucose (mg/dL) 178 H 110 H (75-99) mg/dL ALT (4-34) U/L Total Protein (6.3-8.2) g/dL Albumin (3.5-5.0) g/dL 11/25/19 11/25/19 Range/Units 07:56 11:11 WBC (3.8-10.6) k/uL Neutrophils # (1.3-7.7) k/uL Lymphocytes # (1.0-4.8) k/uL Sodium 136 L (137-145) mmol/L BUN 36 H (7-17) mg/dL Glucose 126 H (74-99) mg/dL POC Glucose (mg/dL) 120 H (75-99) mg/dL ALT 56 H (4-34) U/L Total Protein 5.7 L (6.3-8.2) g/dL Albumin 3.4 L (3.5-5.0) g/dL Assessment and Plan (1) Ataxia Narrative/Plan: ambulating with a walker. Current Visit: Yes Status: Acute Priority: High Code(s): R27.0 - ATAXIA, UNSPECIFIED SNOMED Code(s): 11337500 (2) Dermatomyositis Current Visit: Yes Status: Acute Priority: High Code(s): M33.90 - DERMATOPOLYMYOSITIS, UNSP, ORGAN INVOLVEMENT UNSPECIFIED SNOMED Code(s): 170825466 (3) Proximal muscle weakness Current Visit: Yes Status: Acute Priority: High Code(s): M62.81 - MUSCLE WEAKNESS (GENERALIZED) SNOMED Code(s): 229390053 Plan: Steroid refractory dermatomyositis. Have appealed to Pharmacy for IVIG. Plan is for 1.6g/kg x 3 daily doses. Discussed with Internal Medicine TURNING MACHINE OPERATOR. Plan is for a dose of IVIG today, tomorrow morning and then discharge. With the final dose plan to be given as an outpatient on this is just getting ridiculous. Concern for occult malignancy/paraneoplastic syndrome-work up in progress, no evidence of malignancy thus far. Surgeon unable to pass scope passed sigmoid due to tortuous colon, possible barium. Mammogram outpatient.
[2019-11-25 17:08] LABS: Glucose,Whole Blood 100 mg/dL (75-99)
[2019-11-25] MEDS: LATANOPROST 0.005% OPHTH DROPS 2.5 ML BTL LEFT EYE SCH (20:21)
[2019-11-25 20:42] LABS: Glucose,Whole Blood 144 mg/dL (75-99)
[2019-11-26] MEDS ORDERED: IMMUNE GLOBULIN (GAMMAGARD) 30 GM in EMPTY BAG 1 BAG IV NR ×2 (06:00→10:15)
[2019-11-26 06:46] LABS: Glucose,Whole Blood 92 mg/dL (75-99)
[2019-11-26] MEDS: INSULIN ASPART (NovoLOG) 100 UNIT/ML VIAL SQ SCH ×4 (07:54→20:42)
[2019-11-26] MEDS: amLODIPine 5 MG TAB PO SCH (08:01)
[2019-11-26] MEDS: ENOXAPARIN 40 MG/0.4 ML SYRINGE SQ SCH (08:01)
[2019-11-26] MEDS: LOPERAMIDE 2 MG CAP PO SCH (08:01)
[2019-11-26] MEDS: FAMOTIDINE 20 MG TAB PO SCH (08:01)
[2019-11-26] MEDS: LOSARTAN 50 MG TAB PO SCH ×2 (08:01→20:43)
[2019-11-26] MEDS: DORZOLAMIDE HCL 2% DROPS 10 ML BTL LEFT EYE SCH ×2 (08:02→20:42)
[2019-11-26] MEDS: methylPREDNISolone SOD SUCCI 40 MG/ML 1 ML VIAL IV SCH ×2 (08:02→20:43)
[2019-11-26 09:12] LABS: Albumin 3.3 g/dL (3.5-5.0); Calcium 8.7 mg/dL (8.4-10.2); Total Bilirubin 0.9 mg/dL (0.2-1.3); Total Protein 6.5 g/dL (6.3-8.2)
[2019-11-26 09:21] LABS: Basophils % (A) 0 %; Eosinophils % (A) 0 %; HCT 43.4 % (34.0-46.0); HGB 14.1 gm/dL (11.4-16.0); Lymphocytes # (A) 0.5 k/uL (1.0-4.8); Lymphocytes % (A) 4 %; MCH 29.7 pg (25.0-35.0); MCHC 32.5 g/dL (31.0-37.0); MCV 91.4 fL (80.0-100.0); Mean Platelet Volume 13.2; Monocytes # (A) 0.5 k/uL (0-1.0); Monocytes % (A) 5 %; Neutrophils # (A) 10.4 k/uL (1.3-7.7); Neutrophils % (A) 90 %; Platelet Count 158 k/uL (150-450); RBC 4.75 m/uL (3.80-5.40); RDW 14.7 % (11.5-15.5); WBC 11.6 k/uL (3.8-10.6)
[2019-11-26 10:10] LABS: Large Platelets Present
--- NOTE | 2019-11-26 10:50 | P.PN ---
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 She received her first dose of IVIG yesterday without any side effects or complications. She has had a goal since admission to be able to pull a paper towel from the dispenser which she has not been able to do, this morning she was able to grab one and pull it out. She has swelling in the lower extremities/ankles. Objective - Vital Signs Vital signs: Vital Signs Temp 97.7 F 11/26/19 05:00 Pulse 69 11/26/19 05:00 Resp 16 11/26/19 05:00 BP 164/74 11/26/19 05:00 Pulse Ox 99 11/26/19 05:00 Intake & Output 11/25/19 11/26/19 11/26/19 18:59 06:59 18:59 Intake Total 318.810 7768 Balance 545.533 6717 Intake: Intake, IV Titration 157.571 Amount Immune Globulin ( 157.571 Gammagard) 30 gm In Empty Bag 1 bag @ Per Protocol IV .Q0M NR Rx#:[id number] Oral 1420 Other: Voiding Method Toilet Toilet # Voids 3 1 - Constitutional General appearance: Present: cooperative, mild distress, obese - EENT Eyes: Present: anicteric sclerae, EOMI ENT: Present: hearing grossly normal, normal oropharynx - Neck Details: no gland swelling or pain in the neck - Respiratory Respiratory: bilateral: CTA, diminished - Cardiovascular Rhythm: regular Heart sounds: normal: S1, S2 Abnormal Heart Sounds: Present: systolic murmur (2/6,>at RSB 3rd ICS) - Peripheral edema ankle Peripheral Edema: bilateral: 2+ - Gastrointestinal General gastrointestinal: Present: normal bowel sounds, soft - Integumentary Integumentary Comment(s): dry, scaley skin, patchy redness - Musculoskeletal Musculoskeletal Comment(s): upper extremity weakness persists, slightly improved per pt. Wheeled walker for ambulation - Psychiatric Psychiatric: Present: A&O x's 3, appropriate affect, intact judgment & insight - Labs CBC & Chem 7: 11/26/19 08:21 11/26/19 08:21 Labs: Abnormal Lab Results - Last 24 Hours (Table) 11/25/19 11/25/19 11/25/19 Range/Units 07:56 11:11 17:06 WBC 15.7 H (3.8-10.6) k/uL Neutrophils # 14.0 H (1.3-7.7) k/uL Lymphocytes # 0.5 L (1.0-4.8) k/uL BUN (7-17) mg/dL Glucose (74-99) mg/dL POC Glucose (mg/dL) 120 H 100 H (75-99) mg/dL ALT (4-34) U/L Albumin (3.5-5.0) g/dL 11/25/19 11/26/19 11/26/19 Range/Units 20:15 08:21 08:21 WBC 11.6 H (3.8-10.6) k/uL Neutrophils # 10.4 H (1.3-7.7) k/uL Lymphocytes # 0.5 L (1.0-4.8) k/uL BUN 34 H (7-17) mg/dL Glucose 163 H (74-99) mg/dL POC Glucose (mg/dL) 144 H (75-99) mg/dL ALT 50 H (4-34) U/L Albumin 3.3 L (3.5-5.0) g/dL Assessment and Plan (1) Ataxia Current Visit: Yes Status: Acute Priority: High Code(s): R27.0 - ATAXIA, UNSPECIFIED SNOMED Code(s): 24179750 (2) Dermatomyositis Current Visit: Yes Status: Acute Priority: High Code(s): M33.90 - DERMATOPOLYMYOSITIS, UNSP, ORGAN INVOLVEMENT UNSPECIFIED SNOMED Code(s): 192311163 (3) Proximal muscle weakness Current Visit: Yes Status: Acute Priority: High Code(s): M62.81 - MUSCLE WEAKNESS (GENERALIZED) SNOMED Code(s): 504742062 Plan: Steroid refractory dermatomyositis. IVIG, 1.6g/kg x 3 daily doses ordered, dose #2 today. Discussed with Internal Medicine DENTAL CLAIMS PROCESSOR. Safety concerns for pt returning home today. Discharge being held. Concern for occult malignancy/paraneoplastic syndrome-work up in progress, no evidence of malignancy thus far. Surgeon unable to pass scope passed sigmoid due to tortuous colon, possible barium. Mammogram outpatient.
[2019-11-26] MEDS: SODIUM CHLORIDE 0.9% 1,000 ML IV SCH (10:52)
[2019-11-26 11:44] LABS: Glucose,Whole Blood 95 mg/dL (75-99)
--- NOTE | 2019-11-26 12:48 | P.PN ---
Subjective Progress Note Date: 11/26/19 Patient was seen evaluated by Dr. Rodgers from 11/16/2019 until 11/18/2019 he was covering for Dr. Hamilton. 11/19/2019 patient currently on a regular medical floor. 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 She's currently on IV steroids which was advised by rheumatology. Per patient rheumatology's itinerant teacher assistant and did come through and evaluate her yesterday. Apparently there was a muscle biopsy done by Dr. Gamino which was positive for the dermatomyositis. Patient is still complaining of feeling very weak. She denies any pain. She was evaluated by cardiology due to her elevated troponins. Echo was ordered. She denies any chest pain or shortness of breath. Denies any nausea or vomiting. Reports having a bowel movement. Denies any difficulty urinating. Echo was completed this morning. 11/20/2019 patient is sitting in bedside chair. She is still having muscle weakness noted especially when grabbing for objects. However she does report improvement with the IV steroids. She has been up and ambulating with physical therapy. She has noted some lower extremity edema bilaterally. Denies any pain in the legs. Blood pressure is elevated at 175/85. Patient does report being on Norvasc the past. She says her PCP had stopped it outpatient. Norvasc will be resumed at 5 mg daily. Patient denies any chest pain, shortness of breath, nausea or vomiting, urinary symptoms. She does report having bowel movements. 11/21/2019 patient still reporting weakness in her arms when she tries to lift things. Her rash is improving. She remains on the IV steroids. She is awaiting the oncology consult regarding possible cancer screening for evaluation of the cause of her dermatomyositis. Patient denies any chest pain or shortness of breath. Denies any nausea or vomiting. Reports having bowel movements. Denies any difficulty urinating. On 11/22/2019 patient is alert and oriented 3 in no apparent distress still complaining of weakness in the proximal upper extremity muscle groups otherwise no complaints at this time. On 11/23/2019 patient was seen and examined on the medical floor she is alert and oriented 3 in no distress she is still complaining of weakness in her arm muscles and inability to lift her arms otherwise she denies any complaints there is no fever or chills no headache or dizziness no chest pain no shortness of breath no cough no nausea or vomiting no diarrhea and no urinary symptoms, case was discussed with Dr. Friend yesterday plan for colonoscopy tomorrow, case was also discussed with oncology. On 11/24/2019 patient is alert and oriented 3. Attempted colonoscopy per Dr. chadwick was unsuccessful due to significant tortuosity. Options including barium enema discussed with patient. Per oncology have appealed to pharmacy for IVIG infusions. Patient maintained on IV steroids still complaining of weakness in her arms inability to lift arms. Patient denies chest pain or shortness of breath. Patient denies nausea vomiting or diarrhea. Patient denies any urinary burning or frequency 11/25/2019 patient is reporting improvement in her weakness. She has been up and ambulating in the hallways. Discussed case with oncology service. They have started IVIG today and the scheduled another dose for tomorrow. They're planning on starting IVIG afternoon outpatient. Patient has been followed by surgical service. At this time. Patient is also refusing to have barium enema completed. Patient denies any chest pain or shortness of breath. Denies any nausea or vomiting. Reports having bowel movements. Denies any difficulty urinating. Anticipating discharge tomorrow afternoon after second d ose of IVIG On 11/26/2019 patient is alert and oriented 3. Patient does report some improvement in regards to her weakness. IVIG had been started yesterday. Patient to receive second dose today. Plans per oncology for patient to receive a third and final dose tomorrow with possible discharge home. At this time patient denies chest pain or shortness of breath. Patient denies nausea vomiting or diarrhea. Patient denies any urinary burning or frequency Objective - Vital Signs Vital signs: Vital Signs Temp 97.1 F L 11/26/19 12:00 Pulse 73 11/26/19 12:00 Resp 16 11/26/19 12:00 BP 159/73 11/26/19 12:00 Pulse Ox 98 11/26/19 12:00 Intake & Output 11/25/19 11/26/19 11/26/19 18:59 06:59 18:59 Intake Total 336.294 2566 Balance 995.705 2777 Intake: Intake, IV Titration 157.571 Amount Immune Globulin ( 157.571 Gammagard) 30 gm In Empty Bag 1 bag @ Per Protocol IV .Q0M NR Rx#:[id number] Oral 1420 Other: Voiding Method Toilet Toilet Toilet # Voids 3 1 - Exam Head normocephalic and atraumatic Neck supple no JVD no goiter Lungs clear to auscultation bilaterally no wheezing or crackles Heart regular rate and rhythm S1-S2, no rub or gallop Abdomen is soft nontender nondistended positive bowel sounds no hepatosplenomegaly Extremities edema plus 1 present bilaterally Neuro alert and orientated to 3. Patient sitting at bedside chair. She is receiving a massage. Hand missileman equal bilaterally. Lower extremity strength equal bilaterally. Patient is able to take a cup and raise it from the table to her mouth with some effort. skin: rash on the chest wall and back - Labs CBC & Chem 7: 11/26/19 08:21 11/26/19 08:21 Labs: Abnormal Lab Results - Last 24 Hours (Table) 11/25/19 11/25/19 11/26/19 Range/Units 17:06 20:15 08:21 WBC 11.6 H (3.8-10.6) k/uL Neutrophils # 10.4 H (1.3-7.7) k/uL Lymphocytes # 0.5 L (1.0-4.8) k/uL BUN (7-17) mg/dL Glucose (74-99) mg/dL POC Glucose (mg/dL) 100 H 144 H (75-99) mg/dL ALT (4-34) U/L Albumin (3.5-5.0) g/dL 11/26/19 Range/Units 08:21 WBC (3.8-10.6) k/uL Neutrophils # (1.3-7.7) k/uL Lymphocytes # (1.0-4.8) k/uL BUN 34 H (7-17) mg/dL Glucose 163 H (74-99) mg/dL POC Glucose (mg/dL) (75-99) mg/dL ALT 50 H (4-34) U/L Albumin 3.3 L (3.5-5.0) g/dL Assessment and Plan Assessment: 1. Acute exacerbation of dermatomyositis. Continue with the IV Solu-Medrol. Patient seen by rheumatology. Final diagnostic results of the muscle biopsy are pending. Rheumatology felt patient's symptoms are due to dermatomyositis and at this present time is likely related to malignancy. And they are recommending routine cancer screening. Also recommending at time of discharge the patient be discharged on prednisone 60 mg daily. Oncology has started IVIG on patient. First dose was today. She is scheduled for another dose tomorrow and then she'll start IVIG outpatient. Per oncology concerns for occult malignancy paraneoplastic syndrome workup in progress no evidence for malignancy thus far. Per cardiology services plans for patient to complete IVIG inpatient tomorrow to 04/19/2020 which will be her third dose possible discharge after 2. elevated troponin related to dermatomyositis. Patient seen by cardiology. Echo completed showing an EF of 65-70%, mild to moderate aortic regurgitation, mild aortic stenosis, mild tricuspid regurgitation, mild pulmonary hypertension. And trivial pericardial effusion. 3. History of Irritable bowel syndrome 4. Glaucoma of the right eye. Continue eyedrops 5. History of shingles 6. Essential hypertension: Blood pressures are elevated. We'll add Norvasc 5 mg daily. 7. Bilateral lower extremity edema: Discussed with nursing staff to place DIAMOND hose on patient's legs. Keep legs elevated. Patient is always sitting with her legs down. Encourage patient to keep legs elevated. 8. Mildly elevated ALT trending down. Continue with PT OT GI prophylaxis Pepcid and DVT prophylaxis subcu Lovenox I performed an examination of the patient and discussed their management with the Nurse Practitioner. I have reviewed the Nurse Practitioner's notes and jasmin marmolejo with the documented findings and plan of care
[2019-11-26 16:21] LABS: Glucose,Whole Blood 182 mg/dL (75-99)
[2019-11-26 20:36] LABS: Glucose,Whole Blood 140 mg/dL (75-99)
[2019-11-26] MEDS: LATANOPROST 0.005% OPHTH DROPS 2.5 ML BTL LEFT EYE SCH (20:43)
[2019-11-27] MEDS ORDERED: IMMUNE GLOBULIN (GAMMAGARD) 30 GM in EMPTY BAG 1 BAG IV NR (06:00)
[2019-11-27 06:48] LABS: Glucose,Whole Blood 99 mg/dL (75-99)
[2019-11-27] MEDS: INSULIN ASPART (NovoLOG) 100 UNIT/ML VIAL SQ SCH ×2 (07:42→14:04)
[2019-11-27 07:50] LABS: Basophils % (A) 0 %; Eosinophils % (A) 0 %; HCT 42.6 % (34.0-46.0); HGB 13.7 gm/dL (11.4-16.0); Lymphocytes # (A) 0.5 k/uL (1.0-4.8); Lymphocytes % (A) 5 %; MCH 29.8 pg (25.0-35.0); MCHC 32.2 g/dL (31.0-37.0); MCV 92.4 fL (80.0-100.0); Mean Platelet Volume 12.9; Monocytes # (A) 0.6 k/uL (0-1.0); Monocytes % (A) 6 %; Neutrophils # (A) 8.8 k/uL (1.3-7.7); Neutrophils % (A) 87 %; Platelet Count 121 k/uL (150-450); RBC 4.62 m/uL (3.80-5.40); RDW 14.9 % (11.5-15.5); WBC 10.1 k/uL (3.8-10.6)
[2019-11-27 08:05] LABS: Albumin 3.2 g/dL (3.5-5.0); Calcium 8.6 mg/dL (8.4-10.2); Potassium 4.5 mmol/L (3.5-5.1); Total Bilirubin 1.1 mg/dL (0.2-1.3); Total Protein 7.2 g/dL (6.3-8.2)
[2019-11-27] MEDS: methylPREDNISolone SOD SUCCI 40 MG/ML 1 ML VIAL IV SCH (08:22)
[2019-11-27] MEDS: LOSARTAN 50 MG TAB PO SCH (08:22)
[2019-11-27] MEDS: ENOXAPARIN 40 MG/0.4 ML SYRINGE SQ SCH (08:22)
[2019-11-27] MEDS: LOPERAMIDE 2 MG CAP PO SCH (08:23)
[2019-11-27] MEDS: amLODIPine 5 MG TAB PO SCH (08:23)
[2019-11-27] MEDS: DORZOLAMIDE HCL 2% DROPS 10 ML BTL LEFT EYE SCH (08:23)
[2019-11-27] MEDS: FAMOTIDINE 20 MG TAB PO SCH (08:23)
[2019-11-27] MEDS: SODIUM CHLORIDE 0.9% 1,000 ML IV SCH (08:26)
[2019-11-27 08:37] LABS: Large Platelets Present
[2019-11-27 08:38] LABS: Poikilocytosis (M) Present
--- NOTE | 2019-11-27 10:38 | USB ---
Reason for exam: clinical finding. US Breast LT Technologist: Lesly Juan Right complete breast ultrasound includes all four quadrants, the retroareolar region and axilla. Finding demonstrates no cystic or solid lesion seen. ASSESSMENT: Negative, BI-RAD 1 RECOMMENDATION: Follow-up diagnostic mammogram of the left breast.
--- NOTE | 2019-11-27 10:48 | P.PN ---
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 She feels her upper extremity ROM is stable, slightly better then when she came in. She denies any SE r/t IVIG, no other c/o Objective - Vital Signs Vital signs: Vital Signs Temp 97.7 F 11/27/19 05:00 Pulse 75 11/27/19 05:00 Resp 16 11/27/19 05:00 BP 147/81 11/27/19 05:00 Pulse Ox 95 11/27/19 05:00 Intake & Output 11/26/19 11/27/19 11/27/19 18:59 06:59 18:59 Intake Total 297.417 Balance 297.417 Intake: Intake, IV Titration 97.417 Amount Immune Globulin ( 97.417 Gammagard) 30 gm In Empty Bag 1 bag @ Per Protocol IV .Q0M NR Rx#:[id number] Oral 200 Other: Voiding Method Toilet Toilet # Voids 1 2 - Constitutional General appearance: Present: cooperative, no acute distress, obese - EENT Eyes: Present: anicteric sclerae, EOMI ENT: Present: hearing grossly normal, normal oropharynx - Respiratory Details: respirations even and unlabored - Cardiovascular Details: skin warm and dry - Musculoskeletal Musculoskeletal Comment(s): Upper extremity ROM compromised, shoulder flexion is slightly better - Psychiatric Psychiatric: Present: A&O x's 3, appropriate affect, intact judgment & insight - Labs CBC & Chem 7: 11/27/19 07:25 11/27/19 07:25 Labs: Abnormal Lab Results - Last 24 Hours (Table) 11/26/19 11/26/19 11/27/19 Range/Units 16:20 20:34 07:25 Plt Count 121 L (150-450) k/uL Neutrophils # 8.8 H (1.3-7.7) k/uL Lymphocytes # 0.5 L (1.0-4.8) k/uL Carbon Dioxide (22-30) mmol/L BUN (7-17) mg/dL Glucose (74-99) mg/dL POC Glucose (mg/dL) 182 H 140 H (75-99) mg/dL ALT (4-34) U/L Albumin (3.5-5.0) g/dL 11/27/19 Range/Units 07:25 Plt Count (150-450) k/uL Neutrophils # (1.3-7.7) k/uL Lymphocytes # (1.0-4.8) k/uL Carbon Dioxide 32 H (22-30) mmol/L BUN 34 H (7-17) mg/dL Glucose 108 H (74-99) mg/dL POC Glucose (mg/dL) (75-99) mg/dL ALT 56 H (4-34) U/L Albumin 3.2 L (3.5-5.0) g/dL - Imaging and Cardiology Breast US report reviewed-benign Assessment and Plan (1) Ataxia Current Visit: Yes Status: Acute Priority: High Code(s): R27.0 - ATAXIA, UNSPECIFIED SNOMED Code(s): 38758621 (2) Dermatomyositis Narrative/Plan: Per Rheumatology, pt will cont prednisone as ordered. F/U with Washing Machine Installer in the next 7-10 days for taper. Discussed with pt, she verbalized understanding and will call for appt once she is home. Current Visit: Yes Status: Acute Priority: High Code(s): M33.90 - DERMATOPOLYMYOSITIS, UNSP, ORGAN INVOLVEMENT UNSPECIFIED SNOMED Code(s): 507514429 (3) Proximal muscle weakness Current Visit: Yes Status: Acute Priority: High Code(s): M62.81 - MUSCLE WEAKNESS (GENERALIZED) SNOMED Code(s): 694697619 Plan: Steroid refractory dermatomyositis. IVIG, 1.6g/kg x 3 daily doses ordered, dose #3 today. DC possibly today, home care ordered Concern for occult malignancy/paraneoplastic syndrome-work up in progress, no evidence of malignancy thus far. US breast negative. Only pending study at this time is barium to complete GI work up.
[2019-11-27 11:45] LABS: Glucose,Whole Blood 110 mg/dL (75-99)
[2019-11-27 13:41] VITALS: BP 163/81; PULSE 74; RESP 17; TEMP 97.8
--- NOTE | 2019-11-27 15:30 | P.DS ---
Providers Date of admission: 11/16/19 09:03 Expected date of discharge: 11/27/19 Attending physician: Juany Hamilton Consults: 11/16/19 14:22 Consult Physician Routine Consulting Provider: Lucie Hilliard Consult Reason/Comments: HTN, Elevated troponin Do you want consulting provider notified?: Yes 11/20/19 14:49 Consult Physician Routine Consulting Provider: Sai Stallings Consult Reason/Comments: cancer screening regarding dermatomyositis Do you want consulting provider notified?: Yes 11/21/19 15:04 Consult Physician Routine Consulting Provider: Aiden Friend Consult Reason/Comments: possible colonoscopy, positive cologuard Do you want consulting provider notified?: Yes Primary care physician: Tamika Oquendo Hospital Course: Discharge diagnosis 1. Acute exacerbation of dermatomyositis. Patient treated with IV Solu-Medrol and IVIG. She received daily doses of IVIG. Patient seen by rheumatology. Final diagnostic results of the muscle biopsy are pending. Rheumatology felt patient's symptoms are due to dermatomyositis and at this present time is likely related to malignancy. And they are recommending routine cancer screening. Also recommending at time of discharge the patient be discharged on prednisone 60 mg daily. First dose was today. She is scheduled for another dose tomorrow and then she'll start IVIG outpatient. Per oncology concerns for occult malignancy paraneoplastic syndrome workup in progress no evidence for malignancy thus far. 2. elevated troponin related to dermatomyositis. Patient seen by cardiology. Echo completed showing an EF of 65-70%, mild to moderate aortic regurgitation, mild aortic stenosis, mild tricuspid regurgitation, mild pulmonary hypertension. And trivial pericardial effusion. 3. History of Irritable bowel syndrome 4. Glaucoma of the right eye. Continue eyedrops 5. History of shingles 6. Essential hypertension: Blood pressures are elevated. Losartan and Norvasc added during this admission 7. Bilateral lower extremity edema: Discussed with nursing staff to place DIAMOND hose on patient's legs. Keep legs elevated. Patient is always sitting with her legs down. Encourage patient to keep legs elevated. 8. Mildly elevated ALT trending down. ALT at discharge 56. Recommend checking LFTs in 1 week Hospital course Patient was seen evaluated by Dr. Rodgers from 11/16/2019 until 11/18/2019 he was covering for Dr. Hamilton. 11/19/2019 patient currently on a regular medical floor. 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 She's currently on IV steroids which was advised by rheumatology. Per patient rheumatology's recovery assistant and did come through and evaluate her yesterday. Apparently there was a muscle biopsy done by Dr. Gamino which was positive for the dermatomyositis. Patient is still complaining of feeling very weak. She denies any pain. She was evaluated by cardiology due to her elevated troponins. Echo was ordered. She denies any chest pain or shortness of breath. Denies any nausea or vomiting. Reports having a bowel movement. Denies any difficulty urinating. Echo was completed this morning. 11/20/2019 patient is sitting in bedside chair. She is still having muscle weakness noted especially when grabbing for objects. However she does report improvement with the IV steroids. She has been up and ambulating with physical therapy. She has noted some lower extremity edema bilaterally. Denies any pain in the legs. Blood pressure is elevated at 175/85. Patient does report being on Norvasc the past. She says her PCP had stopped it outpatient. Norvasc will be resumed at 5 mg daily. Patient denies any chest pain, shortness of breath, nausea or vomiting, urinary symptoms. She does report having bowel movements. 11/21/2019 patient still reporting weakness in her arms when she tries to lift things. Her rash is improving. She remains on the IV steroids. She is awaiting the oncology consult regarding possible cancer screening for evaluation of the cause of her dermatomyositis. Patient denies any chest pain or shortness of breath. Denies any nausea or vomiting. Reports having bowel movements. Denies any difficulty urinating. On 11/22/2019 patient is alert and oriented 3 in no apparent distress still complaining of weakness in the proximal upper extremity muscle groups otherwise no complaints at this time. On 11/23/2019 patient was seen and examined on the medical floor she is alert and oriented 3 in no distress she is still complaining of weakness in her arm muscles and inability to lift her arms otherwise she denies any complaints there is no fever or chills no headache or dizziness no chest pain no shortness of breath no cough no nausea or vomiting no diarrhea and no urinary symptoms, case was discussed with Dr. Friend yesterday plan for colonoscopy tomorrow, case was also discussed with oncology. On 11/24/2019 patient is alert and oriented 3. Attempted colonoscopy per Dr. chadwick was unsuccessful due to significant tortuosity. Options including barium enema discussed with patient. Per oncology have appealed to pharmacy for IVIG infusions. Patient maintained on IV steroids still complaining of weakness in her arms inability to lift arms. Patient denies chest pain or shortness of breath. Patient denies nausea vomiting or diarrhea. Patient denies any urinary burning or frequency 11/25/2019 patient is reporting improvement in her weakness. She has been up and ambulating in the hallways. Discussed case with oncology service. They have started IVIG today and the scheduled another dose for tomorrow. They're planning on starting IVIG afternoon outpatient. Patient has been followed by surgical service. At this time. Patient is also refusing to have barium enema completed. Patient denies any chest pain or shortness of breath. Denies any nausea or vomiting. Reports having bowel movements. Denies any difficulty urinating. Anticipating discharge tomorrow afternoon after second dose of IVIG On 11/26/2019 patient is alert and oriented 3. Patient does report some improvement in regards to her weakness. IVIG had been started yesterday. Patient to receive second dose today. Plans per oncology for patient to receive a third and final dose tomorrow with possible discharge home. At this time patient denies chest pain or shortness of breath. Patient denies nausea vomiting or diarrhea. Patient denies any urinary burning or frequency 11/27/2019 patient is medical stable for discharge. She's been cleared by oncology services and rheumatology service. She was treated for her dermatomyositis. She was given IV Solu-Medrol as well as IVIG treatments daily for 3 days. Rheumatology is recommending prednisone 60 mg daily at discharge. She will follow-up with Dr. Medina for tapering of the prednisone. Concern for occult malignancy and/or paraneoplastic syndrome workup is in progress. She was followed by oncology. There was no evidence of malignancy thus far. Ultrasound of the breast was negative. Patient was unable to complete colonoscopy the colonoscopy was unable to advance beyond the sigmoid. Patient had refused to have the barium enema completed. She had refused the barium enema due to previous colonoscopy and barium enema that resulted in a cecal perforation. Patient is medically stable for discharge. Her overall weakness has improved rash is improved. Patient follow-up with Dr. Oquendo in [address] Medina in 1 week I performed an examination of the patient and discussed their management with the physician Extended Insurance Clerk. I have reviewed the Physician Extended Insurance Clerk's notes and agree with the documented findings and plan of care Patient Condition at Discharge: Stable Plan - Discharge Summary Discharge Rx Participant: No New Discharge Prescriptions: New Losartan [Cozaar] 50 mg PO BID #60 tab predniSONE [Deltasone] 60 mg PO DAILY #30 tab amLODIPine [Norvasc] 5 mg PO DAILY #30 tab Continue Latanoprost 1 drop LEFT EYE HS Acetaminophen Tab [Tylenol] 1,000 mg PO Q6H PRN PRN Reason: Pain Dorzolamide HCl [Trusopt 2%] 1 drop LEFT EYE BID Loperamide HCl [Imodium A-D] 4 mg PO DAILY Discontinued predniSONE [Deltasone] 20 mg PO TID Discharge Medication List Acetaminophen Tab [Tylenol] 1,000 mg PO Q6H PRN 02/25/16 [History] Latanoprost 1 drop LEFT EYE HS 02/25/16 [History] Dorzolamide HCl [Trusopt 2%] 1 drop LEFT EYE BID 06/11/18 [History] Loperamide HCl [Imodium A-D] 4 mg PO DAILY 11/16/19 [History] Losartan [Cozaar] 50 mg PO BID #60 tab 11/27/19 [Rx] amLODIPine [Norvasc] 5 mg PO DAILY #30 tab 11/27/19 [Rx] predniSONE [Deltasone] 60 mg PO DAILY #30 tab 11/27/19 [Rx] Follow up Appointment(s)/Referral(s): Tamika Oquendo MD [Primary Care Provider] - 12/01/19 2:00 pm Vanessa Medina MD [STAFF PHYSICIAN] - 12/08/19 10:15 am [facility] Visiting Nurse, [NON-STAFF] - 1 Week Patient Instructions/Handouts: Dermatomyositis (GEN) Activity/Diet/Wound Care/Special Instructions: Cont prednisone as prescribed. Taper will be provided by [facility] Diet: Cardiac Activity: as tolerated Discharge Disposition: HOME WITH HOME HEALTH SERVICES
--- NOTE | 2019-11-27 15:33 | P.PN ---
Subjective This is Radha Figueroa PA-C dictating a progress note on this patient Case discussed with Dr. Neff and he agrees with the plan of care HPI/interval history Patient is a 84-year-old female with a history of dermatomyositis presented with complaints of weakness. He is being treated with steroids for her exacerbation of dermatomyositis. Patient seen and examined resting in bed. States she continues to feel weak but has been walking with therapy and using a walker. No chest pain or shortness of breath. No palpitations or dizziness. EXAMINATION Temperature 97.7F, pulse in the 60s, respirations 17, blood pressure 166/71, oxygen saturation 98% on room air Seen and examined resting in bed, in no acute distress Lungs are clear to auscultation bilaterally Heart is regular, soft systolic murmur audible No lower extremity edema REVIEW OF LABS, ECG WBC 20.5, hemoglobin 14.9, platelets 250, potassium 4.2, BUN 41, creatinine 0.79 Troponins 0.097, 0.070, 0.083 Creatinine kinase 166 IMPRESSION / ASSESSMENT: Weakness secondary to dermatomyositis exacerbation being treated with steroids Minimally Abnormal troponins in the setting of elevated CPK without a significant rise and fall pattern, unclear significance, likely secondary to above Hypertension, blood pressure trending in the 160s over 70s PLAN: Obtain 2-D echocardiogram and Doppler studies to assess cardiac structure and function Increase losartan to 50 mg twice daily Hold off on statins Objective - Vital Signs Vital signs: Vital Signs Temp 97.7 F 11/18/19 12:33 Pulse 62 11/18/19 12:33 Resp 17 11/18/19 12:33 BP 166/71 11/18/19 12:33 Pulse Ox 98 11/18/19 12:33 Intake & Output 11/17/19 11/18/19 11/18/19 18:59 06:59 18:59 Intake Total 240 290 240 Balance 240 290 240 Intake: Oral 240 290 240 Other: Voiding Method Toilet Toilet Toilet Bedside Commode Bedside Commode Bedside Commode # Voids 3 3 3 - Labs CBC & Chem 7: 11/27/19 07:25 11/27/19 07:25 Labs: Abnormal Lab Results - Last 24 Hours (Table) 11/17/19 11/17/19 11/18/19 Range/Units 17:06 20:15 07:10 WBC (3.8-10.6) k/uL Neutrophils # (1.3-7.7) k/uL Lymphocytes # (1.0-4.8) k/uL Monocytes # (0-1.0) k/uL BUN (7-17) mg/dL POC Glucose (mg/dL) 126 H 144 H 105 H (75-99) mg/dL Troponin I (0.000-0.034) ng/mL Total Protein (6.3-8.2) g/dL 11/18/19 11/18/19 11/18/19 Range/Units 07:35 07:35 07:35 WBC 20.5 H (3.8-10.6) k/uL Neutrophils # 18.1 H (1.3-7.7) k/uL Lymphocytes # 0.7 L (1.0-4.8) k/uL Monocytes # 1.4 H (0-1.0) k/uL BUN 41 H (7-17) mg/dL POC Glucose (mg/dL) (75-99) mg/dL Troponin I 0.097 H* (0.000-0.034) ng/mL Total Protein 5.9 L (6.3-8.2) g/dL 11/18/19 Range/Units 11:42 WBC (3.8-10.6) k/uL Neutrophils # (1.3-7.7) k/uL Lymphocytes # (1.0-4.8) k/uL Monocytes # (0-1.0) k/uL BUN (7-17) mg/dL POC Glucose (mg/dL) 128 H (75-99) mg/dL Troponin I (0.000-0.034) ng/mL Total Protein (6.3-8.2) g/dL
== END 2019-11-27 17:34 | disposition home health service (06) | DRG 844 ==
LOC: EC 08:22 → 5NMEDONC 09:03
PROVIDERS: ADMIT Internal Medicine; ATTEND Internal Medicine
PROC: 0DJD8ZZ Inspection of Lower Intestinal Tract, Via Natural or Artificial Opening Endoscopic (ICD-10-PCS; principal; 2019-11-24 07:30)
DX: C80.1 Malignant (primary) neoplasm, unspecified (principal); M36.0 Dermato(poly)myositis in neoplastic disease; J84.9 Interstitial pulmonary disease, unspecified; K62.5 Hemorrhage of anus and rectum; F40.240 Claustrophobia; H40.9 Unspecified glaucoma; I10 Essential (primary) hypertension; I27.20 Pulmonary hypertension, unspecified; I35.1 Nonrheumatic aortic (valve) insufficiency; R91.1 Solitary pulmonary nodule; K58.9 Irritable bowel syndrome, unspecified; K64.4 Residual hemorrhoidal skin tags; K64.8 Other hemorrhoids; K80.20 Calculus of gallbladder without cholecystitis without obstruction; N28.1 Cyst of kidney, acquired; R13.10 Dysphagia, unspecified; Z79.52 Long term (current) use of systemic steroids; Z86.19 Personal history of other infectious and parasitic diseases; Z90.710 Acquired absence of both cervix and uterus; R73.9 Hyperglycemia, unspecified; T38.0X5A Adverse effect of glucocorticoids and synthetic analogues, initial encounter; Z90.49 Acquired absence of other specified parts of digestive tract; R27.0 Ataxia, unspecified; Z84.1 Family history of disorders of kidney and ureter; Z98.42 Cataract extraction status, left eye; Z98.41 Cataract extraction status, right eye; R60.0 Localized edema; M19.90 Unspecified osteoarthritis, unspecified site; K76.0 Fatty (change of) liver, not elsewhere classified
CPT/HCPCS: 36415; 45378; 71046; 74248; 80053; 81003; 82550; 83605; 83735; 84100; 84439; 84443; 84481; 84484; 85025; 85610; 85652; 85730; 86140; 93005; 93306; 96374; 99285

== ENCOUNTER 2020-01-11 07:23 | Inpatient (IN) | payer MEDICARE ==
--- NOTE | 2020-01-11 07:38 | ED ---
Fall HPI - General Chief Complaint: Fall Stated Complaint: KENDAL/Fall Time Seen by Provider: 01/11/20 07:25 Source: patient, EMS Mode of arrival: EMS - History of Present Illness Initial Comments: 84yo female with dematomyositis currently on 40mg of prednisone daily, HTN, glaucoma presenting to the ER today for cc of weakness and fall. Patient states she has had some shortness of breath for the last 1-2 days, and has felt weak. Today she states she got up to use the restroom, but then fell secondary to b/l leg weakness. Patient denies nausea, vomiting, use of blood thinners, cough, known fever. She states she has felt cold and has been shaking. Patient denies visual changes, unilateral weakness of sensation deficits, speech changes, memory changes. Patient denies headachse, neck stiffness. Patient denies pain in the legs, upper extremities, patient denies neck pain, denies remembering hitting her head. Patient does state that her legs b/l have been very swollen recently, denies known heart failure or chest pain. Upon arrival patient appears SOB, hypoxic. Patient is febrile 100.1F. Patient placed on a non-rebreather. - Related Data Home Medications Medication Instructions Recorded Confirmed Acetaminophen Tab [Tylenol] 1,000 mg PO Q6H PRN 02/25/16 01/11/20 Latanoprost 1 drop LEFT EYE HS 02/25/16 01/11/20 Dorzolamide HCl [Trusopt 2%] 1 drop LEFT EYE BID 06/11/18 01/11/20 Loperamide HCl [Imodium A-D] 4 mg PO DAILY PRN 11/16/19 01/11/20 predniSONE [Deltasone] 20 mg PO BID 01/11/20 01/11/20 Allergies Allergy/AdvReac Type Severity Reaction Status Date / Time No Known Allergies Allergy Verified 01/11/20 09:05 Review of Systems ROS Statement: Those systems with pertinent positive or pertinent negative responses have been documented in the HPI. ROS Other: All systems not noted in ROS Statement are negative. 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 Wilson; bilateral cataracts removed, L leg muscle biopsy Past Anesthesia/Blood Transfusion Reactions: No Reported Reaction Past Psychological History: No Psychological Hx Reported Smoking Status: Never smoker Past Alcohol Use History: None Reported Past Drug Use History: None Reported - Past Family History Father Additional Family Medical History / Comment(s): kidney disorder per patient Mother Additional Family Medical History / Comment(s): fell had surgery and from a hospital aquired infection per patient General Exam - General Exam Comments Initial Comments: General: The patient is awake and alert, appears short of breath Eye: +3 mm pupils are equal, round and reactive to light, extra-ocular movements are intact. No nystagmus. There is some drainage noted from the right eye. No significant injection b/l. No signs of icterus. No photophobia Ears, nose, mouth and throat: There are moist mucous membranes and no oral lesions. Neck: The neck is supple, there is no tenderness or JVD. No nuchal rigidity, no midline c-spine tenderness. Cardiovascular: There is a regular rate and rhythm. No murmur, rub or gallop is appreciated. Respiratory: Respirations are mildly labored, breath sounds are equal. Rales and rhonchi present. Occasional cough. No wheeze. No retractions or abdominal breathing. Gastrointestinal: Soft, non-distended, non-tender abdomen without masses or organomegaly noted. There is no rebound or guarding present. Bowel sounds are unremarkable. Musculoskeletal: Normal ROM, no tenderness. Strength 5/5. Sensation intact. Radial pulses equal bilaterally 2+. Neurological: A&O x 3. CN II-XII intact, There are no obvious motor or sensory deficits. Coordination appears grossly intact. Speech appears normal, no muffling. Skin: Skin is warm and dry and no rashes or lesions are noted. +2 b/l pitting Edema. Psychiatric: Cooperative Limitations: no limitations Course Vital Signs 01/11/20 01/11/20 01/11/20 07:26 07:28 07:30 Temperature 100.1 F H Pulse Rate 111 H 106 H Respiratory 22 22 Rate Blood Pressure 130/94 O2 Sat by Pulse 97 90 L 90 L Oximetry 01/11/20 01/11/20 01/11/20 07:31 08:00 08:03 Temperature Pulse Rate 102 H 104 H Respiratory 22 20 22 Rate Blood Pressure 162/95 162/95 O2 Sat by Pulse 91 L 91 L Oximetry 01/11/20 01/11/20 08:30 08:31 Temperature Pulse Rate 101 H 101 H Respiratory 20 20 Rate Blood Pressure 151/85 151/85 O2 Sat by Pulse 91 L 91 L Oximetry Medical Decision Making - Medical Decision Making 84yo female presenting today for fall, generalized weakness/SOB, febrile. (-) Covid, but do have high degree of suspicion given patient cough/fever/SOB, recent hospitalization and immune compromised on prednisone daily. In addition patient is obviously fluid overload on lung exam/CXR, with a BNP of 8000, with elevated dimer and troponin at this point I cannot rul eout a pulmonary embolism as possible cause of new onset heart failure, and atrial fibrillation--therefore patient sent to CTA at this time. She initially presented tachypneic, however now since 15 minutes after arrival pt speaking complete sentences on 15 non-rebreather appearing comfortable oxygen 91% RA. ABG was obtained concerning for PE as well given O2 54.6% mmHg. [place] CTA (-) for PE, but reveal ground glass opacities. Patient given lasix for BNP of 8000/Edematous legs. Patient BP stable. Patient will be admitted to the hospital ICU, suspected Covid, new onset heart failure. Rocephin and vibromycin initiated in the ER per recommendation of my attending provider, Dr. Magaña. Total of 35 minutes of critical care time was spent with patient, including interpretations, reviewing EKG, laboratory studies. - Lab Data Result diagrams: 01/11/20 07:35 01/11/20 07:35 Lab Results 01/11/20 01/11/20 01/11/20 Range/Units 07:35 07:35 07:35 WBC 18.8 H (3.8-10.6) k/uL RBC 4.88 (3.80-5.40) m/uL Hgb 15.2 (11.4-16.0) gm/dL Hct 46.6 H (34.0-46.0) % MCV 95.5 (80.0-100.0) fL MCH 31.2 (25.0-35.0) pg MCHC 32.6 (31.0-37.0) g/dL RDW 15.7 H (11.5-15.5) % Plt Count 255 D (150-450) k/uL Neutrophils % 91 % Lymphocytes % 5 % Monocytes % 3 % Eosinophils % 0 % Basophils % 0 % Neutrophils # 17.1 H (1.3-7.7) k/uL Lymphocytes # 0.9 L (1.0-4.8) k/uL Monocytes # 0.6 (0-1.0) k/uL Eosinophils # 0.1 (0-0.7) k/uL Basophils # 0.0 (0-0.2) k/uL PT 9.8 (9.0-12.0) sec INR 0.9 (<1.2) APTT 19.0 L (22.0-30.0) sec D-Dimer 6.89 H (<0.60) mg/L FEU Sample Site ABG pH (7.35-7.45) ABG pCO2 (35-45) mmHg ABG pO2 (83-108) mmHg ABG HCO3 (21-25) mmol/L ABG Total CO2 (19-24) mmol/L ABG O2 Saturation (94-97) % ABG Base Excess mmol/L Danny Test FiO2 % Sodium 138 (137-145) mmol/L Potassium 4.5 (3.5-5.1) mmol/L Chloride 107 (98-107) mmol/L Carbon Dioxide 23 (22-30) mmol/L Anion Gap 8 mmol/L BUN 37 H (7-17) mg/dL Creatinine 0.82 (0.52-1.04) mg/dL Est GFR (CKD-EPI)AfAm 76 (>60 ml/min/1.73 sqM) Est GFR (CKD-EPI)NonAf 66 (>60 ml/min/1.73 sqM) Glucose 113 H (74-99) mg/dL Plasma Lactic Acid Pepe (0.7-2.0) mmol/L Calcium 8.6 (8.4-10.2) mg/dL Magnesium 2.3 (1.6-2.3) mg/dL Total Bilirubin 1.2 (0.2-1.3) mg/dL AST 65 H (14-36) U/L ALT 84 H (4-34) U/L Alkaline Phosphatase 69 (38-126) U/L Lactate Dehydrogenase 1663 H (313-618) U/L Troponin I (0.000-0.034) ng/mL C-Reactive Protein 202.0 H (<10.0) mg/L NT-Pro-B Natriuret Pep pg/mL Total Protein 5.9 L (6.3-8.2) g/dL Albumin 3.2 L (3.5-5.0) g/dL Coronavirus (PCR) (Not Detectd) Influenza Type A RNA (Not Detectd) Influenza Type B (PCR) (Not Detectd) 01/11/20 01/11/20 01/11/20 Range/Units 07:35 07:35 07:35 WBC (3.8-10.6) k/uL RBC (3.80-5.40) m/uL Hgb (11.4-16.0) gm/dL Hct (34.0-46.0) % MCV (80.0-100.0) fL MCH (25.0-35.0) pg MCHC (31.0-37.0) g/dL RDW (11.5-15.5) % Plt Count (150-450) k/uL Neutrophils % % Lymphocytes % % Monocytes % % Eosinophils % % Basophils % % Neutrophils # (1.3-7.7) k/uL Lymphocytes # (1.0-4.8) k/uL Monocytes # (0-1.0) k/uL Eosinophils # (0-0.7) k/uL Basophils # (0-0.2) k/uL PT (9.0-12.0) sec INR (<1.2) APTT (22.0-30.0) sec D-Dimer (<0.60) mg/L FEU Sample Site ABG pH (7.35-7.45) ABG pCO2 (35-45) mmHg ABG pO2 (83-108) mmHg ABG HCO3 (21-25) mmol/L ABG Total CO2 (19-24) mmol/L ABG O2 Saturation (94-97) % ABG Base Excess mmol/L Danny Test FiO2 % Sodium (137-145) mmol/L Potassium (3.5-5.1) mmol/L Chloride (98-107) mmol/L Carbon Dioxide (22-30) mmol/L Anion Gap mmol/L BUN (7-17) mg/dL Creatinine (0.52-1.04) mg/dL Est GFR (CKD-EPI)AfAm (>60 ml/min/1.73 sqM) Est GFR (CKD-EPI)NonAf (>60 ml/min/1.73 sqM) Glucose (74-99) mg/dL Plasma Lactic Acid Pepe 5.5 H* (0.7-2.0) mmol/L Calcium (8.4-10.2) mg/dL Magnesium (1.6-2.3) mg/dL Total Bilirubin (0.2-1.3) mg/dL AST (14-36) U/L ALT (4-34) U/L Alkaline Phosphatase (38-126) U/L Lactate Dehydrogenase (313-618) U/L Troponin I 0.310 H* (0.000-0.034) ng/mL C-Reactive Protein (<10.0) mg/L NT-Pro-B Natriuret Pep 8040 pg/mL Total Protein (6.3-8.2) g/dL Albumin (3.5-5.0) g/dL Coronavirus (PCR) (Not Detectd) Influenza Type A RNA (Not Detectd) Influenza Type B (PCR) (Not Detectd) 01/11/20 01/11/20 Range/Units 07:45 08:27 WBC (3.8-10.6) k/uL RBC (3.80-5.40) m/uL Hgb (11.4-16.0) gm/dL Hct (34.0-46.0) % MCV (80.0-100.0) fL MCH (25.0-35.0) pg MCHC (31.0-37.0) g/dL RDW (11.5-15.5) % Plt Count (150-450) k/uL Neutrophils % % Lymphocytes % % Monocytes % % Eosinophils % % Basophils % % Neutrophils # (1.3-7.7) k/uL Lymphocytes # (1.0-4.8) k/uL Monocytes # (0-1.0) k/uL Eosinophils # (0-0.7) k/uL Basophils # (0-0.2) k/uL PT (9.0-12.0) sec INR (<1.2) APTT (22.0-30.0) sec D-Dimer (<0.60) mg/L FEU Sample Site lrad ABG pH 7.44 (7.35-7.45) ABG pCO2 36 (35-45) mmHg ABG pO2 55 L* (83-108) mmHg ABG HCO3 24 (21-25) mmol/L ABG Total CO2 25 H (19-24) mmol/L ABG O2 Saturation 90.1 L (94-97) % ABG Base Excess 0.0 mmol/L Danny Test Yes FiO2 100 % Sodium (137-145) mmol/L Potassium (3.5-5.1) mmol/L Chloride (98-107) mmol/L Carbon Dioxide (22-30) mmol/L Anion Gap mmol/L BUN (7-17) mg/dL Creatinine (0.52-1.04) mg/dL Est GFR (CKD-EPI)AfAm (>60 ml/min/1.73 sqM) Est GFR (CKD-EPI)NonAf (>60 ml/min/1.73 sqM) Glucose (74-99) mg/dL Plasma Lactic Acid Pepe (0.7-2.0) mmol/L Calcium (8.4-10.2) mg/dL Magnesium (1.6-2.3) mg/dL Total Bilirubin (0.2-1.3) mg/dL AST (14-36) U/L ALT (4-34) U/L Alkaline Phosphatase (38-126) U/L Lactate Dehydrogenase (313-618) U/L Troponin I (0.000-0.034) ng/mL C-Reactive Protein (<10.0) mg/L NT-Pro-B Natriuret Pep pg/mL Total Protein (6.3-8.2) g/dL Albumin (3.5-5.0) g/dL Coronavirus (PCR) Not Detected (Not Detectd) Influenza Type A RNA Not Detected (Not Detectd) Influenza Type B (PCR) Not Detected (Not Detectd) - EKG Data EKG Comments: ventricular rate 128bpm, QRS duration 82ms, QT/QTx 302/440ms--atrial fibri llation RVR, left axis, significant artifact no obvious ST elevation/depression. Nonspecific T wave. Disposition Clinical Impression: Suspected COVID-19 virus infection, Hypoxia, Lactic acidosis, Elevated LDH, Elevated brain natriuretic peptide (BNP) level, New onset a-fib, Leukocytosis, Fever, Dyspnea, Elevated troponin Disposition: ADMITTED IP TO THIS [facility] Condition: Serious Is patient prescribed a controlled substance at d/c from ED?: No Referrals: Tamika Oquendo MD [Primary Care Provider] - 1-2 days Time of Disposition: 09:30 Decision to Admit Reason: Admit from EC Decision Date: 01/11/20 Decision Time: 09:30
[2020-01-11 08:00] LABS: Basophils % (A) 0 %; Eosinophils # (A) 0.1 k/uL (0-0.7); Eosinophils % (A) 0 %; HCT 46.6 % (34.0-46.0); HGB 15.2 gm/dL (11.4-16.0); Lymphocytes # (A) 0.9 k/uL (1.0-4.8); Lymphocytes % (A) 5 %; MCH 31.2 pg (25.0-35.0); MCHC 32.6 g/dL (31.0-37.0); MCV 95.5 fL (80.0-100.0); Monocytes # (A) 0.6 k/uL (0-1.0); Monocytes % (A) 3 %; Neutrophils # (A) 17.1 k/uL (1.3-7.7); Neutrophils % (A) 91 %; RBC 4.88 m/uL (3.80-5.40); RDW 15.7 % (11.5-15.5); WBC 18.8 k/uL (3.8-10.6)
[2020-01-11] MEDS ORDERED: ACETAMINOPHEN TAB 325 MG TAB PO STA (08:01)
[2020-01-11 08:02] LABS: Platelet Count 255 k/uL (150-450)
[2020-01-11 08:14] LABS: Albumin 3.2 g/dL (3.5-5.0); Calcium 8.6 mg/dL (8.4-10.2); Magnesium 2.3 mg/dL (1.6-2.3); Potassium 4.5 mmol/L (3.5-5.1); Total Bilirubin 1.2 mg/dL (0.2-1.3); Total Protein 5.9 g/dL (6.3-8.2)
--- NOTE | 2020-01-11 08:16 | XR ---
EXAMINATION TYPE: XR chest 1V portable DATE OF EXAM: 01/11/2020 HISTORY: weakness. REFERENCE: Previous study dated 11/16/2019. FINDINGS: The heart is enlarged. There are patchy bilateral infiltrates. No definite pleural fluid is seen. IMPRESSION: 1. CARDIOMEGALY. 2. PATCHY BILATERAL INFILTRATES.
[2020-01-11 08:18] LABS: SARS-CoV-2 RNA Rapid Abbott Not Detected (Not Detectd)
--- NOTE | 2020-01-11 08:18 | XR ---
EXAMINATION TYPE: XR pelvis AP view , ONE VIEW DATE OF EXAM ORDERED: 01/11/2020 HISTORY: fall. COMPARISON: None. FINDINGS: The study is quite limited by the patient's tremendous size. Bony detail is obscured. No g ross fracture is seen. There appears to be some degenerative change in the lower lumbar spine. IMPRESSION: MARKEDLY SUBOPTIMAL EXAMINATION DEMONSTRATING LUMBAR DEGENERATIVE CHANGE. NO ACUTE OSSEOUS LESION IS SEEN.
[2020-01-11 08:28] LABS: INR 0.9 (<1.2); Prothrombin Time 9.8 sec (9.0-12.0)
[2020-01-11] MEDS ORDERED: FUROSEMIDE 10 MG/ML 4 ML VIAL IV STA ×2 (08:29→09:19)
[2020-01-11 08:30] LABS: ABG HCO3 24 mmol/L (21-25); ABG Oxygen Saturation 90.1 % (94-97); ABG PCO2 36 mmHg (35-45); ABG PH 7.44 (7.35-7.45); ABG TCO2 25 mmol/L (19-24); Allen Test Performed? Yes
[2020-01-11 08:33] LABS: D-Dimer 6.89 mg/L FEU (<0.60)
[2020-01-11 08:33] LABS: ABG PO2 55 mmHg (83-108)
--- NOTE | 2020-01-11 08:44 | CT ---
EXAMINATION TYPE: CT brain cspine wo con DATE OF EXAM: 01/11/2020 COMPARISON: Previous study dated 06/11/2018. HISTORY: Fall CT DLP: 1441.3 mGycm Automated exposure control for dose reduction was used. TECHNIQUE: CT scan of the head and cervical spine are performed without contrast. FINDINGS: BRAIN: There are mild, generalized changes of sulcal prominence and ventriculomegaly, compatible with atrophic change. There is mild, diffuse periventricular white matter lucency, compatible with chroni c white matter ischemic change. There is no acute focal lesion, mass effect or midline shift identifi ed. I do not see evidence of intracranial blood. Visualized portions of the paranasal sinuses and mastoids are clear. The bony calvarium is intact. IMPRESSION: 1. NO ACUTE INTRACRANIAL ABNORMALITY. 2. MILD DEGENERATIVE CHANGE CERVICAL SPINE: There is bilateral groundglass opacities and consolidation throughout the visualized portions of both lungs. The proximal aortic arch is aneurysmal measuring 3.5 cm. The proximal descending thoracic aorta is no rmal in caliber. Prevertebral soft tissues are otherwise unremarkable. There is a loss of the normal cervical lordosis. Alignment is maintained. Atlantoaxial relationships are normal. There is diffuse degenerative disc disease, hypertrophic spondylosis and uncovertebral joint disease with relative sparing of C2-3. There is mild facet arthropathy, mildly greater on the left than the r ight at C3-4 and C4-5 no definite protrusion is seen. No fracture is identified. IMPRESSION: 1. NO ACUTE OSSEOUS LESION. 2. MODERATELY SEVERE DEGENERATIVE CHANGE. 3. EXTENSIVE GLASS OPACITY AND CONSOLIDATION INVOLVING THE LUNGS BILATERALLY. CONSIDER COVID 19.
[2020-01-11] MEDS ORDERED: DOXYCYCLINE 100 MG in SODIUM CHLORIDE 0.9% 100 ML IVPB ONE (09:05)
--- NOTE | 2020-01-11 09:13 | CT ---
EXAMINATION TYPE: CT chest angio for PE DATE OF EXAM: 01/11/2020 COMPARISON: Previous study dated 11/06/2019. HISTORY: Shortness of breath and abnormal CXR CT DLP: 516.5 mGycm Automated exposure control for dose reduction was used. CONTRAST: CT Chest for pulmonary embolism performed with with IV Contrast, patient injected with 100 mL of Isov ue 370. FINDINGS: There has developed extensive groundglass opacity throughout both lungs. There are some air bronchograms present in the superior segment of the right lower lobe. There is no significant axillary, internal mammary or hilar adenopathy. There are some small mediasti nal lymph nodes. The root of the aorta is dilated measuring 3.7 cm. The proximal arch is aneurysmal measuring 3.1 cm. The remainder the aorta is normal in caliber. There is no evidence of pulmonary embolus. There is no pleural or pericardial fluid. The heart is enlarged. Within the abdomen, there are gallstones within the gallbladder. There is a simple appearing 5.5 cm c yst in the upper pole of the left kidney. The right kidney is poorly visualized. There is hypertrophic spondylosis within the spine. IMPRESSION: 1. DIFFUSE GROUNDGLASS OPACITIES THROUGHOUT BOTH LUNGS ARE SUGGESTIVE OF COVID19 INFECTION. 2. THIS EXAMINATION IS NEGATIVE FOR PULMONARY EMBOLUS. 3. MILD ANEURYSMAL DILATATION OF THE ASCENDING THORACIC AORTA. 4. CHOLELITHIASIS. 5. SIMPLE APPEARING LEFT RENAL CYST. 6. DEGENERATIVE CHANGES WITHIN THE SPINE.
[2020-01-11] MEDS ORDERED: NALOXONE 0.4 MG/ML 1 ML VIAL IV PRN ×2 (09:51→13:48)
[2020-01-11] MEDS ORDERED: SUCCINYLCHOLINE CHLORIDE VIAL 200 MG/10 ML VIAL IV STA (10:49)
[2020-01-11] MEDS ORDERED: PROPOFOL 10 MG/ML 20 ML VIAL IV STA (10:51)
--- NOTE | 2020-01-11 11:29 | XR ---
EXAMINATION TYPE: XR chest 1V DATE OF EXAM: 01/11/2020 HISTORY: tube placement. REFERENCE: Previous study dated 01/11/2020. FINDINGS: The patient has been intubated. ET tube is at the level of the gen and should be withdra wn 1 to 2 in. The heart is enlarged. There are worsening bilateral infiltrates. There is blunting of the left CP an gle. I could not exclude a small left effusion. IMPRESSION: 1. LOW-LYING ET TUBE. 2. WORSENING BILATERAL PNEUMONIAS. 3. CARDIOMEGALY. THIS REPORT WAS PHONED TO LOLIS TAM IN THE ER AT THE TIME
[2020-01-11 11:35] LABS: ABG HCO3 25 mmol/L (21-25); ABG Oxygen Saturation 98.7 % (94-97); ABG PCO2 38 mmHg (35-45); ABG PH 7.42 (7.35-7.45); ABG PO2 113 mmHg (83-108); ABG TCO2 26 mmol/L (19-24); Allen Test Performed? Yes
[2020-01-11 11:46] LABS: Appearance,Urine Clear (Clear); Bilirubin,Urine Negative (Negative); Blood,Urine Negative (Negative); Color,Urine Yellow; Glucose,Urine (UA) Negative (Negative); Ketones,Urine Negative (Negative); Leukocyte Esterase,Urine Negative (Negative); Nitrite,Urine Negative (Negative); PH, Urine 5.5 (5.0-8.0); Protein,Urine Negative (Negative); Specific Gravity,Urine 1.024 (1.001-1.035); Urobilinogen,Urine <2.0 mg/dL (<2.0)
[2020-01-11] MEDS ORDERED: LORazepam 2 MG/ML INJ IV STA (11:57)
[2020-01-11 12:38] LABS: Glucose,Whole Blood 77 mg/dL (75-99)
[2020-01-11 12:50] LABS: Glucose,Whole Blood 81 mg/dL (75-99)
--- NOTE | 2020-01-11 12:51 | XR ---
EXAMINATION TYPE: XR abdomen 1V , ONE VIEW DATE OF EXAM ORDERED: 01/11/2020 HISTORY: og replacement. COMPARISON: Previous study dated 01/11/2010. FINDINGS: Nasogastric tube is in place. Its relative straight caudad below the GE junction. I cannot confirm that it is within the stomach. The abdominal gas pattern appears unremarkable. There is no evidence of obstruction or free air. Ther e are multiple densities in the left hemipelvis, likely representing barium-filled diverticula. IMPRESSION: I CANNOT CONFIRM PLACEMENT OF THE NG TUBE WITHIN THE STOMACH.
[2020-01-11] MEDS ORDERED: HYDROCORTISONE SUCCINATE 100 MG/2 ML VIAL IV STA (13:25)
[2020-01-11] MEDS ORDERED: CISATRACURIUM 2 MG/ML 5 ML VIAL IV ONE (13:42)
--- NOTE | 2020-01-11 13:42 | P.HPIM ---
History of Present Illness H&P Date: 01/11/20 Ekta Yañez is an 84-year-old female patient of Dr. Oquendo who presented to [facility] emergency room with a chief complaint of generalized weakness and fall, patient also was complaining of shortness of breath, she was alert and oriented in the emergency room and was able to answer questions appropriately however she was getting more hypoxic, she had fever with a temperature of 100.1 testing in the emergency room included influenza A and B and Covid 19 which were all negative. However her clinical picture, computed tomography scan results, and lab results were all typical of Covid 19 illness. Patient decompensated while in emergency room. Blood gas revealed evidence of PO2 of 55 she was intubated in the emergency room and was admitted to intensive care unit consultation for Dr. Ariza was initiated for critical care and pulmonary management, consultation for Dr. Harman was initiated for infectious disease treatment. Currently patient is in the intensive care unit she is intubated sedated maintained on mechanical ventilation, Dr. Ariza reason assisting the patient and placing central line. Computed tomography scan of the chest with contrast was done in the emergency room and was negative for pulmonary embolism, however it revealed diffuse groundglass opacities throughout both lungs. Computed tomography scan of the head and neck without contrast was done in the emergency room due to fall and did not reveal any significant abnormality. Pelvic x-ray was done due to fall and did not reveal any obvious fracture. From chart review patient has history of dermatomyositis, she was admitted to the hospital in November for IV steroid course. 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 Wilson. 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 Wilson; bilateral cataracts removed, L leg muscle biopsy Past Anesthesia/Blood Transfusion Reactions: No Reported Reaction Past Psychological History: No Psychological Hx Reported Smoking Status: Never smoker Past Alcohol Use History: None Reported Past Drug Use History: None Reported - Past Family History Father Additional Family Medical History / Comment(s): kidney disorder per patient Mother Additional Family Medical History / Comment(s): fell had surgery and from a hospital aquired infection per patient Medications and Allergies Home Medications Medication Instructions Recorded Confirmed Type Acetaminophen Tab [Tylenol] 1,000 mg PO Q6H PRN 02/25/16 01/11/20 History Latanoprost 1 drop LEFT EYE HS 02/25/16 01/11/20 History Dorzolamide HCl [Trusopt 2%] 1 drop LEFT EYE BID 06/11/18 01/11/20 History Loperamide HCl [Imodium A-D] 4 mg PO DAILY PRN 11/16/19 01/11/20 History predniSONE [Deltasone] 20 mg PO BID 01/11/20 01/11/20 History Allergies Allergy/AdvReac Type Severity Reaction Status Date / Time No Known Allergies Allergy Verified 01/11/20 09:05 Physical Exam Vitals: Vital Signs Temp Pulse Resp BP Pulse Ox 01/11/20 12:13 69 18 109/61 99 01/11/20 11:00 69 18 104/59 99 01/11/20 10:30 93 33 H 101/62 89 L 01/11/20 10:06 99.4 F 01/11/20 08:31 101 H 20 151/85 91 L 01/11/20 08:30 101 H 20 151/85 91 L 01/11/20 08:03 22 01/11/20 08:00 104 H 20 162/95 91 L 01/11/20 07:31 102 H 22 162/95 91 L 01/11/20 07:30 106 H 22 90 L 01/11/20 07:28 90 L 01/11/20 07:26 100.1 F H 111 H 22 130/94 97 Intake and Output 01/10/20 01/11/20 01/11/20 22:59 06:59 14:59 Output Total 1200 Balance -1200 Output: Urine 1200 Uretheral (Carmen) 1200 Other: Weight 69.853 kg In general patient is intubated sedated maintained on mechanical ventilation HEENT head normocephalic and atraumatic Neck is supple no JVD no goiter no lymphadenopathy Chest exam reveals coarse crackles in both lung olson Cardiac exam reveals regular heart sounds no gallops no murmurs Abdomen is soft nontender no organomegaly with normal bowel sounds Extremity exam reveals 2+ edema no cyanosis or clubbing Results CBC & Chem 7: 01/11/20 07:35 01/11/20 07:35 Labs: Abnormal Lab Results - Last 24 Hours (Table) 01/11/20 01/11/20 01/11/20 Range/Units 07:35 07:35 07:35 WBC 18.8 H (3.8-10.6) k/uL Hct 46.6 H (34.0-46.0) % RDW 15.7 H (11.5-15.5) % Neutrophils # 17.1 H (1.3-7.7) k/uL Lymphocytes # 0.9 L (1.0-4.8) k/uL APTT 19.0 L (22.0-30.0) sec D-Dimer 6.89 H (<0.60) mg/L FEU ABG pO2 (83-108) mmHg ABG Total CO2 (19-24) mmol/L ABG O2 Saturation (94-97) % BUN 37 H (7-17) mg/dL Glucose 113 H (74-99) mg/dL Plasma Lactic Acid Pepe (0.7-2.0) mmol/L AST 65 H (14-36) U/L ALT 84 H (4-34) U/L Lactate Dehydrogenase 1663 H (313-618) U/L Troponin I (0.000-0.034) ng/mL C-Reactive Protein 202.0 H (<10.0) mg/L Total Protein 5.9 L (6.3-8.2) g/dL Albumin 3.2 L (3.5-5.0) g/dL 01/11/20 01/11/20 01/11/20 Range/Units 07:35 07:35 08:27 WBC (3.8-10.6) k/uL Hct (34.0-46.0) % RDW (11.5-15.5) % Neutrophils # (1.3-7.7) k/uL Lymphocytes # (1.0-4.8) k/uL APTT (22.0-30.0) sec D-Dimer (<0.60) mg/L FEU ABG pO2 55 L* (83-108) mmHg ABG Total CO2 25 H (19-24) mmol/L ABG O2 Saturation 90.1 L (94-97) % BUN (7-17) mg/dL Glucose (74-99) mg/dL Plasma Lactic Acid Pepe 5.5 H* (0.7-2.0) mmol/L AST (14-36) U/L ALT (4-34) U/L Lactate Dehydrogenase (313-618) U/L Troponin I 0.310 H* (0.000-0.034) ng/mL C-Reactive Protein (<10.0) mg/L Total Protein (6.3-8.2) g/dL Albumin (3.5-5.0) g/dL 01/11/20 Range/Units 11:33 WBC (3.8-10.6) k/uL Hct (34.0-46.0) % RDW (11.5-15.5) % Neutrophils # (1.3-7.7) k/uL Lymphocytes # (1.0-4.8) k/uL APTT (22.0-30.0) sec D-Dimer (<0.60) mg/L FEU ABG pO2 113 H (83-108) mmHg ABG Total CO2 26 H (19-24) mmol/L ABG O2 Saturation 98.7 H (94-97) % BUN (7-17) mg/dL Glucose (74-99) mg/dL Plasma Lactic Acid Pepe (0.7-2.0) mmol/L AST (14-36) U/L ALT (4-34) U/L Lactate Dehydrogenase (313-618) U/L Troponin I (0.000-0.034) ng/mL C-Reactive Protein (<10.0) mg/L Total Protein (6.3-8.2) g/dL Albumin (3.5-5.0) g/dL Assessment and Plan Plan: #1 bilateral pneumonia most likely viral pneumonia due to Covid 19 virus despite negative instant test in the emergency room. #2 acute hypoxic respiratory failure requiring mechanical ventilation #3 sepsis, as evidenced by leukocytosis white blood count 18.8, fever temperature 100.1 lactic acid testing is pending. #4 mild elevation in liver enzymes likely related to acute illness, will monitor #5 underlying history of dermatomyositis #6 elevated d-dimer without evidence of pulmonary embolism on CT angiogram of the chest #7 mild elevation in troponin level, likely related to oxygen demand, supply mismatch, doubt acute myocardial infarction at this time, will monitor closely #8 for DVT prophylaxis Will start patient on subcu Lovenox, for GI prophylaxis will start IV Protonix Prognosis is extremely guarded due to age, severity of illness requiring intubation and mechanical ventilation, and underlying medical problems Will follow closely
[2020-01-11] MEDS ORDERED: ENOXAPARIN 40 MG/0.4 ML SYRINGE SQ SCH (13:45)
--- NOTE | 2020-01-11 13:47 | XR ---
EXAMINATION TYPE: XR chest 1V portable DATE OF EXAM: 01/11/2020 HISTORY: post central line placement. REFERENCE: Previous study of earlier today. FINDINGS: The patient is ET tube has been withdrawn now approximately 4.2 cm from the gen. Right i nternal jugular catheter is been inserted. Its tip is at the cavoatrial junction. NG tube is present and crosses the hemidiaphragm but its tip is not visualized. There is improved aeration of both lungs. The heart is enlarged. There is bilateral residual infiltra nubia most confluent at the left lung base. IMPRESSION: 1. IMPROVED POSITIONING OF THE ET TUBE. 2. IMPROVED AERATION OF BOTH LUNGS.
[2020-01-11] MEDS ORDERED: HYDROmorphone 1 MG/ML 1 ML SYRINGE IVP PRN (13:48)
[2020-01-11] MEDS ORDERED: HYDROXYCHLOROQUINE SULFATE 200 MG TAB PO SCH (14:00)
--- NOTE | 2020-01-11 14:08 | P.CNPUL ---
History of Present Illness Consult date: 01/11/20 Requesting physician: Juany Hamilton Reason for consult: other (Acute hypoxic respiratory failure.) Chief complaint: Shortness of breath, fall. History of present illness: This is an 84-year-old female with history of multiple medical problems including hypertension, osteoarthritis, dermatomyositis, irritable bowel syndrome, glaucoma, patient is maintained on prednisone at 40 mg daily for her dermatomyositis. However looking at previous chest x-ray on this patient, she had no previous history of interstitial lung disease associated with her dermatomyositis. Patient presented to the ER with chief complaint of weakness and fall. She has been complaining of shortness of breath for the last 2 days, and been feeling extremely weak. Apparently the patient got up to use the bathroom and she fell. No documented history of nausea vomiting, patient had no documented cough or fever. At any rate when the patient presented to the ER, she was in extreme respiratory distress, she was placed on a nonrebreather mask, and ABG on this patient showed a pO2 of 55 pCO2 of 36 pH of 7.44. I was not ified about this patient by the ER physician/Dr. Magaña, and I recommended immediate intubation. Chest x-ray was reviewed, she had basically diffuse interstitial edema/infiltrates. Patient was intubated by anesthesia down in the ER, she was tested for herrera virus/ covid 19,, and her rapid PCR was negative. Patient was transferred to the intensive care unit. And as soon as I evaluated the patient, she was on low dose of norepinephrine at 0.1 mcg/kg/m, and I recommended lines placement. Right IJ central line was placed and a right radial arterial line was also placed. Chest x-ray showed significant improvement in her interstitial edema, and there was improved aeration of both lungs. There was also adequate placement of the endotracheal tube, orogastric tube, and the right IJ central line. Hence I recommended that we continue the fluids at KVO. Patient did receive Lasix 40 mg earlier while in the ER based on my recommendation and based on her chest x-ray findings. Obviously the patient responded well to diuretics, and there was clearly significant improvement on her chest x-ray that was done in the ICU after line placement. CT angiogram of the chest showed diffuse groundglass opacities in both lungs, hence possible viral pneumonitis was a major concern. There was no evidence of pulmonary embolism. There was evidence of cholelithiasis. CT of the spine and brain was basically unremarkable. X-rays of the pelvis where unremarkable. Review of Systems ROS unobtainable: due to endotracheal tube Past Medical History Past Medical History: Hypertension, Osteoarthritis (OA) Additional Past Medical History / Comment(s): Glaucoma in right eye, gallstones, shingles, IBS, Dermatomyositis History of Any Multi-Drug Resistant Organisms: None Reported Past Surgical History: Bowel Resection, Hysterectomy, Tonsillectomy Additional Past Surgical History / Comment(s): "kidney surgery" due to congent ical abnormality causing a blockage in ureter dr. Wilson; bilateral cataracts removed, L leg muscle biopsy Past Anesthesia/Blood Transfusion Reactions: No Reported Reaction Past Psychological History: No Psychological Hx Reported Smoking Status: Never smoker Past Alcohol Use History: None Reported Past Drug Use History: None Reported - Past Family History Father Additional Family Medical History / Comment(s): kidney disorder per patient Mother Additional Family Medical History / Comment(s): fell had surgery and from a hospital aquired infection per patient Medications and Allergies Home Medications Medication Instructions Recorded Confirmed Type Acetaminophen Tab [Tylenol] 1,000 mg PO Q6H PRN 02/25/16 01/11/20 History Latanoprost 1 drop LEFT EYE HS 02/25/16 01/11/20 History Dorzolamide HCl [Trusopt 2%] 1 drop LEFT EYE BID 06/11/18 01/11/20 History Loperamide HCl [Imodium A-D] 4 mg PO DAILY PRN 11/16/19 01/11/20 History predniSONE [Deltasone] 20 mg PO BID 01/11/20 01/11/20 History Allergies Allergy/AdvReac Type Severity Reaction Status Date / Time No Known Allergies Allergy Verified 01/11/20 09:05 Physical Exam Vitals: Vital Signs Temp Pulse Resp BP Pulse Ox 01/11/20 12:13 69 18 109/61 99 01/11/20 12:00 69 18 109/61 99 01/11/20 11:00 69 18 104/59 99 01/11/20 10:30 93 33 H 101/62 89 L 01/11/20 10:06 99.4 F 01/11/20 08:31 101 H 20 151/85 91 L 01/11/20 08:30 101 H 20 151/85 91 L 01/11/20 08:03 22 01/11/20 08:00 104 H 20 162/95 91 L 01/11/20 07:31 102 H 22 162/95 91 L 01/11/20 07:30 106 H 22 90 L 01/11/20 07:28 90 L 01/11/20 07:26 100.1 F H 111 H 22 130/94 97 Intake and Output 01/10/20 01/11/20 01/11/20 22:59 06:59 14:59 Output Total 1200 Balance -1200 Output: Urine 1200 Uretheral (Carmen) 1200 Other: Weight 69.853 kg Physical Exam: Revealed 84-year-old female intubated, on mechanical ventilation, sedated, on propofol. Head: Atraumatic, normocephalic. And the tracheal tube and orogastric tube are intact. HEENT:[Neck is supple.] [No neck masses.] [No thyromegaly.] [No JVD.] Chest: Fine crackles at the bases, no rhonchi no wheezes, symmetrical chest expansion is noted.] Cardiac Exam: [Normal S1 and S2, no S3 gallop, no murmur.] Abdomen: [Soft, nontender, no megaly, no rebound, no guarding, normal bowel sounds.] Extremities: [No clubbing, 2+ bipedal edema, no cyanosis.] Neurological Exam: [Cannot be assessed, patient is sedated, on propofol. Psychiatric: Could not be assessed. Skin: No areas of erythema or cellulitis. Lymphatics: No cervical lymphadenopathy. Results - Laboratory Findings CBC and BMP: 01/11/20 07:35 01/11/20 07:35 ABG ABG pH 7.42 (7.35-7.45) 01/11/20 11:33 ABG pCO2 38 mmHg (35-45) 01/11/20 11:33 ABG pO2 113 mmHg (83-108) H 01/11/20 11:33 ABG O2 Saturation 98.7 % (94-97) H 01/11/20 11:33 PT/INR, D-dimer PT 9.8 sec (9.0-12.0) 01/11/20 07:35 INR 0.9 (<1.2) 01/11/20 07:35 D-Dimer 6.89 mg/L FEU (<0.60) H 01/11/20 07:35 Abnormal lab findings: Abnormal Labs 01/11/20 01/11/20 01/11/20 07:35 07:35 07:35 WBC 18.8 H Hct 46.6 H RDW 15.7 H Neutrophils # 17.1 H Lymphocytes # 0.9 L APTT 19.0 L D-Dimer 6.89 H ABG pO2 ABG Total CO2 ABG O2 Saturation BUN 37 H Glucose 113 H Plasma Lactic Acid Pepe AST 65 H ALT 84 H Lactate Dehydrogenase 1663 H Troponin I C-Reactive Protein 202.0 H Total Protein 5.9 L Albumin 3.2 L 01/11/20 01/11/20 01/11/20 07:35 07:35 08:27 WBC Hct RDW Neutrophils # Lymphocytes # APTT D-Dimer ABG pO2 55 L* ABG Total CO2 25 H ABG O2 Saturation 90.1 L BUN Glucose Plasma Lactic Acid Pepe 5.5 H* AST ALT Lactate Dehydrogenase Troponin I 0.310 H* C-Reactive Protein Total Protein Albumin 01/11/20 11:33 WBC Hct RDW Neutrophils # Lymphocytes # APTT D-Dimer ABG pO2 113 H ABG Total CO2 26 H ABG O2 Saturation 98.7 H BUN Glucose Plasma Lactic Acid Pepe AST ALT Lactate Dehydrogenase Troponin I C-Reactive Protein Total Protein Albumin - Diagnostic Findings CT scan - chest: image reviewed (As noted in HPI.) Assessment and Plan Assessment: Impression: Acute hypoxic respiratory failure, exact etiology isn't clear, Differential diagnoses for this patient includes covid 19 pneumonitis, bacterial pneumonia/bilateral, possible community-acquired pneumonia, and I strongly suspect a significant component of diastolic congestive heart failure since the patient showed improvement with diuretics from the time of presentation until the time she was seen in the ICU. Patient had herrera virus testing negative, however that's not entirely ruled out yet. Acute sepsis and septic shock, requiring briefly norepinephrine upon arrival to the ICU. However this is being tapered and will likely be discontinued. Mildly elevated liver enzymes, exact etiology remains unclear at this point. History of dermatomyositis, patient is relatively immunocompromised maintained on relatively high-dose of prednisone for dermatomyositis. Elevated d-dimer, could very well be related to underlying covid 19 pneumonitis, or could be nonspecific. CT angiogram was negative. Recommendation: Continue ventilatory support. Patient will be placed on assist control mode of mechanical ventilation. Tidal volume of 400 rate of 20 FiO2 of 100% and PEEP is 5. Her ventilatory settings will be adjusted according to the next ABG. Patient is to be given antibiotics empirically and I will recommend Zosyn, erythromycin, and considering that covid 19 remains in the differential, we'll recommend hydroxychloroquine. Patient will be given relatively higher dose of Lovenox 40 mg subcu every 12 hours. Patient will be given stress doses of Solu-Cortef 100 mg IV push every 8 hours, she is maintained on prednisone at 40 mg daily. Patient will need sputum cultures, blood cultures, urine cultures, and would strongly recommend echocardiogram. Lines including right IJ central line and right radial arterial line were placed. Her condition is critical. Prognosis is relatively guarded. We'll continue to follow. Critical care time is 45 minutes excluding time for procedures. Time with Patient: Greater than 30
[2020-01-11 14:18] LABS: ABG Base Excess 0.2 mmol/L; ABG HCO3 25 mmol/L (21-25); ABG PCO2 40 mmHg (35-45); ABG PO2 259 mmHg (83-108); ABG TCO2 26 mmol/L (19-24); Allen Test Performed? Yes
[2020-01-11] MEDS: NOREPINEPHRINE 4 MG in SODIUM CHLORIDE 0.9% 250 ML IV SCH (14:35)
[2020-01-11] MEDS: AZITHROMYCIN 500 MG in SODIUM CHLORIDE 0.9% 250 ML IVPB SCH (14:36)
[2020-01-11] MEDS: PANTOPRAZOLE 40 MG/10 ML VIAL IVP SCH (14:41)
[2020-01-11] MEDS: ENOXAPARIN 40 MG/0.4 ML SYRINGE SQ SCH ×2 (14:42→21:21)
[2020-01-11] MEDS: ZINC SULFATE 220 MG CAP PO SCH (14:55)
[2020-01-11] MEDS: HYDROXYCHLOROQUINE ORAL SUSP 200 MG/8 ML ORAL.SYRG PO SCH ×2 (14:55→20:55)
--- NOTE | 2020-01-11 15:02 | PCN ---
PROCEDURE NOTE PROCEDURE PERFORMED: Placement of a right radial arterial line. PREOPERATIVE DIAGNOSIS: Acute hypoxic respiratory failure. POSTOPERATIVE DIAGNOSIS: Acute hypoxic respiratory failure. ANESTHESIA: Used none deployed. PROCEDURE DETAIL: The patient was placed in the supine position, the right wrist was prepared in a sterile fashion and drapes were applied. Then, the right radial artery was palpated, cannulated easily and a guidewire was placed. A Cook catheter was inserted over the guidewire, and the guidewire was removed. Good blood flow and good waveform noted, no evidence of any immediate complications. The line was secured using 3.0 silk sutures. MMODL / IJN: [id number] /
--- NOTE | 2020-01-11 15:02 | PCN ---
PROCEDURE NOTE PROCEDURE PERFORMED: Placement of the right internal jugular central line. PREOPERATIVE DIAGNOSIS: Acute hypoxic respiratory failure. POSTOP DIAGNOSIS: Acute hypoxic respiratory failure. ANESTHESIA USED: 2 mL of 1% lidocaine. PROCEDURE DETAILS: Patient was placed in a Trendelenburg position, the area of the right cervical region was prepared in a sterile fashion and drapes were applied. The area was locally anesthetized. Using the posterior approach, the right internal jugular vein was easily cannulated, the guidewire was placed, the area around the guidewire was dilated. Then a triple-lumen catheter was inserted over the guidewire and the guidewire was removed. Good blood flow was noted in the 3 different ports. The line was secured using 3.0 silk sutures. Chest x-ray showed adequate placement and no complications. MMODL / IJN: [id number] /
[2020-01-11] MEDS: HYDROCORTISONE SUCCINATE 100 MG/2 ML VIAL IV SCH (16:14)
[2020-01-11] MEDS: PIPERACILLIN-TAZOBACTAM 3.375 GM in SODIUM CHLORIDE 0.9% 100 ML IVPB SCH (16:21)
[2020-01-11 16:45] LABS: Appearance,Urine Clear (Clear); Bilirubin,Urine Negative (Negative); Blood,Urine Negative (Negative); Color,Urine Light Yellow; Glucose,Urine (UA) Negative (Negative); Ketones,Urine Negative (Negative); Leukocyte Esterase,Urine Negative (Negative); Nitrite,Urine Negative (Negative); Protein,Urine Negative (Negative); Specific Gravity,Urine 1.015 (1.001-1.035); Urobilinogen,Urine <2.0 mg/dL (<2.0)
[2020-01-11] MEDS: CHLORHEXIDINE GLUCONATE 15 ML CUP MUCOUS MEM SCH (20:55)
[2020-01-11] MEDS: LATANOPROST 0.005% OPHTH DROPS 2.5 ML BTL LEFT EYE SCH (21:10)
[2020-01-11] MEDS: DORZOLAMIDE HCL 2% DROPS 10 ML BTL LEFT EYE SCH (21:11)
[2020-01-12] MEDS: HYDROCORTISONE SUCCINATE 100 MG/2 ML VIAL IV SCH (00:03)
[2020-01-12] MEDS: PIPERACILLIN-TAZOBACTAM 3.375 GM in SODIUM CHLORIDE 0.9% 100 ML IVPB SCH ×3 (00:04→16:25)
[2020-01-12 05:18] LABS: ABG Base Excess -5.9 mmol/L; ABG HCO3 20 mmol/L (21-25); ABG Oxygen Saturation 99.1 % (94-97); ABG PCO2 36 mmHg (35-45); ABG PH 7.35 (7.35-7.45); ABG PO2 135 mmHg (83-108); ABG TCO2 21 mmol/L (19-24); Allen Test Performed? Yes
--- NOTE | 2020-01-12 05:21 | CONS ---
CONSULTATION DATE OF SERVICE: 01/11/2020 REASON FOR CONSULTATION: Possible COVID-19 infection. HISTORY OF PRESENT ILLNESS: The patient is an 84-year-old female who was brought into the ER this morning after apparently the patient did have a fall in the restroom. The patient has been complaining of feeling weak and short of breath for the last 2 days. The patient said she got up to use the restroom, but then fell secondary to bilateral leg weakness. The patient fell old and has been shaking. No other changes. On arrival to the ER, the patient was noted to be febrile with temperature 100.1 and hypoxic requiring non- rebreather oxygen. The patient was satting around 86% on initial presentation to the hospital. The patient did have a chest x-ray followed by CT of the lungs, which was negative for PE; however, did show diffuse bilateral ground-glass opacities. The patient's [employer] swab came back negative, though patient did have elevated LDH and CRP. UA was negative. Influenza PCR was negative. She ended up getting intubated because of worsening respiratory distress. The patient has been admitted to the ICU. Infectious Disease was consulted for further management for antibiotic therapy. Most of the information has been obtained from review of the chart, talking to the nursing staff as the patient is currently intubated on the vent and unable to provide any history. REVIEW OF SYSTEMS: Could not be reliably obtained though the positive points have been mentioned in HPI. PAST MEDICAL HISTORY: Hypertension, osteoarthritis, glaucoma, gallstone, shingles, IBS, and dermatomyositis. PAST SURGICAL HISTORY: Hysterectomy, tonsillectomy. SOCIAL HISTORY: No history of smoking, drinking or any drug use. FAMILY HISTORY: Father with history of kidney disorder. ALLERGIES: No known drug allergies. MEDICATIONS: Medications include the patient is currently on Zithromax, Solu-Cortef, Plaquenil, Zosyn and Zinc. PHYSICAL EXAMINATION: On examination, her blood pressure is 124/63 with a pulse of 95, temperature 98.6. She is 99% on 60% FiO2. General description is an elderly female lying in bed in no distress. No tachypnea or accessory muscle of respiration use. HEENT examination shows no pallor or scleral icterus. The patient is orally intubated. LUNGS: Unlabored breathing, decreased breath sounds at the bases. No wheeze. HEART: S1, S2. Regular rate and rhythm. ABDOMEN: Soft, no tenderness. No guarding or rigidity. EXTREMITIES: No edema of feet. SKIN EXAMINATION: No rash or mass palpable. NEUROLOGIC: The patient is sedated on the vent. LABS: Labs are hemoglobin 15.2, white count 18.8. BUN of 37, creatinine 0.82. Electrolytes has been normal. Lactic acid is 5.5, down to 2 and LDH of 1663. CRP of 202. UA negative. CT angiogram mentioned above. DIAGNOSTIC IMPRESSION AND PLAN: Patient admitted to the hospital with acute respiratory failure as this patient presented to the hospital with shortness of breath. She was hypoxic and did have a low- grade fever with a CT angiogram that showed diffuse ground-glass opacities likely suspicious for acute COVID-19 infection with concern for possible secondary bacterial pneumonia not entirely excluded, question of possible aspiration etiology. PLAN: 1. Patient will be treated with Plaquenil, Zithromax, and steroids. 2. Will follow up on the sputum and blood culture that have been obtained. 3. Continue with empiric Zosyn 3.375 grams q.8 hours. 4. We will follow on the clinical condition and culture to further adjust medication if needed. Thank you for this consultation. Will follow this patient along with you. MMODL / IJN: [id number] / GRZEGORZ
[2020-01-12 06:34] LABS: Basophils % (A) 0 %; Eosinophils % (A) 0 %; HCT 39.7 % (34.0-46.0); HGB 13.1 gm/dL (11.4-16.0); Lymphocytes # (A) 0.3 k/uL (1.0-4.8); Lymphocytes % (A) 2 %; MCH 31.6 pg (25.0-35.0); MCHC 33.1 g/dL (31.0-37.0); MCV 95.3 fL (80.0-100.0); Mean Platelet Volume 10.8; Monocytes # (A) 0.4 k/uL (0-1.0); Monocytes % (A) 3 %; Neutrophils % (A) 94 %; Platelet Count 187 k/uL (150-450); RBC 4.17 m/uL (3.80-5.40); RDW 15.7 % (11.5-15.5); WBC 13.7 k/uL (3.8-10.6)
[2020-01-12 06:40] LABS: Albumin 2.2 g/dL (3.5-5.0); Calcium 7.4 mg/dL (8.4-10.2); Potassium 3.6 mmol/L (3.5-5.1); Total Bilirubin 0.5 mg/dL (0.2-1.3); Total Protein 4.6 g/dL (6.3-8.2)
--- NOTE | 2020-01-12 07:07 | XR ---
EXAMINATION TYPE: XR chest 1V DATE OF EXAM: 01/12/2020 COMPARISON: 01/11/2020 HISTORY: SOB, Follow Up FINDINGS: Indwelling tubes and catheters are unchanged. Scattered interstitial and alveolar infiltrates noted without significant change. Stable appearance of the cardio-mediastinal structures at this time. Pleural effusion unchanged. IMPRESSION: 1. Stable portable chest. Clinical correlation and follow up until resolution is recommended.
[2020-01-12 07:23] LABS: C Reactive Protein 411.4 mg/L (<10.0)
[2020-01-12] MEDS ORDERED: VANCOMYCIN IV PER PHARMACY 1 EACH MISC MISCELLANE PRN (08:44)
[2020-01-12] MEDS ORDERED: HYDROCORTISONE SUCCINATE 100 MG/2 ML VIAL IV SCH (09:00)
[2020-01-12] MEDS ORDERED: VANCOMYCIN 1,750 MG in SODIUM CHLORIDE 0.9% 500 ML 500 ML IVPB ONE (10:00)
[2020-01-12] MEDS: HYDROXYCHLOROQUINE ORAL SUSP 200 MG/8 ML ORAL.SYRG PO SCH ×2 (10:19→20:47)
[2020-01-12] MEDS: AZITHROMYCIN 500 MG in SODIUM CHLORIDE 0.9% 250 ML IVPB SCH (10:19)
[2020-01-12] MEDS: ENOXAPARIN 80 MG/0.8 ML SYRINGE SQ SCH ×2 (10:20→20:35)
[2020-01-12] MEDS: CHLORHEXIDINE GLUCONATE 15 ML CUP MUCOUS MEM SCH ×2 (10:20→20:49)
[2020-01-12] MEDS: DORZOLAMIDE HCL 2% DROPS 10 ML BTL LEFT EYE SCH ×2 (10:21→21:02)
[2020-01-12] MEDS: PANTOPRAZOLE 40 MG/10 ML VIAL IVP SCH (10:21)
[2020-01-12 10:39] LABS: Ferritin 455.6 ng/mL (10.0-291.0)
[2020-01-12 12:10] LABS: Glucose,Whole Blood 110 mg/dL (75-99)
[2020-01-12] MEDS: ZINC SULFATE 220 MG CAP PO SCH (12:27)
--- NOTE | 2020-01-12 12:57 | ECHOF ---
Referral Reason:Heart failure MEASUREMENTS -------- HEIGHT: 154.9 cm WEIGHT: 79.4 kg BP: 133/64 RVIDd: 2.7 cm (< 3.3) IVSd: 1.4 cm (0.6 - 1.1) LVIDd: 3.5 cm (3.9 - 5.3) LVPWd: 1.4 cm (0.6 - 1.1) IVSs: 1.8 cm LVIDs: 2.6 cm LVPWs: 1.8 cm LAESV Index (A-L): 19.15 ml/m Ao Diam: 3.2 cm (2.0 - 3.7) AV Cusp: 1.9 cm (1.5 - 2.6) MV EXCURSION: 10.738 mm (> 18.000) MV EF SLOPE: 69 mm/s (70 - 150) EPSS: 0.2 cm MV E Pablito: 0.84 m/s MV DecT: 243 ms MV A Pablito: 1.19 m/s MV E/A Ratio: 0.71 AR PHT: 652 ms RAP: 5.00 mmHg RVSP: 38.37 mmHg FINDINGS -------- Sinus rhythm. This was a technically adequate study. The left ventricular size is normal. There is moderate concentric left ventricular hypertrophy. O verall left ventricular systolic function is normal with, an EF between 55 - 60 %. The right ventricle is normal in size. Normal LA size by volume 22+/-6 ml/m2. The right atrial size is normal. Interatrial and interventricular septum intact. There is mild aortic valve sclerosis. There is mild aortic regurgitation. The mitral valve leaflets are mildly thickened. Mild mitral regurgitation is present. Mild tricuspid regurgitation present. There is mild pulmonary hypertension. The right ventricular systolic pressure, as measured by Doppler, is 38.37mmHg. Trace/mild (physiologic) pulmonic regurgitation. The aortic root size is normal. Normal inferior vena cava with normal inspiratory collapse consistent with estimated right atrial pre ssure of 5 mmHg. Echo free space represents a pericardial fat pad. CONCLUSIONS -------- 1. There is moderate concentric left ventricular hypertrophy. 2. Overall left ventricular systolic function is normal with, an EF between 55 - 60 %. 3. Normal LA size by volume 22+/-6 ml/m2. 4. There is mild aortic valve sclerosis. 5. There is mild aortic regurgitation. 6. Mild mitral regurgitation is present. 7. Mild tricuspid regurgitation present. 8. There is mild pulmonary hypertension. 9. Trace/mild (physiologic) pulmonic regurgitation. 10. Echo free space represents a pericardial fat pad. FILLER MIXER: Raiza Cadet RDCS
[2020-01-12 13:05] LABS: Ferritin 537.6 ng/mL (10.0-291.0)
[2020-01-12] MEDS: NOREPINEPHRINE 4 MG in SODIUM CHLORIDE 0.9% 250 ML IV SCH ×2 (13:15→21:56)
--- NOTE | 2020-01-12 14:02 | P.PN ---
Subjective Progress Note Date: 01/12/20 Ekta Yañez is an 84-year-old female patient of Dr. Oquendo who presented to [facility] emergency room with a chief complaint of generalized weakness and fall, patient also was complaining of shortness of breath, she was alert and oriented in the emergency room and was able to answer questions appropriately however she was getting more hypoxic, she had fever with a temperature of 100.1 testing in the emergency room included influenza A and B and Covid 19 which were all negative. However her clinical picture, computed tomography scan results, and lab results were all typical of Covid 19 illness. Patient decompensated while in emergency room. Blood gas revealed evidence of PO2 of 55 she was intubated in the emergency room and was admitted to intensive care unit consultation for Dr. Ariza was initiated for critical care and pulmonary management, consultation for Dr. Harman was initiated for infectious disease treatment. Currently patient is in the intensive care unit she is intubated sedated maintained on mechanical ventilation, Dr. Ariza reason assisting the patient and placing central line. Computed tomography scan of the chest with contrast was done in the emergency room and was negative for pulmonary embolism, however it revealed diffuse groundglass opacities throughout both lungs. Computed tomography scan of the head and neck without contrast was done in the emergency room due to fall and did not reveal any significant abnormality. Pelvic x-ray was done due to fall and did not reveal any obvious fracture. From chart review patient has history of dermatomyositis, she was admitted to the hospital in November for IV steroid course. 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 Wilson. On 01/12/2020 patient was seen and examined in the intensive care unit she is intubated sedated maintained on mechanical ventilation, she is oxygenating better today and PEEP was decreased from 10 down to 5 by intensive care. ABG was done and revealed pH of 7.35 pCO2 36 PaO2 135 chest x-ray was reviewed and was stable from yesterday echocardiogram done and revealed normal left ventricular systolic function with ejection fraction of 55-60% Objective - Vital Signs Vital signs: Vital Signs Temp 97.7 F 01/12/20 12:00 Pulse 64 01/12/20 13:00 Resp 21 01/12/20 13:00 BP 101/60 01/12/20 13:00 Pulse Ox 93 L 01/12/20 13:00 Intake & Output 01/11/20 01/12/20 01/12/20 18:59 06:59 18:59 Intake Total 1225.265 351 7546.016 Output Total 2825 555 210 Balance -1599.340 11 7855.016 Weight 79.4 kg 79.6 kg 79.6 kg Intake: IV 1218 622 292 0.9 NACL 350 550 250 0.9 NACL bolus 500 azithromycin 250 pressure bags 18 72 42 zosyn 100 Intake, IV Titration 7.984 1072.016 Amount Azithromycin 500 mg In 250 Sodium Chloride 0.9% 250 ml @ 250 mls/hr IVPB DAILY [facility] Rx#:[id number] Norepinephrine 4 mg In 7.984 246.016 Sodium Chloride 0.9% 250 ml @ 0.05 MCG/KG/MIN 13. 307 mls/hr IV .[id number] [facility] Rx#:[id number] Piperacillin-Tazobactam 3 75 .375 gm In Sodium Chloride 0.9% 100 ml @ 25 mls/hr IVPB Q8HR [facility] Rx# :[id number] Vancomycin 1,750 mg In 501 Sodium Chloride 0.9% 500 ml 500 ml @ 167 mls/hr IVPB ONCE ONE Rx#: [id number] Output: Urine 2825 555 210 Uretheral (Carmen) 2400 Other: Voiding Method Indwelling Catheter Indwelling Catheter ABP, PAP, CO, CI - Last Documented Arterial Blood Pressure 98/50 - Exam In general patient is intubated sedated maintained on mechanical ventilation HEENT head normocephalic and atraumatic Neck is supple no JVD no goiter no lymphadenopathy Chest exam reveals coarse crackles in both lung olson Cardiac exam reveals regular heart sounds no gallops no murmurs Abdomen is soft nontender no organomegaly with normal bowel sounds Extremity exam reveals 2+ edema no cyanosis or clubbing - Labs CBC & Chem 7: 01/12/20 06:05 01/12/20 06:05 Labs: Abnormal Lab Results - Last 24 Hours (Table) 01/11/20 01/11/20 01/11/20 Range/Units 07:35 13:00 14:08 WBC (3.8-10.6) k/uL RDW (11.5-15.5) % Neutrophils # (1.3-7.7) k/uL Lymphocytes # (1.0-4.8) k/uL D-Dimer (<0.60) mg/L FEU ABG pO2 259 H (83-108) mmHg ABG HCO3 (21-25) mmol/L ABG Total CO2 26 H (19-24) mmol/L ABG O2 Saturation 100.0 H (94-97) % Chloride (98-107) mmol/L Carbon Dioxide (22-30) mmol/L BUN (7-17) mg/dL Glucose (74-99) mg/dL POC Glucose (mg/dL) (75-99) mg/dL Calcium (8.4-10.2) mg/dL Ferritin 455.6 H (10.0-291.0) ng/mL AST (14-36) U/L ALT (4-34) U/L Lactate Dehydrogenase (313-618) U/L Troponin I 0.689 H* (0.000-0.034) ng/mL C-Reactive Protein (<10.0) mg/L Total Protein (6.3-8.2) g/dL Albumin (3.5-5.0) g/dL 01/12/20 01/12/20 01/12/20 Range/Units 05:15 06:05 06:05 WBC 13.7 H (3.8-10.6) k/uL RDW 15.7 H (11.5-15.5) % Neutrophils # 13.0 H (1.3-7.7) k/uL Lymphocytes # 0.3 L (1.0-4.8) k/uL D-Dimer (<0.60) mg/L FEU ABG pO2 135 H (83-108) mmHg ABG HCO3 20 L (21-25) mmol/L ABG Total CO2 (19-24) mmol/L ABG O2 Saturation 99.1 H (94-97) % Chloride 113 H (98-107) mmol/L Carbon Dioxide 19 L (22-30) mmol/L BUN 34 H (7-17) mg/dL Glucose 126 H (74-99) mg/dL POC Glucose (mg/dL) (75-99) mg/dL Calcium 7.4 L (8.4-10.2) mg/dL Ferritin 537.6 H (10.0-291.0) ng/mL AST 42 H (14-36) U/L ALT 77 H (4-34) U/L Lactate Dehydrogenase 1300 H (313-618) U/L Troponin I (0.000-0.034) ng/mL C-Reactive Protein 411.4 H (<10.0) mg/L Total Protein 4.6 L (6.3-8.2) g/dL Albumin 2.2 L (3.5-5.0) g/dL 01/12/20 01/12/20 01/12/20 Range/Units 06:05 06:05 12:09 WBC (3.8-10.6) k/uL RDW (11.5-15.5) % Neutrophils # (1.3-7.7) k/uL Lymphocytes # (1.0-4.8) k/uL D-Dimer 5.72 H (<0.60) mg/L FEU ABG pO2 (83-108) mmHg ABG HCO3 (21-25) mmol/L ABG Total CO2 (19-24) mmol/L ABG O2 Saturation (94-97) % Chloride (98-107) mmol/L Carbon Dioxide (22-30) mmol/L BUN (7-17) mg/dL Glucose (74-99) mg/dL POC Glucose (mg/dL) 110 H (75-99) mg/dL Calcium (8.4-10.2) mg/dL Ferritin (10.0-291.0) ng/mL AST (14-36) U/L ALT (4-34) U/L Lactate Dehydrogenase (313-618) U/L Troponin I 0.341 H* (0.000-0.034) ng/mL C-Reactive Protein (<10.0) mg/L Total Protein (6.3-8.2) g/dL Albumin (3.5-5.0) g/dL Microbiology - Last 24 Hours (Table) 01/11/20 09:20 Blood Culture Gram Stain - Preliminary Blood Blood Culture - Preliminary Coagulase Negative Staph 01/11/20 09:20 Blood Culture - Final Blood 01/11/20 16:40 Gram Stain - Preliminary Sputum Sputum Culture - Preliminary Assessment and Plan Plan: #1 bilateral pneumonia most likely viral pneumonia due to Covid 19 virus despite negative instant test in the emergency room. #2 acute hypoxic respiratory failure requiring mechanical ventilation #3 sepsis, as evidenced by leukocytosis white blood count 18.8, fever temperature 100.1 lactic acid testing is pending. #4 mild elevation in liver enzymes likely related to acute illness, will monitor #5 underlying history of dermatomyositis #6 elevated d-dimer without evidence of pulmonary embolism on CT angiogram of the chest #7 mild elevation in troponin level, likely related to oxygen demand, supply mismatch, doubt acute myocardial infarction at this time, will monitor closely #8 for DVT prophylaxis Will start patient on subcu Lovenox, for GI prophylaxis will start IV Protonix Prognosis is extremely guarded due to age, severity of illness requiring intubation and mechanical ventilation, and underlying medical problems Will follow closely
--- NOTE | 2020-01-12 14:04 | PN ---
PROGRESS NOTE PULMONARY/CRITICAL CARE PROGRESS NOTE: DATE OF SERVICE: 01/12/2020 This is a patient who was admitted on 01/10 for acute hypoxemic respiratory failure. She was admitted on the through the emergency room and was intubated in the emergency room. Her COVID-19 test was negative. She came in apparently with flu-like symptoms. The patient had complaints of weakness and apparently also had some shortness of breath the last couple of days prior to evaluation. She also apparently had a fall. She fell in the bathroom. Anyway, the patient is currently on the mechanical ventilator. She was seen by my partner yesterday. The patient's current vent settings include the volume assist control mode rate of 20, tidal volume 400, FiO2 50%, PEEP of 10. The PEEP will be dropped from 10 to 5. Blood gases show pO2 of 135, pCO2 of 36, pH of 7.35. The blood gas is consistent with a very mild metabolic acidosis. The patient is getting saline at 50 mL/hour, propofol at 50 mcg/kg/minute, and norepinephrine at 5 mcg/minute. No tube feeds as yet. The patient's rapid test apparently was negative. The Solu-Medrol is currently 60 mg q.12 hours. The Lovenox was at 80 mcg subcutaneously q.12. The patient, even though she is rapid test for COVID-19 negative, she is suspected as having COVID-19 infection. Currently she is reasonably stable on the mechanical ventilator. PHYSICAL EXAMINATION: Vital signs are reviewed. Temperature is 98.4, heart rate 69, respiratory rate 21, blood pressure 133/64, mean central venous pressure is 18, saturations 95%. Currently sedated. HEENT: Examination is grossly unremarkable. There is an orally placed endotracheal tube and NG tube. NECK: Supple. Full range of motion. No adenopathy, thyromegaly, or neck vein distention. CARDIOVASCULAR: Examination reveals a regular rhythm and rate. Heart rate 69 beats per minute. S1 and S2 normal. Heart sounds are distant. LUNGS: Reveal diffuse coarse rhonchi bilaterally. ABDOMEN: Soft, bowel sounds are not noted. EXTREMITIES: Are intact. No edema. SKIN: Without rash. NEUROLOGICAL EXAMINATION: Difficult to assess because of her current level of sedation. LABS: Labs are reviewed. White count 13.7, hemoglobin 13.1, hematocrit 39.7, platelet count is 187,000. D-dimer is elevated at 5.72. Blood gases are noted, 135 for the pO2, 36 for the pCO2, and pH of 7.35. Sodium 140, potassium 3.6, chloride is 113, CO2 19, anion gap is 8, BUN and creatinine were 34 and 0.92. The patient's calcium is 7.4, bilirubin 0.5, AST 42, ALT 77, LDH 1300. Troponin was 0.341. C-reactive protein 411.4, total protein 4.6, albumin 2.2, D-dimer 5.72. Urine was negative. Current microbiology including blood and sputum were negative. Current chest x-ray shows diffuse bilateral infiltrates, slightly more significant on the right side than on the left. Chest CT showed diffuse ground-glass opacities consistent with COVID-19 infection. There was no PE. CURRENT MEDICATIONS: Current medications are reviewed. She is on Zithromax, chlorhexidine, eyedrops, Lovenox, hydrocortisone, Dilaudid, hydroxychloroquine, Narcan, norepinephrine, Protonix, Zosyn, and Diprivan/propofol. The patient is also on vancomycin and zinc. ASSESSMENT: 1. Acute hypoxemic respiratory failure, presumed secondary to COVID-19 infection, although her rapid test was negative. 2. Possible community acquired pneumonia. 3. Acute sepsis with septic shock. 4. History of dermatomyositis, currently maintained on prednisone chronically. 5. Elevated D-dimer, which may reflect a sepsis-induced coagulopathy in a COVID-19 patient. 6. No evidence of pulmonary embolism. 7. History of hypertension. 8. History of osteoarthritis. 9. History of glaucoma. 10.History of shingle's. 11.Irritable bowel syndrome. 12.History of dermatomyositis. PLAN: The patient's PEEP was dropped from 10 to 5. We bumped her Lovenox up. Will change her Solu-Cortef to Solu-Medrol. Her rapid test was negative. Will continue to follow. Prognosis is guarded. Will start her on tube feeds. CRITICAL CARE TIME: 33 minutes. PANCHO / SLOANE: [id number] /
[2020-01-12] MEDS ORDERED: SODIUM CHLORIDE 0.9% 500 ML 500 ML IV ONE (14:08)
[2020-01-12 14:46] LABS: Amorphous Sediment,Urine Many /hpf; Appearance,Urine Turbid (Clear); Bacteria,Urine Occasional /hpf; Bilirubin,Urine Negative (Negative); Blood,Urine Negative (Negative); Color,Urine Yellow; Glucose,Urine (UA) Negative (Negative); Ketones,Urine 1+ (Negative); Leukocyte Esterase,Urine Small (Negative); Nitrite,Urine Negative (Negative); Protein,Urine 1+ (Negative); RBC,Urine 2 /hpf (0-5); Specific Gravity,Urine 1.044 (1.001-1.035); Urobilinogen,Urine <2.0 mg/dL (<2.0); WBC,Urine 38 /hpf (0-5)
[2020-01-12] MEDS ORDERED: FUROSEMIDE 10 MG/ML 4 ML VIAL IV STA (16:11)
[2020-01-12 18:09] LABS: Glucose,Whole Blood 104 mg/dL (75-99)
[2020-01-12] MEDS: methylPREDNISolone SOD SUCCI 40 MG/ML 1 ML VIAL IV SCH (20:36)
[2020-01-12] MEDS ORDERED: POTASSIUM BICARBONATE/CIT AC 20 MEQ TABLET.EFF NG-TUBE SCH (21:00)
[2020-01-12] MEDS: LATANOPROST 0.005% OPHTH DROPS 2.5 ML BTL LEFT EYE SCH (21:01)
--- NOTE | 2020-01-12 22:14 | PN ---
PROGRESS NOTE DATE OF SERVICE: 01/12/2020 REASON FOR FOLLOWUP: Acute COVID-19 pneumonia. INTERVAL HISTORY: The patient is currently afebrile. The patient is hemodynamically stable. The patient's FiO2 was cut down to 50%. No significant purulent secretions in the ET or any diarrhea reported. PHYSICAL EXAMINATION: Blood pressure 111/54 with a pulse of 50, temperature 97.7. She is 94% on 50% FiO2. General description is an elderly female lying in bed in no distress. RESPIRATORY SYSTEM: Unlabored breathing with decreased breath sounds at the base. No wheeze. HEART: S1, S2. Regular rate and rhythm. ABDOMEN: Soft. No tenderness. LABS: Hemoglobin 13.1, white count 13.7, BUN of 34, creatinine 0.92. LDH is up to 1300, slightly down from yesterday at 1663. Urine has been mildly positive. Blood culture with coagulase-negative Staph. DIAGNOSTIC IMPRESSION AND PLAN: 1. Patient with acute respiratory failure which is likely multifactorial in this patient with possible component of COVID-19 pneumonia. Patient is covered with Plaquenil, Zithromax, and continue with steroids. 2. Patient with positive blood culture for coagulase-negative Staphylococcus, likely a skin contaminant. Vancomycin will be discontinued. MMODL / IJN: [id number] /
[2020-01-13] MEDS: PIPERACILLIN-TAZOBACTAM 3.375 GM in SODIUM CHLORIDE 0.9% 100 ML IVPB SCH ×3 (00:33→17:03)
[2020-01-13 04:37] LABS: Basophils % (A) 0 %; Eosinophils % (A) 0 %; HCT 38.8 % (34.0-46.0); HGB 12.5 gm/dL (11.4-16.0); Lymphocytes # (A) 0.3 k/uL (1.0-4.8); Lymphocytes % (A) 3 %; MCH 30.5 pg (25.0-35.0); MCHC 32.3 g/dL (31.0-37.0); MCV 94.6 fL (80.0-100.0); Mean Platelet Volume 10.5; Monocytes # (A) 0.3 k/uL (0-1.0); Monocytes % (A) 3 %; Neutrophils # (A) 9.5 k/uL (1.3-7.7); Neutrophils % (A) 94 %; Platelet Count 138 k/uL (150-450); RDW 15.5 % (11.5-15.5); WBC 10.2 k/uL (3.8-10.6)
[2020-01-13 04:50] LABS: Albumin 2.2 g/dL (3.5-5.0); Calcium 7.8 mg/dL (8.4-10.2); Potassium 3.1 mmol/L (3.5-5.1); Total Bilirubin 0.4 mg/dL (0.2-1.3); Total Protein 4.5 g/dL (6.3-8.2)
[2020-01-13 05:19] LABS: C Reactive Protein 397.4 mg/L (<10.0)
[2020-01-13 05:23] LABS: ABG Base Excess -2.7 mmol/L; ABG HCO3 21 mmol/L (21-25); ABG Oxygen Saturation 89.2 % (94-97); ABG PCO2 31 mmHg (35-45); ABG PH 7.44 (7.35-7.45); ABG TCO2 22 mmol/L (19-24); Allen Test Performed? Yes
[2020-01-13 05:25] LABS: ABG PO2 51 mmHg (83-108)
[2020-01-13] MEDS: POTASSIUM BICARBONATE/CIT AC 20 MEQ TABLET.EFF NG-TUBE SCH ×2 (06:29→07:29)
--- NOTE | 2020-01-13 07:07 | XR ---
EXAMINATION TYPE: XR chest 1V DATE OF EXAM: 01/13/2020 COMPARISON: 01/12/2020 HISTORY: Shortness of breath FINDINGS: There are bilateral pleural effusions with cardiomegaly and bibasilar infiltrate. There is a diffuse interstitial pattern. ET, NG tube and central line stable. Cardiomegaly stable. Biapical pleural thi ckening stable. IMPRESSION: 1. Correlate for interstitial pneumonitis or pneumonia versus CHF. Findings stable.
[2020-01-13] MEDS ORDERED: VANCOMYCIN 1,500 MG in SODIUM CHLORIDE 0.9% 250 ML IVPB SCH (08:00)
[2020-01-13] MEDS: methylPREDNISolone SOD SUCCI 40 MG/ML 1 ML VIAL IV SCH (08:02)
[2020-01-13] MEDS: CHLORHEXIDINE GLUCONATE 15 ML CUP MUCOUS MEM SCH ×2 (08:02→21:13)
[2020-01-13] MEDS: PANTOPRAZOLE 40 MG/10 ML VIAL IVP SCH (08:02)
[2020-01-13] MEDS: ENOXAPARIN 80 MG/0.8 ML SYRINGE SQ SCH ×2 (08:03→21:13)
[2020-01-13] MEDS: ZINC SULFATE 220 MG CAP PO SCH (08:03)
[2020-01-13] MEDS: AZITHROMYCIN 500 MG in SODIUM CHLORIDE 0.9% 250 ML IVPB SCH ×2 (08:03→11:37)
[2020-01-13] MEDS: HYDROXYCHLOROQUINE ORAL SUSP 200 MG/8 ML ORAL.SYRG PO SCH ×2 (08:04→21:13)
[2020-01-13 08:30] LABS: ABG Base Excess -1.9 mmol/L; ABG HCO3 23 mmol/L (21-25); ABG Oxygen Saturation 99.4 % (94-97); ABG PCO2 35 mmHg (35-45); ABG PH 7.42 (7.35-7.45); ABG PO2 135 mmHg (83-108); ABG TCO2 24 mmol/L (19-24)
[2020-01-13 08:34] LABS: Allen Test Performed? no
[2020-01-13] MEDS: DORZOLAMIDE HCL 2% DROPS 10 ML BTL LEFT EYE SCH ×2 (11:21→21:16)
[2020-01-13] MEDS: ASCORBIC ACID 500 MG TAB OG-TUBE SCH ×2 (11:29→21:13)
[2020-01-13 11:34] LABS: Glucose,Whole Blood 169 mg/dL (75-99)
[2020-01-13 11:49] LABS: Ferritin 643.2 ng/mL (10.0-291.0)
--- NOTE | 2020-01-13 12:35 | PN ---
PROGRESS NOTE DATE OF SERVICE: 01/13/2020 Critical care time greater than 30 minutes. This is an 84-year-old female who was admitted on January 10 for acute hypoxemic respiratory failure. The patient was admitted on 01/10 through the emergency department and was intubated in the emergency room. Her COVID-19 test was positive. She came in initially with weakness, shortness of breath, fever, and flu-like symptoms. Anyway, the patient remains on the mechanical ventilator. Her current vent settings include the respiratory rate of 20, tidal volume 400, FiO2 70%, PEEP of 10, blood gases show A pO2 of 51, pCO2 of 31, and pH of 7.44. She remains on saline at 50 mL an hour, Diprivan at 50 mcg/kg per minute and Levophed at 9 mcg/minutes, which is 0.03 mcg/kg/per minute. She is getting tube feeds at 40 mL an hour, which is vital high- protein. Chest x-ray shows diffuse bilateral infiltrates. Current vital signs are reviewed. Temperature is 97.4, heart rate 66, respiratory rate 24, blood pressure 103/44, the mean was not calculated. CVP is 8, saturations are 93%. Appears in no acute distress. Currently sedated. HEENT: Examination is grossly unremarkable. There is an orally placed endotracheal tube and NG tube. NECK: Supple, full range of motion. There is some swelling in the chin area. I do not feel any subcutaneous emphysema. CARDIOVASCULAR: Examination reveals regular rhythm and rate. Heart rate about 80 beats per minute. S1, S2 normal. Heart sounds are distant. LUNGS: Reveal diffuse coarse inspiratory and expiratory rhonchi. No wheezes or crackles. ABDOMEN: Soft. Bowel sounds are noted. EXTREMITIES: Intact. No significant edema. SKIN: Without rash or lesion. NEUROLOGIC: Examination is difficult to assess given his current level of sedation. LABS: Reviewed. White count 10.2, hemoglobin 12.5, hematocrit 38.8, platelet count 138,000. D-dimer is 1.32. Sodium 139, potassium 3.1, chloride is 112, CO2 18, anion gap is 9. BUN and creatinine were 35 and 0.86. The patient's calcium 7.8, ferritin 643. AST and ALT were 51 and 90 respectively. LDH was 1325. CK 21, troponin 0.231. C-reactive protein 397. Blood gases initially this morning showed a pO2 of 51, a pCO2 of 31, and a pH of 7.44. That was on 50%. The FiO2 was increased to 70% rather than increasing the PEEP. Subsequent blood gases showed a pO2 of 135, a pCO2 of 35, and a pH of 7.42. The FiO2 was reduced. Chest x-ray shows diffuse bilateral interstitial infiltrates consistent with COVID-19 pneumonitis. CURRENT MEDICATIONS: Reviewed. The patient is currently on ascorbic acid, Zithromax, chlorhexidine, eye drops, Lovenox therapeutic doses, Lasix, Dilaudid, hydroxychloroquine, eye drops, Solu- Medrol, Narcan, norepinephrine, Protonix, Zosyn, Diprivan, and zinc. ASSESSMENT: 1. Acute hypoxemic respiratory failure, secondary to COVID-19 infection although her rapid test was negative. 2. Possible community-acquired pneumonia. 3. Acute sepsis with septic shock. 4. History of dermatomyositis, currently maintained on prednisone chronically. 5. Elevated D-dimer, which may reflect a sepsis-induced coagulopathy in a COVID-19 patient. 6. No evidence of pulmonary embolism. 7. History of hypertension. 8. History of arthritis. 9. Glaucoma. 10.History of shingles. 11.History of irritable bowel syndrome. 12.History of dermatomyositis. PLAN: The patient's PEEP was increased and the FiO2 will be reduced. I will continue to observe the neck area to make sure there is no worsening of that process. She remains on norepinephrine at 9 mcg/minute and propofol at 50 mcg/kg per minute. She is also getting saline at 50 mL an hour and tube feeds at goal. Vital high-protein at 40. Prognosis is guarded. Will continue to watch her very carefully. She is on all the appropriate medications. Prognosis is very guarded. Critical care time more than 30 minutes. MMODL / IJN: [id number] /
--- NOTE | 2020-01-13 16:30 | P.PN ---
Subjective Progress Note Date: 01/13/20 Ekta Yañez is an 84-year-old female patient of Dr. Oquendo who presented to [facility] emergency room with a chief complaint of generalized weakness and fall, patient also was complaining of shortness of breath, she was alert and oriented in the emergency room and was able to answer questions appropriately however she was getting more hypoxic, she had fever with a temperature of 100.1 testing in the emergency room included influenza A and B and Covid 19 which were all negative. However her clinical picture, computed tomography scan results, and lab results were all typical of Covid 19 illness. Patient decompensated while in emergency room. Blood gas revealed evidence of PO2 of 55 she was intubated in the emergency room and was admitted to intensive care unit consultation for Dr. Ariza was initiated for critical care and pulmonary management, consultation for Dr. Harman was initiated for infectious disease treatment. Currently patient is in the intensive care unit she is intubated sedated maintained on mechanical ventilation, Dr. Ariza reason assisting the patient and placing central line. Computed tomography scan of the chest with contrast was done in the emergency room and was negative for pulmonary embolism, however it revealed diffuse groundglass opacities throughout both lungs. Computed tomography scan of the head and neck without contrast was done in the emergency room due to fall and did not reveal any significant abnormality. Pelvic x-ray was done due to fall and did not reveal any obvious fracture. From chart review patient has history of dermatomyositis, she was admitted to the hospital in November for IV steroid course. 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 Wilson. On 01/12/2020 patient was seen and examined in the intensive care unit she is intubated sedated maintained on mechanical ventilation, she is oxygenating better today and PEEP was decreased from 10 down to 5 by intensive care. ABG was done and revealed pH of 7.35 pCO2 36 PaO2 135 chest x-ray was reviewed and was stable from yesterday echocardiogram done and revealed normal left ventricular systolic function with ejection fraction of 55-60% On 01/13/2020 Patient was seen and examined in the ICU she is still intubated, sedated, maintained on mechanical ventilation, PEEP was increased to 10 today, PaO2 is 51 pCO2 31 she is still on IV pressure support. With Levophed Objective - Vital Signs Vital signs: Vital Signs Temp 98.4 F 01/13/20 12:00 Pulse 60 01/13/20 14:30 Resp 21 01/13/20 14:30 BP 101/60 01/13/20 08:15 Pulse Ox 94 L 01/13/20 14:30 Intake & Output 01/12/20 01/13/20 01/13/20 18:59 06:59 18:59 Intake Total 2184.016 1130.823 3790.355 Output Total 815 1030 305 Balance 1369.016 333.183 787.355 Weight 79.6 kg 79.6 kg Intake: IV 572 772 476 0.9 NACL 500 600 400 Piperacillin-Tazobactam 3 100 .375 gm In Sodium Chloride 0.9% 100 ml @ 25 mls/hr IVPB Q8HR [facility] Rx# :[id number] pressure bags 72 72 76 Intake, IV Titration 1572.016 161.183 119.355 Amount Azithromycin 500 mg In 250 Sodium Chloride 0.9% 250 ml @ 250 mls/hr IVPB DAILY [facility] Rx#:[id number] Norepinephrine 4 mg In 246.016 121.224 19.355 Sodium Chloride 0.9% 250 ml @ 0.05 MCG/KG/MIN 13. 307 mls/hr IV .Q19H6M [facility] Rx#:[id number] Piperacillin-Tazobactam 3 75 .375 gm In Sodium Chloride 0.9% 100 ml @ 25 mls/hr IVPB Q8HR [facility] Rx# :[id number] Propofol 1,000 mg In 39.959 100 Empty Bag 1 bag @ Titrate IV .Q0M [facility] Rx#: [id number] Sodium Chloride 0.9% 500 500 ml 500 ml @ 999 mls/hr IV .Q31M [facility] Rx#:[id number] Vancomycin 1,750 mg In 501 Sodium Chloride 0.9% 500 ml 500 ml @ 167 mls/hr IVPB [facility] Rx#: [id number] Tube Feeding 40 340 437 Other 90 60 Output: Urine 815 1030 305 Other: Voiding Method Indwelling Catheter Indwelling Catheter Indwelling Catheter ABP, PAP, CO, CI - Last Documented Arterial Blood Pressure 101/44 - Exam In general patient is intubated sedated maintained on mechanical ventilation HEENT head normocephalic and atraumatic Neck is supple no JVD no goiter no lymphadenopathy Chest exam reveals coarse crackles in both lung olson Cardiac exam reveals regular heart sounds no gallops no murmurs Abdomen is soft nontender no organomegaly with normal bowel sounds Extremity exam reveals 2+ edema no cyanosis or clubbing - Labs CBC & Chem 7: 01/13/20 04:15 01/13/20 11:36 Labs: Abnormal Lab Results - Last 24 Hours (Table) 01/12/20 01/13/20 01/13/20 Range/Units 18:08 04:15 04:15 Plt Count 138 L (150-450) k/uL Neutrophils # 9.5 H (1.3-7.7) k/uL Lymphocytes # 0.3 L (1.0-4.8) k/uL D-Dimer (<0.60) mg/L FEU ABG pCO2 (35-45) mmHg ABG pO2 (83-108) mmHg ABG O2 Saturation (94-97) % Potassium 3.1 L (3.5-5.1) mmol/L Chloride 112 H (98-107) mmol/L Carbon Dioxide 18 L (22-30) mmol/L BUN 35 H (7-17) mg/dL Glucose 140 H (74-99) mg/dL POC Glucose (mg/dL) 104 H (75-99) mg/dL Calcium 7.8 L (8.4-10.2) mg/dL Ferritin 643.2 H (10.0-291.0) ng/mL AST 51 H (14-36) U/L ALT 90 H (4-34) U/L Lactate Dehydrogenase 1325 H (313-618) U/L Creatine Kinase 21 L (30-135) U/L Troponin I (0.000-0.034) ng/mL C-Reactive Protein 397.4 H (<10.0) mg/L Total Protein 4.5 L (6.3-8.2) g/dL Albumin 2.2 L (3.5-5.0) g/dL 01/13/20 01/13/20 01/13/20 Range/Units 04: 04: 05:20 Plt Count (150-450) k/uL Neutrophils # (1.3-7.7) k/uL Lymphocytes # (1.0-4.8) k/uL D-Dimer 1.32 H (<0.60) mg/L FEU ABG pCO2 31 L (35-45) mmHg ABG pO2 51 L* (83-108) mmHg ABG O2 Saturation 89.2 L (94-97) % Potassium (3.5-5.1) mmol/L Chloride (98-107) mmol/L Carbon Dioxide (22-30) mmol/L BUN (7-17) mg/dL Glucose (74-99) mg/dL POC Glucose (mg/dL) (75-99) mg/dL Calcium (8.4-10.2) mg/dL Ferritin (10.0-291.0) ng/mL AST (14-36) U/L ALT (4-34) U/L Lactate Dehydrogenase (313-618) U/L Creatine Kinase (30-135) U/L Troponin I 0.231 H* (0.000-0.034) ng/mL C-Reactive Protein (<10.0) mg/L Total Protein (6.3-8.2) g/dL Albumin (3.5-5.0) g/dL 01/13/20 01/13/20 Range/Units 08:26 11:32 Plt Count (150-450) k/uL Neutrophils # (1.3-7.7) k/uL Lymphocytes # (1.0-4.8) k/uL D-Dimer (<0.60) mg/L FEU ABG pCO2 (35-45) mmHg ABG pO2 135 H (83-108) mmHg ABG O2 Saturation 99.4 H (94-97) % Potassium (3.5-5.1) mmol/L Chloride (98-107) mmol/L Carbon Dioxide (22-30) mmol/L BUN (7-17) mg/dL Glucose (74-99) mg/dL POC Glucose (mg/dL) 169 H (75-99) mg/dL Calcium (8.4-10.2) mg/dL Ferritin (10.0-291.0) ng/mL AST (14-36) U/L ALT (4-34) U/L Lactate Dehydrogenase (313-618) U/L Creatine Kinase (30-135) U/L Troponin I (0.000-0.034) ng/mL C-Reactive Protein (<10.0) mg/L Total Protein (6.3-8.2) g/dL Albumin (3.5-5.0) g/dL Microbiology - Last 24 Hours (Table) 01/11/20 09:20 Blood Culture Gram Stain - Preliminary Blood Blood Culture - Preliminary Coagulase Negative Staph 01/11/20 16:40 Gram Stain - Final Sputum Sputum Culture - Final 01/12/20 13:40 Urine Culture - Preliminary Urine,Clean Catch Assessment and Plan Plan: #1 bilateral pneumonia most likely viral pneumonia due to Covid 19 virus despite negative instant test in the emergency room. #2 acute hypoxic respiratory failure requiring mechanical ventilation #3 sepsis, as evidenced by leukocytosis white blood count 18.8, fever temperature 100.1 lactic acid testing is pending. #4 mild elevation in liver enzymes likely related to acute illness, will monitor #5 underlying history of dermatomyositis #6 elevated d-dimer without evidence of pulmonary embolism on CT angiogram of the chest #7 mild elevation in troponin level, likely related to oxygen demand, supply mismatch, doubt acute myocardial infarction at this time, will monitor closely #8 for DVT prophylaxis Will start patient on subcu Lovenox, for GI prophylaxis will start IV Protonix Prognosis is extremely guarded due to age, severity of illness requiring intubation and mechanical ventilation, and underlying medical problems Will follow closely
[2020-01-13 17:19] LABS: Glucose,Whole Blood 186 mg/dL (75-99)
[2020-01-13] MEDS: INSULIN ASPART (NovoLOG) 100 UNIT/ML VIAL SQ SCH (17:34)
--- NOTE | 2020-01-13 19:47 | PN ---
PROGRESS NOTE DATE OF SERVICE: 01/13/2020 REASON FOR FOLLOWUP: Acute COVID-19 pneumonia. INTERVAL HISTORY: The patient is currently afebrile. The patient remains to be intubated and on a vent. The patient is hemodynamically stable on pressure support. FiO2 is currently down to 50%. No significant purulent secretions through the ET or any diarrhea reported. PHYSICAL EXAMINATION: Blood pressure 111/52 with a pulse of 56, temperature 98. She is 94% on 50% FiO2. General description is an elderly female lying in bed in no distress. RESPIRATORY SYSTEM: Unlabored breathing. Decreased intensity of breath sounds. No wheeze. HEART: S1, S2. Regular rate and rhythm. ABDOMEN: Soft. No tenderness. LABS: Hemoglobin is 12.5, white count 10.2. BUN of 35, creatinine 0.86. DIAGNOSTIC IMPRESSION AND PLAN: 1. Patient with acute respiratory failure, which is likely multifactorial. This patient did have acute COVID-19 pneumonia. The patient is currently covered with Zithromax, Plaquenil, zinc, and Solu-Medrol, to continue and monitor clinical course closely. 2. Positive blood culture with coagulase-negative Staphylococcus, likely skin contamination. Vancomycin was discontinued. We will monitor patient closely. MMODL / IJN: [id number] /
[2020-01-13] MEDS: LATANOPROST 0.005% OPHTH DROPS 2.5 ML BTL LEFT EYE SCH (21:17)
[2020-01-13 23:55] LABS: Glucose,Whole Blood 162 mg/dL (75-99)
[2020-01-14] MEDS: methylPREDNISolone SOD SUCCI 40 MG/ML 1 ML VIAL IV SCH ×3 (00:04→21:34)
[2020-01-14] MEDS: PIPERACILLIN-TAZOBACTAM 3.375 GM in SODIUM CHLORIDE 0.9% 100 ML IVPB SCH ×3 (00:04→15:52)
[2020-01-14] MEDS: INSULIN ASPART (NovoLOG) 100 UNIT/ML VIAL SQ SCH ×4 (00:04→18:36)
[2020-01-14 04:54] LABS: Basophils % (A) 0 %; Eosinophils % (A) 0 %; HCT 34.7 % (34.0-46.0); HGB 11.7 gm/dL (11.4-16.0); Lymphocytes # (A) 0.2 k/uL (1.0-4.8); Lymphocytes % (A) 3 %; MCHC 33.7 g/dL (31.0-37.0); Mean Platelet Volume 10.9; Monocytes # (A) 0.2 k/uL (0-1.0); Monocytes % (A) 2 %; Neutrophils # (A) 6.5 k/uL (1.3-7.7); Neutrophils % (A) 95 %; Platelet Count 122 k/uL (150-450); RBC 3.65 m/uL (3.80-5.40); RDW 15.7 % (11.5-15.5); WBC 6.9 k/uL (3.8-10.6)
[2020-01-14 05:14] LABS: ABG Base Excess -2.6 mmol/L; ABG HCO3 22 mmol/L (21-25); ABG Oxygen Saturation 94.9 % (94-97); ABG PCO2 37 mmHg (35-45); ABG PH 7.39 (7.35-7.45); ABG PO2 69 mmHg (83-108); ABG TCO2 24 mmol/L (19-24); Allen Test Performed? Yes
[2020-01-14 05:25] LABS: Potassium 3.7 mmol/L (3.5-5.1)
[2020-01-14 05:26] LABS: Albumin 2.1 g/dL (3.5-5.0); Calcium 7.9 mg/dL (8.4-10.2); Total Bilirubin 0.3 mg/dL (0.2-1.3); Total Protein 4.4 g/dL (6.3-8.2)
[2020-01-14] MEDS ORDERED: Potassium Replacement Protocol 1 EACH MISC MISCELLANE PRN (05:45)
[2020-01-14 05:57] LABS: Glucose,Whole Blood 169 mg/dL (75-99)
[2020-01-14] MEDS ORDERED: POTASSIUM BICARBONATE/CIT AC 20 MEQ TABLET.EFF NG-TUBE SCH (06:00)
[2020-01-14 06:22] LABS: C Reactive Protein 228.4 mg/L (<10.0)
--- NOTE | 2020-01-14 07:42 | XR ---
EXAMINATION TYPE: XR chest 1V DATE OF EXAM: 01/14/2020 COMPARISON: 01/13/2020 INDICATION: Hypoxic respiratory failure, previous abnormal chest difficulty with breathing TECHNIQUE: Single frontal view of the chest is obtained. FINDINGS: The heart size is mildly prominent. The pulmonary vasculature is prominent. Diffuse increased lung markings are present bilaterally. Endotracheal tube tip is above the gen. Nasogastric tube tip is in the abdomen. Right central veno us catheter tip is in the right atrium. Findings appear similar to slightly progressed from compariso n. IMPRESSION: 1. Diffuse increased lung markings can be compatible with atypical pneumonia. Findings appear similar to slightly worsened from comparison. 2. Lines and catheters discussed above.
[2020-01-14] MEDS: ASCORBIC ACID 500 MG TAB OG-TUBE SCH ×2 (09:44→21:34)
[2020-01-14] MEDS: ZINC SULFATE 220 MG CAP PO SCH (09:45)
[2020-01-14] MEDS: AZITHROMYCIN 500 MG in SODIUM CHLORIDE 0.9% 250 ML IVPB SCH (09:46)
[2020-01-14] MEDS: HYDROXYCHLOROQUINE ORAL SUSP 200 MG/8 ML ORAL.SYRG PO SCH ×2 (09:46→21:34)
[2020-01-14] MEDS: CHLORHEXIDINE GLUCONATE 15 ML CUP MUCOUS MEM SCH ×2 (09:46→21:34)
[2020-01-14] MEDS: PANTOPRAZOLE 40 MG/10 ML VIAL IVP SCH (09:46)
[2020-01-14] MEDS: ENOXAPARIN 80 MG/0.8 ML SYRINGE SQ SCH ×2 (09:47→21:34)
[2020-01-14] MEDS: DORZOLAMIDE HCL 2% DROPS 10 ML BTL LEFT EYE SCH ×2 (10:03→21:35)
[2020-01-14 11:06] LABS: Ferritin 573.3 ng/mL (10.0-291.0)
[2020-01-14] MEDS ORDERED: FUROSEMIDE 10 MG/ML 4 ML VIAL IV STA (11:51)
[2020-01-14 12:06] LABS: Glucose,Whole Blood 144 mg/dL (75-99)
[2020-01-14] MEDS: SODIUM CHLORIDE 0.9% 1,000 ML IV SCH (12:10)
--- NOTE | 2020-01-14 15:52 | P.PN ---
Subjective Progress Note Date: 01/14/20 Ekta Yañez is an 84-year-old female patient of Dr. Oquendo who presented to [facility] emergency room with a chief complaint of generalized weakness and fall, patient also was complaining of shortness of breath, she was alert and oriented in the emergency room and was able to answer questions appropriately however she was getting more hypoxic, she had fever with a temperature of 100.1 testing in the emergency room included influenza A and B and Covid 19 which were all negative. However her clinical picture, computed tomography scan results, and lab results were all typical of Covid 19 illness. Patient decompensated while in emergency room. Blood gas revealed evidence of PO2 of 55 she was intubated in the emergency room and was admitted to intensive care unit consultation for Dr. Ariza was initiated for critical care and pulmonary management, consultation for Dr. Harman was initiated for infectious disease treatment. Currently patient is in the intensive care unit she is intubated sedated maintained on mechanical ventilation, Dr. Ariza reason assisting the patient and placing central line. Computed tomography scan of the chest with contrast was done in the emergency room and was negative for pulmonary embolism, however it revealed diffuse groundglass opacities throughout both lungs. Computed tomography scan of the head and neck without contrast was done in the emergency room due to fall and did not reveal any significant abnormality. Pelvic x-ray was done due to fall and did not reveal any obvious fracture. From chart review patient has history of dermatomyositis, she was admitted to the hospital in November for IV steroid course. 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 Wilson. On 01/12/2020 patient was seen and examined in the intensive care unit she is intubated sedated maintained on mechanical ventilation, she is oxygenating better today and PEEP was decreased from 10 down to 5 by intensive care. ABG was done and revealed pH of 7.35 pCO2 36 PaO2 135 chest x-ray was reviewed and was stable from yesterday echocardiogram done and revealed normal left ventricular systolic function with ejection fraction of 55-60% On 01/13/2020 Patient was seen and examined in the ICU she is still intubated, sedated, maintained on mechanical ventilation, PEEP was increased to 10 today, PaO2 is 51 pCO2 31 she is still on IV pressure support. With Levophed On 01/14/2020 patient was seen and examined in the ICU she is intubated sedated maintained on mechanical ventilation, ABG today reveals pH of 7.39 PaO2 69 pCO2 37 patient is still maintained on a PEEP of 10 and FiO2 of 50% critical care are following, patient receiving IV Zithromax, IV Solu-Medrol, and hydroxychloroquine through NG tube Objective - Vital Signs Vital signs: Vital Signs Temp 98.1 F 01/14/20 12:00 Pulse 60 01/14/20 15:00 Resp 22 01/14/20 15:00 BP 130/73 01/14/20 15:00 Pulse Ox 98 01/14/20 15:00 Intake & Output 01/13/20 01/14/20 01/14/20 18:59 06:59 18:59 Intake Total 4721.232 9122.569 1233.341 Output Total 490 300 805 Balance 0434.043 9438.569 428.341 Weight 79.6 kg 79.6 kg Intake: IV 716 787 587 0.9 NACL 600 600 450 Piperacillin-Tazobactam 3 125 110 .375 gm In Sodium Chloride 0.9% 100 ml @ 25 mls/hr IVPB Q8HR [facility] Rx# :[id number] pressure bags 116 37 27 zosyn 25 Intake, IV Titration 159.155 204.569 349.341 Amount Azithromycin 500 mg In 250 Sodium Chloride 0.9% 250 ml @ 250 mls/hr IVPB DAILY [facility] Rx#:[id number] Norepinephrine 4 mg In 19.355 7.275 Sodium Chloride 0.9% 250 ml @ 0.05 MCG/KG/MIN 13. 307 mls/hr IV .Q19H6M [facility] Rx#:[id number] Propofol 1,000 mg In 139.800 197.294 99.341 Empty Bag 1 bag @ Titrate IV .Q0M [facility] Rx#: [id number] Tube Feeding 592 406 237 Other 90 90 60 Output: Urine 490 300 805 Other: Voiding Method Indwelling Catheter Indwelling Catheter Indwelling Catheter ABP, PAP, CO, CI - Last Documented Arterial Blood Pressure 135/69 - Exam In general patient is intubated sedated maintained on mechanical ventilation HEENT head normocephalic and atraumatic Neck is supple no JVD no goiter no lymphadenopathy Chest exam reveals coarse crackles in both lung olson Cardiac exam reveals regular heart sounds no gallops no murmurs Abdomen is soft nontender no organomegaly with normal bowel sounds Extremity exam reveals 2+ edema no cyanosis or clubbing - Labs CBC & Chem 7: 01/14/20 04:30 01/14/20 04:30 Labs: Abnormal Lab Results - Last 24 Hours (Table) 01/13/20 01/13/20 01/14/20 Range/Units 17:17 23:54 04:30 RBC (3.80-5.40) m/uL RDW (11.5-15.5) % Plt Count (150-450) k/uL Lymphocytes # (1.0-4.8) k/uL D-Dimer (<0.60) mg/L FEU ABG pO2 (83-108) mmHg Chloride (98-107) mmol/L BUN (7-17) mg/dL Glucose (74-99) mg/dL POC Glucose (mg/dL) 186 H 162 H (75-99) mg/dL Calcium (8.4-10.2) mg/dL Ferritin 573.3 H (10.0-291.0) ng/mL AST 43 H (14-36) U/L ALT 71 H (4-34) U/L Lactate Dehydrogenase 1213 H (313-618) U/L Troponin I (0.000-0.034) ng/mL C-Reactive Protein 228.4 H (<10.0) mg/L Total Protein (6.3-8.2) g/dL Albumin (3.5-5.0) g/dL 01/14/20 01/14/20 01/14/20 Range/Units 04:30 04:30 04:30 RBC 3.65 L (3.80-5.40) m/uL RDW 15.7 H (11.5-15.5) % Plt Count 122 L (150-450) k/uL Lymphocytes # 0.2 L (1.0-4.8) k/uL D-Dimer 1.17 H (<0.60) mg/L FEU ABG pO2 (83-108) mmHg Chloride (98-107) mmol/L BUN (7-17) mg/dL Glucose (74-99) mg/dL POC Glucose (mg/dL) (75-99) mg/dL Calcium (8.4-10.2) mg/dL Ferritin (10.0-291.0) ng/mL AST (14-36) U/L ALT (4-34) U/L Lactate Dehydrogenase (313-618) U/L Troponin I 0.136 H* (0.000-0.034) ng/mL C-Reactive Protein (<10.0) mg/L Total Protein (6.3-8.2) g/dL Albumin (3.5-5.0) g/dL 01/14/20 01/14/20 01/14/20 Range/Units 04:30 05:09 05:56 RBC (3.80-5.40) m/uL RDW (11.5-15.5) % Plt Count (150-450) k/uL Lymphocytes # (1.0-4.8) k/uL D-Dimer (<0.60) mg/L FEU ABG pO2 69 L (83-108) mmHg Chloride 112 H (98-107) mmol/L BUN 39 H (7-17) mg/dL Glucose 148 H (74-99) mg/dL POC Glucose (mg/dL) 169 H (75-99) mg/dL Calcium 7.9 L (8.4-10.2) mg/dL Ferritin (10.0-291.0) ng/mL AST 42 H (14-36) U/L ALT 71 H (4-34) U/L Lactate Dehydrogenase (313-618) U/L Troponin I (0.000-0.034) ng/mL C-Reactive Protein (<10.0) mg/L Total Protein 4.4 L (6.3-8.2) g/dL Albumin 2.1 L (3.5-5.0) g/dL 01/14/20 Range/Units 11:55 RBC (3.80-5.40) m/uL RDW (11.5-15.5) % Plt Count (150-450) k/uL Lymphocytes # (1.0-4.8) k/uL D-Dimer (<0.60) mg/L FEU ABG pO2 (83-108) mmHg Chloride (98-107) mmol/L BUN (7-17) mg/dL Glucose (74-99) mg/dL POC Glucose (mg/dL) 144 H (75-99) mg/dL Calcium (8.4-10.2) mg/dL Ferritin (10.0-291.0) ng/mL AST (14-36) U/L ALT (4-34) U/L Lactate Dehydrogenase (313-618) U/L Troponin I (0.000-0.034) ng/mL C-Reactive Protein (<10.0) mg/L Total Protein (6.3-8.2) g/dL Albumin (3.5-5.0) g/dL Microbiology - Last 24 Hours (Table) 01/11/20 09:20 Blood Culture Gram Stain - Final Blood Blood Culture - Preliminary Staphylococcus epidermidis 01/12/20 14:40 Blood Culture - Preliminary Blood No Growth after 24 hours 01/12/20 13:40 Urine Culture - Final Urine,Clean Catch Assessment and Plan Plan: #1 bilateral pneumonia most likely viral pneumonia due to Covid 19 virus despite negative instant test in the emergency room. #2 acute hypoxic respiratory failure requiring mechanical ventilation #3 sepsis, as evidenced by leukocytosis white blood count 18.8, fever temperature 100.1 lactic acid testing is pending. #4 mild elevation in liver enzymes likely related to acute illness, will monitor #5 underlying history of dermatomyositis #6 elevated d-dimer without evidence of pulmonary embolism on CT angiogram of the chest #7 mild elevation in troponin level, likely related to oxygen demand, supply mismatch, doubt acute myocardial infarction at this time, will monitor closely #8 for DVT prophylaxis Will start patient on subcu Lovenox, for GI prophylaxis will start IV Protonix Prognosis is extremely guarded due to age, severity of illness requiring intubation and mechanical ventilation, and underlying medical problems Will follow closely
--- NOTE | 2020-01-14 16:23 | PN ---
PROGRESS NOTE PULMONARY/CRITICAL CARE PROGRESS NOTE: DATE OF SERVICE: 01/14/2020 Critical care time more than 30 minutes. This is an 84-year-old female who was admitted on January 10 for acute hypoxemic respiratory failure. She was admitted on 01/10 through the emergency department and intubated in the emergency room. Her COVID-19 test was negative. She was suspected though based on her inflammatory markers, her chest x-ray and CT scan to be likely positive for COVID-19 and has been treated that way. She remains on the mechanical ventilator. Currently, she is on the volume assist- control mode, rate of 20, tidal volume 400, FiO2 of 50%, PEEP of 10. Blood gases show a pO2 of 69, pCO2 of 37 pH of 7.39, bicarbonate 22. She is on propofol 40 mcg/kg per minute, saline at 25 mL an hour and tube feeds with Vital high-protein at 31, which is goal. Chest x-ray and CT scan showed diffuse bilateral infiltrates and on the CT scan, they were ground-glass in appearance. Anyway, based on I's and O's, her CVP, and her current urine output, we are planning to give her additional Lasix 40 mg IV push. Other than that, she has had a pretty uneventful night. She has not made much progress. Current vital signs are reviewed. Temperature 98.1, heart rate 62, respiratory rate 27, blood pressure 146/74. Central venous pressure is now 4 down from 8 and saturations are 88%. Appears in no acute distress. Currently sedated. There is an orally placed endotracheal tube and NG tube. HEENT: Examination is grossly unremarkable. As mentioned, oral endotracheal tube and NG tube noted. NECK: Supple. Full range of motion. No adenopathy. Neck veins are flat. CARDIOVASCULAR: Examination reveals regular rhythm and rate. Heart rate mid 60s. S1, S2 normal. Heart sounds are distant. No heart murmur. LUNGS: Reveal diffuse coarse rhonchi. Breath sounds equal. No wheezes or crackles. ABDOMEN: Soft, bowel sounds are heard. EXTREMITIES: Intact. No significant edema. SKIN: Without rash. NEUROLOGIC: Examination is brief but nonfocal. LABS: Reviewed. Again her COVID-19 test was negative. White count 6.9, hemoglobin 11.7, hematocrit 34.7, platelet count 122,000. D-dimer 1.17. Blood gases have been noted. Sodium 140, potassium 3.7, chloride is 112, CO2 is 22, anion gap is 6. BUN and creatinine were 39 and 0.75. Ferritin 573.3, AST 42, ALT 71, LDH 1231. Troponin 0.136 and her C-reactive protein is 228 with an N terminal proBNP 3960. The chest x-ray from today shows either interstitial changes consistent with interstitial edema and/or interstitial/atypical pneumonia. MEDICATIONS: Reviewed. She is currently on ascorbic acid, Zithromax, chlorhexidine, eyedrops, Lovenox, Dilaudid, Plaquenil, insulin, Xalatan eyedrops, Solu-Medrol, Narcan, Protonix, Zosyn, potassium replacement therapy, Diprivan, zinc, and saline IV. ASSESSMENT: 1. Acute hypoxemic respiratory failure, presumed secondary to COVID-19, although her rapid test was negative. 2. Possible community-acquired pneumonia. 3. Acute sepsis with septic shock. 4. 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 5. Elevated D-dimer, which may reflect sepsis induced coagulopathy in a COVID-19 patient. 6. No evidence of pulmonary embolism. 7. History of hypertension. 8. History of arthritis. 9. Glaucoma. 10.History of shingles. 11.History of irritable bowel syndrome. 12.History of dermatomyositis. PLAN: No vent changes today. We will give her Lasix 40 mg IV push. The patient will have a follow up BMP. Chest x-rays reviewed. She is on tube feeds at goal. Additional recommendations and suggestions are forthcoming. All her medications were reviewed. She remains on Lovenox at therapeutic doses, Zithromax, Zosyn and Solu-Medrol for suspected COVID-19 infection and her dermatomyositis. Additional recommendations and suggestions are forthcoming. Prognosis is guarded. The patient is a NO CODE. Critical care time greater than 30 minutes. MMODL / IJN: [id number] /
--- NOTE | 2020-01-14 17:14 | PN ---
PROGRESS NOTE DATE OF SERVICE: 01/14/2020 REASON FOR FOLLOWUP: Acute COVID-19 pneumonia and possible aspiration pneumonitis. INTERVAL HISTORY: The patient is currently afebrile. The patient remains intubated on the vent. FiO2 is currently down to 50%. No hemodynamic instability or any diarrhea has been reported. PHYSICAL EXAMINATION: Blood pressure 130/73 with a pulse of 80, temperature 98. She is 98% on 50% FiO2. General description is an elderly female lying in bed in no distress. RESPIRATORY SYSTEM: Unlabored breathing with decreased breath sounds at the base. No wheeze. HEART: S1, S2. Regular rate and rhythm. ABDOMEN: Soft. No tenderness. LABS: Hemoglobin 11.7, white count 6.9 with a BUN of 39, creatinine 0.75. DIAGNOSTIC IMPRESSION AND PLAN: Patient with acute respiratory failure which is likely multifactorial with a possible component of COVID-19 pneumonia. The patient is currently covered with zinc, Plaquenil, Solu-Medrol , continue and monitor her clinical course closely. MMODL / DOLLYN: [id number] / GRZEGORZ
[2020-01-14 18:21] LABS: Glucose,Whole Blood 135 mg/dL (75-99)
[2020-01-14] MEDS: LATANOPROST 0.005% OPHTH DROPS 2.5 ML BTL LEFT EYE SCH (21:35)
[2020-01-15 00:29] LABS: Glucose,Whole Blood 112 mg/dL (75-99)
[2020-01-15] MEDS: INSULIN ASPART (NovoLOG) 100 UNIT/ML VIAL SQ SCH ×4 (00:43→18:22)
[2020-01-15] MEDS: PIPERACILLIN-TAZOBACTAM 3.375 GM in SODIUM CHLORIDE 0.9% 100 ML IVPB SCH ×4 (01:01→23:20)
[2020-01-15 05:13] LABS: Basophils % (A) 0 %; Eosinophils % (A) 0 %; HCT 36.2 % (34.0-46.0); HGB 11.7 gm/dL (11.4-16.0); Lymphocytes # (A) 0.2 k/uL (1.0-4.8); Lymphocytes % (A) 4 %; MCHC 32.4 g/dL (31.0-37.0); MCV 95.4 fL (80.0-100.0); Mean Platelet Volume 10.7; Monocytes # (A) 0.2 k/uL (0-1.0); Monocytes % (A) 3 %; Neutrophils # (A) 6.1 k/uL (1.3-7.7); Neutrophils % (A) 92 %; Platelet Count 135 k/uL (150-450); RBC 3.79 m/uL (3.80-5.40); WBC 6.6 k/uL (3.8-10.6)
[2020-01-15 05:30] LABS: ALT 76 U/L (4-34); AST 38 U/L (14-36); African American GFR (CKD) >90 (>60 ml/min/1.73 sqM); Albumin 2.2 g/dL (3.5-5.0); Alkaline Phosphatase 64 U/L (38-126); Anion Gap 3 mmol/L; Blood Urea Nitrogen 38 mg/dL (7-17); Calcium 7.9 mg/dL (8.4-10.2); Carbon Dioxide 25 mmol/L (22-30); Chloride 111 mmol/L (98-107); Glucose 134 mg/dL (74-99); Non-African American GFR(CKD) 79 (>60 ml/min/1.73 sqM); Potassium 3.4 mmol/L (3.5-5.1); Sodium 139 mmol/L (137-145); Total Bilirubin 0.3 mg/dL (0.2-1.3); Total Protein 4.6 g/dL (6.3-8.2)
[2020-01-15 05:46] LABS: ABG Base Excess -1.6 mmol/L; ABG HCO3 23 mmol/L (21-25); ABG Oxygen Saturation 96.3 % (94-97); ABG PCO2 39 mmHg (35-45); ABG PH 7.39 (7.35-7.45); ABG PO2 75 mmHg (83-108); ABG TCO2 25 mmol/L (19-24); Allen Test Performed? Yes
[2020-01-15 05:57] LABS: Glucose,Whole Blood 138 mg/dL (75-99)
--- NOTE | 2020-01-15 07:24 | XR ---
EXAMINATION TYPE: XR chest 1V portable DATE OF EXAM: 01/15/2020 COMPARISON: 01/14/2020 HISTORY: SOB, Follow Up FINDINGS: Indwelling tubes and catheters are unchanged. No change in scattered interstitial and alveolar infiltrates. Stable appearance of the cardio-mediastinal structures at this time. IMPRESSION: 1. Stable portable chest. Clinical correlation and follow up until resolution is recommended.
[2020-01-15] MEDS: AZITHROMYCIN 500 MG in SODIUM CHLORIDE 0.9% 250 ML IVPB SCH (09:31)
[2020-01-15] MEDS: SODIUM CHLORIDE 0.9% 1,000 ML IV SCH (09:41)
[2020-01-15] MEDS: PANTOPRAZOLE 40 MG/10 ML VIAL IVP SCH (09:42)
[2020-01-15] MEDS: methylPREDNISolone SOD SUCCI 40 MG/ML 1 ML VIAL IV SCH ×2 (09:42→21:09)
[2020-01-15] MEDS: ZINC SULFATE 220 MG CAP PO SCH (09:43)
[2020-01-15] MEDS: CHLORHEXIDINE GLUCONATE 15 ML CUP MUCOUS MEM SCH ×2 (09:43→21:09)
[2020-01-15] MEDS: ENOXAPARIN 80 MG/0.8 ML SYRINGE SQ SCH ×2 (09:43→21:10)
[2020-01-15] MEDS: DORZOLAMIDE HCL 2% DROPS 10 ML BTL LEFT EYE SCH ×2 (09:43→21:11)
[2020-01-15] MEDS: HYDROXYCHLOROQUINE ORAL SUSP 200 MG/8 ML ORAL.SYRG PO SCH ×2 (09:43→21:09)
[2020-01-15] MEDS: ASCORBIC ACID 500 MG TAB OG-TUBE SCH ×2 (09:53→21:09)
[2020-01-15] MEDS: POTASSIUM CHLORIDE 20 MEQ in WATER FOR INJECTION 1 100ML.BAG IVPB SCH ×2 (10:55→14:37)
--- NOTE | 2020-01-15 11:53 | PN ---
PROGRESS NOTE PULMONARY/CRITICAL CARE PROGRESS NOTE: DATE OF SERVICE: 01/15/2020 Critical care time greater than 30 minutes. This is an 84-year-old female admitted on January 10 for acute hypoxemic respiratory failure. She was admitted through the emergency department, was actually intubated in the ER. Her initial rapid test for COVID-19 infection was negative, but we suspect that she probably has the infection based on her inflammatory markers as well as her chest x-ray and CAT scan. She remains on the mechanical ventilator. Her settings include the volume assist-control mode rate of 20, tidal volume 400, FiO2 of 50%, PEEP of 10. Blood gases show a pO2 of 75, a pCO2 of 39, and pH of 7.39. She is getting saline at 50 mL an hour, propofol at 40 mcg/kg per minute, tube feeds with Vital high- protein at 20 with a goal of 20. Heart rhythm is normal, sinus rhythm at 60 beats per minute. We are going to give her a weaning trial today. Will do a daily interruption of sedation with a spontaneous breathing trial with PSV 10 and CPAP of 5. She has not made a lot of progress. Chest x-ray does show bilateral diffuse infiltrates. Current vital signs are reviewed. Temperature 97.7, heart rate 60, respiratory rate 21, blood pressure 141/73, saturations are 95% on the FiO2 of 50 and PEEP of 10. Appears currently sedated. HEENT: Examination is grossly unremarkable. There is an orally placed endotracheal tube and NG tube. NECK: Supple. There is a large neck mass which may represent a goiter or just a fat neck, I suspect. CARDIOVASCULAR: Examination reveals a regular rhythm and rate. Heart rate 60 beats per minute. Heart sounds are distant. No murmur. LUNGS: Reveal diffuse coarse rhonchi bilaterally. Breath sounds are equal. ABDOMEN: Soft. Bowel sounds are heard. EXTREMITIES: Intact. There is minimal edema. SKIN: Without rash. NEUROLOGIC: Examination is difficult to assess, because the patient is currently quite sedated. Blood cultures were positive for Staph epidermidis back on January 10. More recent culture data is negative. LABS: Reviewed. White count 6.6, hemoglobin 11.7, hematocrit 36.2, platelet count 135,000. Blood gases show a pO2 of 75, pCO2 of 39, and a pH of 7.39. Sodium 139, potassium 3.4, chloride is 111, CO2 is 25, anion gap is 3. BUN and creatinine were 30 and 0.71. Calcium 7.9, AST 38, ALT 76, albumin 2.2. Chest x-ray shows an endotracheal tube that needs to be pushed down. The central line looks okay. The patient has got bilateral infiltrates slightly worse on the right side than on the left side. MEDICATIONS: Reviewed. The patient is currently on ascorbic acid, Zithromax, chlorhexidine, eye drops, enoxaparin, Dilaudid, Plaquenil, insulin, Solu-Medrol, Narcan, Protonix, Zosyn, potassium replacement, propofol and zinc. ASSESSMENT: 1. Acute hypoxemic respiratory failure, presumed secondary to COVID-19 pneumonia, although her rapid test by nasal swab was negative. 2. Possible community-acquired pneumonia, currently on Zosyn. 3. Acute sepsis with septic shock, resolved. 4. History of rheumatoid arthritis, currently maintained on prednisone chronically. 5. Elevated D-dimer, which may reflect sepsis induced coagulopathy in a COVID-19 patient, currently on therapeutic doses of Lovenox. 6. No evidence of pulmonary embolism on CT angiogram. 7. History of hypertension. 8. History of arthritis. 9. Glaucoma. 10.History of shingles. 11.History of irritable bowel syndrome. 12.History of dermatomyositis. PLAN: No vent changes today. We will do a daily interruption of sedation with a spontaneous breathing trial. Will place her on PSV 10 and CPAP of 5. Labs, x-rays and medications are all reviewed. She is on appropriate medications including Plaquenil, azithromycin, zinc, corticosteroids, and low-molecular weight heparin. Prognosis is guarded. She is getting tube feeds at goal at 20. I believe she is getting Vital high-protein. She is getting propofol for sedation at 40 mcg/kg per minute. No additional recommendations are made. Blood gases are stable. Critical care time more than 30 minutes. MMODL / IJN: [id number] /
[2020-01-15 12:53] LABS: Glucose,Whole Blood 104 mg/dL (75-99)
--- NOTE | 2020-01-15 16:32 | P.PN ---
Subjective Progress Note Date: 01/15/20 Ekta Yañez is an 84-year-old female patient of Dr. Oquendo who presented to [facility] emergency room with a chief complaint of generalized weakness and fall, patient also was complaining of shortness of breath, she was alert and oriented in the emergency room and was able to answer questions appropriately however she was getting more hypoxic, she had fever with a temperature of 100.1 testing in the emergency room included influenza A and B and Covid 19 which were all negative. However her clinical picture, computed tomography scan results, and lab results were all typical of Covid 19 illness. Patient decompensated while in emergency room. Blood gas revealed evidence of PO2 of 55 she was intubated in the emergency room and was admitted to intensive care unit consultation for Dr. Ariza was initiated for critical care and pulmonary management, consultation for Dr. Harman was initiated for infectious disease treatment. Currently patient is in the intensive care unit she is intubated sedated maintained on mechanical ventilation, Dr. Ariza reason assisting the patient and placing central line. Computed tomography scan of the chest with contrast was done in the emergency room and was negative for pulmonary embolism, however it revealed diffuse groundglass opacities throughout both lungs. Computed tomography scan of the head and neck without contrast was done in the emergency room due to fall and did not reveal any significant abnormality. Pelvic x-ray was done due to fall and did not reveal any obvious fracture. From chart review patient has history of dermatomyositis, she was admitted to the hospital in November for IV steroid course. 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 Wilson. On 01/12/2020 patient was seen and examined in the intensive care unit she is intubated sedated maintained on mechanical ventilation, she is oxygenating better today and PEEP was decreased from 10 down to 5 by intensive care. ABG was done and revealed pH of 7.35 pCO2 36 PaO2 135 chest x-ray was reviewed and was stable from yesterday echocardiogram done and revealed normal left ventricular systolic function with ejection fraction of 55-60% On 01/13/2020 Patient was seen and examined in the ICU she is still intubated, sedated, maintained on mechanical ventilation, PEEP was increased to 10 today, PaO2 is 51 pCO2 31 she is still on IV pressure support. With Levophed On 01/14/2020 patient was seen and examined in the ICU she is intubated sedated maintained on mechanical ventilation, ABG today reveals pH of 7.39 PaO2 69 pCO2 37 patient is still maintained on a PEEP of 10 and FiO2 of 50% critical care are following, patient receiving IV Zithromax, IV Solu-Medrol, and hydroxychloroquine through NG tube. On 01/15/2020 Patient was seen and examined in the ICU she is still intubated, sedated, maintained on mechanical ventilation. She failed weaning trial this morning per nurse. She is off vasopressors at this time. Objective - Vital Signs Vital signs: Vital Signs Temp 98.3 F 01/15/20 12:00 Pulse 63 01/15/20 13:00 Resp 24 01/15/20 13:00 BP 131/72 01/15/20 12:00 Pulse Ox 96 01/15/20 13:00 Intake & Output 01/14/20 01/15/20 01/15/20 18:59 06:59 18:59 Intake Total 5602.069 5832.800 1000.020 Output Total 1295 360 680 Balance 379.693 745.800 320.020 Weight 79.6 kg 86.2 kg 84.4 kg Intake: IV 799 616 492 0.9 NACL 650 450 350 Piperacillin-Tazobactam 3 110 100 100 .375 gm In Sodium Chloride 0.9% 100 ml @ 25 mls/hr IVPB Q8HR SANTY Rx# :[id number] pressure bags 39 66 42 Intake, IV Titration 458.693 179.800 448.020 Amount Azithromycin 500 mg In 250 250 Sodium Chloride 0.9% 250 ml @ 250 mls/hr IVPB DAILY SANTY Rx#:[id number] Potassium Chloride 20 meq 100 In Water For Injection 1 100ml.bag @ 50 mls/hr IVPB Q2H SANTY Rx#: [id number] Propofol 1,000 mg In 208.693 179.800 98.020 Empty Bag 1 bag @ Titrate IV .Q0M SANTY Rx#: [id number] Tube Feeding 357 220 60 Other 60 90 Output: Urine 1295 360 180 Stool 500 Other: Voiding Method Indwelling Catheter Indwelling Catheter Indwelling Catheter ABP, PAP, CO, CI - Last Documented Arterial Blood Pressure 155/63 - Exam In general patient is intubated sedated maintained on mechanical ventilation HEENT head normocephalic and atraumatic Neck is supple no JVD no goiter no lymphadenopathy Chest exam reveals coarse crackles in both lung olson Cardiac exam reveals regular heart sounds no gallops no murmurs Abdomen is soft nontender no organomegaly with normal bowel sounds Extremity exam reveals 2+ edema no cyanosis or clubbing - Labs CBC & Chem 7: 01/15/20 04:45 01/15/20 04:45 Labs: Abnormal Lab Results - Last 24 Hours (Table) 01/14/20 01/15/20 01/15/20 Range/Units 18:21 00:27 04:45 RBC 3.79 L (3.80-5.40) m/uL RDW 16.0 H (11.5-15.5) % Plt Count 135 L (150-450) k/uL Lymphocytes # 0.2 L (1.0-4.8) k/uL ABG pO2 (83-108) mmHg ABG Total CO2 (19-24) mmol/L Potassium (3.5-5.1) mmol/L Chloride (98-107) mmol/L BUN (7-17) mg/dL Glucose (74-99) mg/dL POC Glucose (mg/dL) 135 H 112 H (75-99) mg/dL Calcium (8.4-10.2) mg/dL AST (14-36) U/L ALT (4-34) U/L Total Protein (6.3-8.2) g/dL Albumin (3.5-5.0) g/dL 01/15/20 01/15/20 01/15/20 Range/Units 04:45 05:40 05:56 RBC (3.80-5.40) m/uL RDW (11.5-15.5) % Plt Count (150-450) k/uL Lymphocytes # (1.0-4.8) k/uL ABG pO2 75 L (83-108) mmHg ABG Total CO2 25 H (19-24) mmol/L Potassium 3.4 L (3.5-5.1) mmol/L Chloride 111 H (98-107) mmol/L BUN 38 H (7-17) mg/dL Glucose 134 H (74-99) mg/dL POC Glucose (mg/dL) 138 H (75-99) mg/dL Calcium 7.9 L (8.4-10.2) mg/dL AST 38 H (14-36) U/L ALT 76 H (4-34) U/L Total Protein 4.6 L (6.3-8.2) g/dL Albumin 2.2 L (3.5-5.0) g/dL 01/15/20 Range/Units 12:51 RBC (3.80-5.40) m/uL RDW (11.5-15.5) % Plt Count (150-450) k/uL Lymphocytes # (1.0-4.8) k/uL ABG pO2 (83-108) mmHg ABG Total CO2 (19-24) mmol/L Potassium (3.5-5.1) mmol/L Chloride (98-107) mmol/L BUN (7-17) mg/dL Glucose (74-99) mg/dL POC Glucose (mg/dL) 104 H (75-99) mg/dL Calcium (8.4-10.2) mg/dL AST (14-36) U/L ALT (4-34) U/L Total Protein (6.3-8.2) g/dL Albumin (3.5-5.0) g/dL Microbiology - Last 24 Hours (Table) 01/12/20 14:40 Blood Culture - Preliminary Blood No Growth after 48 hours Assessment and Plan Plan: #1 bilateral pneumonia most likely viral pneumonia due to Covid 19 virus despite negative instant test in the emergency room. #2 acute hypoxic respiratory failure requiring mechanical ventilation #3 sepsis, as evidenced by leukocytosis white blood count 18.8, fever temperature 100.1 lactic acid testing is pending. #4 mild elevation in liver enzymes likely related to acute illness, will monitor #5 underlying history of dermatomyositis #6 elevated d-dimer without evidence of pulmonary embolism on CT angiogram of the chest #7 mild elevation in troponin level, likely related to oxygen demand, supply mismatch, doubt acute myocardial infarction at this time, will monitor closely #8 for DVT prophylaxis Will start patient on subcu Lovenox, for GI prophylaxis will start IV Protonix Prognosis is extremely guarded due to age, severity of illness requiring intubation and mechanical ventilation, and underlying medical problems Will follow closely
[2020-01-15] MEDS: CHOLESTYRAMINE (WITH SUGAR) 4 GM PACKET OG-TUBE SCH (18:15)
[2020-01-15 18:21] LABS: Glucose,Whole Blood 114 mg/dL (75-99)
--- NOTE | 2020-01-15 20:11 | PN ---
PROGRESS NOTE DATE OF SERVICE: 01/15/2020 REASON FOR FOLLOWUP: Acute COVID-19 pneumonia. INTERVAL HISTORY: The patient is currently afebrile. The patient is hemodynamically stable, not on any pressor support. FiO2 is currently at 50%. Tolerating her tube feeds. She has developed diarrhea. The patient did have stool for C difficile which came back negative. PHYSICAL EXAMINATION: Her blood pressure is 148/71 with a pulse of 61, temperature 97.4. She is 100% on 50% FiO2. General description is an elderly female intubated on the vent. RESPIRATORY SYSTEM: Unlabored breathing. Some coarse breath sounds at the base. No wheeze. HEART: S1, S2. Regular rate and rhythm. ABDOMEN: Soft. No distention. LABS: Hemoglobin is 11.6, white count 6.6, BUN of 38, creatinine 0.71. DIAGNOSTIC IMPRESSION AND PLAN: 1. Patient with acute respiratory failure which is likely multifactorial in this patient with a likely component of COVID-19 pneumonia. This patient is currently covered with Plaquenil in addition to Zosyn with concern for underlying bacterial pneumonia. To continue and monitor clinical course closely. 2. Diarrhea, likely antibiotic-associated. Questran will be added for symptomatic relief and we will monitor clinical course closely. Stool for C difficile was negative. MMODL / IJN: [id number] /
[2020-01-15] MEDS: LATANOPROST 0.005% OPHTH DROPS 2.5 ML BTL LEFT EYE SCH (21:11)
[2020-01-15 23:25] LABS: Glucose,Whole Blood 92 mg/dL (75-99)
[2020-01-15 23:44] LABS: Glucose,Whole Blood 91 mg/dL (75-99)
[2020-01-16] MEDS: INSULIN ASPART (NovoLOG) 100 UNIT/ML VIAL SQ SCH ×4 (00:14→18:08)
[2020-01-16 05:05] LABS: Basophils % (A) 0 %; Eosinophils % (A) 0 %; HGB 11.6 gm/dL (11.4-16.0); Lymphocytes # (A) 0.2 k/uL (1.0-4.8); Lymphocytes % (A) 3 %; MCH 31.2 pg (25.0-35.0); MCHC 32.4 g/dL (31.0-37.0); MCV 96.4 fL (80.0-100.0); Mean Platelet Volume 11.4; Monocytes # (A) 0.2 k/uL (0-1.0); Monocytes % (A) 3 %; Neutrophils # (A) 6.6 k/uL (1.3-7.7); Neutrophils % (A) 92 %; Platelet Count 136 k/uL (150-450); RBC 3.73 m/uL (3.80-5.40); RDW 15.9 % (11.5-15.5); WBC 7.1 k/uL (3.8-10.6)
[2020-01-16 05:16] LABS: ALT 63 U/L (4-34); AST 30 U/L (14-36); African American GFR (CKD) >90 (>60 ml/min/1.73 sqM); Albumin 2.2 g/dL (3.5-5.0); Alkaline Phosphatase 62 U/L (38-126); Anion Gap 3 mmol/L; Blood Urea Nitrogen 36 mg/dL (7-17); Calcium 7.9 mg/dL (8.4-10.2); Carbon Dioxide 22 mmol/L (22-30); Chloride 115 mmol/L (98-107); Glucose 123 mg/dL (74-99); Non-African American GFR(CKD) 83 (>60 ml/min/1.73 sqM); Potassium 3.7 mmol/L (3.5-5.1); Sodium 140 mmol/L (137-145); Total Bilirubin 0.2 mg/dL (0.2-1.3); Total Protein 4.5 g/dL (6.3-8.2)
[2020-01-16 05:46] LABS: ABG Base Excess -3.1 mmol/L; ABG HCO3 22 mmol/L (21-25); ABG PCO2 40 mmHg (35-45); ABG PH 7.35 (7.35-7.45); ABG PO2 98 mmHg (83-108); ABG TCO2 24 mmol/L (19-24); Allen Test Performed? Yes
[2020-01-16 05:54] LABS: Glucose,Whole Blood 106 mg/dL (75-99)
[2020-01-16] MEDS: SODIUM CHLORIDE 0.9% 1,000 ML IV SCH (06:17)
[2020-01-16] MEDS ORDERED: POTASSIUM CHLORIDE 20 MEQ in WATER FOR INJECTION 1 100ML.BAG IVPB STA (06:18)
[2020-01-16] MEDS ORDERED: FUROSEMIDE 10 MG/ML 4 ML VIAL IV STA (07:54)
--- NOTE | 2020-01-16 08:22 | XR ---
EXAMINATION TYPE: XR chest 1V portable DATE OF EXAM: 01/16/2020 COMPARISON: Prior chest x-ray 01/15/2020 HISTORY: Intubated TECHNIQUE: Single frontal view of the chest is obtained. FINDINGS: Endotracheal tube and NG tube are overlying appropriate positions, right jugular central v enous catheter is stable. Patient is rotated. No evident pneumothorax. Bilateral airspace disease is present, interstitium is prominent. There are overlying cardiac leads and artifacts. Aorta is dense. Heart is enlarged. Apical pleural thickening on the left and right is stable. IMPRESSION: Correlate for possible congestive heart failure, pneumonia, ARDS.
[2020-01-16] MEDS ORDERED: CISATRACURIUM 2 MG/ML 5 ML VIAL IV ONE (09:03)
--- NOTE | 2020-01-16 10:27 | XR ---
EXAMINATION TYPE: XR chest 1V portable DATE OF EXAM: 01/16/2020 COMPARISON: Prior chest x-ray same dated earlier time HISTORY: Status post central venous catheter placement TECHNIQUE: Single frontal view of the chest is obtained. FINDINGS: There is been interval placement of a left jugular central venous catheter, distal tip is overlying the superior vena cava. No other interval change. Patient is rotated. IMPRESSION: No evident complication status post central venous catheter placement.
--- NOTE | 2020-01-16 11:15 | PCN ---
PROCEDURE NOTE PROCEDURE: Left internal jugular triple-lumen catheter. PREOPERATIVE DIAGNOSIS: Administration of fluids and pressors. POSTOPERATIVE DIAGNOSIS: Administration of fluids and pressors. OPERATORS: Dr. Jason and Dr. Hough and Austyn Rosa and Alejandra Saenz. There was informed consent. There was universal timeout. A time-out was completed verifying correct patient, procedure, site, positioning, and implant(s) or special equipment if applicable. The patient was placed in a dependent position appropriate for triple lumen catheter placement based on the vein to be cannulated. The patient's left neck was prepped and draped in sterile fashion. 1% Lidocaine was used to anesthetize the surrounding skin area. A triple lumen 9F Cordis catheter was introduced into the left internal jugular vein using Seldinger technique. The catheter was threaded smoothly over the guide wire and appropriate blood return was obtained. Each lumen of the catheter was evacuated of air and flushed with sterile saline. The catheter was then sutured in place to the skin and a sterile dressing applied by the nurse. Perfusion to the extremity distal to the point of catheter insertion was checked and found to be adequate. We used a posterior approach. There was no immediate complication, there was good blood return from all 3 ports. The patient tolerated the procedure well. The tip of the catheter was seen in the junction of the right atrium, superior vena cava. MMODL / IJN: [id number] /
--- NOTE | 2020-01-16 11:15 | PCN ---
PROCEDURE NOTE PROCEDURE: Left radial arterial line. PREOPERATIVE DIAGNOSIS: Frequent blood draws and blood gas monitoring. POSTOPERATIVE DIAGNOSIS: Frequent blood draws and blood gas monitoring. OPERATORS: Dr. Jason, Dr. Dr. Marybeth Hough and Carly Rosa ARTERIAL LINE PLACEMENT: Indications: Hemodynamic monitoring. A time-out was completed verifying correct patient, procedure, site, positioning, and implant(s) or special equipment if applicable. Adnny's test was performed to ensure adequate perfusion. The patient's left wrist was prepped and draped in sterile fashion. 1% Lidocaine was used to anesthetize the area. An 18G Arrow arterial line was introduced into the left radial artery. The catheter was threaded over the guide wire and the needle was removed with appropriate pulsatile blood return. Blood loss was minimal. The catheter was then sutured in place to the skin and a sterile dressing applied. Perfusion to the extremity distal to the point of catheter insertion was checked and found to be adequate. The patient tolerated the procedure well and there were no complications. The site was the left radial artery. There was no immediate complication. There was good blood return and waveform. The patient tolerated the procedure well. The catheter was sutured in place. A sterile dressing was applied by the nurse. There was informed consent. MMODL / IJN: [id number] /
[2020-01-16] MEDS: AZITHROMYCIN 500 MG in SODIUM CHLORIDE 0.9% 250 ML IVPB SCH (11:48)
--- NOTE | 2020-01-16 11:48 | CDI ---
Documentation Clarification Form Date: 01/16/2020 10:59:07 AM From: Sahara Mcintosh RN CCDS Admit Date: 01/11/2020 09:50:00 AM Patient Name: Ekta Yañez Visit Number: [id number] Discharge Date: ATTENTION: The Clinical Documentation Specialists (CDI) and [facility] Coding Staff appreciate your assistance in clarifying documentation. Please respond to the clarification below the line at the bottom and electronically sign. The CDI & [facility] Coding staff will review the response and follow-up if needed. Please note: Queries are made part of the Legal Health Record. If you have any questions, please contact the author of this message via ITS. Dr. Juany Hamilton Mild elevation in troponin level, likely related to oxygen demand, supply mismatch, doubt acute myocardial infarction at this time Is documented in the H&P 01/10, and subsequent progress notes 01/11, 01/12, 01/13 and 01/14 Patient History/Risk Factors: 84-year-old female presented to the ED for generalized weakness with shortness of breath. Medical History HTN, OA and Dermatomyositis Clinical Indicators: Vss 01/10 130/94 111 100.1 F Temp 22 97% Non-Rebreather Troponin: 01/10 - 0.310; 0.689; 01/11 0.341; 01/12 0.231; 01/13 0.136 01/10 ABG- Ph 7.42, pCo2 38, pO2 113, HCO3 25, Total CO2 26, O2 Sat 98.7 EKG Results: 01/10 Atrial Fibrillation with RVR. Left [place] deviation. RSR or QR pattern in V1 suggests right ventricular conduction delay. Nonspecific ST wave abnormality, probably digitalis effect. CTA 01/10 Diffuse ground glass opacities throughout both lungs. Treatment: Oxygen 01/10 via [id number], 01/10 Mechanical Ventilation, Lasix Iv 01/10 x2, 01/11 x1, 01/13 x1, 01/15 x1; 01/10 Solucortef Ivp, 01/11 Solumedrol Ivp, In your professional opinion, can you please clarify the clinical significance of the Troponins? Type 2 OK secondary to demand ischemia in the setting of Respiratory Failure Type 2 OK secondary to demand ischemia due to (please specify) Unable to determine Ruled out Other Condition, please specify (Last Revision: October 2019) Unable to determine management in ICU per critical care MTDD
[2020-01-16] MEDS: CHLORHEXIDINE GLUCONATE 15 ML CUP MUCOUS MEM SCH ×2 (11:49→21:45)
[2020-01-16] MEDS: PANTOPRAZOLE 40 MG/10 ML VIAL IVP SCH (11:49)
[2020-01-16] MEDS: methylPREDNISolone SOD SUCCI 40 MG/ML 1 ML VIAL IV SCH ×2 (11:49→21:45)
[2020-01-16] MEDS: CHOLESTYRAMINE (WITH SUGAR) 4 GM PACKET OG-TUBE SCH ×2 (11:50→18:08)
[2020-01-16] MEDS: ZINC SULFATE 220 MG CAP PO SCH (11:50)
[2020-01-16] MEDS: ENOXAPARIN 80 MG/0.8 ML SYRINGE SQ SCH ×2 (11:50→21:45)
[2020-01-16] MEDS: PIPERACILLIN-TAZOBACTAM 3.375 GM in SODIUM CHLORIDE 0.9% 100 ML IVPB SCH ×2 (11:55→18:07)
[2020-01-16] MEDS: ASCORBIC ACID 500 MG TAB OG-TUBE SCH ×2 (11:55→21:46)
[2020-01-16] MEDS: DORZOLAMIDE HCL 2% DROPS 10 ML BTL LEFT EYE SCH ×2 (11:56→21:47)
--- NOTE | 2020-01-16 12:03 | PN ---
PROGRESS NOTE PULMONARY/CRITICAL CARE PROGRESS NOTE: DATE OF SERVICE: 01/16/2020 Critical care time is greater than 30 minutes. This is an 84-year-old female who was admitted back on January 10 for acute hypoxemic respiratory failure. She was admitted through the emergency department, was actually intubated in the ER and tested negative initially for COVID-19 infection. Because of her inflammatory markers, her rapid progression of her symptoms and also his CT scan and chest x-ray, they are treating her as if she has COVID-19 pneumonia with respiratory failure. She remains on mechanical ventilator. His settings include the volume assist-control mode rate of 20, tidal volume 400, FiO2 of 50%, PEEP of 10. Blood gases show a pO2 of 98, pCO2 of 40 and a pH 7.35. The patient is in sinus rhythm. She did fail her spontaneous breathing trial yesterday. She is getting saline at 50 mL an hour and Diprivan at 30 mcg/minute. Her tube feeds include Vital AF with a rate of 20 and a goal of 20. She is currently on Zosyn, Zithromax and zinc. The lines will need to be replaced today including central line and arterial line. In addition, because of excess fluid, will give her 1 dose of Lasix 40 mg IV push. Current vital signs are reviewed. Temperature 93, heart rate 61, respiratory rate 20, blood pressure 123/64, CVP is 14, saturations between 89% and 93%. Appears in no acute distress. Currently sedated. HEENT: Examination is grossly unremarkable. She has an orally placed endotracheal tube and NG tube. NECK: Supple. Full range of motion. No adenopathy or thyromegaly. CARDIOVASCULAR: Examination reveals regular rhythm and rate. Heart rate mid 60s. S1, S2 normal. No murmur. Heart sounds are distant. LUNGS: Reveal diffuse coarse rhonchi. Breath sounds equal. No wheezes or crackles. Soft bowel sounds are noted. EXTREMITIES: Intact. There is edema. She has diffuse anasarca and edema noted throughout. SKIN: Otherwise without rash except for some areas of ecchymoses. NEUROLOGIC: Examination is difficult to assess given her current level of sedation. Microbiology is positive only for Staph epidermidis from January 10. These are from blood cultures. LAB DATA: Includes a white count of 7.1, hemoglobin 11.6, hematocrit 36, platelet count 136,000. The blood gases show a pO2 of 98, pCO2 of 40 and pH of 7.35. These blood gases are consistent with normoxemia, a very mild metabolic acidosis. Sodium 140, potassium 3.7, chloride 115, CO2 is 22, anion gap of 3. BUN and creatinine were 36 and 0.6. The rest of the labs look okay. Albumin 2.2. A chest x-ray is done after the central line placement. There was no complication. A chest x-ray done earlier this morning showed findings that were consistent with diffuse infiltrates, which may relate to COVID-19 infection, ARDS, or pneumonia. CURRENT MEDICATIONS: Reviewed. She is on ascorbic acid, Zithromax, chlorhexidine, Questran, eyedrops, Lovenox, Dilaudid, insulin, Solu-Medrol, Narcan, Protonix, Zosyn, potassium replacement, propofol, zinc, and saline IV. ASSESSMENT: 1. Acute hypoxemic respiratory failure, presumed secondary to COVID-19 pneumonia, although her rapid test by nasal swab was negative. 2. Possible nosocomial-acquired pneumonia, currently on Zosyn. 3. Acute sepsis with septic shock, improved. 4. History of rheumatoid arthritis, previously maintained as an outpatient on prednisone daily. 5. Elevated D-dimer, which may reflect sepsis induced coagulopathy in a COVID-19 patient, currently on therapeutic doses of Lovenox. 6. No evidence of pulmonary embolism on CT angiogram. 7. History of benign essential hypertension. 8. History of arthritis. 9. Glaucoma. 10.History of shingles. 11.History of irritable bowel syndrome. 12.History of dermatomyositis. PLAN: The patient's central line and arterial line will be changed out today. Will give her 1 dose of Lasix 40 mg IV push based on her weight, her urine output, CBC, and exam. In addition, the patient will have a morning labs. She is on all the appropriate medications. She will have inflammatory markers measured in the morning. Chest x-ray will be done in the morning. Her post line chest x-ray did not show any complications. Overall prognosis remains very guarded. She is getting enteral nutrition. Critical care time more than 30 minutes. MMODL / IJN: [id number] / [facility]
[2020-01-16 12:30] LABS: Glucose,Whole Blood 92 mg/dL (75-99)
--- NOTE | 2020-01-16 16:06 | P.PN ---
Subjective Progress Note Date: 01/16/20 Ekta Yañez is an 84-year-old female patient of Dr. Oquendo who presented to [facility] emergency room with a chief complaint of generalized weakness and fall, patient also was complaining of shortness of breath, she was alert and oriented in the emergency room and was able to answer questions appropriately however she was getting more hypoxic, she had fever with a temperature of 100.1 testing in the emergency room included influenza A and B and Covid 19 which were all negative. However her clinical picture, computed tomography scan results, and lab results were all typical of Covid 19 illness. Patient decompensated while in emergency room. Blood gas revealed evidence of PO2 of 55 she was intubated in the emergency room and was admitted to intensive care unit consultation for Dr. Ariza was initiated for critical care and pulmonary management, consultation for Dr. Harman was initiated for infectious disease treatment. Currently patient is in the intensive care unit she is intubated sedated maintained on mechanical ventilation, Dr. Ariza reason assisting the patient and placing central line. Computed tomography scan of the chest with contrast was done in the emergency room and was negative for pulmonary embolism, however it revealed diffuse groundglass opacities throughout both lungs. Computed tomography scan of the head and neck without contrast was done in the emergency room due to fall and did not reveal any significant abnormality. Pelvic x-ray was done due to fall and did not reveal any obvious fracture. From chart review patient has history of dermatomyositis, she was admitted to the hospital in November for IV steroid course. 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 Wilson. On 01/12/2020 patient was seen and examined in the intensive care unit she is intubated sedated maintained on mechanical ventilation, she is oxygenating better today and PEEP was decreased from 10 down to 5 by intensive care. ABG was done and revealed pH of 7.35 pCO2 36 PaO2 135 chest x-ray was reviewed and was stable from yesterday echocardiogram done and revealed normal left ventricular systolic function with ejection fraction of 55-60% On 01/13/2020 Patient was seen and examined in the ICU she is still intubated, sedated, maintained on mechanical ventilation, PEEP was increased to 10 today, PaO2 is 51 pCO2 31 she is still on IV pressure support. With Levophed On 01/14/2020 patient was seen and examined in the ICU she is intubated sedated maintained on mechanical ventilation, ABG today reveals pH of 7.39 PaO2 69 pCO2 37 patient is still maintained on a PEEP of 10 and FiO2 of 50% critical care are following, patient receiving IV Zithromax, IV Solu-Medrol, and hydroxychloroquine through NG tube. On 01/15/2020 Patient was seen and examined in the ICU she is still intubated, sedated, maintained on mechanical ventilation. She failed weaning trial this morning per nurse. She is off vasopressors at this time. On 01/16/2020 patient was seen and examined in the intensive care unit she is intubated sedated maintained on mechanical ventilation, ABG today reveals a pH of 7.35 pCO2 14 PaO2 98 FiO2 is 50% temperature is 97.4 blood pressure 126/64 respiration 20 Objective - Vital Signs Vital signs: Vital Signs Temp 97.4 F L 01/16/20 12:00 Pulse 68 01/16/20 15:00 Resp 23 01/16/20 15:00 BP 132/75 01/16/20 15:00 Pulse Ox 99 01/16/20 15:00 Intake & Output 01/15/20 01/16/20 01/16/20 18:59 06:59 18:59 Intake Total 3016.884 1592.941 937.28 Output Total 3346 998 4608 Balance 893.902 4742.941 -1162.72 Weight 84.4 kg 89.2 kg 89.2 kg Intake: IV 847 722 336 0.9 NACL 600 600 280 Piperacillin-Tazobactam 3 175 50 .375 gm In Sodium Chloride 0.9% 100 ml @ 25 mls/hr IVPB Q8HR SANTY Rx# :[id number] pressure bags 72 72 56 Intake, IV Titration 546.599 379.941 230.28 Amount Azithromycin 500 mg In 250 Sodium Chloride 0.9% 250 ml @ 250 mls/hr IVPB DAILY SANTY Rx#:[id number] Piperacillin-Tazobactam 3 100 .375 gm In Sodium Chloride 0.9% 100 ml @ 25 mls/hr IVPB Q8HR SANTY Rx# :[id number] Potassium Chloride 20 meq 100 50 In Water For Injection 1 100ml.bag @ 50 mls/hr IVPB Q2H SANTY Rx#: [id number] Propofol 1,000 mg In 196.599 279.941 180.28 Empty Bag 1 bag @ Titrate IV .Q0M SANTY Rx#: [id number] Tube Feeding 160 240 281 Other 90 90 Output: Urine 395 057 7691 Stool 1000 500 Other: Voiding Method Indwelling Catheter Indwelling Catheter Indwelling Catheter ABP, PAP, CO, CI - Last Documented Arterial Blood Pressure 137/68 - Exam In general patient is intubated sedated maintained on mechanical ventilation HEENT head normocephalic and atraumatic Neck is supple no JVD no goiter no lymphadenopathy Chest exam reveals coarse crackles in both lung olson Cardiac exam reveals regular heart sounds no gallops no murmurs Abdomen is soft nontender no organomegaly with normal bowel sounds Extremity exam reveals 2+ edema no cyanosis or clubbing - Labs CBC & Chem 7: 01/16/20 04:30 01/16/20 04:30 Labs: Abnormal Lab Results - Last 24 Hours (Table) 01/15/20 01/16/20 01/16/20 Range/Units 18:19 04:30 04:30 RBC 3.73 L (3.80-5.40) m/uL RDW 15.9 H (11.5-15.5) % Plt Count 136 L (150-450) k/uL Lymphocytes # 0.2 L (1.0-4.8) k/uL ABG O2 Saturation (94-97) % Chloride 115 H (98-107) mmol/L BUN 36 H (7-17) mg/dL Glucose 123 H (74-99) mg/dL POC Glucose (mg/dL) 114 H (75-99) mg/dL Calcium 7.9 L (8.4-10.2) mg/dL ALT 63 H (4-34) U/L Total Protein 4.5 L (6.3-8.2) g/dL Albumin 2.2 L (3.5-5.0) g/dL 01/16/20 01/16/20 Range/Units 05:41 05:53 RBC (3.80-5.40) m/uL RDW (11.5-15.5) % Plt Count (150-450) k/uL Lymphocytes # (1.0-4.8) k/uL ABG O2 Saturation 98.0 H (94-97) % Chloride (98-107) mmol/L BUN (7-17) mg/dL Glucose (74-99) mg/dL POC Glucose (mg/dL) 106 H (75-99) mg/dL Calcium (8.4-10.2) mg/dL ALT (4-34) U/L Total Protein (6.3-8.2) g/dL Albumin (3.5-5.0) g/dL Microbiology - Last 24 Hours (Table) 01/16/20 11:22 Catheter Tip Culture - Preliminary Catheter Tip 01/16/20 11:21 Catheter Tip Culture - Preliminary Catheter Tip 01/11/20 09:20 Blood Culture Gram Stain - Final Blood Blood Culture - Final Staphylococcus epidermidis 01/12/20 14:40 Blood Culture - Preliminary Blood No Growth after 72 hours Assessment and Plan Plan: #1 bilateral pneumonia most likely viral pneumonia due to Covid 19 virus despite negative instant test in the emergency room. #2 acute hypoxic respiratory failure requiring mechanical ventilation #3 sepsis, as evidenced by leukocytosis white blood count 18.8, fever temperature 100.1 lactic acid testing is pending. #4 mild elevation in liver enzymes likely related to acute illness, will monitor #5 underlying history of dermatomyositis #6 elevated d-dimer without evidence of pulmonary embolism on CT angiogram of the chest #7 mild elevation in troponin level, likely related to oxygen demand, supply mismatch, doubt acute myocardial infarction at this time, will monitor closely #8 for DVT prophylaxis Will start patient on subcu Lovenox, for GI prophylaxis will start IV Protonix Prognosis is extremely guarded due to age, severity of illness requiring intubation and mechanical ventilation, and underlying medical problems Will follow closely
[2020-01-16 17:33] LABS: Glucose,Whole Blood 72 mg/dL (75-99)
[2020-01-16] MEDS: LATANOPROST 0.005% OPHTH DROPS 2.5 ML BTL LEFT EYE SCH (21:48)
[2020-01-17 00:04] LABS: Glucose,Whole Blood 105 mg/dL (75-99)
--- NOTE | 2020-01-17 00:08 | PN ---
PROGRESS NOTE DATE OF SERVICE: 01/16/2020 REASON FOR FOLLOWUP: Acute COVID-19 pneumonia. INTERVAL HISTORY: The patient is currently afebrile. The patient is hemodynamically stable, not on pressor support. FiO2 is currently at 50%. He did have some diarrhea though no worsening output reported by nursing staff. Tolerating tube feeds. PHYSICAL EXAMINATION: Blood pressure 124/58 with a pulse of 84, temperature 99.1. She is 92% on 50% FiO2. General description is an elderly female lying in bed in no distress. Respiratory system: Unlabored breathing, clear to auscultation anteriorly. Heart S1, S2. Regular rate and rhythm. Abdomen soft, no tenderness. LABS: Hemoglobin is 11.8, white count 7.1 with BUN of 36, creatinine 0.62. Blood culture has been negative. DIAGNOSTIC IMPRESSION AND PLAN: 1. Patient with acute respiratory failure which is likely multifactorial with concern for possible Covid-19 pneumonia for which the patient has completed her Plaquenil therapy. Currently on Zithromax, Solu-Medrol, zinc, along with Zosyn, concern for possible secondary bacterial pneumonia. 2. Positive catheter-tip positive blood culture with Staph epidermidis possible skin contamination. Repeat blood culture has been negative. 3. We will monitor the patient closely. MMODL / IJN: [id number] /
[2020-01-17] MEDS: SODIUM CHLORIDE 0.9% 1,000 ML IV SCH ×2 (00:27→18:09)
[2020-01-17] MEDS: INSULIN ASPART (NovoLOG) 100 UNIT/ML VIAL SQ SCH ×4 (00:32→18:53)
[2020-01-17] MEDS: PIPERACILLIN-TAZOBACTAM 3.375 GM in SODIUM CHLORIDE 0.9% 100 ML IVPB SCH ×3 (00:50→15:25)
[2020-01-17 05:17] LABS: African American GFR (CKD) >90 (>60 ml/min/1.73 sqM); Anion Gap 2 mmol/L; Blood Urea Nitrogen 35 mg/dL (7-17); Calcium 7.5 mg/dL (8.4-10.2); Carbon Dioxide 23 mmol/L (22-30); Chloride 114 mmol/L (98-107); Glucose 107 mg/dL (74-99); Non-African American GFR(CKD) 80 (>60 ml/min/1.73 sqM); Potassium 3.4 mmol/L (3.5-5.1); Sodium 139 mmol/L (137-145)
[2020-01-17 05:19] LABS: Basophils % (A) 0 %; Eosinophils # (A) 0.1 k/uL (0-0.7); Eosinophils % (A) 2 %; HGB 11.5 gm/dL (11.4-16.0); Lymphocytes # (A) 0.4 k/uL (1.0-4.8); Lymphocytes % (A) 5 %; MCH 31.5 pg (25.0-35.0); MCHC 32.9 g/dL (31.0-37.0); MCV 95.8 fL (80.0-100.0); Mean Platelet Volume 10.9; Monocytes # (A) 0.2 k/uL (0-1.0); Monocytes % (A) 2 %; Neutrophils # (A) 8.1 k/uL (1.3-7.7); Neutrophils % (A) 91 %; Platelet Count 154 k/uL (150-450); RBC 3.66 m/uL (3.80-5.40); RDW 15.9 % (11.5-15.5); WBC 8.9 k/uL (3.8-10.6)
[2020-01-17] MEDS ORDERED: Potassium Replacement Protocol 1 EACH MISC MISCELLANE PRN (05:34)
[2020-01-17] MEDS: POTASSIUM BICARBONATE/CIT AC 20 MEQ TABLET.EFF NG-TUBE SCH ×2 (05:46→07:06)
[2020-01-17 06:10] LABS: Glucose,Whole Blood 99 mg/dL (75-99)
[2020-01-17 06:15] LABS: ABG Base Excess -5.4 mmol/L; ABG HCO3 21 mmol/L (21-25); ABG Oxygen Saturation 94.5 % (94-97); ABG PCO2 41 mmHg (35-45); ABG PH 7.31 (7.35-7.45); ABG PO2 71 mmHg (83-108); ABG TCO2 22 mmol/L (19-24); Allen Test Performed? Yes
--- NOTE | 2020-01-17 07:09 | XR ---
EXAMINATION TYPE: XR chest 1V portable DATE OF EXAM: 01/17/2020 HISTORY: vent. REFERENCE: Previous study dated 01/16/2020. FINDINGS: The patient is ET tube, NG tube and left internal jugular catheter remain in place, unchang ed in appearance. The heart is enlarged. There are bilateral infiltrates which are diffuse. There is blunting of both C P angles and I cannot exclude small effusions. IMPRESSION: WORSENING BILATERAL INFILTRATES.
[2020-01-17] MEDS: AZITHROMYCIN 500 MG in SODIUM CHLORIDE 0.9% 250 ML IVPB SCH (08:13)
[2020-01-17] MEDS: PANTOPRAZOLE 40 MG/10 ML VIAL IVP SCH (08:14)
[2020-01-17] MEDS: methylPREDNISolone SOD SUCCI 40 MG/ML 1 ML VIAL IV SCH ×2 (08:14→22:01)
[2020-01-17] MEDS: ASCORBIC ACID 500 MG TAB OG-TUBE SCH ×2 (08:42→22:01)
[2020-01-17] MEDS: ZINC SULFATE 220 MG CAP PO SCH (08:43)
[2020-01-17] MEDS: DORZOLAMIDE HCL 2% DROPS 10 ML BTL LEFT EYE SCH ×2 (08:43→21:58)
[2020-01-17] MEDS: ENOXAPARIN 80 MG/0.8 ML SYRINGE SQ SCH ×2 (08:43→22:01)
[2020-01-17] MEDS: CHLORHEXIDINE GLUCONATE 15 ML CUP MUCOUS MEM SCH ×2 (08:43→22:00)
[2020-01-17] MEDS: CHOLESTYRAMINE (WITH SUGAR) 4 GM PACKET OG-TUBE SCH ×2 (08:44→18:09)
--- NOTE | 2020-01-17 08:52 | XR ---
EXAMINATION TYPE: XR chest 1V portable DATE OF EXAM: 01/17/2020 HISTORY: ET tube change/ placement . REFERENCE: Previous study of earlier today. FINDINGS: The patient's ET tube has been a advanced. The tip is now 4 cm above the gen in good pos ition. An NG tube and left internal jugular catheter remain in place, unchanged in appearance. There is bibasilar airspace disease worse on the left than the right. Heart enlarged. There are bilat eral effusions. There is vascular congestion and mild interstitial change. IMPRESSION: 1. SATISFACTORY ET TUBE PLACEMENT. 2. BIBASILAR INFILTRATES. 3. CARDIOMEGALY. 4. SMALL, BILATERAL EFFUSIONS. 5. VASCULAR CONGESTION AND SUBTLE INTERSTITIAL CHANGE MAY REPRESENT SUPERIMPOSED PULMONARY EDEMA.
--- NOTE | 2020-01-17 11:16 | P.PN ---
Subjective Progress Note Date: 01/17/20 Ekta Yañez is an 84-year-old female patient of Dr. Oquendo who presented to [facility] emergency room with a chief complaint of generalized weakness and fall, patient also was complaining of shortness of breath, she was alert and oriented in the emergency room and was able to answer questions appropriately however she was getting more hypoxic, she had fever with a temperature of 100.1 testing in the emergency room included influenza A and B and Covid 19 which were all negative. However her clinical picture, computed tomography scan results, and lab results were all typical of Covid 19 illness. Patient decompensated while in emergency room. Blood gas revealed evidence of PO2 of 55 she was intubated in the emergency room and was admitted to intensive care unit consultation for Dr. Ariza was initiated for critical care and pulmonary management, consultation for Dr. Harman was initiated for infectious disease treatment. Currently patient is in the intensive care unit she is intubated sedated maintained on mechanical ventilation, Dr. Ariza reason assisting the patient and placing central line. Computed tomography scan of the chest with contrast was done in the emergency room and was negative for pulmonary embolism, however it revealed diffuse groundglass opacities throughout both lungs. Computed tomography scan of the head and neck without contrast was done in the emergency room due to fall and did not reveal any significant abnormality. Pelvic x-ray was done due to fall and did not reveal any obvious fracture. From chart review patient has history of dermatomyositis, she was admitted to the hospital in November for IV steroid course. 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 Wilson. On 01/12/2020 patient was seen and examined in the intensive care unit she is intubated sedated maintained on mechanical ventilation, she is oxygenating better today and PEEP was decreased from 10 down to 5 by intensive care. ABG was done and revealed pH of 7.35 pCO2 36 PaO2 135 chest x-ray was reviewed and was stable from yesterday echocardiogram done and revealed normal left ventricular systolic function with ejection fraction of 55-60% On 01/13/2020 Patient was seen and examined in the ICU she is still intubated, sedated, maintained on mechanical ventilation, PEEP was increased to 10 today, PaO2 is 51 pCO2 31 she is still on IV pressure support. With Levophed On 01/14/2020 patient was seen and examined in the ICU she is intubated sedated maintained on mechanical ventilation, ABG today reveals pH of 7.39 PaO2 69 pCO2 37 patient is still maintained on a PEEP of 10 and FiO2 of 50% critical care are following, patient receiving IV Zithromax, IV Solu-Medrol, and hydroxychloroquine through NG tube. On 01/15/2020 Patient was seen and examined in the ICU she is still intubated, sedated, maintained on mechanical ventilation. She failed weaning trial this morning per nurse. She is off vasopressors at this time. On 01/16/2020 patient was seen and examined in the intensive care unit she is intubated sedated maintained on mechanical ventilation, ABG today reveals a pH of 7.35 pCO2 14 PaO2 98 FiO2 is 50% temperature is 97.4 blood pressure 126/64 respiration 20 On 01/17/2020 patient was seen and examined in the intensive care unit she is intubated sedated maintained on mechanical ventilation she is not on any vasopressors at this time. ABG reveals a pH of 7.31 pCO2 41 PaO2 71 on FiO2 of 50% potassium is 3.4 white blood count 8.9 hemoglobin 11.5 Objective - Vital Signs Vital signs: Vital Signs Temp 100.4 F H 01/17/20 04:00 Pulse 75 01/17/20 07:00 Resp 24 01/17/20 07:00 BP 110/47 01/17/20 07:00 Pulse Ox 98 01/17/20 07:00 Intake & Output 01/16/20 01/17/20 01/17/20 18:59 06:59 18:59 Intake Total 1172.28 706 538 Output Total 3250 545 135 Balance -2077.72 161 403 Weight 89.2 kg Intake: IV 441 456 458 0.9 NACL 370 380 90 Azithromycin 500 mg In 250 Sodium Chloride 0.9% 250 ml @ 250 mls/hr IVPB DAILY [facility]ANTY Rx#:[id number] Piperacillin-Tazobactam 3 100 .375 gm In Sodium Chloride 0.9% 100 ml @ 25 mls/hr IVPB Q8HR SANTY Rx# :[id number] pressure bags 71 76 18 Intake, IV Titration 230.28 100 Amount Potassium Chloride 20 meq 50 In Water For Injection 1 100ml.bag @ 50 mls/hr IVPB Q2H SANTY Rx#: [id number] Propofol 1,000 mg In 180.28 100 Empty Bag 1 bag @ Titrate IV .Q0M SANTY Rx#: [id number] Tube Feeding 381 150 50 Other 120 30 Output: Urine 2250 545 135 Stool 1000 Other: Voiding Method Indwelling Catheter Indwelling Catheter ABP, PAP, CO, CI - Last Documented Arterial Blood Pressure 120/51 - Exam In general patient is intubated sedated maintained on mechanical ventilation HEENT head normocephalic and atraumatic Neck is supple no JVD no goiter no lymphadenopathy Chest exam reveals coarse crackles in both lung olson Cardiac exam reveals regular heart sounds no gallops no murmurs Abdomen is soft nontender no organomegaly with normal bowel sounds Extremity exam reveals 2+ edema no cyanosis or clubbing - Labs CBC & Chem 7: 01/17/20 04:45 01/17/20 04:45 Labs: Abnormal Lab Results - Last 24 Hours (Table) 01/16/20 01/17/20 01/17/20 Range/Units 17:32 00:03 04:45 RBC (3.80-5.40) m/uL RDW (11.5-15.5) % Neutrophils # (1.3-7.7) k/uL Lymphocytes # (1.0-4.8) k/uL ABG pH (7.35-7.45) ABG pO2 (83-108) mmHg Potassium 3.4 L (3.5-5.1) mmol/L Chloride 114 H (98-107) mmol/L BUN 35 H (7-17) mg/dL Glucose 107 H (74-99) mg/dL POC Glucose (mg/dL) 72 L 105 H (75-99) mg/dL Calcium 7.5 L (8.4-10.2) mg/dL 01/17/20 01/17/20 Range/Units 04:45 06:12 RBC 3.66 L (3.80-5.40) m/uL RDW 15.9 H (11.5-15.5) % Neutrophils # 8.1 H (1.3-7.7) k/uL Lymphocytes # 0.4 L (1.0-4.8) k/uL ABG pH 7.31 L (7.35-7.45) ABG pO2 71 L (83-108) mmHg Potassium (3.5-5.1) mmol/L Chloride (98-107) mmol/L BUN (7-17) mg/dL Glucose (74-99) mg/dL POC Glucose (mg/dL) (75-99) mg/dL Calcium (8.4-10.2) mg/dL Microbiology - Last 24 Hours (Table) 01/16/20 11:22 Catheter Tip Culture - Preliminary Catheter Tip 01/16/20 11:21 Catheter Tip Culture - Preliminary Catheter Tip 01/12/20 14:40 Blood Culture - Preliminary Blood No Growth after 96 hours 01/11/20 09:20 Blood Culture Gram Stain - Final Blood Blood Culture - Final Staphylococcus epidermidis Assessment and Plan Plan: #1 bilateral pneumonia most likely viral pneumonia due to Covid 19 virus despite negative instant test in the emergency room. #2 acute hypoxic respiratory failure requiring mechanical ventilation #3 sepsis, as evidenced by leukocytosis white blood count 18.8, fever temperature 100.1 lactic acid testing is pending. #4 mild elevation in liver enzymes likely related to acute illness, will monitor #5 underlying history of dermatomyositis #6 elevated d-dimer without evidence of pulmonary embolism on CT angiogram of the chest #7 mild elevation in troponin level, likely related to oxygen demand, supply mismatch, doubt acute myocardial infarction at this time, will monitor closely #8 for DVT prophylaxis Will start patient on subcu Lovenox, for GI prophylaxis will start IV Protonix Prognosis is extremely guarded due to age, severity of illness requiring intubation and mechanical ventilation, and underlying medical problems Will follow closely
[2020-01-17 11:48] LABS: Glucose,Whole Blood 91 mg/dL (75-99)
--- NOTE | 2020-01-17 11:56 | PN ---
PROGRESS NOTE PULMONARY/CRITICAL CARE PROGRESS NOTE: DATE OF SERVICE: 01/17/2020 Critical care time greater than 30 minutes. An 84-year-old female who was admitted way back on January 10 for acute hypoxemic respiratory failure. She was admitted through the emergency department. She was actually intubated for respiratory failure in the ER. She initially tested negative for COVID-19 infection, but because of her presentation, inflammatory markers, chest x- ray and CT scan, we felt like she probably did in fact have the infection and her initial test was a false negative. Anyway, she remains on the mechanical ventilator. Her settings include volume assist-control rate of 20, tidal volume 400, FiO2 of 50%, PEEP of 10. Blood gases show a pO2 of 71, pCO2 of 41 and a pH of 7.31. This blood gas is consistent with a mild metabolic acidosis. She is getting saline at 30 mL an hour, propofol at 50 mcg/kg per minute and Vital AF at 25 with a goal of 25. The respiratory therapist tells me today that she could not pass a suction catheter down the endotracheal tube. The endotracheal tube may be can kinked. It seems to be high up in the trachea. Will have Anesthesia come by and reintubate her maybe using either the Bougie or stylet. Other than that, the patient has been relatively stable through the night. Current vital signs are reviewed. Temperature is 100.4, heart rate 75, respiratory rate 24, blood pressure 110/47 mean 68, saturations are 98%, and her CVP is 15 mmHg. She appears in no acute distress. She is currently sedated. She has an orally placed endotracheal tube and NG tube. Neck is supple. Full range of motion. CARDIOVASCULAR: Examination reveals regular rhythm and rate. Heart rate 75. S1, S2 normal. No murmur. LUNGS: Reveal diffuse bilateral rhonchi. No wheezes or crackles. Breath sounds equal. ABDOMEN: Soft, bowel sounds are heard. EXTREMITIES: Intact. Mild edema. There is some diffuse anasarca throughout. SKIN: Reveals some areas of ecchymoses. NEUROLOGIC: Examination is difficult to assess given her current level of sedation. The patient had a repeat chest x-ray which shows that the endotracheal tube is now about 4 cm above the tracheal gen, in much better position. Her central line looks good. Chest x-ray still shows diffuse bilateral infiltrates. LABS: Reviewed. White count 8.9, hemoglobin 11.5, hematocrit 35.0, platelet count 154,000. Sodium 139, potassium 3.4, chloride 114, CO2 is 23, anion gap is normal at 2. BUN and creatinine were 35 and 0.7, calcium 7.5. Microbiologic studies are essentially negative. The catheter tips currently are negative. She just recently had lines replaced. MEDICATIONS: Reviewed. She is on ascorbic acid, Zithromax, chlorhexidine, Questran, Nimbex x1, eye drops, Lovenox, Lasix, Dilaudid, insulin, Solu-Medrol, Narcan, Protonix, Zosyn, potassium protocol, propofol, zinc, and saline IV. ASSESSMENT: 1. Acute hypoxemic respiratory failure, presumed secondary to COVID-19 pneumonia, although her initial rapid test by nasal swab was negative. 2. Possible nosocomial acquired pneumonia, currently on Zosyn. 3. Acute sepsis with septic shock, improved. 4. History of rheumatoid arthritis, previously maintained as an outpatient on prednisone daily. 5. Elevated D-dimer, which may reflect sepsis and induced coagulopathy in a COVID 19 patient, currently on therapeutic doses of Lovenox. 6. No evidence of pulmonary embolism on CT angiogram. 7. History of benign essential hypertension. 8. History of arthritis. 9. Glaucoma. 10.History of shingles. 11.History of irritable bowel syndrome. 12.History of dermatomyositis. PLAN: The patient has received her 5 days of Zithromax that we discontinued. She will remain on Zosyn. She is being nourished with Vital AF at 25 ml/h. She remains on Diprivan. We had Anesthesia change out the endotracheal tube. A followup chest x-ray shows it to be about 4 cm above the tracheal gen in good position. Chest x-ray still shows significant bilateral infiltrates. She is still quite hypoxemic requiring FiO2 of 50% and PEEP of 10. Will continue to follow. Prognosis is guarded. Critical care time greater than 30 minutes. PANCHO / DOLLYN: [id number] / MTDD
[2020-01-17 12:20] LABS: African American GFR (CKD) >90 (>60 ml/min/1.73 sqM); Anion Gap 4 mmol/L; Blood Urea Nitrogen 36 mg/dL (7-17); Calcium 7.7 mg/dL (8.4-10.2); Carbon Dioxide 21 mmol/L (22-30); Chloride 116 mmol/L (98-107); Glucose 89 mg/dL (74-99); Non-African American GFR(CKD) 82 (>60 ml/min/1.73 sqM); Potassium 4.1 mmol/L (3.5-5.1); Sodium 141 mmol/L (137-145)
--- NOTE | 2020-01-17 14:01 | EEG ---
ELECTROENCEPHALOGRAM REPORT PROCEDURE DATE: 01/17/2020. ELECTROENCEPHALOGRAM (EEG) REPORT: TECHNIQUE: A routine 18 channel EEG was performed with video using the 10/20 electrode placement system. HISTORY: Acute respiratory failure, possible pneumonia. The patient is currently intubated and on sedation. CURRENT MEDICATIONS: Insulin, Protonix, azithromycin, Questran, propofol. Sedation is at 50 mcg/kg per minute. STUDY DURATION: 25 minutes. FINDINGS: BACKGROUND: A sustained posterior dominant rhythm was not seen. ACTIVATION: Hyperventilation: Not performed. Photic stimulation: No driving seen. Sleep: Occasional sleep spindles noted. ABNORMALITIES: 1. This EEG demonstrated a burst/suppression pattern. The bursts consisted of diffuse 4-6 hertz theta range slowing. 2. These were by periods of suppression lasting approximately 3 to 8 seconds. The average was 4 seconds. IMPRESSION: Abnormal EEG. This EEG demonstrated a burst/suppression pattern. The bursts consisted of diffuse theta range slowing with superimposed faster, beta frequencies. These findings indicate severe diffuse cerebral dysfunction as may be seen in anoxic or hypoxic encephalopathy. These findings may also be in part due to medication effect (medication induced burst suppression). No seizures were recorded. No epileptiform activity was present. Clinical correlation is recommended. MMODL / IJN: [id number] /
[2020-01-17 17:12] LABS: Amorphous Sediment,Urine Rare /hpf; Appearance,Urine Turbid (Clear); Bacteria,Urine Many /hpf; Bilirubin,Urine Negative (Negative); Blood,Urine Moderate (Negative); Budding Yeast,Urine Moderate /hpf; Color,Urine Yellow; Glucose,Urine (UA) Negative (Negative); Ketones,Urine Negative (Negative); Leukocyte Esterase,Urine Negative (Negative); Mucus,Urine Few /hpf; Nitrite,Urine Negative (Negative); Protein,Urine 1+ (Negative); RBC,Urine >182 /hpf (0-5); Specific Gravity,Urine 1.041 (1.001-1.035); Uric Acid Crystals,Urine Few /hpf; Urobilinogen,Urine <2.0 mg/dL (<2.0); WBC,Urine 171 /hpf (0-5)
[2020-01-17 18:32] LABS: Glucose,Whole Blood 92 mg/dL (75-99)
[2020-01-17] MEDS: LATANOPROST 0.005% OPHTH DROPS 2.5 ML BTL LEFT EYE SCH (21:58)
[2020-01-17] MEDS: FLUCONAZOLE ORAL SUSP 1,400 MG/35 ML BOTTLE PO SCH (22:30)
--- NOTE | 2020-01-17 22:31 | PN ---
PROGRESS NOTE DATE OF SERVICE: 01/17/2020 REASON FOR FOLLOWUP: Pneumonia. INTERVAL HISTORY: The patient did have a low-grade fever of 100.4 this morning. The patient is afebrile since then. The patient is hemodynamically stable not on any pressor support. FiO2 is currently 50%. She did have diarrhea though output is not any worse per the nurse taking care of the patient and has been tolerating tube feeds. PHYSICAL EXAMINATION: Blood pressure 130/51 with a pulse of 75. Temperature is 99.5. She is 93% on 50% FiO2. General description is an elderly female intubated on the vent. Respiratory system: Unlabored breathing, decreased breath sounds at the bases. No wheeze. HEART: S1, S2. Regular rate and rhythm. Abdomen soft. No distention. LABS: Hemoglobin 11.4, white count 8.9, BUN of 36, creatinine 0.64. Urine has been positive. IMPRESSION/PLAN: 1. Patient with acute respiratory failure which is likely multifactorial. This patient did have a component of pneumonia concern for Covid-19 for which she completed her Plaquenil therapy. Currently on steroids and zinc. 2. Patient with possible aspiration pneumonitis, covered with Zosyn. 3. Diarrhea, possible antibiotic associated. Stool for C difficile was negative. 4. Possible urinary tract infection with urine showing mostly budding yeast. Will recommend change of Carmen catheter and obtained a UA from new culture and add Diflucan and see clinical response. MMODL / IJN: [id number] / MTDD
[2020-01-18 00:01] LABS: Glucose,Whole Blood 101 mg/dL (75-99)
[2020-01-18] MEDS: INSULIN ASPART (NovoLOG) 100 UNIT/ML VIAL SQ SCH ×4 (00:15→18:59)
[2020-01-18] MEDS: PIPERACILLIN-TAZOBACTAM 3.375 GM in SODIUM CHLORIDE 0.9% 100 ML IVPB SCH ×3 (00:15→15:12)
[2020-01-18 04:46] LABS: Basophils % (A) 0 %; Eosinophils # (A) 0.2 k/uL (0-0.7); Eosinophils % (A) 2 %; HCT 34.7 % (34.0-46.0); HGB 11.5 gm/dL (11.4-16.0); Lymphocytes # (A) 0.3 k/uL (1.0-4.8); Lymphocytes % (A) 3 %; MCH 31.3 pg (25.0-35.0); Mean Platelet Volume 11.3; Monocytes # (A) 0.2 k/uL (0-1.0); Monocytes % (A) 3 %; Neutrophils # (A) 7.6 k/uL (1.3-7.7); Neutrophils % (A) 91 %; Platelet Count 159 k/uL (150-450); RBC 3.66 m/uL (3.80-5.40); RDW 15.9 % (11.5-15.5); WBC 8.4 k/uL (3.8-10.6)
[2020-01-18 05:15] LABS: ALT 33 U/L (4-34); AST 28 U/L (14-36); African American GFR (CKD) >90 (>60 ml/min/1.73 sqM); Albumin 1.9 g/dL (3.5-5.0); Alkaline Phosphatase 71 U/L (38-126); Anion Gap -1 mmol/L; Blood Urea Nitrogen 36 mg/dL (7-17); Carbon Dioxide 22 mmol/L (22-30); Chloride 118 mmol/L (98-107); Glucose 104 mg/dL (74-99); Non-African American GFR(CKD) 82 (>60 ml/min/1.73 sqM); Potassium 3.7 mmol/L (3.5-5.1); Sodium 139 mmol/L (137-145); Total Bilirubin 0.3 mg/dL (0.2-1.3); Total Protein 4.2 g/dL (6.3-8.2)
[2020-01-18 05:15] LABS: ABG Base Excess -3.8 mmol/L; ABG HCO3 21 mmol/L (21-25); ABG PCO2 36 mmHg (35-45); ABG PH 7.38 (7.35-7.45); ABG PO2 62 mmHg (83-108); ABG TCO2 23 mmol/L (19-24); Allen Test Performed? Yes
[2020-01-18] MEDS ORDERED: Potassium Replacement Protocol 1 EACH MISC MISCELLANE PRN (05:24)
[2020-01-18] MEDS ORDERED: POTASSIUM BICARBONATE/CIT AC 20 MEQ TABLET.EFF NG-TUBE SCH (06:00)
[2020-01-18 06:08] LABS: Glucose,Whole Blood 92 mg/dL (75-99)
--- NOTE | 2020-01-18 06:30 | XR ---
EXAMINATION TYPE: XR chest 1V portable DATE OF EXAM: 01/18/2020 HISTORY: Resp Failure. REFERENCE: Previous study dated 01/17/2020. FINDINGS: The patient is ET tube, NG tube and left internal jugular catheter remain in place, unchang ed in appearance. There are worsening patchy bilateral infiltrates. The heart is mildly enlarged. I suspect small effus ions. IMPRESSION: WORSENING, PATCHY, BILATERAL INFILTRATES.
[2020-01-18 08:47] LABS: C Reactive Protein 376.6 mg/L (<10.0)
[2020-01-18] MEDS: ASCORBIC ACID 500 MG TAB OG-TUBE SCH ×2 (08:47→21:10)
[2020-01-18] MEDS: CHLORHEXIDINE GLUCONATE 15 ML CUP MUCOUS MEM SCH ×2 (08:47→21:10)
[2020-01-18] MEDS: ENOXAPARIN 80 MG/0.8 ML SYRINGE SQ SCH ×2 (08:47→21:10)
[2020-01-18] MEDS: ZINC SULFATE 220 MG CAP PO SCH (08:48)
[2020-01-18] MEDS: FLUCONAZOLE ORAL SUSP 1,400 MG/35 ML BOTTLE PO SCH (08:48)
[2020-01-18] MEDS: methylPREDNISolone SOD SUCCI 40 MG/ML 1 ML VIAL IV SCH ×2 (08:48→21:10)
[2020-01-18] MEDS: PANTOPRAZOLE 40 MG/10 ML VIAL IVP SCH (08:48)
[2020-01-18] MEDS: CHOLESTYRAMINE (WITH SUGAR) 4 GM PACKET OG-TUBE SCH ×2 (08:48→19:04)
[2020-01-18] MEDS: DORZOLAMIDE HCL 2% DROPS 10 ML BTL LEFT EYE SCH ×2 (10:47→21:14)
--- NOTE | 2020-01-18 11:15 | PN ---
PROGRESS NOTE PULMONARY/CRITICAL CARE PROGRESS NOTE: DATE OF SERVICE: 01/18/2020 Critical care time is greater than 30 minute. This is an 84-year-old female who was admitted back on January 10 for acute hypoxemic respiratory failure. She was admitted through the emergency department and was actually intubated in the emergency department for respiratory failure. Her initial nasal swab for COVID-19 infection was negative, but her presentation, lab work, x-rays, etc. all suggested COVID-19 pneumonia. The patient remains on the mechanical ventilator. She is currently on the volume assist-control mode rate of 20, tidal volume 400, FiO2 of 50%, PEEP of 10. Arterial blood gases show pO2 of 62, pCO2 of 36 and a pH of 7.38. The patient is getting saline at 30 mL an hour, Diprivan at 50 mcg/kg per minute and Vital AF at 25 with a goal of 25 mL an hour. We have been doing daily interruptions of sedation on these patients who are sedated. The chest x-ray today shows worsening patchy bilateral infiltrates. In addition, we went ahead and did an EEG on the which showed a burst suppression pattern which suggested severe diffuse cerebral dysfunction that may be seen in anoxic or hypoxic encephalopathy. There was no seizure activity recorded. PHYSICAL EXAMINATION: Current vital signs include a temperature which is 99.1, heart rate 66, respiratory rate which is 24, blood pressure 113/42, CVP which is 7, and a saturation of 93% on 50% and 10 of PEEP. Appears in no acute distress. Currently sedated. There is an orally placed endotracheal tube and NG tube. HEENT: Examination is grossly unremarkable. NECK: Supple. No adenopathy or thyromegaly. Neck veins are flat. CARDIOVASCULAR examination reveals regular rhythm rate. Heart rate 66 beats per minute. S1, S2 normal. LUNGS: Reveal diffuse coarse rhonchi. Breath sounds equal. No wheezes or crackles. ABDOMEN: Soft. Bowel sounds are heard. EXTREMITIES are intact. There is edema. The patient has some diffuse anasarca. SKIN: Without rash. A few areas of ecchymoses. NEUROLOGIC: Examination cannot be adequately assessed because the patient is currently sedated. It should be pointed out that we did have Anesthesia reintubate the patient yesterday as the endotracheal tube appeared to be kinked, riding high up in the trachea and suction catheter could not be passed. Lines are all up-to-date. LABORATORY DATA: Includes a white count 8.4, hemoglobin 11.5, hematocrit 34.7, platelet count 159,000. D-dimer was 2.41. Sodium 139, potassium 3.7, chloride 118, CO2 of 22. BUN and creatinine were 36 and 0.64. Calcium 8, LDH 1023, C-reactive protein 377. Microbiology is all negative say for a blood culture way back on January 10 showing Staph epidermidis. Catheter tips are negative. Chest x-ray has been reviewed. MEDICATIONS: Reviewed. She remains on ascorbic acid, chlorhexidine, Questran, eyedrops, Lovenox, Diflucan, Dilaudid, insulin, Solu-Medrol, Narcan, Protonix, Zosyn, potassium replacement, propofol and zinc. ASSESSMENT: 1. Acute hypoxemic respiratory failure, presumed secondary to COVID-19 pneumonia although her initial nasal swab was negative. 2. Possible nosocomial pneumonia, currently on Zosyn. 3. Acute sepsis with septic shock, improved. 4. History of rheumatoid arthritis, previously maintained as an outpatient on prednisone daily. 5. Elevated D-dimer and ferritin, which may reflect sepsis induced coagulopathy (SIC), in a COVID-19 patient, currently on therapeutic doses of Lovenox. 6. No evidence of pulmonary embolism on CT angiogram. 7. History of benign essential hypertension. 8. History of glaucoma. 9. History of shingles. 10.History of irritable bowel syndrome. 11.History of dermatomyositis. PLAN: The patient is currently being nourished at goal with Vital AF. She is on propofol at 50 mcg/kg per minute. She will have a daily interruption of sedation. Blood gases have been noted. Medications have been reviewed. She remains on Zosyn and Diflucan. Lines are up-to-date. Brain EEG is concerning given the impression by Neurology suggesting hypoxic or anoxic brain injury. We will continue to follow. MMODL / IJN: [id number] /
[2020-01-18 11:57] LABS: Glucose,Whole Blood 120 mg/dL (75-99)
--- NOTE | 2020-01-18 13:51 | P.PN ---
Subjective Progress Note Date: 01/18/20 Ekta Yañez is an 84-year-old female patient of Dr. Oquendo who presented to [facility] emergency room with a chief complaint of generalized weakness and fall, patient also was complaining of shortness of breath, she was alert and oriented in the emergency room and was able to answer questions appropriately however she was getting more hypoxic, she had fever with a temperature of 100.1 testing in the emergency room included influenza A and B and Covid 19 which were all negative. However her clinical picture, computed tomography scan results, and lab results were all typical of Covid 19 illness. Patient decompensated while in emergency room. Blood gas revealed evidence of PO2 of 55 she was intubated in the emergency room and was admitted to intensive care unit consultation for Dr. Ariza was initiated for critical care and pulmonary management, consultation for Dr. Harman was initiated for infectious disease treatment. Currently patient is in the intensive care unit she is intubated sedated maintained on mechanical ventilation, Dr. Ariza reason assisting the patient and placing central line. Computed tomography scan of the chest with contrast was done in the emergency room and was negative for pulmonary embolism, however it revealed diffuse groundglass opacities throughout both lungs. Computed tomography scan of the head and neck without contrast was done in the emergency room due to fall and did not reveal any significant abnormality. Pelvic x-ray was done due to fall and did not reveal any obvious fracture. From chart review patient has history of dermatomyositis, she was admitted to the hospital in November for IV steroid course. 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 Wilson. On 01/12/2020 patient was seen and examined in the intensive care unit she is intubated sedated maintained on mechanical ventilation, she is oxygenating better today and PEEP was decreased from 10 down to 5 by intensive care. ABG was done and revealed pH of 7.35 pCO2 36 PaO2 135 chest x-ray was reviewed and was stable from yesterday echocardiogram done and revealed normal left ventricular systolic function with ejection fraction of 55-60% On 01/13/2020 Patient was seen and examined in the ICU she is still intubated, sedated, maintained on mechanical ventilation, PEEP was increased to 10 today, PaO2 is 51 pCO2 31 she is still on IV pressure support. With Levophed On 01/14/2020 patient was seen and examined in the ICU she is intubated sedated maintained on mechanical ventilation, ABG today reveals pH of 7.39 PaO2 69 pCO2 37 patient is still maintained on a PEEP of 10 and FiO2 of 50% critical care are following, patient receiving IV Zithromax, IV Solu-Medrol, and hydroxychloroquine through NG tube. On 01/15/2020 Patient was seen and examined in the ICU she is still intubated, sedated, maintained on mechanical ventilation. She failed weaning trial this morning per nurse. She is off vasopressors at this time. On 01/16/2020 patient was seen and examined in the intensive care unit she is intubated sedated maintained on mechanical ventilation, ABG today reveals a pH of 7.35 pCO2 14 PaO2 98 FiO2 is 50% temperature is 97.4 blood pressure 126/64 respiration 20 On 01/17/2020 patient was seen and examined in the intensive care unit she is intubated sedated maintained on mechanical ventilation she is not on any vasopressors at this time. ABG reveals a pH of 7.31 pCO2 41 PaO2 71 on FiO2 of 50% potassium is 3.4 white blood count 8.9 hemoglobin 11.5 On 01/18/2020 patient was seen and examined in the ICU she is intubated sedated maintained on mechanical ventilation she is not on any vasopressors. A trial to decrease sedation this morning failed due to decreased O2 sat duration and tachypnea. ABG this morning reveals a pH of 7.38 pCO2 36 PaO2 62 FiO2 is 50% Objective - Vital Signs Vital signs: Vital Signs Temp 100.4 F H 01/18/20 12:00 Pulse 75 01/18/20 12:00 Resp 25 H 01/18/20 12:00 BP 110/47 01/17/20 07:00 Pulse Ox 91 L 01/18/20 12:00 Intake & Output 01/17/20 01/18/20 01/18/20 18:59 06:59 18:59 Intake Total 1408.446 496 600.554 Output Total 390 300 145 Balance 1018.446 196 455.554 Intake: IV 918 396 316 0.9 NACL 30 Azithromycin 500 mg In 250 Sodium Chloride 0.9% 250 ml @ 250 mls/hr IVPB DAILY SANTY Rx#:[id number] Piperacillin-Tazobactam 3 200 100 .375 gm In Sodium Chloride 0.9% 100 ml @ 25 mls/hr IVPB Q8HR SANTY Rx# :[id number] Sodium Chloride 0.9% 1, 360 330 180 000 ml @ 30 mls/hr IV . Q24H SANTY Rx#:[id number] pressure bags 78 66 36 Intake, IV Titration 100.446 99.554 Amount Propofol 1,000 mg In 100.446 99.554 Empty Bag 1 bag @ Titrate IV .Q0M SANTY Rx#: [id number] Tube Feeding 300 100 125 Other 90 60 Output: Urine 390 300 145 Other: Voiding Method Indwelling Catheter Indwelling Catheter Indwelling Catheter ABP, PAP, CO, CI - Last Documented Arterial Blood Pressure 144/52 - Exam In general patient is intubated sedated maintained on mechanical ventilation HEENT head normocephalic and atraumatic Neck is supple no JVD no goiter no lymphadenopathy Chest exam reveals coarse crackles in both lung olson Cardiac exam reveals regular heart sounds no gallops no murmurs Abdomen is soft nontender no organomegaly with normal bowel sounds Extremity exam reveals 2+ edema no cyanosis or clubbing - Labs CBC & Chem 7: 01/18/20 04:30 01/18/20 04:30 Labs: Abnormal Lab Results - Last 24 Hours (Table) 01/17/20 01/18/20 01/18/20 Range/Units 15:21 00:00 04:30 RBC 3.66 L (3.80-5.40) m/uL RDW 15.9 H (11.5-15.5) % Lymphocytes # 0.3 L (1.0-4.8) k/uL D-Dimer (<0.60) mg/L FEU ABG pO2 (83-108) mmHg ABG O2 Saturation (94-97) % Chloride (98-107) mmol/L BUN (7-17) mg/dL Glucose (74-99) mg/dL POC Glucose (mg/dL) 101 H (75-99) mg/dL Calcium (8.4-10.2) mg/dL Lactate Dehydrogenase (313-618) U/L C-Reactive Protein (<10.0) mg/L Total Protein (6.3-8.2) g/dL Albumin (3.5-5.0) g/dL Urine Appearance Turbid H (Clear) Ur Specific [place] 1.041 H (1.001-1.035) Urine Protein 1+ H (Negative) Urine Blood Moderate H (Negative) Urine RBC >182 H (0-5) /hpf Urine WBC 171 H (0-5) /hpf Urine WBC Clumps Rare H (None) /hpf Uric Acid Crystals Few H (None) /hpf Amorphous Sediment Rare H (None) /hpf Urine Bacteria Many H (None) /hpf Urine Mucus Few H (None) /hpf Urine Yeast (Budding) Moderate H (None) /hpf 01/18/20 01/18/20 01/18/20 Range/Units 04:30 04:30 05:12 RBC (3.80-5.40) m/uL RDW (11.5-15.5) % Lymphocytes # (1.0-4.8) k/uL D-Dimer (<0.60) mg/L FEU ABG pO2 62 L (83-108) mmHg ABG O2 Saturation 93.0 L (94-97) % Chloride 118 H (98-107) mmol/L BUN 36 H (7-17) mg/dL Glucose 104 H (74-99) mg/dL POC Glucose (mg/dL) (75-99) mg/dL Calcium 8.0 L (8.4-10.2) mg/dL Lactate Dehydrogenase 1023 H (313-618) U/L C-Reactive Protein 376.6 H (<10.0) mg/L Total Protein 4.2 L (6.3-8.2) g/dL Albumin 1.9 L (3.5-5.0) g/dL Urine Appearance (Clear) Ur Specific [place] (1.001-1.035) Urine Protein (Negative) Urine Blood (Negative) Urine RBC (0-5) /hpf Urine WBC (0-5) /hpf Urine WBC Clumps (None) /hpf Uric Acid Crystals (None) /hpf Amorphous Sediment (None) /hpf Urine Bacteria (None) /hpf Urine Mucus (None) /hpf Urine Yeast (Budding) (None) /hpf 01/18/20 01/18/20 Range/Units 09:00 11:55 RBC (3.80-5.40) m/uL RDW (11.5-15.5) % Lymphocytes # (1.0-4.8) k/uL D-Dimer 2.41 H (<0.60) mg/L FEU ABG pO2 (83-108) mmHg ABG O2 Saturation (94-97) % Chloride (98-107) mmol/L BUN (7-17) mg/dL Glucose (74-99) mg/dL POC Glucose (mg/dL) 120 H (75-99) mg/dL Calcium (8.4-10.2) mg/dL Lactate Dehydrogenase (313-618) U/L C-Reactive Protein (<10.0) mg/L Total Protein (6.3-8.2) g/dL Albumin (3.5-5.0) g/dL Urine Appearance (Clear) Ur Specific [place] (1.001-1.035) Urine Protein (Negative) Urine Blood (Negative) Urine RBC (0-5) /hpf Urine WBC (0-5) /hpf Urine WBC Clumps (None) /hpf Uric Acid Crystals (None) /hpf Amorphous Sediment (None) /hpf Urine Bacteria (None) /hpf Urine Mucus (None) /hpf Urine Yeast (Budding) (None) /hpf Microbiology - Last 24 Hours (Table) 01/16/20 11:22 Catheter Tip Culture - Final Catheter Tip 01/16/20 11:21 Catheter Tip Culture - Final Catheter Tip 01/12/20 14:40 Blood Culture - Preliminary Blood No Growth after 120 hours 01/17/20 15:21 Urine Culture - Preliminary Urine,Voided Assessment and Plan Plan: #1 bilateral pneumonia most likely viral pneumonia due to Covid 19 virus despite negative instant test in the emergency room. #2 acute hypoxic respiratory failure requiring mechanical ventilation #3 sepsis, as evidenced by leukocytosis white blood count 18.8, fever temperature 100.1 lactic acid testing is pending. #4 mild elevation in liver enzymes likely related to acute illness, will monitor #5 underlying history of dermatomyositis #6 elevated d-dimer without evidence of pulmonary embolism on CT angiogram of the chest #7 mild elevation in troponin level, likely related to oxygen demand, supply mismatch, doubt acute myocardial infarction at this time, will monitor closely #8 for DVT prophylaxis Will start patient on subcu Lovenox, for GI prophylaxis will start IV Protonix Prognosis is extremely guarded due to age, severity of illness requiring in tubation and mechanical ventilation, and underlying medical problems Will follow closely
--- NOTE | 2020-01-18 14:59 | P.CNNES ---
History of Present Illness Consult date: 01/18/20 Reason for Consult: abnormal EEG Chief complaint: generalized weakness, fall and shortness of breath History of Present Illness: The patient is an 84-year-old female who is seen in neurologic consultation on January 18, 2020 via teleneurology. History is obtained entirely from the chart. The patient presented to the emergency department on January 11, 2020 with complaints of generalized weakness, fall and shortness of breath. She apparently decompensated quickly in the emergency department. She was found to be severely hypoxic. She was intubated in the emergency department. A CT scan of that chest revealed ground glass opacities in the lungs, consistent with findings of COVID 19. The patient was febrile. Testing for influenza A, B and Sales virus were all negative. Since that time, the patient has been intubated and sedated. There've been attempts to wean sedation and the patient becomes markedly agitated with increasing respiratory rate and blood pressure. EEG was performed on January 17, 2020. It reportedly shows a burst suppression pattern. There is no reported seizure activity. This pattern, on EEG is often seen with hypoxic/anoxic cerebral injury. When sedation is held, per RN, there is no purposeful movement. There is a slight grimace to sternal rub. Gag reflex and blink reflex are markedly diminished. The patient does not open her eyes or follow commands. 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 Wilson; bilateral cataracts removed, L leg muscle biopsy Past Anesthesia/Blood Transfusion Reactions: No Reported Reaction Past Psychological History: No Psychological Hx Reported Smoking Status: Never smoker Past Alcohol Use History: None Reported Past Drug Use History: None Reported - Past Family History Father Additional Family Medical History / Comment(s): kidney disorder per patient Mother Additional Family Medical History / Comment(s): fell had surgery and from a hospital aquired infection per patient Medications and Allergies Home Medications Medication Instructions Recorded Confirmed Type Acetaminophen Tab [Tylenol] 1,000 mg PO Q6H PRN 02/25/16 01/11/20 History Latanoprost 1 drop LEFT EYE HS 02/25/16 01/11/20 History Dorzolamide HCl [Trusopt 2%] 1 drop LEFT EYE BID 06/11/18 01/11/20 History Loperamide HCl [Imodium A-D] 4 mg PO DAILY PRN 11/16/19 01/11/20 History predniSONE [Deltasone] 20 mg PO BID 01/11/20 01/11/20 History Allergies Allergy/AdvReac Type Severity Reaction Status Date / Time No Known Allergies Allergy Verified 01/11/20 09:05 Physical Examination - Vital Signs Vital Signs: Vital Signs Temp Pulse Resp Pulse Ox 01/18/20 14:00 71 22 94 L 01/18/20 13:00 70 25 H 93 L 01/18/20 12:00 100.4 F H 75 25 H 91 L 01/18/20 11:00 75 28 H 88 L 01/18/20 10:00 71 34 H 98 01/18/20 09:00 73 23 94 L 01/18/20 08:00 66 30 H 93 L 01/18/20 07:00 71 24 95 01/18/20 06:00 78 22 96 01/18/20 05:00 75 23 98 01/18/20 04:00 99.1 F 76 22 97 01/18/20 03:00 71 24 97 01/18/20 02:00 75 25 H 97 01/18/20 01:00 71 25 H 96 01/18/20 00:00 99.0 F 66 22 97 01/17/20 23:00 81 22 97 01/17/20 22:00 79 24 95 01/17/20 21:00 79 26 H 94 L 01/17/20 20:00 99.5 F 75 24 93 L 01/17/20 19:00 73 23 95 01/17/20 18:00 74 28 H 96 01/17/20 17:00 76 21 97 01/17/20 16:00 99.1 F 75 21 97 01/17/20 15:00 72 23 96 Intake and Output 01/17/20 01/18/20 01/18/20 22:59 06:59 14:59 Intake Total 593 338 722.554 Output Total 195 220 200 Balance 398 118 522.554 Intake: IV 388 288 388 Piperacillin-Tazobactam 3 100 100 .375 gm In Sodium Chloride 0.9% 100 ml @ 25 mls/hr IVPB Q8HR SANT[facility] Rx# :[id number] Sodium Chloride 0.9% 1, 240 240 240 000 ml @ 30 mls/hr IV . Q24H SANT[facility] Rx#:[id number] pressure bags 48 48 48 Intake, IV Titration 99.554 Amount Propofol 1,000 mg In 99.554 Empty Bag 1 bag @ Titrate IV .Q0M SANTY Rx#: [id number] Tube Feeding 175 50 175 Other 30 60 Output: Urine 195 220 200 Other: Voiding Method Indwelling Catheter Indwelling Catheter Indwelling Catheter ABP, PAP, CO, CI - Last 8 Hours Arterial Blood Pressure 118/45 Arterial Blood Pressure 117/46 Arterial Blood Pressure 144/52 Arterial Blood Pressure 163/57 Arterial Blood Pressure 143/52 Arterial Blood Pressure 151/58 Arterial Blood Pressure 113/42 Arterial Blood Pressure 129/53 Gen.: The patient is reclining in the bed. She is intubated, on mechanical ventilation. She is breathing over the vent. HEENT: Head is atraumatic, normocephalic. Fundus not visualized. There is no scleral icterus. Mucous membranes are moist. Heart: Regular rate and rhythm Extremities: Marked edema of the lower extremities Neurological examination Mental status: The patient is not responsive to verbal or noxious stimulation. There is no eye opening. There is no withdrawal from noxious stimulation. There is no grimace to noxious stimulation. Cranial nerves: Pupils are equal at 2 mm and briskly reactive to light. Corneal reflexes are intact. There is no obvious facial asymmetry. Motor: Extremities are flaccid. There is no movement. Sensation: There is no withdrawal or grimace in response to noxious stimulation of the extremities, or to sternal rub. Deep tendon reflexes: Absent throughout. Plantar responses are mute. Results - Laboratory Findings CBC and BMP: 01/18/20 04:30 01/18/20 04:30 Abnormal Lab Findings: Abnormal Labs 01/11/20 01/11/20 01/11/20 07:35 07:35 07:35 WBC 18.8 H RBC Hct 46.6 H RDW 15.7 H Plt Count Neutrophils # 17.1 H Lymphocytes # 0.9 L APTT 19.0 L D-Dimer 6.89 H ABG pH ABG pCO2 ABG pO2 ABG HCO3 ABG Total CO2 ABG O2 Saturation Potassium Chloride Carbon Dioxide BUN 37 H Glucose 113 H POC Glucose (mg/dL) Plasma Lactic Acid Pepe Calcium Ferritin 455.6 H AST 65 H ALT 84 H Lactate Dehydrogenase 1663 H Creatine Kinase Troponin I C-Reactive Protein 202.0 H Total Protein 5.9 L Albumin 3.2 L Procalcitonin Urine Appearance Ur Specific [place] Urine Protein Urine Ketones Urine Blood Ur Leukocyte Esterase Urine RBC Urine WBC Urine WBC Clumps Uric Acid Crystals Amorphous Sediment Urine Bacteria Urine Mucus Urine Yeast (Budding) 01/11/20 01/11/20 01/11/20 07:35 07:35 08:27 WBC RBC Hct RDW Plt Count Neutrophils # Lymphocytes # APTT D-Dimer ABG pH ABG pCO2 ABG pO2 55 L* ABG HCO3 ABG Total CO2 25 H ABG O2 Saturation 90.1 L Potassium Chloride Carbon Dioxide BUN Glucose POC Glucose (mg/dL) Plasma Lactic Acid Pepe 5.5 H* Calcium Ferritin AST ALT Lactate Dehydrogenase Creatine Kinase Troponin I 0.310 H* C-Reactive Protein Total Protein Albumin Procalcitonin Urine Appearance Ur Specific [place] Urine Protein Urine Ketones Urine Blood Ur Leukocyte Esterase Urine RBC Urine WBC Urine WBC Clumps Uric Acid Crystals Amorphous Sediment Urine Bacteria Urine Mucus Urine Yeast (Budding) 01/11/20 01/11/20 01/11/20 08:35 11:33 13:00 WBC RBC Hct RDW Plt Count Neutrophils # Lymphocytes # APTT D-Dimer ABG pH ABG pCO2 ABG pO2 113 H ABG HCO3 ABG Total CO2 26 H ABG O2 Saturation 98.7 H Potassium Chloride Carbon Dioxide BUN Glucose POC Glucose (mg/dL) Plasma Lactic Acid Pepe Calcium Ferritin AST ALT Lactate Dehydrogenase Creatine Kinase Troponin I 0.689 H* C-Reactive Protein Total Protein Albumin Procalcitonin 0.20 H Urine Appearance Ur Specific [place] Urine Protein Urine Ketones Urine Blood Ur Leukocyte Esterase Urine RBC Urine WBC Urine WBC Clumps Uric Acid Crystals Amorphous Sediment Urine Bacteria Urine Mucus Urine Yeast (Budding) 01/11/20 01/12/20 01/12/20 14:08 05:15 06:05 WBC 13.7 H RBC Hct RDW 15.7 H Plt Count Neutrophils # 13.0 H Lymphocytes # 0.3 L APTT D-Dimer ABG pH ABG pCO2 ABG pO2 259 H 135 H ABG HCO3 20 L ABG Total CO2 26 H ABG O2 Saturation 100.0 H 99.1 H Potassium Chloride Carbon Dioxide BUN Glucose POC Glucose (mg/dL) Plasma Lactic Acid Pepe Calcium Ferritin AST ALT Lactate Dehydrogenase Creatine Kinase Troponin I C-Reactive Protein Total Protein Albumin Procalcitonin Urine Appearance Ur Specific [place] Urine Protein Urine Ketones Urine Blood Ur Leukocyte Esterase Urine RBC Urine WBC Urine WBC Clumps Uric Acid Crystals Amorphous Sediment Urine Bacteria Urine Mucus Urine Yeast (Budding) 01/12/20 01/12/20 01/12/20 06:05 06:05 06:05 WBC RBC Hct RDW Plt Count Neutrophils # Lymphocytes # APTT D-Dimer 5.72 H ABG pH ABG pCO2 ABG pO2 ABG HCO3 ABG Total CO2 ABG O2 Saturation Potassium Chloride 113 H Carbon Dioxide 19 L BUN 34 H Glucose 126 H POC Glucose (mg/dL) Plasma Lactic Acid [place] Calcium 7.4 L Ferritin 537.6 H AST 42 H ALT 77 H Lactate Dehydrogenase 1300 H Creatine Kinase Troponin I 0.341 H* C-Reactive Protein 411.4 H Total Protein 4.6 L Albumin 2.2 L Procalcitonin Urine Appearance Ur Specific [place] Urine Protein Urine Ketones Urine Blood Ur Leukocyte Esterase Urine RBC Urine WBC Urine WBC Clumps Uric Acid Crystals Amorphous Sediment Urine Bacteria Urine Mucus Urine Yeast (Budding) 01/12/20 01/12/20 01/12/20 12:09 13:40 18:08 WBC RBC Hct RDW Plt Count Neutrophils # Lymphocytes # APTT D-Dimer ABG pH ABG pCO2 ABG pO2 ABG HCO3 ABG Total CO2 ABG O2 Saturation Potassium Chloride Carbon Dioxide BUN Glucose POC Glucose (mg/dL) 110 H 104 H Plasma Lactic Acid [place]pe Calcium Ferritin AST ALT Lactate Dehydrogenase Creatine Kinase Troponin I C-Reactive Protein Total Protein Albumin Procalcitonin Urine Appearance Turbid H Ur Specific [place] 1.044 H Urine Protein 1+ H Urine Ketones 1+ H Urine Blood Ur Leukocyte Esterase Small H Urine RBC Urine WBC 38 H Urine WBC Clumps Uric Acid Crystals Amorphous Sediment Many H Urine Bacteria Occasional H Urine Mucus Urine Yeast (Budding) 01/13/20 01/13/20 01/13/20 04:15 04:15 04:15 WBC RBC Hct RDW Plt Count 138 L Neutrophils # 9.5 H Lymphocytes # 0.3 L APTT D-Dimer 1.32 H ABG pH ABG pCO2 ABG pO2 ABG HCO3 ABG Total CO2 ABG O2 Saturation Potassium 3.1 L Chloride 112 H Carbon Dioxide 18 L BUN 35 H Glucose 140 H POC Glucose (mg/dL) Plasma Lactic Acid [place] Calcium 7.8 L Ferritin 643.2 H AST 51 H ALT 90 H Lactate Dehydrogenase 1325 H Creatine Kinase 21 L Troponin I C-Reactive Protein 397.4 H Total Protein 4.5 L Albumin 2.2 L Procalcitonin Urine Appearance Ur Specific [place] Urine Protein Urine Ketones Urine Blood Ur Leukocyte Esterase Urine RBC Urine WBC Urine WBC Clumps Uric Acid Crystals Amorphous Sediment Urine Bacteria Urine Mucus Urine Yeast (Budding) 01/13/20 01/13/20 01/13/20 04:15 05:20 08:26 WBC RBC Hct RDW Plt Count Neutrophils # Lymphocytes # APTT D-Dimer ABG pH ABG pCO2 31 L ABG pO2 51 L* 135 H ABG HCO3 ABG Total CO2 ABG O2 Saturation 89.2 L 99.4 H Potassium Chloride Carbon Dioxide BUN Glucose POC Glucose (mg/dL) Plasma Lactic Acid Pepe Calcium Ferritin AST ALT Lactate Dehydrogenase Creatine Kinase Troponin I 0.231 H* C-Reactive Protein Total Protein Albumin Procalcitonin Urine Appearance Ur Specific [place] Urine Protein Urine Ketones Urine Blood Ur Leukocyte Esterase Urine RBC Urine WBC Urine WBC Clumps Uric Acid Crystals Amorphous Sediment Urine Bacteria Urine Mucus Urine Yeast (Budding) 01/13/20 01/13/20 01/13/20 11:32 17:17 23:54 WBC RBC Hct RDW Plt Count Neutrophils # Lymphocytes # APTT D-Dimer ABG pH ABG pCO2 ABG pO2 ABG HCO3 ABG Total CO2 ABG O2 Saturation Potassium Chloride Carbon Dioxide BUN Glucose POC Glucose (mg/dL) 169 H 186 H 162 H Plasma Lactic Acid [place] Calcium Ferritin AST ALT Lactate Dehydrogenase Creatine Kinase Troponin I C-Reactive Protein Total Protein Albumin Procalcitonin Urine Appearance Ur Specific [place] Urine Protein Urine Ketones Urine Blood Ur Leukocyte Esterase Urine RBC Urine WBC Urine WBC Clumps Uric Acid Crystals Amorphous Sediment Urine Bacteria Urine Mucus Urine Yeast (Budding) 01/14/20 01/14/20 01/14/20 04:30 04:30 04:30 WBC RBC Hct RDW Plt Count Neutrophils # Lymphocytes # APTT D-Dimer 1.17 H ABG pH ABG pCO2 ABG pO2 ABG HCO3 ABG Total CO2 ABG O2 Saturation Potassium Chloride Carbon Dioxide BUN Glucose POC Glucose (mg/dL) Plasma Lactic Acid [place] Calcium Ferritin 573.3 H AST 43 H ALT 71 H Lactate Dehydrogenase 1213 H Creatine Kinase Troponin I 0.136 H* C-Reactive Protein 228.4 H Total Protein Albumin Procalcitonin Urine Appearance Ur Specific [place] Urine Protein Urine Ketones Urine Blood Ur Leukocyte Esterase Urine RBC Urine WBC Urine WBC Clumps Uric Acid Crystals Amorphous Sediment Urine Bacteria Urine Mucus Urine Yeast (Budding) 01/14/20 01/14/20 01/14/20 04:30 04:30 05:09 WBC RBC 3.65 L Hct RDW 15.7 H Plt Count 122 L Neutrophils # Lymphocytes # 0.2 L APTT D-Dimer ABG pH ABG pCO2 ABG pO2 69 L ABG HCO3 ABG Total CO2 ABG O2 Saturation Potassium Chloride 112 H Carbon Dioxide BUN 39 H Glucose 148 H POC Glucose (mg/dL) Plasma Lactic Acid Pepe Calcium 7.9 L Ferritin AST 42 H ALT 71 H Lactate Dehydrogenase Creatine Kinase Troponin I C-Reactive Protein Total Protein 4.4 L Albumin 2.1 L Procalcitonin Urine Appearance Ur Specific [place] Urine Protein Urine Ketones Urine Blood Ur Leukocyte Esterase Urine RBC Urine WBC Urine WBC Clumps Uric Acid Crystals Amorphous Sediment Urine Bacteria Urine Mucus Urine Yeast (Budding) 01/14/20 01/14/20 01/14/20 05:56 11:55 18:21 WBC RBC Hct RDW Plt Count Neutrophils # Lymphocytes # APTT D-Dimer ABG pH ABG pCO2 ABG pO2 ABG HCO3 ABG Total CO2 ABG O2 Saturation Potassium Chloride Carbon Dioxide BUN Glucose POC Glucose (mg/dL) 169 H 144 H 135 H Plasma Lactic Acid [place] Calcium Ferritin AST ALT Lactate Dehydrogenase Creatine Kinase Troponin I C-Reactive Protein Total Protein Albumin Procalcitonin Urine Appearance Ur Specific [place] Urine Protein Urine Ketones Urine Blood Ur Leukocyte Esterase Urine RBC Urine WBC Urine WBC Clumps Uric Acid Crystals Amorphous Sediment Urine Bacteria Urine Mucus Urine Yeast (Budding) 01/15/20 01/15/20 01/15/20 00:27 04:45 04:45 WBC RBC 3.79 L Hct RDW 16.0 H Plt Count 135 L Neutrophils # Lymphocytes # 0.2 L APTT D-Dimer ABG pH ABG pCO2 ABG pO2 ABG HCO3 ABG Total CO2 ABG O2 Saturation Potassium 3.4 L Chloride 111 H Carbon Dioxide BUN 38 H Glucose 134 H POC Glucose (mg/dL) 112 H Plasma Lactic Acid [place] Calcium 7.9 L Ferritin AST 38 H ALT 76 H Lactate Dehydrogenase Creatine Kinase Troponin I C-Reactive Protein Total Protein 4.6 L Albumin 2.2 L Procalcitonin Urine Appearance Ur Specific [place] Urine Protein Urine Ketones Urine Blood Ur Leukocyte Esterase Urine RBC Urine WBC Urine WBC Clumps Uric Acid Crystals Amorphous Sediment Urine Bacteria Urine Mucus Urine Yeast (Budding) 01/15/20 01/15/20 01/15/20 05:40 05:56 12:51 WBC RBC Hct RDW Plt Count Neutrophils # Lymphocytes # APTT D-Dimer ABG pH ABG pCO2 ABG pO2 75 L ABG HCO3 ABG Total CO2 25 H ABG O2 Saturation Potassium Chloride Carbon Dioxide BUN Glucose POC Glucose (mg/dL) 138 H 104 H Plasma Lactic Acid [place] Calcium Ferritin AST ALT Lactate Dehydrogenase Creatine Kinase Troponin I C-Reactive Protein Total Protein Albumin Procalcitonin Urine Appearance Ur Specific [place] Urine Protein Urine Ketones Urine Blood Ur Leukocyte Esterase Urine RBC Urine WBC Urine WBC Clumps Uric Acid Crystals Amorphous Sediment Urine Bacteria Urine Mucus Urine Yeast (Budding) 01/15/20 01/16/20 01/16/20 18:19 04:30 04:30 WBC RBC 3.73 L Hct RDW 15.9 H Plt Count 136 L Neutrophils # Lymphocytes # 0.2 L APTT D-Dimer ABG pH ABG pCO2 ABG pO2 ABG HCO3 ABG Total CO2 ABG O2 Saturation Potassium Chloride 115 H Carbon Dioxide BUN 36 H Glucose 123 H POC Glucose (mg/dL) 114 H Plasma Lactic Acid [place] Calcium 7.9 L Ferritin AST ALT 63 H Lactate Dehydrogenase Creatine Kinase Troponin I C-Reactive Protein Total Protein 4.5 L Albumin 2.2 L Procalcitonin Urine Appearance Ur Specific [place] Urine Protein Urine Ketones Urine Blood Ur Leukocyte Esterase Urine RBC Urine WBC Urine WBC Clumps Uric Acid Crystals Amorphous Sediment Urine Bacteria Urine Mucus Urine Yeast (Budding) 01/16/20 01/16/20 01/16/20 05:41 05:53 17:32 WBC RBC Hct RDW Plt Count Neutrophils # Lymphocytes # APTT D-Dimer ABG pH ABG pCO2 ABG pO2 ABG HCO3 ABG Total CO2 ABG O2 Saturation 98.0 H Potassium Chloride Carbon Dioxide BUN Glucose POC Glucose (mg/dL) 106 H 72 L Plasma Lactic Acid [place] Calcium Ferritin AST ALT Lactate Dehydrogenase Creatine Kinase Troponin I C-Reactive Protein Total Protein Albumin Procalcitonin Urine Appearance Ur Specific [place] Urine Protein Urine Ketones Urine Blood Ur Leukocyte Esterase Urine RBC Urine WBC Urine WBC Clumps Uric Acid Crystals Amorphous Sediment Urine Bacteria Urine Mucus Urine Yeast (Budding) 01/17/20 01/17/20 01/17/20 00:03 04:45 04:45 WBC RBC 3.66 L Hct RDW 15.9 H Plt Count Neutrophils # 8.1 H Lymphocytes # 0.4 L APTT D-Dimer ABG pH ABG pCO2 ABG pO2 ABG HCO3 ABG Total CO2 ABG O2 Saturation Potassium 3.4 L Chloride 114 H Carbon Dioxide BUN 35 H Glucose 107 H POC Glucose (mg/dL) 105 H Plasma Lactic Acid [place] Calcium 7.5 L Ferritin AST ALT Lactate Dehydrogenase Creatine Kinase Troponin I C-Reactive Protein Total Protein Albumin Procalcitonin Urine Appearance Ur Specific [place] Urine Protein Urine Ketones Urine Blood Ur Leukocyte Esterase Urine RBC Urine WBC Urine WBC Clumps Uric Acid Crystals Amorphous Sediment Urine Bacteria Urine Mucus Urine Yeast (Budding) 01/17/20 01/17/20 01/17/20 06:12 11:48 15:21 WBC RBC Hct RDW Plt Count Neutrophils # Lymphocytes # APTT D-Dimer ABG pH 7.31 L ABG pCO2 ABG pO2 71 L ABG HCO3 ABG Total CO2 ABG O2 Saturation Potassium Chloride 116 H Carbon Dioxide 21 L BUN 36 H Glucose POC Glucose (mg/dL) Plasma Lactic Acid [place] Calcium 7.7 L Ferritin AST ALT Lactate Dehydrogenase Creatine Kinase Troponin I C-Reactive Protein Total Protein Albumin Procalcitonin Urine Appearance Turbid H Ur Specific [place] 1.041 H Urine Protein 1+ H Urine Ketones Urine Blood Moderate H Ur Leukocyte Esterase Urine RBC >182 H Urine WBC 171 H Urine WBC Clumps Rare H Uric Acid Crystals Few H Amorphous Sediment Rare H Urine Bacteria Many H Urine Mucus Few H Urine Yeast (Budding) Moderate H 01/18/20 01/18/20 01/18/20 00:00 04:30 04:30 WBC RBC 3.66 L Hct RDW 15.9 H Plt Count Neutrophils # Lymphocytes # 0.3 L APTT D-Dimer ABG pH ABG pCO2 ABG pO2 ABG HCO3 ABG Total CO2 ABG O2 Saturation Potassium Chloride 118 H Carbon Dioxide BUN 36 H Glucose 104 H POC Glucose (mg/dL) 101 H Plasma Lactic Acid [place] Calcium 8.0 L Ferritin AST ALT Lactate Dehydrogenase Creatine Kinase Troponin I C-Reactive Protein Total Protein 4.2 L Albumin 1.9 L Procalcitonin Urine Appearance Ur Specific [place] Urine Protein Urine Ketones Urine Blood Ur Leukocyte Esterase Urine RBC Urine WBC Urine WBC Clumps Uric Acid Crystals Amorphous Sediment Urine Bacteria Urine Mucus Urine Yeast (Budding) 01/18/20 01/18/20 01/18/20 04:30 05:12 09:00 WBC RBC Hct RDW Plt Count Neutrophils # Lymphocytes # APTT D-Dimer 2.41 H ABG pH ABG pCO2 ABG pO2 62 L ABG HCO3 ABG Total CO2 ABG O2 Saturation 93.0 L Potassium Chloride Carbon Dioxide BUN Glucose POC Glucose (mg/dL) Plasma Lactic Acid [place] Calcium Ferritin AST ALT Lactate Dehydrogenase 1023 H Creatine Kinase Troponin I C-Reactive Protein 376.6 H Total Protein Albumin Procalcitonin Urine Appearance Ur Specific [place] Urine Protein Urine Ketones Urine Blood Ur Leukocyte Esterase Urine RBC Urine WBC Urine WBC Clumps Uric Acid Crystals Amorphous Sediment Urine Bacteria Urine Mucus Urine Yeast (Budding) 01/18/20 11:55 WBC RBC Hct RDW Plt Count Neutrophils # Lymphocytes # APTT D-Dimer ABG pH ABG pCO2 ABG pO2 ABG HCO3 ABG Total CO2 ABG O2 Saturation Potassium Chloride Carbon Dioxide BUN Glucose POC Glucose (mg/dL) 120 H Plasma Lactic Acid [place] Calcium Ferritin AST ALT Lactate Dehydrogenase Creatine Kinase Troponin I C-Reactive Protein Total Protein Albumin Procalcitonin Urine Appearance Ur Specific [place] Urine Protein Urine Ketones Urine Blood Ur Leukocyte Esterase Urine RBC Urine WBC Urine WBC Clumps Uric Acid Crystals Amorphous Sediment Urine Bacteria Urine Mucus Urine Yeast (Budding) Assessment and Plan Assessment: Impressions: 1. The patient is a very unfortunate woman who is currently sedated and intubated, making an accurate neurological assessment difficult. EEG is consi stent with cerebral hypoxia/anoxia versus medication effect. Due to the patient's severe respiratory compromise, likely the EEG findings are consistent with cerebral anoxia, however to make an accurate assessment, the patient must be off sedation Plan: Recommendations: 1. Wean sedation as tolerated by patient Time with Patient: Greater than 30 (spent 45 minutes with patient via teleneurology)
[2020-01-18 17:25] LABS: Appearance,Urine Cloudy (Clear); Bilirubin,Urine Negative (Negative); Blood,Urine Moderate (Negative); Budding Yeast,Urine Rare /hpf; Calcium Oxalate Crystals,Urine Rare /hpf; Color,Urine Yellow; Glucose,Urine (UA) Negative (Negative); Hyaline Casts,Urine 1 /lpf (0-2); Ketones,Urine Negative (Negative); Leukocyte Esterase,Urine Trace (Negative); Mucus,Urine Rare /hpf; Nitrite,Urine Negative (Negative); Protein,Urine 1+ (Negative); RBC,Urine 145 /hpf (0-5); Specific Gravity,Urine 1.038 (1.001-1.035); Squamous Epithelial Cell,Urine <1 /hpf (0-4); Urobilinogen,Urine <2.0 mg/dL (<2.0); WBC,Urine 4 /hpf (0-5)
[2020-01-18] MEDS: LATANOPROST 0.005% OPHTH DROPS 2.5 ML BTL LEFT EYE SCH (21:14)
[2020-01-19 00:11] LABS: Glucose,Whole Blood 139 mg/dL (75-99)
[2020-01-19] MEDS: PIPERACILLIN-TAZOBACTAM 3.375 GM in SODIUM CHLORIDE 0.9% 100 ML IVPB SCH ×3 (01:03→15:06)
[2020-01-19] MEDS: INSULIN ASPART (NovoLOG) 100 UNIT/ML VIAL SQ SCH ×4 (01:04→19:17)
--- NOTE | 2020-01-19 01:11 | PN ---
PROGRESS NOTE DATE OF SERVICE: 01/18/2020 REASON FOR FOLLOWUP: 1. Pneumonia. 2. Diarrhea. INTERVAL HISTORY: The patient is currently afebrile. The patient is hemodynamically stable not on any pressor support. FiO2 is currently stable. She still has some diarrhea but no worsening output has been reported by nursing staff. PHYSICAL EXAMINATION: Blood pressure is 153/53 with a pulse of 71, temperature 98. She is 96% on 50% FiO2. General description is an elderly female intubated on the vent. RESPIRATORY SYSTEM: Unlabored breathing, decreased breath sounds at the bases, no wheeze. HEART: S1, S2. Regular rate and rhythm. ABDOMEN: Soft, no distention. LABS: Hemoglobin is 11.5, white count 8.4, BUN of 36, creatinine 0.64. UA after change of Carmen catheter did not show significant pyuria. DIAGNOSTIC IMPRESSION AND PLAN: 1. Patient with acute respiratory failure which is likely multifactorial with concern for possible COVID-19 pneumonia for which the patient completed Plaquenil therapy, also with concern for aspiration covered with Zosyn to continue. 2. Positive urine culture with yeast possible colonization , UA has improved after change of Carmen catheter. We will monitor her clinical course closely. MMODL / IJN: [id number] / [id number]
[2020-01-19 05:09] LABS: Basophils % (A) 0 %; Eosinophils % (A) 0 %; HCT 33.1 % (34.0-46.0); HGB 10.8 gm/dL (11.4-16.0); Lymphocytes # (A) 0.3 k/uL (1.0-4.8); Lymphocytes % (A) 4 %; MCH 31.4 pg (25.0-35.0); MCHC 32.6 g/dL (31.0-37.0); MCV 96.3 fL (80.0-100.0); Mean Platelet Volume 10.7; Monocytes # (A) 0.1 k/uL (0-1.0); Monocytes % (A) 2 %; Neutrophils # (A) 7.2 k/uL (1.3-7.7); Neutrophils % (A) 93 %; Platelet Count 181 k/uL (150-450); Poikilocytosis Slight; RBC 3.44 m/uL (3.80-5.40); RDW 15.8 % (11.5-15.5); WBC 7.7 k/uL (3.8-10.6)
[2020-01-19 05:21] LABS: ALT 34 U/L (4-34); AST 27 U/L (14-36); African American GFR (CKD) >90 (>60 ml/min/1.73 sqM); Alkaline Phosphatase 75 U/L (38-126); Anion Gap 3 mmol/L; Blood Urea Nitrogen 37 mg/dL (7-17); Calcium 8.4 mg/dL (8.4-10.2); Carbon Dioxide 23 mmol/L (22-30); Chloride 113 mmol/L (98-107); Glucose 146 mg/dL (74-99); LDH 1014 U/L (313-618); Non-African American GFR(CKD) 83 (>60 ml/min/1.73 sqM); Potassium 4.3 mmol/L (3.5-5.1); Sodium 139 mmol/L (137-145); Total Bilirubin 0.2 mg/dL (0.2-1.3); Total Protein 4.4 g/dL (6.3-8.2)
[2020-01-19 05:38] LABS: ABG Base Excess -4.2 mmol/L; ABG HCO3 21 mmol/L (21-25); ABG Oxygen Saturation 90.5 % (94-97); ABG PCO2 38 mmHg (35-45); ABG PH 7.36 (7.35-7.45); ABG TCO2 22 mmol/L (19-24)
[2020-01-19 05:47] LABS: ABG PO2 57 mmHg (83-108)
[2020-01-19 06:03] LABS: Glucose,Whole Blood 155 mg/dL (75-99)
[2020-01-19 06:22] LABS: C Reactive Protein 324.6 mg/L (<10.0)
--- NOTE | 2020-01-19 07:03 | CDI ---
Documentation Clarification Form Date: 01/19/2020 06:54 AM From: Sahara Mcintosh RN CCDS Admit Date: 01/11/2020 09:50:00 AM Patient Name: Ekta Yañez Visit Number: [id number] Discharge Date: ATTENTION: The Clinical Documentation Specialists (CDI) and [facility] Coding Staff appreciate your assistance in clarifying documentation. Please respond to the clarification below the line at the bottom and electronically sign. The CDI & [facility] Coding staff will review the response and follow-up if needed. Please note: Queries are made part of the Legal Health Record. If you have any questions, please contact the author of this message via ITS. Dr. Charli Warren Mild elevation in troponin level, likely related to oxygen demand, supply mismatch, doubt acute myocardial infarction at this time Is documented in the H&P 01/10, and subsequent Internal Medicine progress notes 01/11, 01/12, 01/13 and 01/14 Patient History/Risk Factors: 84-year-old female presented to the ED for generalized weakness with shortness of breath. Medical History HTN, OA and Dermatomyositis Clinical Indicators: Vss on admission - 01/10 130/94; 111; 100.1 F; 22; SpO2 97% Non-Rebreather Troponin: 01/10 - 0.310; 0.689; 01/11 0.341; 01/12 0.231; 01/13 0.136 01/10 ABG- Ph 7.42, pCo2 38, pO2 113, HCO3 25, Total CO2 26, O2 Sat 98.7 EKG Results: 01/10 Atrial Fibrillation with RVR. Left [place] deviation. RSR or QR pattern in V1 suggests right ventricular conduction delay. Nonspecific ST wave abnormality, probably digitalis effect. CTA 01/10 Diffuse ground glass opacities throughout both lungs. Treatment: Oxygen 01/10 via [id number], 01/10 Mechanical Ventilation, Lasix Iv 01/10 x2, 01/11 x1, 01/13 x1, 01/15 x1; 01/10 Solucortef Ivp, 01/11 Solumedrol Ivp, In your professional opinion, can you please clarify the clinical significance of the Troponins? Type 2 RI secondary to demand ischemia in the setting of Respiratory Failure Type 2 RI secondary to demand ischemia due to (please specify) Unable to determine Ruled out Other Condition, please specify (Last Revision: October 2019) Type 2 RI secondary to demand ischemia in the setting of Respiratory Failure MTDD
--- NOTE | 2020-01-19 07:54 | XR ---
EXAMINATION TYPE: XR chest 1V DATE OF EXAM: 01/19/2020 COMPARISON: 01/18/2020 HISTORY: SOB, Follow Up FINDINGS: Indwelling tubes and catheters are unchanged. No significant change in diffuse interstitial and alveolar infiltrates bilaterally. Small bilateral p leural effusions noted. Stable appearance of the cardio-mediastinal structures at this time. IMPRESSION: 1. Stable portable chest. Clinical correlation and follow up until resolution is recommended.
[2020-01-19] MEDS: ZINC SULFATE 220 MG CAP PO SCH (08:22)
[2020-01-19] MEDS: ASCORBIC ACID 500 MG TAB OG-TUBE SCH ×2 (08:23→20:31)
[2020-01-19] MEDS: CHOLESTYRAMINE (WITH SUGAR) 4 GM PACKET OG-TUBE SCH ×2 (08:23→19:17)
[2020-01-19] MEDS: CHLORHEXIDINE GLUCONATE 15 ML CUP MUCOUS MEM SCH ×2 (08:23→20:31)
[2020-01-19] MEDS: ENOXAPARIN 80 MG/0.8 ML SYRINGE SQ SCH (08:24)
[2020-01-19] MEDS: PANTOPRAZOLE 40 MG/10 ML VIAL IVP SCH (08:25)
[2020-01-19] MEDS: methylPREDNISolone SOD SUCCI 40 MG/ML 1 ML VIAL IV SCH ×2 (08:25→20:31)
[2020-01-19] MEDS: FUROSEMIDE 10 MG/ML 4 ML VIAL IV SCH ×2 (08:28→20:31)
[2020-01-19] MEDS: FLUCONAZOLE ORAL SUSP 1,400 MG/35 ML BOTTLE PO SCH (09:40)
[2020-01-19] MEDS: SODIUM CHLORIDE 0.9% 1,000 ML IV SCH (09:41)
[2020-01-19] MEDS: DORZOLAMIDE HCL 2% DROPS 10 ML BTL LEFT EYE SCH ×2 (09:41→20:33)
--- NOTE | 2020-01-19 10:54 | P.PN ---
Subjective Progress Note Date: 01/19/20 this is an 84- female patient who has been admitted to the hospital on 01/11/2020 4 shortness of breath. The patient is very well-known to me. The patient isknown to have dermatomyositis, hypertension,and irritable bowel syndrome and glaucoma. She has been maintained on high-dose prednisone 40 mg on a daily basis regarding her dermatomyositis. She also has no previous history of eye of the Note that the patient came into the hospital because of increased shortness of breath in the fall. She was complaining of worsening shortness of breath. Her initial Covid 19 evaluation came back negative and subsequently the test was read done and it came back positive. The patient was getting very weak. She was in the 100% nonrebreather. She was quite hypotensive and she was started on fluids and pressors in the emergency department and the chest x-ray showed bilateral only infiltrates. Subsequently she was intubated and placed on a mechanical ventilator and she's been intubated sincethe date of admission which is 01/11/2020. The patient had a CT angiogram that showed diffuse groundglass opacities bilaterally consistent with viral pneumonia. There was no evidence of any pulmonary embolism. There was evidence of cholelithiasisand the CAT scan of the brain has been negative. During the course of the treatment, the patient completed Plaquenil treatment and the patient is on IV Solu-Medrol 40 mg every 12 hours by mouth the patient is receiving therapeutic doses of Lovenox 80 mg subcu every 12 hours as the patient's d-dimer was elevated at 6.89 at the time of admission with subsequent improvement dropped down to 2.4. She was also covered with IV Zosyn for empiric antibiotic coverage for suspected nosocomial infection/pneumonia. She remains intubated on a mechanical ventilator. At times she was becoming markedly agitated and the EEG that was done on 01/17/2020 showed a burst suppression patternthis is often seen with hypoxic encephalopathy. The patient was seen by neurology and their input was appreciated as possible hypoxic encephalopathy versus medication effectand furt her follow-up was recommended. For now, the patient is sedated with propofol running at 50 g per KG pigmented. She is on a mechanical ventilator on assist control mode with a tidal volume of 400 and the rate of 20 with an FiO2 of 50% and a PEEP of 10. Chest x-ray still showing diffuse bilateral pulmonary infiltrates and there is some worsening in the patchy infiltrates bilaterally. ET tube was within position and the patient has a left IJ triple-lumen catheter in place and the NG tube is in place as the patient is receiving enteral feeding for nal support in the form of vital AF at the r 25 mL an hour which is at goal. She continues to have a low-grade fever. The temperature from yesterday was 100.4. She remains on IV Zosyn. The Diflucan was also added to the regimen as the patient was found to have some Patti sputum. She remains on IV Protonix. IV fluids running at 30 mL an hour. On today's evaluation of 01/19/2020, the patient remains on a mechanical ventilator. Ventilator settings were essentially unchanged and the patient has been on a assist-control mode at the rate of 20 with a tidal volume of 400 and FiO2 of 50% and a PEEP was still at 10. The blood gas showed a pH of 7.36 with a pCO2 of 38 and pO2 of 57. The patient has shown significant amount of fluid overload. The patient is recommended related 1.2 L over the past 24 hours. Her weight was essentially a 79 kg and currently is up to 92 kg indicating extensive fluid overload and the patient has developed significant amount of edema in all 4 extremities. The LDH remains elevation at 1014. C-reactive protein is down to 324. The patient is afebrile for now. The patient is receiving vital AF for enteral feeding and nutritional support. The patient also receiving free water with Alaina. She is sedated with propofol. Objective - Vital Signs Vital signs: Vital Signs Temp 97.6 F 01/19/20 04:00 Pulse 71 01/19/20 06:00 Resp 21 01/19/20 06:00 BP 126/67 01/19/20 06:00 Pulse Ox 88 L 01/19/20 06:00 Intake & Output 01/18/20 01/18/20 01/19/20 06:59 18:59 06:59 Intake Total 496 996.554 985 Output Total 300 330 275 Balance 196 666.554 710 Intake: IV 396 532 400 Piperacillin-Tazobactam 3 100 100 .375 gm In Sodium Chloride 0.9% 100 ml @ 25 mls/hr IVPB Q8HR [facility] Rx# :[id number] Sodium Chloride 0.9% 1, 330 360 240 000 ml @ 30 mls/hr IV . Q24H [facility] Rx#:[id number] pressure bags 66 72 60 Intake, IV Titration 99.554 200 Amount Propofol 1,000 mg In 99.554 200 Empty Bag 1 bag @ Titrate IV .Q0M [facility] Rx#: [id number] Tube Feeding 100 275 295 Other 90 90 Output: Urine 300 330 275 Other: Voiding Method Indwelling Catheter Indwelling Catheter Indwelling Catheter ABP, PAP, CO, CI - Last Documented Arterial Blood Pressure 94/44 - Exam Physical Exam: Revealed 84-year-old female intubated, on mechanical ventilation, sedated, on propofol. The orogastric and orotracheal tube are both in place for now. Head: Atraumatic, normocephalic. And the tracheal tube and orogastric tube are intact. Neck was supple and without jugular venous distension, thyromegaly, or carotid bruits. Carotids were easily palpable bilaterally. There was no adenopathy. Chest: Fine crackles at the bases, no rhonchi no wheezes, symmetrical chest expansion is noted. Cardiac Exam: [Normal S1 and S2, no S3 gallop, no murmur. Abdomen: [Soft, nontender, no megaly, no rebound, no guarding, normal bowel sounds. Extremities: [No clubbing, 2+ bipedal edema, no cyanosis. Neurological Exam: [Cannot be assessed, patient is sedated, on propofol. Psychiatric: Could not be assessed. Skin: No areas of erythema or cellulitis. Lymphatics: No cervical lymphadenopathy. - Labs CBC & Chem 7: 01/19/20 04:55 01/19/20 04:45 Labs: Abnormal Lab Results - Last 24 Hours (Table) 01/18/20 01/18/20 01/18/20 Range/Units 04:30 09:00 11:55 RBC (3.80-5.40) m/uL Hgb (11.4-16.0) gm/dL Hct (34.0-46.0) % RDW (11.5-15.5) % Lymphocytes # (1.0-4.8) k/uL D-Dimer 2.41 H (<0.60) mg/L FEU ABG pO2 (83-108) mmHg ABG O2 Saturation (94-97) % Chloride (98-107) mmol/L BUN (7-17) mg/dL Glucose (74-99) mg/dL POC Glucose (mg/dL) 120 H (75-99) mg/dL Lactate Dehydrogenase 1023 H (313-618) U/L C-Reactive Protein 376.6 H (<10.0) mg/L Total Protein (6.3-8.2) g/dL Albumin (3.5-5.0) g/dL Urine Appearance (Clear) Ur Specific [place] (1.001-1.035) Urine Protein (Negative) Urine Blood (Negative) Ur Leukocyte Esterase (Negative) Urine RBC (0-5) /hpf Calcium Oxalate Crystal (None) /hpf Urine Mucus (None) /hpf Urine Yeast (Budding) (None) /hpf 01/18/20 01/19/20 01/19/20 Range/Units 15:28 00:09 04:45 RBC (3.80-5.40) m/uL Hgb (11.4-16.0) gm/dL Hct (34.0-46.0) % RDW (11.5-15.5) % Lymphocytes # (1.0-4.8) k/uL D-Dimer (<0.60) mg/L FEU ABG pO2 (83-108) mmHg ABG O2 Saturation (94-97) % Chloride 113 H (98-107) mmol/L BUN 37 H (7-17) mg/dL Glucose 146 H (74-99) mg/dL POC Glucose (mg/dL) 139 H (75-99) mg/dL Lactate Dehydrogenase 1014 H (313-618) U/L C-Reactive Protein 324.6 H (<10.0) mg/L Total Protein 4.4 L (6.3-8.2) g/dL Albumin 2.0 L (3.5-5.0) g/dL Urine Appearance Cloudy H (Clear) Ur Specific Otley 1.038 H (1.001-1.035) Urine Protein 1+ H (Negative) Urine Blood Moderate H (Negative) Ur Leukocyte Esterase Trace H (Negative) Urine RBC 145 H (0-5) /hpf Calcium Oxalate Crystal Rare H (None) /hpf Urine Mucus Rare H (None) /hpf Urine Yeast (Budding) Rare H (None) /hpf 01/19/20 01/19/20 01/19/20 Range/Units 04:55 05:33 06:02 RBC 3.44 L (3.80-5.40) m/uL Hgb 10.8 L (11.4-16.0) gm/dL Hct 33.1 L (34.0-46.0) % RDW 15.8 H (11.5-15.5) % Lymphocytes # 0.3 L (1.0-4.8) k/uL D-Dimer (<0.60) mg/L FEU ABG pO2 57 L* (83-108) mmHg ABG O2 Saturation 90.5 L (94-97) % Chloride (98-107) mmol/L BUN (7-17) mg/dL Glucose (74-99) mg/dL POC Glucose (mg/dL) 155 H (75-99) mg/dL Lactate Dehydrogenase (313-618) U/L C-Reactive Protein (<10.0) mg/L Total Protein (6.3-8.2) g/dL Albumin (3.5-5.0) g/dL Urine Appearance (Clear) Ur Specific [place] (1.001-1.035) Urine Protein (Negative) Urine Blood (Negative) Ur Leukocyte Esterase (Negative) Urine RBC (0-5) /hpf Calcium Oxalate Crystal (None) /hpf Urine Mucus (None) /hpf Urine Yeast (Budding) (None) /hpf Microbiology - Last 24 Hours (Table) 01/12/20 14:40 Blood Culture - Final Blood No Growth after 144 hours 01/18/20 15:28 Urine Culture - Preliminary Urine,Catheterized 01/17/20 15:21 Urine Culture - Preliminary Urine,Voided Yeast species 01/16/20 11:22 Catheter Tip Culture - Final Catheter Tip 01/16/20 11:21 Catheter Tip Culture - Final Catheter Tip Assessment and Plan Plan: 1 acute Covid 19 related pneumonia with diffuse but the pulmonary infiltrates and acute hypoxic respiratory failureand the patient has been intubated on a mechanical ventilator since 01/11/2020. The patient completed Plaquenil. She remains on IV Solu-Medrol. She remains on therapeutic dose of Lovenox. Inflammatory markers including LDH remains elevated. C-reactive protein is elevated. D-dimer has improved.her now would also having difficulties with the patient's mental status and the patient has difficultiescoming off sedation the patient had an EEG that showing abnormalities including burst suppression which could potentially indicate the possibility of hypoxic encephalopathy versus drug effect. The patient continues to be on a mechanical ventilator with pressure the same vent setting. Chest x-ray findings are essentially unchanged with diffuse but the pulmonary interstitial and alveolar infiltrates. Limited improvement in the oxygenation. The patient is a PEEP of 10 with an FiO2 of 50% and she has shown significant amount of fluid overload. 2 fever currently on IV Zosyn as an emperic Antibiotic coverage also on Diflucan 3 history of dermatomyositis/somewhat erythematous maintained on high-dose prednisone outpatient basis 4 hypertension 5 glucoma 6 mild transaminitisimproved 7 history of shingles 8 history of irritable bowel disease 9 severe lymphopenia secondary to Covid 19 infection PLAN Continue ventilator support Drop the PEEP down to 8 and the goal is to drop her at 5 and increased FiO2 to m aintain a saturation above 90% Start the patient on Lasix 40 mg IV push every 12 hours IV fluids to KVO The d-dimer is down to 0.9 and I'm going to switch this patient Lovenox with prophylactic dose Continue IV Zosyn as an empiric antibiotic coverage Continue the Diflucan and the Zosyn per ID Patient has completed the course of Plaquenil Continue enteral feeding for nutritional support This may ultimately become a difficult to wean. We are going to follow up this patient and monitor progress and make further recommendations based on the above-mentioned changes. This is a critically care evaluation that was done more than 30 minutes. Time with Patient: Greater than 30
[2020-01-19 11:25] LABS: Ferritin 743.8 ng/mL (10.0-291.0)
[2020-01-19 11:25] LABS: Glucose,Whole Blood 144 mg/dL (75-99)
[2020-01-19 11:27] LABS: Ferritin 819.1 ng/mL (10.0-291.0)
--- NOTE | 2020-01-19 15:44 | P.PN ---
Subjective Progress Note Date: 01/19/20 Ekta Yañez is an 84-year-old female patient of Dr. Oquendo who presented to [facility] emergency room with a chief complaint of generalized weakness and fall, patient also was complaining of shortness of breath, she was alert and oriented in the emergency room and was able to answer questions appropriately however she was getting more hypoxic, she had fever with a temperature of 100.1 testing in the emergency room included influenza A and B and Covid 19 which were all negative. However her clinical picture, computed tomography scan results, and lab results were all typical of Covid 19 illness. Patient decompensated while in emergency room. Blood gas revealed evidence of PO2 of 55 she was intubated in the emergency room and was admitted to intensive care unit consultation for Dr. Ariza was initiated for critical care and pulmonary management, consultation for Dr. Harman was initiated for infectious disease treatment. Currently patient is in the intensive care unit she is intubated sedated maintained on mechanical ventilation, Dr. Ariza reason assisting the patient and placing central line. Computed tomography scan of the chest with contrast was done in the emergency room and was negative for pulmonary embolism, however it revealed diffuse groundglass opacities throughout both lungs. Computed tomography scan of the head and neck without contrast was done in the emergency room due to fall and did not reveal any significant abnormality. Pelvic x-ray was done due to fall and did not reveal any obvious fracture. From chart review patient has history of dermatomyositis, she was admitted to the hospital in November for IV steroid course. 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 Wilson. On 01/12/2020 patient was seen and examined in the intensive care unit she is intubated sedated maintained on mechanical ventilation, she is oxygenating better today and PEEP was decreased from 10 down to 5 by intensive care. ABG was done and revealed pH of 7.35 pCO2 36 PaO2 135 chest x-ray was reviewed and was stable from yesterday echocardiogram done and revealed normal left ventricular systolic function with ejection fraction of 55-60% On 01/13/2020 Patient was seen and examined in the ICU she is still intubated, sedated, maintained on mechanical ventilation, PEEP was increased to 10 today, PaO2 is 51 pCO2 31 she is still on IV pressure support. With Levophed On 01/14/2020 patient was seen and examined in the ICU she is intubated sedated maintained on mechanical ventilation, ABG today reveals pH of 7.39 PaO2 69 pCO2 37 patient is still maintained on a PEEP of 10 and FiO2 of 50% critical care are following, patient receiving IV Zithromax, IV Solu-Medrol, and hydroxychloroquine through NG tube. On 01/15/2020 Patient was seen and examined in the ICU she is still intubated, sedated, maintained on mechanical ventilation. She failed weaning trial this morning per nurse. She is off vasopressors at this time. On 01/16/2020 patient was seen and examined in the intensive care unit she is intubated sedated maintained on mechanical ventilation, ABG today reveals a pH of 7.35 pCO2 14 PaO2 98 FiO2 is 50% temperature is 97.4 blood pressure 126/64 respiration 20 On 01/17/2020 patient was seen and examined in the intensive care unit she is intubated sedated maintained on mechanical ventilation she is not on any vasopressors at this time. ABG reveals a pH of 7.31 pCO2 41 PaO2 71 on FiO2 of 50% potassium is 3.4 white blood count 8.9 hemoglobin 11.5 On 01/18/2020 patient was seen and examined in the ICU she is intubated sedated maintained on mechanical ventilation she is not on any vasopressors. A trial to decrease sedation this morning failed due to decreased O2 sat duration and tachypnea. ABG this morning reveals a pH of 7.38 pCO2 36 PaO2 62 FiO2 is 50% On 01/19/2020 patient was seen and examined in the ICU she is still intubated sedated maintained on mechanical ventilation she is not on vasopressors at this time. Sedation was stopped for about 1 hour today but was resumed to due to decreased O2 sat duration and tachypnea. EEG was done today. Temperature is 97.2 pulse 62 respiration 23 blood pressure 160/62 ABG reveals a pH of 7.36 pCO2 38 CO2 57 FiO2 is 50% and PEEP is being decreased to gradually from 10-5 Objective - Vital Signs Vital signs: Vital Signs Temp 97.2 F L 01/19/20 12:00 Pulse 64 01/19/20 14:00 Resp 26 H 01/19/20 14:00 BP 126/67 01/19/20 06:00 Pulse Ox 94 L 01/19/20 14:00 Intake & Output 01/18/20 01/19/20 01/19/20 18:59 06:59 18:59 Intake Total 151.879 4455 753 Output Total 751 880 1911 Balance 666.554 812 -647 Weight 92 kg 92 kg Intake: IV 532 472 388 Piperacillin-Tazobactam 3 100 100 100 .375 gm In Sodium Chloride 0.9% 100 ml @ 25 mls/hr IVPB Q8HR SANTY Rx# :[id number] Sodium Chloride 0.9% 1, 360 300 240 000 ml @ 30 mls/hr IV . Q24H SANTY Rx#:[id number] pressure bags 72 72 48 Intake, IV Titration 99.554 200 100 Amount Propofol 1,000 mg In 99.554 200 100 Empty Bag 1 bag @ Titrate IV .Q0M SANTY Rx#: [id number] Tube Feeding 275 355 205 Other 90 90 60 Output: Urine 108 549 5687 Other: Voiding Method Indwelling Catheter Indwelling Catheter Indwelling Catheter ABP, PAP, CO, CI - Last Documented Arterial Blood Pressure 182/69 - Exam In general patient is intubated sedated maintained on mechanical ventilation HEENT head normocephalic and atraumatic Neck is supple no JVD no goiter no lymphadenopathy Chest exam reveals coarse crackles in both lung olson Cardiac exam reveals regular heart sounds no gallops no murmurs Abdomen is soft nontender no organomegaly with normal bowel sounds Extremity exam reveals 2+ edema no cyanosis or clubbing - Labs CBC & Chem 7: 01/19/20 04:55 01/19/20 04:45 Labs: Abnormal Lab Results - Last 24 Hours (Table) 01/18/20 01/18/20 01/18/20 Range/Units 04:30 04:30 15:28 RBC (3.80-5.40) m/uL Hgb (11.4-16.0) gm/dL Hct (34.0-46.0) % RDW (11.5-15.5) % Lymphocytes # (1.0-4.8) k/uL ABG pO2 (83-108) mmHg ABG O2 Saturation (94-97) % Chloride (98-107) mmol/L BUN (7-17) mg/dL Glucose (74-99) mg/dL POC Glucose (mg/dL) (75-99) mg/dL Ferritin 743.8 H (10.0-291.0) ng/mL Lactate Dehydrogenase (313-618) U/L C-Reactive Protein (<10.0) mg/L Total Protein (6.3-8.2) g/dL Albumin (3.5-5.0) g/dL Procalcitonin 0.36 H (0.02-0.09) ng/mL Urine Appearance Cloudy H (Clear) Ur Specific Debary 1.038 H (1.001-1.035) Urine Protein 1+ H (Negative) Urine Blood Moderate H (Negative) Ur Leukocyte Esterase Trace H (Negative) Urine RBC 145 H (0-5) /hpf Calcium Oxalate Crystal Rare H (None) /hpf Urine Mucus Rare H (None) /hpf Urine Yeast (Budding) Rare H (None) /hpf 01/19/20 01/19/20 01/19/20 Range/Units 00:09 04:45 04:45 RBC (3.80-5.40) m/uL Hgb (11.4-16.0) gm/dL Hct (34.0-46.0) % RDW (11.5-15.5) % Lymphocytes # (1.0-4.8) k/uL ABG pO2 (83-108) mmHg ABG O2 Saturation (94-97) % Chloride 113 H (98-107) mmol/L BUN 37 H (7-17) mg/dL Glucose 146 H (74-99) mg/dL POC Glucose (mg/dL) 139 H (75-99) mg/dL Ferritin 819.1 H (10.0-291.0) ng/mL Lactate Dehydrogenase 1014 H (313-618) U/L C-Reactive Protein 324.6 H (<10.0) mg/L Total Protein 4.4 L (6.3-8.2) g/dL Albumin 2.0 L (3.5-5.0) g/dL Procalcitonin 0.27 H (0.02-0.09) ng/mL Urine Appearance (Clear) Ur Specific Debary (1.001-1.035) Urine Protein (Negative) Urine Blood (Negative) Ur Leukocyte Esterase (Negative) Urine RBC (0-5) /hpf Calcium Oxalate Crystal (None) /hpf Urine Mucus (None) /hpf Urine Yeast (Budding) (None) /hpf 01/19/20 01/19/20 01/19/20 Range/Units 04:55 05:33 06:02 RBC 3.44 L (3.80-5.40) m/uL Hgb 10.8 L (11.4-16.0) gm/dL Hct 33.1 L (34.0-46.0) % RDW 15.8 H (11.5-15.5) % Lymphocytes # 0.3 L (1.0-4.8) k/uL ABG pO2 57 L* (83-108) mmHg ABG O2 Saturation 90.5 L (94-97) % Chloride (98-107) mmol/L BUN (7-17) mg/dL Glucose (74-99) mg/dL POC Glucose (mg/dL) 155 H (75-99) mg/dL Ferritin (10.0-291.0) ng/mL Lactate Dehydrogenase (313-618) U/L C-Reactive Protein (<10.0) mg/L Total Protein (6.3-8.2) g/dL Albumin (3.5-5.0) g/dL Procalcitonin (0.02-0.09) ng/mL Urine Appearance (Clear) Ur Specific Debary (1.001-1.035) Urine Protein (Negative) Urine Blood (Negative) Ur Leukocyte Esterase (Negative) Urine RBC (0-5) /hpf Calcium Oxalate Crystal (None) /hpf Urine Mucus (None) /hpf Urine Yeast (Budding) (None) /hpf 01/19/20 Range/Units 11:24 RBC (3.80-5.40) m/uL Hgb (11.4-16.0) gm/dL Hct (34.0-46.0) % RDW (11.5-15.5) % Lymphocytes # (1.0-4.8) k/uL ABG pO2 (83-108) mmHg ABG O2 Saturation (94-97) % Chloride (98-107) mmol/L BUN (7-17) mg/dL Glucose (74-99) mg/dL POC Glucose (mg/dL) 144 H (75-99) mg/dL Ferritin (10.0-291.0) ng/mL Lactate Dehydrogenase (313-618) U/L C-Reactive Protein (<10.0) mg/L Total Protein (6.3-8.2) g/dL Albumin (3.5-5.0) g/dL Procalcitonin (0.02-0.09) ng/mL Urine Appearance (Clear) Ur Specific Debary (1.001-1.035) Urine Protein (Negative) Urine Blood (Negative) Ur Leukocyte Esterase (Negative) Urine RBC (0-5) /hpf Calcium Oxalate Crystal (None) /hpf Urine Mucus (None) /hpf Urine Yeast (Budding) (None) /hpf Microbiology - Last 24 Hours (Table) 01/12/20 14:40 Blood Culture - Final Blood No Growth after 144 hours 01/18/20 15:28 Urine Culture - Preliminary Urine,Catheterized 01/17/20 15:21 Urine Culture - Preliminary Urine,Voided Yeast species Assessment and Plan Plan: #1 bilateral pneumonia most likely viral pneumonia due to Covid 19 virus despite negative instant test in the emergency room. #2 acute hypoxic respiratory failure requiring mechanical ventilation #3 sepsis, as evidenced by leukocytosis white blood count 18.8, fever temperature 100.1 lactic acid testing is pending. #4 mild elevation in liver enzymes likely related to acute illness, will monitor #5 underlying history of dermatomyositis #6 elevated d-dimer without evidence of pulmonary embolism on CT angiogram of the chest #7 mild elevation in troponin level, likely related to oxygen demand, supply mismatch, doubt acute myocardial infarction at this time, will monitor closely #8 for DVT prophylaxis Will start patient on subcu Lovenox, for GI prophylaxis will start IV Protonix Prognosis is extremely guarded due to age, severity of illness requiring intubation and mechanical ventilation, and underlying medical problems Will follow closely
--- NOTE | 2020-01-19 17:28 | EEG ---
ELECTROENCEPHALOGRAM REPORT HISTORY: This is a followup EEG performed on an 84-year-old female who is currently on a respirator testing positive for [place] Covid-19 virus. This EEG is a followup from her prior EEG on 01/16 which showed significant abnormalities consistent with burst suppression. The patient was off sedation at 26 minutes into this EEG recording. TECHNICAL REPORT: This is an inpatient EEG performed on the ClearFlow EEG monitor with electrodes placed according to the international 10 - 20 system and a single EKG channel. Simultaneous video EEG monitoring was performed. Hyperventilation was not performed due to patient's medical condition. Photic stimulation was performed. The recording begins with the patient with eyes closed. A well-synchronized, well- modulated 8 to maximum 9 Hz posterior dominant rhythm is present that attenuated with eye opening. Low amplitude beta activity is noted anteriorly and central had regions. Intermittent muscle and movement artifact contaminates tracing. Throughout the EEG, the EKG was noted to be abnormal. Frequent PVC's were reported during the study. Photic stimulation was performed at various/frequencies and failed to elicit a consistent rhyming response. No evidence of sleep other than brief drowsiness occurred. Drowsiness was associated with briefly an attenuation of the background rhythm to 7 Hz with the appearance of slow rolling eye movements. Deeper stages of sleep were not achieved. IMPRESSION: This EEG consists of a normal wake/drowsy background. There has been substantial improvement compared to the prior EEG on 01/16. This EEG shows there is complete resolution of encephalopathy. However, the EKG was noted to be abnormal with frequent PVC's. CLINICAL CORRELATION: This EEG does suggest there is improvement clinically and electrographically in the patient. The EKG; however, is abnormal for the clinical correlation as required. Serial EEGs are recommended and if clinically indicated a more prolonged overnight study could provide additional information. MMODL / IJN: [id number] / MTDD
--- NOTE | 2020-01-19 17:49 | PN ---
PROGRESS NOTE DATE OF SERVICE: 01/19/2020 REASON FOR FOLLOWUP: Pneumonia. INTERVAL HISTORY: The patient is currently afebrile. The patient is hemodynamically stable, not on any pressor support. FiO2 remains 60%. No significant purulent secretion or any worsening diarrhea reported. As the patient is currently not waking up, at the time of evaluation. PHYSICAL EXAMINATION: Blood pressure 159/62 with a pulse of 60, temperature 97.2. She is 94% on 60% FiO2. General description is an elderly female intubated on the vent. RESPIRATORY SYSTEM: Unlabored breathing with decreased breath sounds at the base. No wheeze. HEART: S1, S2. Regular rate and rhythm. ABDOMEN: Soft. No distention. LABS: Hemoglobin 10.8, white count 7.7, BUN of 37, creatinine 0.63. DIAGNOSTIC IMPRESSION AND PLAN: 1. Patient with acute respiratory failure which is multifactorial with concern for possible aspiration pneumonitis. Patient is covered with Zosyn; to continue and complete her Plaquenil and Zithromax therapy. 2. Patient with a urinary tract infection. Urine has been Patti. Currently covered with Diflucan. Repeat urine cultures are currently pending. Monitor clinical course closely. MMODL / IJN: [id number] / MTDD
[2020-01-19 18:45] LABS: Glucose,Whole Blood 108 mg/dL (75-99)
[2020-01-19] MEDS: LATANOPROST 0.005% OPHTH DROPS 2.5 ML BTL LEFT EYE SCH (20:33)
[2020-01-20 00:06] LABS: Glucose,Whole Blood 134 mg/dL (75-99)
[2020-01-20] MEDS: INSULIN ASPART (NovoLOG) 100 UNIT/ML VIAL SQ SCH ×4 (00:36→19:13)
[2020-01-20] MEDS: PIPERACILLIN-TAZOBACTAM 3.375 GM in SODIUM CHLORIDE 0.9% 100 ML IVPB SCH ×3 (00:38→17:25)
[2020-01-20 05:21] LABS: C Reactive Protein 160.4 mg/L (<10.0)
[2020-01-20 05:46] LABS: ABG Base Excess -2.8 mmol/L; ABG HCO3 24 mmol/L (21-25); ABG Oxygen Saturation 97.1 % (94-97); ABG PCO2 47 mmHg (35-45); ABG PH 7.31 (7.35-7.45); ABG PO2 88 mmHg (83-108); ABG TCO2 25 mmol/L (19-24); Allen Test Performed? Yes
[2020-01-20 06:32] LABS: Glucose,Whole Blood 155 mg/dL (75-99)
[2020-01-20 07:44] LABS: Basophils % (A) 0 %; Eosinophils % (A) 0 %; HCT 38.6 % (34.0-46.0); Hypochromasia Slight; Lymphocytes # (A) 0.4 k/uL (1.0-4.8); Lymphocytes % (A) 3 %; MCH 30.8 pg (25.0-35.0); MCHC 31.1 g/dL (31.0-37.0); MCV 98.9 fL (80.0-100.0); Macrocytosis Slight; Mean Platelet Volume 12.1; Monocytes # (A) 0.5 k/uL (0-1.0); Monocytes % (A) 4 %; Neutrophils % (A) 92 %; Platelet Count 273 k/uL (150-450); Poikilocytosis Slight; RBC 3.91 m/uL (3.80-5.40)
[2020-01-20 07:48] LABS: ALT 40 U/L (4-34); AST 31 U/L (14-36); African American GFR (CKD) >90 (>60 ml/min/1.73 sqM); Albumin 2.3 g/dL (3.5-5.0); Alkaline Phosphatase 94 U/L (38-126); Anion Gap 6 mmol/L; Blood Urea Nitrogen 41 mg/dL (7-17); Calcium 8.8 mg/dL (8.4-10.2); Carbon Dioxide 22 mmol/L (22-30); Chloride 113 mmol/L (98-107); Glucose 152 mg/dL (74-99); Non-African American GFR(CKD) 80 (>60 ml/min/1.73 sqM); Potassium 3.9 mmol/L (3.5-5.1); Sodium 141 mmol/L (137-145); Total Bilirubin 0.3 mg/dL (0.2-1.3); Total Protein 4.8 g/dL (6.3-8.2)
--- NOTE | 2020-01-20 08:04 | XR ---
EXAMINATION TYPE: XR chest 1V DATE OF EXAM: 01/20/2020 COMPARISON: 01/19/2020 INDICATION: Difficulty breathing, then later TECHNIQUE: Single frontal view of the chest is obtained. FINDINGS: The heart size is normal. The pulmonary vasculature is prominent. There is diffuse increased lung opacities throughout the bilateral lungs. This is increasing density over the right lung likely due to the pneumothorax present right-sided pneumothorax which is new paddy mated at 40%. The endotracheal tube tip is 2.0 cm above the gen. Left central venous catheter is present with th e tip in the proximal right atrium. Nasogastric tube transverses the thorax with tip in the abdomen. IMPRESSION: 1. New right-sided pneumothorax estimated at 40%. 2. Increased diffuse lung markings throughout the bilateral lungs. 3. Lines and catheters discussed above. A [place] level critical message alert has been initiated for Samson Jason DO via the [employer] Critical Results System on 01/20/2020 8:02 AM. This message alert has been sent to Samson Jason DO via the preferences provided by the clinician for the receipt of Radiology Critical Findings. Message ID [id number].
--- NOTE | 2020-01-20 08:39 | P.PN ---
Subjective Progress Note Date: 01/20/20 Ekta Yañez is an 84-year-old female patient of Dr. Oquendo who presented to [facility] emergency room with a chief complaint of generalized weakness and fall, patient also was complaining of shortness of breath, she was alert and oriented in the emergency room and was able to answer questions appropriately however she was getting more hypoxic, she had fever with a temperature of 100.1 testing in the emergency room included influenza A and B and Covid 19 which were all negative. However her clinical picture, computed tomography scan results, and lab results were all typical of Covid 19 illness. Patient decompensated while in emergency room. Blood gas revealed evidence of PO2 of 55 she was intubated in the emergency room and was admitted to intensive care unit consultation for Dr. Ariza was initiated for critical care and pulmonary management, consultation for Dr. Harman was initiated for infectious disease treatment. Currently patient is in the intensive care unit she is intubated sedated maintained on mechanical ventilation, Dr. Ariza reason assisting the patient and placing central line. Computed tomography scan of the chest with contrast was done in the emergency room and was negative for pulmonary embolism, however it revealed diffuse groundglass opacities throughout both lungs. Computed tomography scan of the head and neck without contrast was done in the emergency room due to fall and did not reveal any significant abnormality. Pelvic x-ray was done due to fall and did not reveal any obvious fracture. From chart review patient has history of dermatomyositis, she was admitted to the hospital in November for IV steroid course. 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 Wilson. On 01/12/2020 patient was seen and examined in the intensive care unit she is intubated sedated maintained on mechanical ventilation, she is oxygenating better today and PEEP was decreased from 10 down to 5 by intensive care. ABG was done and revealed pH of 7.35 pCO2 36 PaO2 135 chest x-ray was reviewed and was stable from yesterday echocardiogram done and revealed normal left ventricular systolic function with ejection fraction of 55-60% On 01/13/2020 Patient was seen and examined in the ICU she is still intubated, sedated, maintained on mechanical ventilation, PEEP was increased to 10 today, PaO2 is 51 pCO2 31 she is still on IV pressure support. With Levophed On 01/14/2020 patient was seen and examined in the ICU she is intubated sedated maintained on mechanical ventilation, ABG today reveals pH of 7.39 PaO2 69 pCO2 37 patient is still maintained on a PEEP of 10 and FiO2 of 50% critical care are following, patient receiving IV Zithromax, IV Solu-Medrol, and hydroxychloroquine through NG tube. On 01/15/2020 Patient was seen and examined in the ICU she is still intubated, sedated, maintained on mechanical ventilation. She failed weaning trial this morning per nurse. She is off vasopressors at this time. On 01/16/2020 patient was seen and examined in the intensive care unit she is intubated sedated maintained on mechanical ventilation, ABG today reveals a pH of 7.35 pCO2 14 PaO2 98 FiO2 is 50% temperature is 97.4 blood pressure 126/64 respiration 20 On 01/17/2020 patient was seen and examined in the intensive care unit she is intubated sedated maintained on mechanical ventilation she is not on any vasopressors at this time. ABG reveals a pH of 7.31 pCO2 41 PaO2 71 on FiO2 of 50% potassium is 3.4 white blood count 8.9 hemoglobin 11.5 On 01/18/2020 patient was seen and examined in the ICU she is intubated sedated maintained on mechanical ventilation she is not on any vasopressors. A trial to decrease sedation this morning failed due to decreased O2 sat duration and tachypnea. ABG this morning reveals a pH of 7.38 pCO2 36 PaO2 62 FiO2 is 50% On 01/19/2020 patient was seen and examined in the ICU she is still intubated sedated maintained on mechanical ventilation she is not on vasopressors at this time. Sedation was stopped for about 1 hour today but was resumed to due to decreased O2 sat duration and tachypnea. EEG was done today. Temperature is 97.2 pulse 62 respiration 23 blood pressure 160/62 ABG reveals a pH of 7.36 pCO2 38 CO2 57 FiO2 is 50% and PEEP is being decreased to gradually from 10-5 On 01/20/2020 patient was seen and examined in the ICU she is intubated, sedated, maintained on mechanical ventilation no significant change in condition since yesterday, temperature is 97.6 pulse 64 respiration 24 blood pressure 154/60 pulse ox is 88% on an FiO2 of 90% ABG reveals a pH of 7.31 pCO2 47 PO2 88 Objective - Vital Signs Vital signs: Vital Signs Temp 97.6 F 01/20/20 04:00 Pulse 69 01/20/20 07:00 Resp 23 01/20/20 07:00 BP 126/67 01/20/20 01:00 Pulse Ox 89 L 01/20/20 07:00 Intake & Output 01/19/20 01/20/20 01/20/20 18:59 06:59 18:59 Intake Total 1127 1033 61 Output Total 2095 1460 30 Balance -968 -427 31 Weight 92 kg 92.1 kg Intake: IV 632 433 36 Piperacillin-Tazobactam 3 200 100 .375 gm In Sodium Chloride 0.9% 100 ml @ 25 mls/hr IVPB Q8HR [facility] Rx# :[id number] Sodium Chloride 0.9% 1, 360 270 30 000 ml @ 30 mls/hr IV . Q24H S[facility] Rx#:[id number] pressure bags 72 63 6 Intake, IV Titration 100 200 Amount Propofol 1,000 mg In 100 200 Empty Bag 1 bag @ Titrate IV .Q0M SANTY Rx#: [id number] Tube Feeding 305 310 25 Other 90 90 Output: Urine 1595 1460 30 Stool 500 Other: Voiding Method Indwelling Catheter Indwelling Catheter ABP, PAP, CO, CI - Last Documented Arterial Blood Pressure 165/57 - Exam In general patient is intubated sedated maintained on mechanical ventilation HEENT head normocephalic and atraumatic Neck is supple no JVD no goiter no lymphadenopathy Chest exam reveals coarse crackles in both lung olson Cardiac exam reveals regular heart sounds no gallops no murmurs Abdomen is soft nontender no organomegaly with normal bowel sounds Extremity exam reveals 2+ edema no cyanosis or clubbing - Labs CBC & Chem 7: 01/20/20 04:30 01/20/20 04:30 Labs: Abnormal Lab Results - Last 24 Hours (Table) 01/18/20 01/18/20 01/19/20 Range/Units 04:30 04:30 04:45 WBC (3.8-10.6) k/uL RDW (11.5-15.5) % D-Dimer (<0.60) mg/L FEU ABG pH (7.35-7.45) ABG pCO2 (35-45) mmHg ABG Total CO2 (19-24) mmol/L ABG O2 Saturation (94-97) % Chloride (98-107) mmol/L BUN (7-17) mg/dL Glucose (74-99) mg/dL POC Glucose (mg/dL) (75-99) mg/dL Ferritin 743.8 H 819.1 H (10.0-291.0) ng/mL ALT (4-34) U/L Lactate Dehydrogenase (313-618) U/L C-Reactive Protein (<10.0) mg/L Total Protein (6.3-8.2) g/dL Albumin (3.5-5.0) g/dL Procalcitonin 0.36 H (0.02-0.09) ng/mL 01/19/20 01/19/20 01/19/20 Range/Units 04:45 11:24 18:44 WBC (3.8-10.6) k/uL RDW (11.5-15.5) % D-Dimer (<0.60) mg/L FEU ABG pH (7.35-7.45) ABG pCO2 (35-45) mmHg ABG Total CO2 (19-24) mmol/L ABG O2 Saturation (94-97) % Chloride (98-107) mmol/L BUN (7-17) mg/dL Glucose (74-99) mg/dL POC Glucose (mg/dL) 144 H 108 H (75-99) mg/dL Ferritin (10.0-291.0) ng/mL ALT (4-34) U/L Lactate Dehydrogenase (313-618) U/L C-Reactive Protein (<10.0) mg/L Total Protein (6.3-8.2) g/dL Albumin (3.5-5.0) g/dL Procalcitonin 0.27 H (0.02-0.09) ng/mL 01/20/20 01/20/20 01/20/20 Range/Units 00:05 04:30 04:30 WBC (3.8-10.6) k/uL RDW (11.5-15.5) % D-Dimer 1.61 H (<0.60) mg/L FEU ABG pH (7.35-7.45) ABG pCO2 (35-45) mmHg ABG Total CO2 (19-24) mmol/L ABG O2 Saturation (94-97) % Chloride (98-107) mmol/L BUN (7-17) mg/dL Glucose (74-99) mg/dL POC Glucose (mg/dL) 134 H (75-99) mg/dL Ferritin (10.0-291.0) ng/mL ALT (4-34) U/L Lactate Dehydrogenase 1147 H (313-618) U/L C-Reactive Protein 160.4 H (<10.0) mg/L Total Protein (6.3-8.2) g/dL Albumin (3.5-5.0) g/dL Procalcitonin (0.02-0.09) ng/mL 01/20/20 01/20/20 01/20/20 Range/Units 04:30 04:30 05:41 WBC 12.0 H (3.8-10.6) k/uL RDW 16.0 H (11.5-15.5) % D-Dimer (<0.60) mg/L FEU ABG pH 7.31 L (7.35-7.45) ABG pCO2 47 H (35-45) mmHg ABG Total CO2 25 H (19-24) mmol/L ABG O2 Saturation 97.1 H (94-97) % Chloride 113 H (98-107) mmol/L BUN 41 H (7-17) mg/dL Glucose 152 H (74-99) mg/dL POC Glucose (mg/dL) (75-99) mg/dL Ferritin (10.0-291.0) ng/mL ALT 40 H (4-34) U/L Lactate Dehydrogenase (313-618) U/L C-Reactive Protein (<10.0) mg/L Total Protein 4.8 L (6.3-8.2) g/dL Albumin 2.3 L (3.5-5.0) g/dL Procalcitonin (0.02-0.09) ng/mL 01/20/20 Range/Units 06:31 WBC (3.8-10.6) k/uL RDW (11.5-15.5) % D-Dimer (<0.60) mg/L FEU ABG pH (7.35-7.45) ABG pCO2 (35-45) mmHg ABG Total CO2 (19-24) mmol/L ABG O2 Saturation (94-97) % Chloride (98-107) mmol/L BUN (7-17) mg/dL Glucose (74-99) mg/dL POC Glucose (mg/dL) 155 H (75-99) mg/dL Ferritin (10.0-291.0) ng/mL ALT (4-34) U/L Lactate Dehydrogenase (313-618) U/L C-Reactive Protein (<10.0) mg/L Total Protein (6.3-8.2) g/dL Albumin (3.5-5.0) g/dL Procalcitonin (0.02-0.09) ng/mL Microbiology - Last 24 Hours (Table) 01/18/20 15:28 Urine Culture - Final Urine,Catheterized 01/17/20 15:21 Urine Culture - Final Urine,Voided Patti albicans Assessment and Plan Plan: #1 bilateral pneumonia most likely viral pneumonia due to Covid 19 virus despite negative instant test in the emergency room. #2 acute hypoxic respiratory failure requiring mechanical ventilation #3 sepsis, as evidenced by leukocytosis white blood count 18.8, fever temperature 100.1 lactic acid testing is pending. #4 mild elevation in liver enzymes likely related to acute illness, will monitor #5 underlying history of dermatomyositis #6 elevated d-dimer without evidence of pulmonary embolism on CT angiogram of the chest #7 mild elevation in troponin level, likely related to oxygen demand, supply mismatch, doubt acute myocardial infarction at this time, will monitor closely #8 for DVT prophylaxis Will start patient on subcu Lovenox, for GI prophylaxis will start IV Protonix Prognosis is extremely guarded due to age, severity of illness requiring intubation and mechanical ventilation, and underlying medical problems Will follow closely
[2020-01-20 08:47] LABS: Large Platelets Present
[2020-01-20] MEDS: SODIUM CHLORIDE 0.9% 1,000 ML IV SCH (09:03)
[2020-01-20] MEDS: ENOXAPARIN 40 MG/0.4 ML SYRINGE SQ SCH (09:10)
[2020-01-20] MEDS: methylPREDNISolone SOD SUCCI 40 MG/ML 1 ML VIAL IV SCH ×2 (09:10→22:17)
[2020-01-20] MEDS: CHOLESTYRAMINE (WITH SUGAR) 4 GM PACKET OG-TUBE SCH ×2 (09:10→17:26)
[2020-01-20] MEDS: CHLORHEXIDINE GLUCONATE 15 ML CUP MUCOUS MEM SCH ×2 (09:10→22:17)
[2020-01-20] MEDS: ASCORBIC ACID 500 MG TAB OG-TUBE SCH ×2 (09:10→22:17)
[2020-01-20] MEDS: PANTOPRAZOLE 40 MG/10 ML VIAL IVP SCH (09:10)
[2020-01-20] MEDS: FUROSEMIDE 10 MG/ML 4 ML VIAL IV SCH ×2 (09:11→22:17)
[2020-01-20] MEDS: ZINC SULFATE 220 MG CAP PO SCH (09:11)
[2020-01-20] MEDS: DORZOLAMIDE HCL 2% DROPS 10 ML BTL LEFT EYE SCH ×2 (09:13→22:18)
[2020-01-20] MEDS: FLUCONAZOLE ORAL SUSP 1,400 MG/35 ML BOTTLE PO SCH (09:22)
--- NOTE | 2020-01-20 10:42 | XR ---
EXAMINATION TYPE: XR chest 1V portable DATE OF EXAM: 01/20/2020 COMPARISON: 01/20/2020 earlier in the day INDICATION: Pneumothorax TECHNIQUE: Single frontal view of the chest is obtained. FINDINGS: The heart size is enlarged. The pulmonary vasculature is prominent. Diffuse increased lung markings are present bilaterally. This may be greater in the left lower lobe. Previous right pneumothorax is largely resolved. A right-sided chest tube has been placed. Endotracheal tube tip close to the gen, 0.6 cm away. This should be pulled back 3 cm. The nasogast art tube left central venous catheter remain in position. IMPRESSION: 1. Near complete resolution of previous right-sided pneumothorax. 2. Endotracheal tube tip is very low, nearly to the gen and should be pulled back 3 cm. 3. Diffuse bilateral stable lung infiltrates.
[2020-01-20 11:57] LABS: Glucose,Whole Blood 131 mg/dL (75-99)
--- NOTE | 2020-01-20 12:29 | P.PN ---
Subjective Progress Note Date: 01/20/20 this is an 84- female patient who has been admitted to the hospital on 01/11/2020 4 shortness of breath. The patient is very well-known to me. The patient isknown to have dermatomyositis, hypertension,and irritable bowel syndrome and glaucoma. She has been maintained on high-dose prednisone 40 mg on a daily basis regarding her dermatomyositis. She also has no previous history of eye of the Note that the patient came into the hospital because of increased shortness of breath in the fall. She was complaining of worsening shortness of breath. Her initial Covid 19 evaluation came back negative and subsequently the test was read done and it came back positive. The patient was getting very weak. She was in the 100% nonrebreather. She was quite hypotensive and she was started on fluids and pressors in the emergency department and the chest x-ray showed bilateral only infiltrates. Subsequently she was intubated and placed on a mechanical ventilator and she's been intubated sincethe date of admission which is 01/11/2020. The patient had a CT angiogram that showed diffuse groundglass opacities bilaterally consistent with viral pneumonia. There was no evidence of any pulmonary embolism. There was evidence of cholelithiasisand the CAT scan of the brain has been negative. During the course of the treatment, the patient completed Plaquenil treatment and the patient is on IV Solu-Medrol 40 mg every 12 hours by mouth the patient is receiving therapeutic doses of Lovenox 80 mg subcu every 12 hours as the patient's d-dimer was elevated at 6.89 at the time of admission with subsequent improvement dropped down to 2.4. She was also covered with IV Zosyn for empiric antibiotic coverage for suspected nosocomial infection/pneumonia. She remains intubated on a mechanical ventilator. At times she was becoming markedly agitated and the EEG that was done on 01/17/2020 showed a burst suppression patternthis is often seen with hypoxic encephalopathy. The patient was seen by neurology and their input was appreciated as possible hypoxic encephalopathy versus medication effectand furt her follow-up was recommended. For now, the patient is sedated with propofol running at 50 g per KG pigmented. She is on a mechanical ventilator on assist control mode with a tidal volume of 400 and the rate of 20 with an FiO2 of 50% and a PEEP of 10. Chest x-ray still showing diffuse bilateral pulmonary infiltrates and there is some worsening in the patchy infiltrates bilaterally. ET tube was within position and the patient has a left IJ triple-lumen catheter in place and the NG tube is in place as the patient is receiving enteral feeding for nal support in the form of vital AF at the r 25 mL an hour which is at goal. She continues to have a low-grade fever. The temperature from yesterday was 100.4. She remains on IV Zosyn. The Diflucan was also added to the regimen as the patient was found to have some Patti sputum. She remains on IV Protonix. IV fluids running at 30 mL an hour. On today's evaluation of 01/19/2020, the patient remains on a mechanical ventilator. Ventilator settings were essentially unchanged and the patient has been on a assist-control mode at the rate of 20 with a tidal volume of 400 and FiO2 of 50% and a PEEP was still at 10. The blood gas showed a pH of 7.36 with a pCO2 of 38 and pO2 of 57. The patient has shown significant amount of fluid overload. The patient is recommended related 1.2 L over the past 24 hours. Her weight was essentially a 79 kg and currently is up to 92 kg indicating extensive fluid overload and the patient has developed significant amount of edema in all 4 extremities. The LDH remains elevation at 1014. C-reactive protein is down to 324. The patient is afebrile for now. The patient is receiving vital AF for enteral feeding and nutritional support. The patient also receiving free water with Alaina. She is sedated with propofol. On today's evaluation of 01/20/2020, the patient is being seen for a follow-up in the intensive care unit. The patient remains intubated on a mechanical ventilator. The patient is still sedated with propofol running at 50 mg per KG per minute. Earlier this morning, the patient was an assist-control mode at the rate of 20 with a tidal volume of 400 and the patient was desaturating and based on that the FiO2 has been increased up to 80% and the patient also is on a PEEP of 5. The chest x-ray from this morning showed interstitial infiltrates bilaterally and the patient had a right-sided pneumothorax that was estimated to be 40% and his with a new finding compared to yesterday's chest x-ray. There is still diffuse interstitial markings bilaterally. Based on that, I inserted a immediate 28-Czech chest tube and there was complete occlusion of the right- sided pneumothorax. There is still some minimal residual air leak on the Pleur-evac. note that the patient had an elevated peak air pressure of 35 with a plateau pressure of 31 on today's evaluation. the patient is being diuresis IV Lasix. The neck fluid balance -1.3 L over the past 24 hours. When the process of weaning this patient's FiO2 down post chest tube insertion. Otherwise, the patient remains hemodynamically stable. The patient on Lovenox prophylactic dose for DVT prophylaxis. The patient remains on IV Solu-Medrol. The patient is on IV Zosyn as an empiric antibiotic coverage. The patient also is on Diflucan. Objective - Vital Signs Vital signs: Vital Signs Temp 97.7 F 01/20/20 09:00 Pulse 64 01/20/20 11:00 Resp 23 01/20/20 11:00 BP 126/67 01/20/20 11:00 Pulse Ox 96 01/20/20 11:00 Intake & Output 01/19/20 01/20/20 01/20/20 18:59 06:59 18:59 Intake Total 1127 1033 565.522 Output Total 2095 1460 1480 Balance -968 -427 -914.478 Weight 92 kg 92.1 kg 92.1 kg Intake: IV 632 433 216 Piperacillin-Tazobactam 3 200 100 .375 gm In Sodium Chloride 0.9% 100 ml @ 25 mls/hr IVPB Q8HR [facility] Rx# :[id number] Sodium Chloride 0.9% 1, 360 270 180 000 ml @ 30 mls/hr IV . Q24H [facility] Rx#:[id number] pressure bags 72 63 36 Intake, IV Titration 100 200 199.522 Amount Piperacillin-Tazobactam 3 100 .375 gm In Sodium Chloride 0.9% 100 ml @ 25 mls/hr IVPB Q8HR [facility] Rx# :[id number] Propofol 1,000 mg In 100 200 99.522 Empty Bag 1 bag @ Titrate IV .Q0M [facility] Rx#: [id number] Tube Feeding 305 310 150 Other 90 90 Output: Urine 1595 1460 980 Stool 500 500 Other: Voiding Method Indwelling Catheter Indwelling Catheter Indwelling Catheter ABP, PAP, CO, CI - Last Documented Arterial Blood Pressure 114/59 - Exam Physical Exam: Revealed 84-year-old female intubated, on mechanical ventilation, sedated, on propofol. The orogastric and orotracheal tube are both in place for now. Head: Atraumatic, normocephalic. And the tracheal tube and orogastric tube are intact. Neck was supple and without jugular venous distension, thyromegaly, or carotid bruits. Carotids were easily palpable bilaterally. There was no adenopathy. Chest: Fine crackles at the bases, no rhonchi no wheezes, symmetrical chest ex pansion is noted. The patient has a right-sided chest tube in place. There is no subcutaneous emphysema. There is minimal amount of air leak and the Pleur- evac. Breath sounds are equal and symmetrical for now. Cardiac Exam: [Normal S1 and S2, no S3 gallop, no murmur. Abdomen: [Soft, nontender, no megaly, no rebound, no guarding, normal bowel sounds. Extremities: [No clubbing, 2+ bipedal edema, no cyanosis. Neurological Exam: [Cannot be assessed, patient is sedated, on propofol. Psychiatric: Could not be assessed. Skin: No areas of erythema or cellulitis. Lymphatics: No cervical lymphadenopathy. - Labs CBC & Chem 7: 01/20/20 04:30 01/20/20 04:30 Labs: Abnormal Lab Results - Last 24 Hours (Table) 01/19/20 01/20/20 01/20/20 Range/Units 18:44 00:05 04:30 WBC (3.8-10.6) k/uL RDW (11.5-15.5) % Neutrophils # (1.3-7.7) k/uL Lymphocytes # (1.0-4.8) k/uL D-Dimer 1.61 H (<0.60) mg/L FEU ABG pH (7.35-7.45) ABG pCO2 (35-45) mmHg ABG Total CO2 (19-24) mmol/L ABG O2 Saturation (94-97) % Chloride (98-107) mmol/L BUN (7-17) mg/dL Glucose (74-99) mg/dL POC Glucose (mg/dL) 108 H 134 H (75-99) mg/dL ALT (4-34) U/L Lactate Dehydrogenase (313-618) U/L C-Reactive Protein (<10.0) mg/L Total Protein (6.3-8.2) g/dL Albumin (3.5-5.0) g/dL 01/20/20 01/20/20 01/20/20 Range/Units 04:30 04:30 04:30 WBC 12.0 H (3.8-10.6) k/uL RDW 16.0 H (11.5-15.5) % Neutrophils # 11.0 H (1.3-7.7) k/uL Lymphocytes # 0.4 L (1.0-4.8) k/uL D-Dimer (<0.60) mg/L FEU ABG pH (7.35-7.45) ABG pCO2 (35-45) mmHg ABG Total CO2 (19-24) mmol/L ABG O2 Saturation (94-97) % Chloride 113 H (98-107) mmol/L BUN 41 H (7-17) mg/dL Glucose 152 H (74-99) mg/dL POC Glucose (mg/dL) (75-99) mg/dL ALT 40 H (4-34) U/L Lactate Dehydrogenase 1147 H (313-618) U/L C-Reactive Protein 160.4 H (<10.0) mg/L Total Protein 4.8 L (6.3-8.2) g/dL Albumin 2.3 L (3.5-5.0) g/dL 01/20/20 01/20/20 01/20/20 Range/Units 05:41 06:31 11:55 WBC (3.8-10.6) k/uL RDW (11.5-15.5) % Neutrophils # (1.3-7.7) k/uL Lymphocytes # (1.0-4.8) k/uL D-Dimer (<0.60) mg/L FEU ABG pH 7.31 L (7.35-7.45) ABG pCO2 47 H (35-45) mmHg ABG Total CO2 25 H (19-24) mmol/L ABG O2 Saturation 97.1 H (94-97) % Chloride (98-107) mmol/L BUN (7-17) mg/dL Glucose (74-99) mg/dL POC Glucose (mg/dL) 155 H 131 H (75-99) mg/dL ALT (4-34) U/L Lactate Dehydrogenase (313-618) U/L C-Reactive Protein (<10.0) mg/L Total Protein (6.3-8.2) g/dL Albumin (3.5-5.0) g/dL Microbiology - Last 24 Hours (Table) 01/18/20 15:28 Urine Culture - Final Urine,Catheterized 01/17/20 15:21 Urine Culture - Final Urine,Voided Patti albicans Assessment and Plan Plan: 1 acute Covid 19 related pneumonia with diffuse but the pulmonary infiltrates and acute hypoxic respiratory failureand the patient has been intubated on a mechanical ventilator since 01/11/2020. The patient completed Plaquenil. She remains on IV Solu-Medrol. She remains on therapeutic dose of Lovenox. Inflammatory markers including LDH remains elevated. C-reactive protein is elevated. D-dimer has improved.her now would also having difficulties with the patient's mental status and the patient has difficultiescoming off sedation the patient had an EEG that showing abnormalities including burst suppression which could potentially indicate the possibility of hypoxic encephalopathy versus drug effect. On today's evaluation of 01/20/2020, the patient was on a mechanical ventilator. Nevertheless the patient was found to have a 40% pneumothorax on the right and the patient had a chest tube inserted a 28-Czech with complete resolution of the right-sided pneumothorax. There is some limited air leak and the patient has still some increased elevation of his peak and static pressure. We'll gradually going to wean down the FiO2 as tolerated continuing keep the patient a PEEP of 5. 2 fever, currently afebrile and the patient is on IV Zosyn as an emperic Ant ibiotic coverage also on Diflucan 3 history of dermatomyositis/somewhat erythematous maintained on high-dose prednisone outpatient basis 4 hypertension 5 glucoma 6 mild transaminitis improved 7 history of shingles 8 history of irritable bowel disease 9 severe lymphopenia secondary to Covid 19 infection PLAN Continue ventilator support Keep the patient's right-sided chest tube in place and monitor the air leak and the right-sided pneumothorax Keep the PEEP at 5 and gradually wean down the FiO2 IV fluids to KVO The d-dimer is down to 0.9 , Lovenox with prophylactic dose Continue IV Zosyn as an empiric antibiotic coverage Continue the Diflucan and the Zosyn per ID Patient has completed the course of Plaquenil Continue enteral feeding for nutritional support This may ultimately become a difficult to wean. We are going to follow up this patient and monitor progress and make further recommendations based on the above-mentioned changes. This is a critically care evaluation that was done more than 30 minutes. Time with Patient: Greater than 30
--- NOTE | 2020-01-20 12:34 | P.PCN ---
Date of Procedure: 01/20/20 Preoperative Diagnosis: Right-sided pneumothorax Postoperative Diagnosis: Right-sided pneumothorax Procedure(s) Performed: Chest tube insertion Anesthesia: local Surgeon: Charli Warren Pathology: other Condition: critical Disposition: ICU Operative Findings: A time out was performed and after the chest x-ray was reviewed, the appropriate side was confirmed and marked. My hands were washed immediately prior to the procedure. I wore a surgical cap, mask with protective eyewear, sterile gown and sterile gloves throughout the procedure. The patient was prepped and draped in a sterile manner using chlorhexidine scrub after the patient was positioned in the usual fashion. A total of 5 cc of 1% lidocaine was used to anesthesize the skin, subcutaneous tissue, superior aspect of the rib periosteum and parietal pleura. A 2 cm incision was then made parallel to the rib in the midaxillary line at the level of the 7-8 rib. The subcutaneous tissue superficial and superior to the rib was dissected bluntly to the level of the pleura. The pleura was then entered bluntly. . The disruption in the parietal pleura was expanded bluntly and a finger was inserted and swept carefully in all directions. A 28F Yi chest tube was then inserted using my finger as a guide. The chest tube was directed apically and inserted easily. The chest tube was sutured to the skin at the insertion site, and connected securely with tape to a pleurovac. A sterile occlusive dressing was placed over the insertion site. No immediate complications were noted. A post- procedure chest x-ray is pending at the time of this note.
[2020-01-20 15:33] LABS: Ferritin 903.7 ng/mL (10.0-291.0)
--- NOTE | 2020-01-20 16:41 | PN ---
PROGRESS NOTE DATE OF SERVICE: 01/20/2020 REASON FOR FOLLOWUP: Pneumonia. INTERVAL HISTORY: The patient is currently afebrile. The patient is hemodynamically stable. The patient did develop pneumothorax and did get a chest tube on the right side. FiO2 is currently down to 70%. No pressors. Diarrhea has slowed down per the RN. PHYSICAL EXAMINATION: Blood pressure 126/67 with a pulse of 66, temperature 98. She is 92% on 70% FiO2. General description is an elderly female intubated on the vent. RESPIRATORY SYSTEM: Unlabored breathing with decreased breath sounds at the base. No wheeze. HEART: S1, S2. Regular rate and rhythm. ABDOMEN: Soft. No distention. LABS: Hemoglobin is 12, white count 12. BUN of 41, creatinine 0.69. DIAGNOSTIC IMPRESSION AND PLAN: 1. Patient with acute respiratory failure which is multifactorial with a possible component of pneumonia. The patient has completed treatment for COVID-19 and is currently on steroids and zinc and Zosyn for possible aspiration pneumonitis. 2. Patient with a yeast urinary tract infection, covered with Diflucan. Repeat urine culture has been negative so far. MMODL / IJN: [id number] /
[2020-01-20 17:33] LABS: Glucose,Whole Blood 144 mg/dL (75-99)
[2020-01-20] MEDS: LATANOPROST 0.005% OPHTH DROPS 2.5 ML BTL LEFT EYE SCH (22:18)
[2020-01-21] MEDS: INSULIN ASPART (NovoLOG) 100 UNIT/ML VIAL SQ SCH ×4 (00:42→18:38)
[2020-01-21 00:53] LABS: Glucose,Whole Blood 117 mg/dL (75-99)
[2020-01-21] MEDS: PIPERACILLIN-TAZOBACTAM 3.375 GM in SODIUM CHLORIDE 0.9% 100 ML IVPB SCH ×3 (00:55→16:10)
[2020-01-21 04:46] LABS: Basophils % (A) 0 %; Eosinophils # (A) 0.1 k/uL (0-0.7); Eosinophils % (A) 1 %; HCT 36.1 % (34.0-46.0); HGB 11.7 gm/dL (11.4-16.0); Lymphocytes # (A) 0.4 k/uL (1.0-4.8); Lymphocytes % (A) 4 %; MCH 30.6 pg (25.0-35.0); MCHC 32.3 g/dL (31.0-37.0); MCV 94.5 fL (80.0-100.0); Mean Platelet Volume 10.6; Monocytes # (A) 0.3 k/uL (0-1.0); Monocytes % (A) 3 %; Neutrophils # (A) 9.2 k/uL (1.3-7.7); Neutrophils % (A) 92 %; Platelet Count 295 k/uL (150-450); Poikilocytosis Slight; RBC 3.82 m/uL (3.80-5.40); RDW 15.8 % (11.5-15.5)
[2020-01-21 04:58] LABS: ABG Base Excess 0.3 mmol/L; ABG HCO3 25 mmol/L (21-25); ABG Oxygen Saturation 93.6 % (94-97); ABG PCO2 41 mmHg (35-45); ABG PH 7.39 (7.35-7.45); ABG PO2 65 mmHg (83-108); ABG TCO2 27 mmol/L (19-24)
[2020-01-21 05:00] LABS: Allen Test Performed? no
[2020-01-21 05:03] LABS: Albumin 2.2 g/dL (3.5-5.0); Calcium 8.3 mg/dL (8.4-10.2); Potassium 3.6 mmol/L (3.5-5.1); Total Bilirubin 0.3 mg/dL (0.2-1.3); Total Protein 4.8 g/dL (6.3-8.2)
[2020-01-21 05:23] LABS: C Reactive Protein 140.8 mg/L (<10.0)
--- NOTE | 2020-01-21 07:21 | XR ---
EXAMINATION TYPE: XR chest 1V DATE OF EXAM: 01/21/2020 COMPARISON: 01/20/2020 HISTORY: Follow-up for pneumothorax. Ventilatory dependent respiratory failure. TECHNIQUE: Single frontal view of the chest is obtained. FINDINGS: There has been interval retraction of the tracheal tube now terminating approximately 2.1 cm from the gen as opposed to 0.6 cm on the prior. This is now appropriately positioned. Enteric t ube and left internal jugular central venous catheter are appropriately placed. Right-sided pneumotho rax is overall similar to the prior and small upper lung apex measuring approximately 1.4 cm. Right t horacostomy tube positioning is similar. Diffuse interstitial prominence throughout remains, left gre ater than right. Stable enlarged cardiomediastinal silhouette. Obscuration the left hemidiaphragm and costophrenic angle is similar. IMPRESSION: 1. Improved positioning of the endotracheal, now appropriate. Other stable lines and tubes. 2. Similar small right apical pneumothorax. 3. Unchanged diffuse interstitial prominence and trace left pleural effusion with retrocardiac opacit y.
[2020-01-21] MEDS ORDERED: POTASSIUM CHLORIDE ER 20 MEQ TAB.ER PO SCH (08:00)
[2020-01-21] MEDS: FLUCONAZOLE ORAL SUSP 1,400 MG/35 ML BOTTLE PO SCH (08:03)
[2020-01-21] MEDS ORDERED: POTASSIUM CHLORIDE 20 MEQ in WATER FOR INJECTION 1 100ML.BAG IVPB STA (08:03)
[2020-01-21] MEDS: ENOXAPARIN 40 MG/0.4 ML SYRINGE SQ SCH (08:06)
[2020-01-21] MEDS: FUROSEMIDE 10 MG/ML 4 ML VIAL IV SCH ×2 (08:07→16:10)
[2020-01-21] MEDS: CHLORHEXIDINE GLUCONATE 15 ML CUP MUCOUS MEM SCH ×2 (08:07→22:06)
[2020-01-21] MEDS: ZINC SULFATE 220 MG CAP PO SCH (08:07)
[2020-01-21] MEDS: DORZOLAMIDE HCL 2% DROPS 10 ML BTL LEFT EYE SCH ×2 (08:07→21:30)
[2020-01-21] MEDS: CHOLESTYRAMINE (WITH SUGAR) 4 GM PACKET OG-TUBE SCH ×2 (08:07→18:37)
[2020-01-21] MEDS: methylPREDNISolone SOD SUCCI 40 MG/ML 1 ML VIAL IV SCH ×2 (08:07→21:18)
[2020-01-21] MEDS: PANTOPRAZOLE 40 MG/10 ML VIAL IVP SCH (08:07)
[2020-01-21] MEDS: ASCORBIC ACID 500 MG TAB OG-TUBE SCH ×2 (08:07→21:17)
[2020-01-21 13:14] LABS: Glucose,Whole Blood 119 mg/dL (75-99)
[2020-01-21] MEDS: SODIUM CHLORIDE 0.9% 1,000 ML IV SCH (13:16)
--- NOTE | 2020-01-21 14:38 | P.PN ---
Subjective Progress Note Date: 01/21/20 this is an 84- female patient who has been admitted to the hospital on 01/11/2020 4 shortness of breath. The patient is very well-known to me. The patient isknown to have dermatomyositis, hypertension,and irritable bowel syndrome and glaucoma. She has been maintained on high-dose prednisone 40 mg on a daily basis regarding her dermatomyositis. She also has no previous history of eye of the Note that the patient came into the hospital because of increased shortness of breath in the fall. She was complaining of worsening shortness of breath. Her initial Covid 19 evaluation came back negative and subsequently the test was read done and it came back positive. The patient was getting very weak. She was in the 100% nonrebreather. She was quite hypotensive and she was started on fluids and pressors in the emergency department and the chest x-ray showed bilateral only infiltrates. Subsequently she was intubated and placed on a mechanical ventilator and she's been intubated sincethe date of admission which is 01/11/2020. The patient had a CT angiogram that showed diffuse groundglass opacities bilaterally consistent with viral pneumonia. There was no evidence of any pulmonary embolism. There was evidence of cholelithiasisand the CAT scan of the brain has been negative. During the course of the treatment, the patient completed Plaquenil treatment and the patient is on IV Solu-Medrol 40 mg every 12 hours by mouth the patient is receiving therapeutic doses of Lovenox 80 mg subcu every 12 hours as the patient's d-dimer was elevated at 6.89 at the time of admission with subsequent improvement dropped down to 2.4. She was also covered with IV Zosyn for empiric antibiotic coverage for suspected nosocomial infection/pneumonia. She remains intubated on a mechanical ventilator. At times she was becoming markedly agitated and the EEG that was done on 01/17/2020 showed a burst suppression patternthis is often seen with hypoxic encephalopathy. The patient was seen by neurology and their input was appreciated as possible hypoxic encephalopathy versus medication effectand furt her follow-up was recommended. For now, the patient is sedated with propofol running at 50 g per KG pigmented. She is on a mechanical ventilator on assist control mode with a tidal volume of 400 and the rate of 20 with an FiO2 of 50% and a PEEP of 10. Chest x-ray still showing diffuse bilateral pulmonary infiltrates and there is some worsening in the patchy infiltrates bilaterally. ET tube was within position and the patient has a left IJ triple-lumen catheter in place and the NG tube is in place as the patient is receiving enteral feeding for nal support in the form of vital AF at the r 25 mL an hour which is at goal. She continues to have a low-grade fever. The temperature from yesterday was 100.4. She remains on IV Zosyn. The Diflucan was also added to the regimen as the patient was found to have some Patti sputum. She remains on IV Protonix. IV fluids running at 30 mL an hour. On today's evaluation of 01/19/2020, the patient remains on a mechanical ventilator. Ventilator settings were essentially unchanged and the patient has been on a assist-control mode at the rate of 20 with a tidal volume of 400 and FiO2 of 50% and a PEEP was still at 10. The blood gas showed a pH of 7.36 with a pCO2 of 38 and pO2 of 57. The patient has shown significant amount of fluid overload. The patient is recommended related 1.2 L over the past 24 hours. Her weight was essentially a 79 kg and currently is up to 92 kg indicating extensive fluid overload and the patient has developed significant amount of edema in all 4 extremities. The LDH remains elevation at 1014. C-reactive protein is down to 324. The patient is afebrile for now. The patient is receiving vital AF for enteral feeding and nutritional support. The patient also receiving free water with Alaina. She is sedated with propofol. On today's evaluation of 01/20/2020, the patient is being seen for a follow-up in the intensive care unit. The patient remains intubated on a mechanical ventilator. The patient is still sedated with propofol running at 50 mg per KG per minute. Earlier this morning, the patient was an assist-control mode at the rate of 20 with a tidal volume of 400 and the patient was desaturating and based on that the FiO2 has been increased up to 80% and the patient also is on a PEEP of 5. The chest x-ray from this morning showed interstitial infiltrates bilaterally and the patient had a right-sided pneumothorax that was estimated to be 40% and his with a new finding compared to yesterday's chest x-ray. There is still diffuse interstitial markings bilaterally. Based on that, I inserted a immediate 28-Mongolian chest tube and there was complete occlusion of the right- sided pneumothorax. There is still some minimal residual air leak on the Pleur-evac. note that the patient had an elevated peak air pressure of 35 with a plateau pressure of 31 on today's evaluation. the patient is being diuresis IV Lasix. The neck fluid balance -1.3 L over the past 24 hours. When the process of weaning this patient's FiO2 down post chest tube insertion. Otherwise, the patient remains hemodynamically stable. The patient on Lovenox prophylactic dose for DVT prophylaxis. The patient remains on IV Solu-Medrol. The patient is on IV Zosyn as an empiric antibiotic coverage. The patient also is on Diflucan. On 01/21/2020 on seeing this patient in follow-up in intensive care unit. This morning this morning is sedated with propofol and she is calm and comfortable symptoms with the mechanical ventilator. She remains assist-control mode at the rate of 20 with a tidal volume of 400 with a PEEP of 5 and FiO2 of 70%. The blood gases from today shows a pH of 7.39 with a pCO2 of 45 and a pO2 of 65. The patient has a right-sided chest tube with direct pressure is 34. Ventricu lar pressure 32. The patient remains sedated. Propofol is running at 30 g per KG per minute. The chest x-ray showing a very tiny right apical pneumothorax. Chest tube is in a good location. ET tube is in a good location. The patient has diffuse bilateral interstitial pulmonary infiltrates. The patient remains in the fluid overload. The patient was receiving IV Lasix with good response. Nevertheless, we decided that she would benefit further from diuresis. She was in a negative fluid balance of 1.3 L. We are going to diabetes and more aggressively and I will increase the Lasix to 40 mg every 8 hours [id number]. She still has a significant swelling in all 4 extremities. The white cell count is at 10.0. Rest of the blood work and electrodes are all within normal limits. I contacted the family. I discussed the case with her daughter. I the family showed great concern and interested in repeating the test as this was very important for them to have a closure and no final diagnoses and exact cause reasoned that put the patient respiratory failure. as such, I think is reasonable to recheck her full code 19 infection as long as this was not negative originally and this may be helpful also in terms of future planning should there be any plans to do further procedures such as tracheostomy or PEG tube insertion. He was still doing universal precaution this patient and patient remains in the upper precaution. The patient remains on IV Zosyn. The patient remains on IV Solu Medrol 40 mg every 12 hours. She is on Lovenox for DVT prophylaxis. She is tolerating her enteral feeding for nutritional support. Objective - Vital Signs Vital signs: Vital Signs Temp 99.5 F 01/21/20 12:00 Pulse 70 01/21/20 13:00 Resp 28 H 01/21/20 13:00 BP 126/67 01/21/20 11:00 Pulse Ox 95 01/21/20 13:00 Intake & Output 01/20/20 01/21/20 01/21/20 18:59 06:59 18:59 Intake Total 4420.861 9248 752.000 Output Total 1710 2285 825 Balance -480.391 -1133 -73.000 Weight 92.1 kg 92.1 kg Intake: IV 532 462 352 Piperacillin-Tazobactam 3 100 75 100 .375 gm In Sodium Chloride 0.9% 100 ml @ 25 mls/hr IVPB Q8HR [facility] Rx# :[id number] Sodium Chloride 0.9% 1, 360 315 210 000 ml @ 30 mls/hr IV . Q24H [facility]NT[facility] Rx#:[id number] pressure bags 72 72 42 Intake, IV Titration 397.609 300 200.000 Amount Piperacillin-Tazobactam 3 100 .375 gm In Sodium Chloride 0.9% 100 ml @ 25 mls/hr IVPB Q8HR [facility] Rx# :[id number] Potassium Chloride 20 meq 100 In Water For Injection 1 100ml.bag @ 50 mls/hr IVPB ONCE [facility] Rx#: [id number] Propofol 1,000 mg In 297.609 300 100.000 Empty Bag 1 bag @ Titrate IV .Q0M [facility] Rx#: [id number] Tube Feeding 300 300 200 Other 90 Output: Chest Tube Drainage 250 50 right pleural 250 50 Urine 1460 1735 825 Stool 500 Other: Voiding Method Indwelling Catheter Indwelling Catheter Indwelling Catheter ABP, PAP, CO, CI - Last Documented Arterial Blood Pressure 158/59 - Exam Physical Exam: Revealed 84-year-old female intubated, on mechanical ventilation, sedated, on propofol. The orogastric and orotracheal tube are both in place for now. Head: Atraumatic, normocephalic. And the tracheal tube and orogastric tube are intact. Neck was supple and without jugular venous distension, thyromegaly, or carotid bruits. Carotids were easily palpable bilaterally. There was no adenopathy. Chest: Fine crackles at the bases, no rhonchi no wheezes, symmetrical chest expansion is noted. The patient has a right-sided chest tube in place. There is no subcutaneous emphysema. There is minimal amount of air leak and the Pleur-evac. Breath sounds are equal and symmetrical for now. Cardiac Exam: [Normal S1 and S2, no S3 gallop, no murmur. Abdomen: [Soft, nontender, no megaly, no rebound, no guarding, normal bowel sounds. Extremities: [No clubbing, 2+ bipedal edema, no cyanosis. Neurological Exam: [Cannot be assessed, patient is sedated, on propofol. Psychiatric: Could not be assessed. Skin: No areas of erythema or cellulitis. Lymphatics: No cervical lymphadenopathy. - Labs CBC & Chem 7: 01/21/20 04:15 01/21/20 04:15 Labs: Abnormal Lab Results - Last 24 Hours (Table) 01/20/20 01/20/20 01/21/20 Range/Units 04:30 17:32 00:40 RDW (11.5-15.5) % Neutrophils # (1.3-7.7) k/uL Lymphocytes # (1.0-4.8) k/uL ABG pO2 (83-108) mmHg ABG Total CO2 (19-24) mmol/L ABG O2 Saturation (94-97) % Chloride (98-107) mmol/L BUN (7-17) mg/dL Glucose (74-99) mg/dL POC Glucose (mg/dL) 144 H 117 H (75-99) mg/dL Calcium (8.4-10.2) mg/dL Ferritin 903.7 H (10.0-291.0) ng/mL Lactate Dehydrogenase (313-618) U/L C-Reactive Protein (<10.0) mg/L Total Protein (6.3-8.2) g/dL Albumin (3.5-5.0) g/dL Procalcitonin (0.02-0.09) ng/mL 01/21/20 01/21/20 01/21/20 Range/Units 04:15 04:15 04:15 RDW 15.8 H (11.5-15.5) % Neutrophils # 9.2 H (1.3-7.7) k/uL Lymphocytes # 0.4 L (1.0-4.8) k/uL ABG pO2 (83-108) mmHg ABG Total CO2 (19-24) mmol/L ABG O2 Saturation (94-97) % Chloride 110 H (98-107) mmol/L BUN 39 H (7-17) mg/dL Glucose 136 H (74-99) mg/dL POC Glucose (mg/dL) (75-99) mg/dL Calcium 8.3 L (8.4-10.2) mg/dL Ferritin 720.0 H (10.0-291.0) ng/mL Lactate Dehydrogenase 1068 H (313-618) U/L C-Reactive Protein 140.8 H (<10.0) mg/L Total Protein 4.8 L (6.3-8.2) g/dL Albumin 2.2 L (3.5-5.0) g/dL Procalcitonin 0.22 H (0.02-0.09) ng/mL 01/21/20 01/21/20 Range/Units 04:52 13:13 RDW (11.5-15.5) % Neutrophils # (1.3-7.7) k/uL Lymphocytes # (1.0-4.8) k/uL ABG pO2 65 L (83-108) mmHg ABG Total CO2 27 H (19-24) mmol/L ABG O2 Saturation 93.6 L (94-97) % Chloride (98-107) mmol/L BUN (7-17) mg/dL Glucose (74-99) mg/dL POC Glucose (mg/dL) 119 H (75-99) mg/dL Calcium (8.4-10.2) mg/dL Ferritin (10.0-291.0) ng/mL Lactate Dehydrogenase (313-618) U/L C-Reactive Protein (<10.0) mg/L Total Protein (6.3-8.2) g/dL Albumin (3.5-5.0) g/dL Procalcitonin (0.02-0.09) ng/mL Microbiology - Last 24 Hours (Table) 01/18/20 15:28 Urine Culture - Final Urine,Catheterized Patti albicans Assessment and Plan Plan: 1 acute Covid 19 related pneumonia with diffuse but the pulmonary infiltrates and acute hypoxic respiratory failureand the patient has been intubated on a mechanical ventilator since 01/11/2020. The patient completed Plaquenil. She remains on IV Solu-Medrol. She remains on therapeutic dose of Lovenox. Inflammatory markers including LDH remains elevated. C-reactive protein is elevated. D-dimer has improved.her now would also having difficulties with the patient's mental status and the patient has difficultiescoming off sedation the patient had an EEG that showing abnormalities including burst suppression which could potentially indicate the possibility of hypoxic encephalopathy versus drug effect. On 01/21/2020, the patient has a right-sided chest tube in place. The patient has a tiny right apical pneumothorax. The patient remains on a mechanical ventilator. The patient remains sedated. Blood gas was reviewed. Chest x-ray was reviewed. Ventilator was checked and noted. No role for any further weaning at this point in time. The patient remains in the ARDS. Significant elevation of the peak and static pressures is noted. 2 fever, currently afebrile and the patient is on IV Zosyn as an emperic Antibiotic coverage also on Diflucan 3 history of dermatomyositis/somewhat erythematous maintained on high-dose p rednisone outpatient basis 4 hypertension 5 glucoma 6 mild transaminitis improved 7 history of shingles 8 history of irritable bowel disease 9 severe lymphopenia secondary to Covid 19 infection PLAN Continue ventilator support, wean FiO2 as possible Keep the patient's right-sided chest tube in place and monitor the air leak and the right-sided pneumothorax Keep the PEEP at 5 and gradually wean down the FiO2 IV fluids to KVO Lovenox with prophylactic dose Continue IV Zosyn as an empiric antibiotic coverage Continue the Diflucan and the Zosyn per ID Repeat the Covid 19 evaluation upon the family's wishes to have a final diagnoses closure to her case Continue enteral feeding for nutritional support This may ultimately become a difficult to wean. We are going to follow up this patient and monitor progress and make further recommendations based on the above-mentioned changes. This is a critically care evaluation that was done more than 30 minutes. Time with Patient: Greater than 30
--- NOTE | 2020-01-21 17:36 | PN ---
PROGRESS NOTE DATE OF SERVICE: 01/21/2020 REASON FOR FOLLOWUP: Pneumonia. INTERVAL HISTORY: The patient is currently afebrile. The patient FiO2 is currently down to 60%. No significant precipitation and no worsening diarrhea per the nursing staff. Patient remains to be intubated on the vent. PHYSICAL EXAMINATION: Blood pressure is 153/57, pulse of 72, temperature 98. He is 90% on 50% FiO2. General description is an elderly female, intubated on the vent. RESPIRATORY SYSTEM: Unlabored breathing, decreased breath sounds in the base, no wheeze. HEART: S1, S2. Regular rate and rhythm. ABDOMEN: Soft, no distention. LABS: Hemoglobin 11.7, white count 10.7, BUN of 39, creatinine 0.72. DIAGNOSTIC IMPRESSION AND PLAN: 1. Patient with acute respiratory failure which is multifactorial in this patient have a respiratory COVID-19 pneumonia. Patient did have a herrera PCR done twice, remains to be negative. The patient is currently covered with Zosyn to continue. 2. Patient with a urinary intact infection covered with Diflucan. Continue and monitor clinical course closely. MMODL / IJN: [id number] / GRZEGORZ
[2020-01-21 18:11] LABS: Glucose,Whole Blood 113 mg/dL (75-99)
[2020-01-21] MEDS: LATANOPROST 0.005% OPHTH DROPS 2.5 ML BTL LEFT EYE SCH (21:01)
[2020-01-22] MEDS: PIPERACILLIN-TAZOBACTAM 3.375 GM in SODIUM CHLORIDE 0.9% 100 ML IVPB SCH ×3 (00:13→16:55)
[2020-01-22 00:35] LABS: Glucose,Whole Blood 117 mg/dL (75-99)
[2020-01-22] MEDS: INSULIN ASPART (NovoLOG) 100 UNIT/ML VIAL SQ SCH ×4 (01:14→18:14)
[2020-01-22] MEDS: SODIUM CHLORIDE 0.9% 1,000 ML IV SCH ×2 (01:14→18:09)
[2020-01-22] MEDS: FUROSEMIDE 10 MG/ML 4 ML VIAL IV SCH ×3 (01:21→16:56)
[2020-01-22 05:01] LABS: HGB 12.1 gm/dL (11.4-16.0); MCHC 32.8 g/dL (31.0-37.0); MCV 94.4 fL (80.0-100.0); Platelet Count 317 k/uL (150-450); RBC 3.92 m/uL (3.80-5.40); RDW 15.7 % (11.5-15.5); WBC 11.8 k/uL (3.8-10.6)
[2020-01-22 05:13] LABS: Albumin 2.4 g/dL (3.5-5.0); Calcium 8.4 mg/dL (8.4-10.2); Magnesium 2.2 mg/dL (1.6-2.3); Potassium 3.4 mmol/L (3.5-5.1); Total Bilirubin 0.4 mg/dL (0.2-1.3); Total Protein 5.1 g/dL (6.3-8.2)
[2020-01-22 05:30] LABS: ABG Base Excess 3.5 mmol/L; ABG HCO3 27 mmol/L (21-25); ABG Oxygen Saturation 92.8 % (94-97); ABG PCO2 35 mmHg (35-45); ABG PH 7.49 (7.35-7.45); ABG TCO2 28 mmol/L (19-24); Allen Test Performed? Yes
[2020-01-22 05:33] LABS: C Reactive Protein 164.5 mg/L (<10.0)
[2020-01-22] MEDS ORDERED: Potassium Replacement Protocol 1 EACH MISC MISCELLANE PRN (06:14)
--- NOTE | 2020-01-22 06:30 | XR ---
EXAMINATION TYPE: XR chest 1V portable DATE OF EXAM: 01/22/2020 CLINICAL HISTORY: Difficulty breathing and ARDS progress study. TECHNIQUE: Single AP portable upright view of the chest is obtained. COMPARISON: Chest x-ray from one day earlier and older studies. CTA chest January 11, 2020. FINDINGS: Endotracheal tube has been advanced now low-lying right gen, advise pulling back 5 to 6 cm to be in more ideal position. Stable orogastric tube and left internal jugular central venous cat heter. Persistent tiny right apical pneumothorax despite right-sided chest tube. Persistent cardiomegaly wit h atherosclerotic and ectatic thoracic aorta causing right-sided tracheal deviation. Diffuse alveolar and interstitial opacities bilaterally remain present. Silhouetting of left hemidiaphragm again seen . Osseous structures are intact. IMPRESSION: 1. Low-lying endotracheal tube. Advise retracting 5 to 6 cm. 2. Stable tiny right apical pneumothorax despite right-sided chest tube. 3. Stable alveolar and interstitial infiltrates and/or edema on background cardiomegaly and chronic p arenchymal change may be on basis of ARDS. Results of low-lying endotracheal tube discussed with ICU nurse via telephone at time of dictation.
[2020-01-22 06:34] LABS: Glucose,Whole Blood 121 mg/dL (75-99)
[2020-01-22] MEDS: POTASSIUM BICARBONATE/CIT AC 20 MEQ TABLET.EFF NG-TUBE SCH ×2 (07:19→09:41)
[2020-01-22] MEDS: PANTOPRAZOLE 40 MG/10 ML VIAL IVP SCH (09:41)
[2020-01-22] MEDS: CHLORHEXIDINE GLUCONATE 15 ML CUP MUCOUS MEM SCH ×2 (09:41→21:38)
[2020-01-22] MEDS: ASCORBIC ACID 500 MG TAB OG-TUBE SCH ×2 (09:41→21:38)
[2020-01-22] MEDS: ENOXAPARIN 40 MG/0.4 ML SYRINGE SQ SCH (09:41)
[2020-01-22] MEDS: methylPREDNISolone SOD SUCCI 40 MG/ML 1 ML VIAL IV SCH ×2 (09:41→21:37)
[2020-01-22] MEDS: ZINC SULFATE 220 MG CAP PO SCH (09:42)
[2020-01-22] MEDS: CHOLESTYRAMINE (WITH SUGAR) 4 GM PACKET OG-TUBE SCH ×2 (09:42→17:04)
[2020-01-22] MEDS: DORZOLAMIDE HCL 2% DROPS 10 ML BTL LEFT EYE SCH ×2 (10:35→21:38)
[2020-01-22 10:59] LABS: Ferritin 899.9 ng/mL (10.0-291.0)
[2020-01-22 12:00] LABS: Glucose,Whole Blood 97 mg/dL (75-99)
[2020-01-22] MEDS: FLUCONAZOLE ORAL SUSP 1,400 MG/35 ML BOTTLE PO SCH (12:12)
--- NOTE | 2020-01-22 14:59 | P.PN ---
Subjective Progress Note Date: 01/22/20 this is an 84- female patient who has been admitted to the hospital on 01/11/2020 4 shortness of breath. The patient is very well-known to me. The patient isknown to have dermatomyositis, hypertension,and irritable bowel syndrome and glaucoma. She has been maintained on high-dose prednisone 40 mg on a daily basis regarding her dermatomyositis. She also has no previous history of eye of the Note that the patient came into the hospital because of increased shortness of breath in the fall. She was complaining of worsening shortness of breath. Her initial Covid 19 evaluation came back negative and subsequently the test was read done and it came back positive. The patient was getting very weak. She was in the 100% nonrebreather. She was quite hypotensive and she was started on fluids and pressors in the emergency department and the chest x-ray showed bilateral only infiltrates. Subsequently she was intubated and placed on a mechanical ventilator and she's been intubated sincethe date of admission which is 01/11/2020. The patient had a CT angiogram that showed diffuse groundglass opacities bilaterally consistent with viral pneumonia. There was no evidence of any pulmonary embolism. There was evidence of cholelithiasisand the CAT scan of the brain has been negative. During the course of the treatment, the patient completed Plaquenil treatment and the patient is on IV Solu-Medrol 40 mg every 12 hours by mouth the patient is receiving therapeutic doses of Lovenox 80 mg subcu every 12 hours as the patient's d-dimer was elevated at 6.89 at the time of admission with subsequent improvement dropped down to 2.4. She was also covered with IV Zosyn for empiric antibiotic coverage for suspected nosocomial infection/pneumonia. She remains intubated on a mechanical ventilator. At times she was becoming markedly agitated and the EEG that was done on 01/17/2020 showed a burst suppression patternthis is often seen with hypoxic encephalopathy. The patient was seen by neurology and their input was appreciated as possible hypoxic encephalopathy versus medication effectand furt her follow-up was recommended. For now, the patient is sedated with propofol running at 50 g per KG pigmented. She is on a mechanical ventilator on assist control mode with a tidal volume of 400 and the rate of 20 with an FiO2 of 50% and a PEEP of 10. Chest x-ray still showing diffuse bilateral pulmonary infiltrates and there is some worsening in the patchy infiltrates bilaterally. ET tube was within position and the patient has a left IJ triple-lumen catheter in place and the NG tube is in place as the patient is receiving enteral feeding for nal support in the form of vital AF at the r 25 mL an hour which is at goal. She continues to have a low-grade fever. The temperature from yesterday was 100.4. She remains on IV Zosyn. The Diflucan was also added to the regimen as the patient was found to have some Patti sputum. She remains on IV Protonix. IV fluids running at 30 mL an hour. On today's evaluation of 01/19/2020, the patient remains on a mechanical ventilator. Ventilator settings were essentially unchanged and the patient has been on a assist-control mode at the rate of 20 with a tidal volume of 400 and FiO2 of 50% and a PEEP was still at 10. The blood gas showed a pH of 7.36 with a pCO2 of 38 and pO2 of 57. The patient has shown significant amount of fluid overload. The patient is recommended related 1.2 L over the past 24 hours. Her weight was essentially a 79 kg and currently is up to 92 kg indicating extensive fluid overload and the patient has developed significant amount of edema in all 4 extremities. The LDH remains elevation at 1014. C-reactive protein is down to 324. The patient is afebrile for now. The patient is receiving vital AF for enteral feeding and nutritional support. The patient also receiving free water with Alaina. She is sedated with propofol. On today's evaluation of 01/20/2020, the patient is being seen for a follow-up in the intensive care unit. The patient remains intubated on a mechanical ventilator. The patient is still sedated with propofol running at 50 mg per KG per minute. Earlier this morning, the patient was an assist-control mode at the rate of 20 with a tidal volume of 400 and the patient was desaturating and based on that the FiO2 has been increased up to 80% and the patient also is on a PEEP of 5. The chest x-ray from this morning showed interstitial infiltrates bilaterally and the patient had a right-sided pneumothorax that was estimated to be 40% and his with a new finding compared to yesterday's chest x-ray. There is still diffuse interstitial markings bilaterally. Based on that, I inserted a immediate 28-Chinese chest tube and there was complete occlusion of the right- sided pneumothorax. There is still some minimal residual air leak on the Pleur-evac. note that the patient had an elevated peak air pressure of 35 with a plateau pressure of 31 on today's evaluation. the patient is being diuresis IV Lasix. The neck fluid balance -1.3 L over the past 24 hours. When the process of weaning this patient's FiO2 down post chest tube insertion. Otherwise, the patient remains hemodynamically stable. The patient on Lovenox prophylactic dose for DVT prophylaxis. The patient remains on IV Solu-Medrol. The patient is on IV Zosyn as an empiric antibiotic coverage. The patient also is on Diflucan. On 01/21/2020 on seeing this patient in follow-up in intensive care unit. This morning this morning is sedated with propofol and she is calm and comfortable symptoms with the mechanical ventilator. She remains assist-control mode at the rate of 20 with a tidal volume of 400 with a PEEP of 5 and FiO2 of 70%. The blood gases from today shows a pH of 7.39 with a pCO2 of 45 and a pO2 of 65. The patient has a right-sided chest tube with direct pressure is 34. Ventricu lar pressure 32. The patient remains sedated. Propofol is running at 30 g per KG per minute. The chest x-ray showing a very tiny right apical pneumothorax. Chest tube is in a good location. ET tube is in a good location. The patient has diffuse bilateral interstitial pulmonary infiltrates. The patient remains in the fluid overload. The patient was receiving IV Lasix with good response. Nevertheless, we decided that she would benefit further from diuresis. She was in a negative fluid balance of 1.3 L. We are going to diabetes and more aggressively and I will increase the Lasix to 40 mg every 8 hours [id number]. She still has a significant swelling in all 4 extremities. The white cell count is at 10.0. Rest of the blood work and electrodes are all within normal limits. I contacted the family. I discussed the case with her daughter. I the family showed great concern and interested in repeating the test as this was very important for them to have a closure and no final diagnoses and exact cause reasoned that put the patient respiratory failure. as such, I think is reasonable to recheck her full code 19 infection as long as this was not negative originally and this may be helpful also in terms of future planning should there be any plans to do further procedures such as tracheostomy or PEG tube insertion. He was still doing universal precaution this patient and patient remains in the upper precaution. The patient remains on IV Zosyn. The patient remains on IV Solu Medrol 40 mg every 12 hours. She is on Lovenox for DVT prophylaxis. She is tolerating her enteral feeding for nutritional support. On 01/22/2020, I took this patient off sedation to assess her underlying mental status. This patient has been on propofol. She has been also on mechanical ventilation. Propofol is running at 30 mg per KG per minute. The patient also is an assist-control mode at the rate of 20 with a tidal volume of 400 and FiO2 of 60% with a PEEP of 5. The blood gases from today showed a pH of 7.49 with a pCO2 of 35 and a pO2 of 59. Chest x-ray shows that the ET tube was low in the trachea and it had to be pulled back by around 1 cm and this was done at the bedside. There is diffuse bilateral pulmonary infiltrates seen and examined unchanged compared to yesterday. The patient remains on diuretics and the patient is receiving IV Lasix 40 mg every 8 hours. Net fluid balance is negative for more than liters over the past 24 hours. She is still on IV Zosyn as an empiric antibiotic coverage pH she remains on normal saline at the rate of 30 mL an hour. She is on IV Solu Medrol 40 mg every 12 hours. She is receiving enteral feeding for nutritional support. She continues to have extensive edema in all 4 extremities and she'll be kept on diuretics for now. Meanwhile, it's important to assess the patient's mental status and for that reason I took her off the sedation. After making this adjustment, the patient became tachypneic and for that reason I had to switch her to a VC plus mode at the same tidal volume with a nighttime of 1 s which helped her quite a bit with her Synchrony and tachypnea that was noted on a mechanical ventilator. Nevertheless, the patient has not shown any meaningful or reasonable recovery off sedation and she is being monitored very closely in ICU. She is on Lovenox for prophylaxis. No other significant events otherwise. A repeat code 19 evaluation was done and came back negative. Objective - Vital Signs Vital signs: Vital Signs Temp 100.0 F H 01/22/20 13:00 Pulse 85 01/22/20 14:00 Resp 30 H 01/22/20 14:00 BP 126/67 01/21/20 11:00 Pulse Ox 91 L 01/22/20 14:00 Intake & Output 01/21/20 01/22/20 01/22/20 18:59 06:59 18:59 Intake Total 6397.007 0226.166 336.193 Output Total 1625 2185 865 Balance -357.000 -1116.834 -528.807 Weight 92.1 kg 89.2 kg 89.2 kg Intake: IV 668 532 212 Piperacillin-Tazobactam 3 200 100 100 .375 gm In Sodium Chloride 0.9% 100 ml @ 25 mls/hr IVPB Q8HR [facility] Rx# :[id number] Sodium Chloride 0.9% 1, 390 390 70 000 ml @ 30 mls/hr IV . Q24H [facility] Rx#:[id number] pressure bags 78 42 42 Intake, IV Titration 300.000 183.166 78.193 Amount Potassium Chloride 20 meq 100 In Water For Injection 1 100ml.bag @ 50 mls/hr IVPB ONCE [facility] Rx#: [id number] Propofol 1,000 mg In 200.000 183.166 78.193 Empty Bag 1 bag @ Titrate IV .Q0M [facility] Rx#: [id number] Tube Feeding 300 323 46 Other 30 Output: Chest Tube Drainage 100 50 0 right pleural 100 50 0 Urine 1525 1635 865 Stool 500 Other: Voiding Method Indwelling Catheter Indwelling Catheter Indwelling Catheter ABP, PAP, CO, CI - Last Documented Arterial Blood Pressure 145/56 - Exam Physical Exam: Revealed 84-year-old female intubated, on mechanical ventilation, sedated, on propofol. The patient is been taken off the propofol this morning and she is being monitored very closely in terms of her mental status. She remains unresponsive. She started becoming more tachypneic as she was taken off sedation. Nevertheless, she is not a point where she is following commands though she has shown adequate dialysis. We'll keep her off sedation for now. The orogastric and orotracheal tube are both in place for now. Head: Atraumatic, normocephalic. And the tracheal tube and orogastric tube are intact. Neck was supple and without jugular venous distension, thyromegaly, or carotid bruits. Carotids were easily palpable bilaterally. There was no adenopathy. Chest: Fine crackles at the bases, no rhonchi no wheezes, symmetrical chest expansion is noted. The patient has a right-sided chest tube in place. There is no subcutaneous emphysema. There is minimal amount of air leak and the Pleur-evac. Breath sounds are equal and symmetrical for now. Cardiac Exam: [Normal S1 and S2, no S3 gallop, no murmur. Abdomen: [Soft, nontender, no megaly, no rebound, no guarding, normal bowel sounds. Extremities: [No clubbing, 2+ bipedal edema, no cyanosis. Neurological Exam: [Cannot be assessed, patient is sedated, and the patient is currently off propofol Psychiatric: Could not be assessed. Skin: No areas of erythema or cellulitis. Lymphatics: No cervical lymphadenopathy. - Labs CBC & Chem 7: 01/22/20 04:48 01/22/20 14:28 Labs: Abnormal Lab Results - Last 24 Hours (Table) 01/21/20 01/22/20 01/22/20 Range/Units 18:10 00:33 04:48 WBC (3.8-10.6) k/uL RDW (11.5-15.5) % D-Dimer (<0.60) mg/L FEU ABG pH (7.35-7.45) ABG pO2 (83-108) mmHg ABG HCO3 (21-25) mmol/L ABG Total CO2 (19-24) mmol/L ABG O2 Saturation (94-97) % Potassium 3.4 L (3.5-5.1) mmol/L BUN 40 H (7-17) mg/dL Glucose 141 H (74-99) mg/dL POC Glucose (mg/dL) 113 H 117 H (75-99) mg/dL Ferritin 899.9 H (10.0-291.0) ng/mL ALT 45 H (4-34) U/L Lactate Dehydrogenase 1082 H (313-618) U/L Creatine Kinase 21 L (30-135) U/L C-Reactive Protein 164.5 H (<10.0) mg/L Total Protein 5.1 L (6.3-8.2) g/dL Albumin 2.4 L (3.5-5.0) g/dL 01/22/20 01/22/20 01/22/20 Range/Units 04:48 04:48 05:26 WBC 11.8 H (3.8-10.6) k/uL RDW 15.7 H (11.5-15.5) % D-Dimer 2.73 H (<0.60) mg/L FEU ABG pH 7.49 H (7.35-7.45) ABG pO2 59 L* (83-108) mmHg ABG HCO3 27 H (21-25) mmol/L ABG Total CO2 28 H (19-24) mmol/L ABG O2 Saturation 92.8 L (94-97) % Potassium (3.5-5.1) mmol/L BUN (7-17) mg/dL Glucose (74-99) mg/dL POC Glucose (mg/dL) (75-99) mg/dL Ferritin (10.0-291.0) ng/mL ALT (4-34) U/L Lactate Dehydrogenase (313-618) U/L Creatine Kinase (30-135) U/L C-Reactive Protein (<10.0) mg/L Total Protein (6.3-8.2) g/dL Albumin (3.5-5.0) g/dL 01/22/20 Range/Units 06:31 WBC (3.8-10.6) k/uL RDW (11.5-15.5) % D-Dimer (<0.60) mg/L FEU ABG pH (7.35-7.45) ABG pO2 (83-108) mmHg ABG HCO3 (21-25) mmol/L ABG Total CO2 (19-24) mmol/L ABG O2 Saturation (94-97) % Potassium (3.5-5.1) mmol/L BUN (7-17) mg/dL Glucose (74-99) mg/dL POC Glucose (mg/dL) 121 H (75-99) mg/dL Ferritin (10.0-291.0) ng/mL ALT (4-34) U/L Lactate Dehydrogenase (313-618) U/L Creatine Kinase (30-135) U/L C-Reactive Protein (<10.0) mg/L Total Protein (6.3-8.2) g/dL Albumin (3.5-5.0) g/dL Assessment and Plan Plan: 1 acute pneumonia/Covid 19 pneumonia was suspected and the results came back negative. Nevertheless the patient is highly suspicious as there was diffuse but the pulmonary infiltrates and acute hypoxic respiratory failureand the patient has been intubated on a mechanical ventilator since 01/11/2020. Also, the rest of the inflammatory markers were highly suspicious for Covid 19 her presentation was also highly suspicious. The patient completed Plaquenil. She remains on IV Solu-Medrol. She remains on therapeutic dose of Lovenox. Inflammatory markers including LDH remains elevated. C-reactive protein is sunshine vated. D-dimer has improved.her now would also having difficulties with the patient's mental status and the patient has difficultiescoming off sedation the patient had an EEG that showing abnormalities including burst suppression which could potentially indicate the possibility of hypoxic encephalopathy versus drug effect. On 01/22/2020, the patient overall pulmonary status is essentially unchanged. Chest x-ray findings are showing the nearly completely expanded right lung and the chest tube is in place without any evidence of any air leak and the patient continues to be on a mechanical ventilator on a assist-control mode volume cycle with essentially same ventilator settings. Blood gases was noted. The patient continues to have elevated peak and static pressures. The patient is not ready for further weaning.. Nevertheless, we will given a sedation holiday for at least assess his underlying mental status and act accordingly. Ventilator was checked. This is a ventilator changes was done and the patient was switched to VC plus mode and a follow-up gases pending for now. Meanwhile, we'll try to keep the patient off the sedation as much as possible to assess the mental st atus and see if there is any reasonable neurologic recovery/response. 2 fever, currently afebrile and the patient is on IV Zosyn as an emperic Antibiotic coverage also on Diflucan 3 history of dermatomyositis/somewhat erythematous maintained on high-dose prednisone outpatient basis 4 hypertension 5 glucoma 6 mild transaminitis improved 7 history of shingles 8 history of irritable bowel disease 9 severe lymphopenia secondary to Covid 19 infection PLAN Continue ventilator support, some ventilator changes were done and will monitor the patient's FiO2 and 16 with the mechanical ventilator Keep the patient's right-sided chest tube in place and monitor the air leak and the right-sided pneumothorax Keep the PEEP at 5 IV fluids to KVO Lovenox with prophylactic dose Continue the Diflucan and the Zosyn per ID Repeat the Covid 19 evaluation was negative Continue enteral feeding for nutritional support Continue IV Lasix and the patient is a negative fluid balance Keep the patient of sedation and assess mental status This may ultimately become a difficult to wean. We are going to follow up this patient and monitor progress and make further recommendations based on the above-mentioned changes. This is a critically care evaluation that was done more than 30 minutes. Time with Patient: Greater than 30
--- NOTE | 2020-01-22 16:55 | P.PN ---
Subjective Progress Note Date: 01/21/20 Ekta Yañez is an 84-year-old female patient of Dr. Oquendo who presented to [facility] emergency room with a chief complaint of generalized weakness and fall, patient also was complaining of shortness of breath, she was alert and oriented in the emergency room and was able to answer questions appropriately however she was getting more hypoxic, she had fever with a temperature of 100.1 testing in the emergency room included influenza A and B and Covid 19 which were all negative. However her clinical picture, computed tomography scan results, and lab results were all typical of Covid 19 illness. Patient decompensated while in emergency room. Blood gas revealed evidence of PO2 of 55 she was intubated in the emergency room and was admitted to intensive care unit consultation for Dr. Ariza was initiated for critical care and pulmonary management, consultation for Dr. Harman was initiated for infectious disease treatment. Currently patient is in the intensive care unit she is intubated sedated maintained on mechanical ventilation, Dr. Ariza reason assisting the patient and placing central line. Computed tomography scan of the chest with contrast was done in the emergency room and was negative for pulmonary embolism, however it revealed diffuse groundglass opacities throughout both lungs. Computed tomography scan of the head and neck without contrast was done in the emergency room due to fall and did not reveal any significant abnormality. Pelvic x-ray was done due to fall and did not reveal any obvious fracture. From chart review patient has history of dermatomyositis, she was admitted to the hospital in November for IV steroid course. 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 Wilson. On 01/12/2020 patient was seen and examined in the intensive care unit she is intubated sedated maintained on mechanical ventilation, she is oxygenating better today and PEEP was decreased from 10 down to 5 by intensive care. ABG was done and revealed pH of 7.35 pCO2 36 PaO2 135 chest x-ray was reviewed and was stable from yesterday echocardiogram done and revealed normal left ventricular systolic function with ejection fraction of 55-60% On 01/13/2020 Patient was seen and examined in the ICU she is still intubated, sedated, maintained on mechanical ventilation, PEEP was increased to 10 today, PaO2 is 51 pCO2 31 she is still on IV pressure support. With Levophed On 01/14/2020 patient was seen and examined in the ICU she is intubated sedated maintained on mechanical ventilation, ABG today reveals pH of 7.39 PaO2 69 pCO2 37 patient is still maintained on a PEEP of 10 and FiO2 of 50% critical care are following, patient receiving IV Zithromax, IV Solu-Medrol, and hydroxychloroquine through NG tube. On 01/15/2020 Patient was seen and examined in the ICU she is still intubated, sedated, maintained on mechanical ventilation. She failed weaning trial this morning per nurse. She is off vasopressors at this time. On 01/16/2020 patient was seen and examined in the intensive care unit she is intubated sedated maintained on mechanical ventilation, ABG today reveals a pH of 7.35 pCO2 14 PaO2 98 FiO2 is 50% temperature is 97.4 blood pressure 126/64 respiration 20 On 01/17/2020 patient was seen and examined in the intensive care unit she is intubated sedated maintained on mechanical ventilation she is not on any vasopressors at this time. ABG reveals a pH of 7.31 pCO2 41 PaO2 71 on FiO2 of 50% potassium is 3.4 white blood count 8.9 hemoglobin 11.5 On 01/18/2020 patient was seen and examined in the ICU she is intubated sedated maintained on mechanical ventilation she is not on any vasopressors. A trial to decrease sedation this morning failed due to decreased O2 sat duration and tachypnea. ABG this morning reveals a pH of 7.38 pCO2 36 PaO2 62 FiO2 is 50% On 01/19/2020 patient was seen and examined in the ICU she is still intubated sedated maintained on mechanical ventilation she is not on vasopressors at this time. Sedation was stopped for about 1 hour today but was resumed to due to decreased O2 sat duration and tachypnea. EEG was done today. Temperature is 97.2 pulse 62 respiration 23 blood pressure 160/62 ABG reveals a pH of 7.36 pCO2 38 CO2 57 FiO2 is 50% and PEEP is being decreased to gradually from 10-5 On 01/20/2020 patient was seen and examined in the ICU she is intubated, sedated, maintained on mechanical ventilation no significant change in condition since yesterday, temperature is 97.6 pulse 64 respiration 24 blood pressure 154/60 pulse ox is 88% on an FiO2 of 90% ABG reveals a pH of 7.31 pCO2 47 PO2 88 Patient was seen and examined in the ICU, she is intubated, sedated, maintained on mechanical ventilation, she is not on any pressure support at this time. she had evidence of pneumothorax and had a chest tube inserted. ABG reveals PH 7.39 PCO2 41 PO2 65 and FIO2 70 % Objective - Vital Signs Vital signs: Vital Signs Temp 99.5 F 01/21/20 12:00 Pulse 72 01/21/20 16:00 Resp 27 H 01/21/20 16:00 BP 126/67 01/21/20 11:00 Pulse Ox 90 L 01/21/20 16:00 Intake & Output 01/20/20 01/21/20 01/21/20 18:59 06:59 18:59 Intake Total 0161.237 3380 1060.000 Output Total 1710 2285 1050 Balance -480.391 -1133 10.000 Weight 92.1 kg 92.1 kg Intake: IV 532 462 560 Piperacillin-Tazobactam 3 100 75 200 .375 gm In Sodium Chloride 0.9% 100 ml @ 25 mls/hr IVPB Q8HR [facility] Rx# :[id number] Sodium Chloride 0.9% 1, 360 315 300 000 ml @ 30 mls/hr IV . Q24H [facility] Rx#:[id number] pressure bags 72 72 60 Intake, IV Titration 397.609 300 200.000 Amount Piperacillin-Tazobactam 3 100 .375 gm In Sodium Chloride 0.9% 100 ml @ 25 mls/hr IVPB Q8HR [facility] Rx# :[id number] Potassium Chloride 20 meq 100 In Water For Injection 1 100ml.bag @ 50 mls/hr IVPB ONCE [facility] Rx#: [id number] Propofol 1,000 mg In 297.609 300 100.000 Empty Bag 1 bag @ Titrate IV .Q0M [facility] Rx#: [id number] Tube Feeding 300 300 300 Other 90 Output: Chest Tube Drainage 250 50 100 right pleural 250 50 100 Urine 1460 1735 950 Stool 500 Other: Voiding Method Indwelling Catheter Indwelling Catheter Indwelling Catheter ABP, PAP, CO, CI - Last Documented Arterial Blood Pressure 153/57 - Exam In general patient is intubated sedated maintained on mechanical ventilation HEENT head normocephalic and atraumatic Neck is supple no JVD no goiter no lymphadenopathy Chest exam reveals coarse crackles in both lung olson Cardiac exam reveals regular heart sounds no gallops no murmurs Abdomen is soft nontender no organomegaly with normal bowel sounds Extremity exam reveals 2+ edema no cyanosis or clubbing - Labs CBC & Chem 7: 01/22/20 04:48 01/22/20 14:28 Labs: Abnormal Lab Results - Last 24 Hours (Table) 01/20/20 01/21/20 01/21/20 Range/Units 17:32 00:40 04:15 RDW (11.5-15.5) % Neutrophils # (1.3-7.7) k/uL Lymphocytes # (1.0-4.8) k/uL ABG pO2 (83-108) mmHg ABG Total CO2 (19-24) mmol/L ABG O2 Saturation (94-97) % Chloride (98-107) mmol/L BUN (7-17) mg/dL Glucose (74-99) mg/dL POC Glucose (mg/dL) 144 H 117 H (75-99) mg/dL Calcium (8.4-10.2) mg/dL Ferritin (10.0-291.0) ng/mL Lactate Dehydrogenase (313-618) U/L C-Reactive Protein (<10.0) mg/L Total Protein (6.3-8.2) g/dL Albumin (3.5-5.0) g/dL Procalcitonin 0.22 H (0.02-0.09) ng/mL 01/21/20 01/21/20 01/21/20 Range/Units 04:15 04:15 04:52 RDW 15.8 H (11.5-15.5) % Neutrophils # 9.2 H (1.3-7.7) k/uL Lymphocytes # 0.4 L (1.0-4.8) k/uL ABG pO2 65 L (83-108) mmHg ABG Total CO2 27 H (19-24) mmol/L ABG O2 Saturation 93.6 L (94-97) % Chloride 110 H (98-107) mmol/L BUN 39 H (7-17) mg/dL Glucose 136 H (74-99) mg/dL POC Glucose (mg/dL) (75-99) mg/dL Calcium 8.3 L (8.4-10.2) mg/dL Ferritin 720.0 H (10.0-291.0) ng/mL Lactate Dehydrogenase 1068 H (313-618) U/L C-Reactive Protein 140.8 H (<10.0) mg/L Total Protein 4.8 L (6.3-8.2) g/dL Albumin 2.2 L (3.5-5.0) g/dL Procalcitonin (0.02-0.09) ng/mL 01/21/20 Range/Units 13:13 RDW (11.5-15.5) % Neutrophils # (1.3-7.7) k/uL Lymphocytes # (1.0-4.8) k/uL ABG pO2 (83-108) mmHg ABG Total CO2 (19-24) mmol/L ABG O2 Saturation (94-97) % Chloride (98-107) mmol/L BUN (7-17) mg/dL Glucose (74-99) mg/dL POC Glucose (mg/dL) 119 H (75-99) mg/dL Calcium (8.4-10.2) mg/dL Ferritin (10.0-291.0) ng/mL Lactate Dehydrogenase (313-618) U/L C-Reactive Protein (<10.0) mg/L Total Protein (6.3-8.2) g/dL Albumin (3.5-5.0) g/dL Procalcitonin (0.02-0.09) ng/mL Microbiology - Last 24 Hours (Table) 01/18/20 15:28 Urine Culture - Final Urine,Catheterized Patti albicans Assessment and Plan Plan: #1 bilateral pneumonia most likely viral pneumonia due to Covid 19 virus despite negative instant test in the emergency room. #2 acute hypoxic respiratory failure requiring mechanical ventilation #3 sepsis, as evidenced by leukocytosis white blood count 18.8, fever temperature 100.1 lactic acid testing is pending. #4 mild elevation in liver enzymes likely related to acute illness, will monitor #5 underlying history of dermatomyositis #6 elevated d-dimer without evidence of pulmonary embolism on CT angiogram of the chest #7 mild elevation in troponin level, likely related to oxygen demand, supply mis match, doubt acute myocardial infarction at this time, will monitor closely #8 for DVT prophylaxis Will start patient on subcu Lovenox, for GI prophylaxis will start IV Protonix #9 Pneumothorax status post chest tube placement. Prognosis is extremely guarded due to age, severity of illness requiring intubation and mechanical ventilation, and underlying medical problems Will follow closely
[2020-01-22 16:57] LABS: ABG Base Excess 3.3 mmol/L; ABG HCO3 26 mmol/L (21-25); ABG Oxygen Saturation 93.7 % (94-97); ABG PCO2 30 mmHg (35-45); ABG PH 7.55 (7.35-7.45); ABG PO2 60 mmHg (83-108); ABG TCO2 27 mmol/L (19-24); Allen Test Performed? Yes
--- NOTE | 2020-01-22 16:58 | P.PN ---
Subjective Progress Note Date: 01/22/20 Ekta Yañez is an 84-year-old female patient of Dr. Oquendo who presented to [facility] emergency room with a chief complaint of generalized weakness and fall, patient also was complaining of shortness of breath, she was alert and oriented in the emergency room and was able to answer questions appropriately however she was getting more hypoxic, she had fever with a temperature of 100.1 testing in the emergency room included influenza A and B and Covid 19 which were all negative. However her clinical picture, computed tomography scan results, and lab results were all typical of Covid 19 illness. Patient decompensated while in emergency room. Blood gas revealed evidence of PO2 of 55 she was intubated in the emergency room and was admitted to intensive care unit consultation for Dr. Ariza was initiated for critical care and pulmonary management, consultation for Dr. Harman was initiated for infectious disease treatment. Currently patient is in the intensive care unit she is intubated sedated maintained on mechanical ventilation, Dr. Ariza reason assisting the patient and placing central line. Computed tomography scan of the chest with contrast was done in the emergency room and was negative for pulmonary embolism, however it revealed diffuse groundglass opacities throughout both lungs. Computed tomography scan of the head and neck without contrast was done in the emergency room due to fall and did not reveal any significant abnormality. Pelvic x-ray was done due to fall and did not reveal any obvious fracture. From chart review patient has history of dermatomyositis, she was admitted to the hospital in November for IV steroid course. 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 Wilson. On 01/12/2020 patient was seen and examined in the intensive care unit she is intubated sedated maintained on mechanical ventilation, she is oxygenating better today and PEEP was decreased from 10 down to 5 by intensive care. ABG was done and revealed pH of 7.35 pCO2 36 PaO2 135 chest x-ray was reviewed and was stable from yesterday echocardiogram done and revealed normal left ventricular systolic function with ejection fraction of 55-60% On 01/13/2020 Patient was seen and examined in the ICU she is still intubated, sedated, maintained on mechanical ventilation, PEEP was increased to 10 today, PaO2 is 51 pCO2 31 she is still on IV pressure support. With Levophed On 01/14/2020 patient was seen and examined in the ICU she is intubated sedated maintained on mechanical ventilation, ABG today reveals pH of 7.39 PaO2 69 pCO2 37 patient is still maintained on a PEEP of 10 and FiO2 of 50% critical care are following, patient receiving IV Zithromax, IV Solu-Medrol, and hydroxychloroquine through NG tube. On 01/15/2020 Patient was seen and examined in the ICU she is still intubated, sedated, maintained on mechanical ventilation. She failed weaning trial this morning per nurse. She is off vasopressors at this time. On 01/16/2020 patient was seen and examined in the intensive care unit she is intubated sedated maintained on mechanical ventilation, ABG today reveals a pH of 7.35 pCO2 14 PaO2 98 FiO2 is 50% temperature is 97.4 blood pressure 126/64 respiration 20 On 01/17/2020 patient was seen and examined in the intensive care unit she is intubated sedated maintained on mechanical ventilation she is not on any vasopressors at this time. ABG reveals a pH of 7.31 pCO2 41 PaO2 71 on FiO2 of 50% potassium is 3.4 white blood count 8.9 hemoglobin 11.5 On 01/18/2020 patient was seen and examined in the ICU she is intubated sedated maintained on mechanical ventilation she is not on any vasopressors. A trial to decrease sedation this morning failed due to decreased O2 sat duration and tachypnea. ABG this morning reveals a pH of 7.38 pCO2 36 PaO2 62 FiO2 is 50% On 01/19/2020 patient was seen and examined in the ICU she is still intubated sedated maintained on mechanical ventilation she is not on vasopressors at this time. Sedation was stopped for about 1 hour today but was resumed to due to decreased O2 sat duration and tachypnea. EEG was done today. Temperature is 97.2 pulse 62 respiration 23 blood pressure 160/62 ABG reveals a pH of 7.36 pCO2 38 CO2 57 FiO2 is 50% and PEEP is being decreased to gradually from 10-5 On 01/20/2020 patient was seen and examined in the ICU she is intubated, sedated, maintained on mechanical ventilation no significant change in condition since yesterday, temperature is 97.6 pulse 64 respiration 24 blood pressure 154/60 pulse ox is 88% on an FiO2 of 90% ABG reveals a pH of 7.31 pCO2 47 PO2 88 On 01/21/2020 Patient was seen and examined in the ICU, she is intubated, kelly andres, maintained on mechanical ventilation, she is not on any pressure support at this time. she had evidence of pneumothorax and had a chest tube inserted. ABG reveals PH 7.39 PCO2 41 PO2 65 FIO2 70% On 01/22/2020 Patient was seen and examined in the ICU, she is intubated sedated maintained on mechanical ventilation. ABG reveals PH 7.49 PCO2 35 PO2 59 FIO2 60 % Chest tube in place. No significant change in condition Objective - Vital Signs Vital signs: Vital Signs Temp 100.0 F H 01/22/20 13:00 Pulse 85 01/22/20 14:00 Resp 30 H 01/22/20 14:00 BP 126/67 01/21/20 11:00 Pulse Ox 91 L 01/22/20 14:00 Intake & Output 01/21/20 01/22/20 01/22/20 18:59 06:59 18:59 Intake Total 4833.587 5365.166 336.193 Output Total 1625 2185 865 Balance -357.000 -1116.834 -528.807 Weight 92.1 kg 89.2 kg 89.2 kg Intake: IV 668 532 212 Piperacillin-Tazobactam 3 200 100 100 .375 gm In Sodium Chloride 0.9% 100 ml @ 25 mls/hr IVPB Q8HR [facility] Rx# :[id number] Sodium Chloride 0.9% 1, 390 390 70 000 ml @ 30 mls/hr IV . Q24H [facility] Rx#:[id number] pressure bags 78 42 42 Intake, IV Titration 300.000 183.166 78.193 Amount Potassium Chloride 20 meq 100 In Water For Injection 1 100ml.bag @ 50 mls/hr IVPB ONCE [facility] Rx#: [id number] Propofol 1,000 mg In 200.000 183.166 78.193 Empty Bag 1 bag @ Titrate IV .Q0M [facility] Rx#: [id number] Tube Feeding 300 323 46 Other 30 Output: Chest Tube Drainage 100 50 0 right pleural 100 50 0 Urine 1525 1635 865 Stool 500 Other: Voiding Method Indwelling Catheter Indwelling Catheter Indwelling Catheter ABP, PAP, CO, CI - Last Documented Arterial Blood Pressure 145/56 - Exam In general patient is intubated sedated maintained on mechanical ventilation HEENT head normocephalic and atraumatic Neck is supple no JVD no goiter no lymphadenopathy Chest exam reveals coarse crackles in both lung olson Cardiac exam reveals regular heart sounds no gallops no murmurs Abdomen is soft nontender no organomegaly with normal bowel sounds Extremity exam reveals 2+ edema no cyanosis or clubbing - Labs CBC & Chem 7: 01/22/20 04:48 01/22/20 14:28 Labs: Abnormal Lab Results - Last 24 Hours (Table) 01/21/20 01/22/20 01/22/20 Range/Units 18:10 00:33 04:48 WBC (3.8-10.6) k/uL RDW (11.5-15.5) % D-Dimer (<0.60) mg/L FEU ABG pH (7.35-7.45) ABG pO2 (83-108) mmHg ABG HCO3 (21-25) mmol/L ABG Total CO2 (19-24) mmol/L ABG O2 Saturation (94-97) % Potassium 3.4 L (3.5-5.1) mmol/L BUN 40 H (7-17) mg/dL Glucose 141 H (74-99) mg/dL POC Glucose (mg/dL) 113 H 117 H (75-99) mg/dL Ferritin 899.9 H (10.0-291.0) ng/mL ALT 45 H (4-34) U/L Lactate Dehydrogenase 1082 H (313-618) U/L Creatine Kinase 21 L (30-135) U/L C-Reactive Protein 164.5 H (<10.0) mg/L Total Protein 5.1 L (6.3-8.2) g/dL Albumin 2.4 L (3.5-5.0) g/dL 01/22/20 01/22/20 01/22/20 Range/Units 04:48 04:48 05:26 WBC 11.8 H (3.8-10.6) k/uL RDW 15.7 H (11.5-15.5) % D-Dimer 2.73 H (<0.60) mg/L FEU ABG pH 7.49 H (7.35-7.45) ABG pO2 59 L* (83-108) mmHg ABG HCO3 27 H (21-25) mmol/L ABG Total CO2 28 H (19-24) mmol/L ABG O2 Saturation 92.8 L (94-97) % Potassium (3.5-5.1) mmol/L BUN (7-17) mg/dL Glucose (74-99) mg/dL POC Glucose (mg/dL) (75-99) mg/dL Ferritin (10.0-291.0) ng/mL ALT (4-34) U/L Lactate Dehydrogenase (313-618) U/L Creatine Kinase (30-135) U/L C-Reactive Protein (<10.0) mg/L Total Protein (6.3-8.2) g/dL Albumin (3.5-5.0) g/dL 01/22/20 Range/Units 06:31 WBC (3.8-10.6) k/uL RDW (11.5-15.5) % D-Dimer (<0.60) mg/L FEU ABG pH (7.35-7.45) ABG pO2 (83-108) mmHg ABG HCO3 (21-25) mmol/L ABG Total CO2 (19-24) mmol/L ABG O2 Saturation (94-97) % Potassium (3.5-5.1) mmol/L BUN (7-17) mg/dL Glucose (74-99) mg/dL POC Glucose (mg/dL) 121 H (75-99) mg/dL Ferritin (10.0-291.0) ng/mL ALT (4-34) U/L Lactate Dehydrogenase (313-618) U/L Creatine Kinase (30-135) U/L C-Reactive Protein (<10.0) mg/L Total Protein (6.3-8.2) g/dL Albumin (3.5-5.0) g/dL Assessment and Plan Plan: #1 bilateral pneumonia most likely viral pneumonia due to Covid 19 virus despite negative instant test in the emergency room. #2 acute hypoxic respiratory failure requiring mechanical ventilation #3 sepsis, as evidenced by leukocytosis white blood count 18.8, fever temperature 100.1 lactic acid testing is pending. #4 mild elevation in liver enzymes likely related to acute illness, will monitor #5 underlying history of dermatomyositis #6 elevated d-dimer without evidence of pulmonary embolism on CT angiogram of the chest #7 mild elevation in troponin level, likely related to oxygen demand, supply mismatch, doubt acute myocardial infarction at this time, will monitor closely #8 for DVT prophylaxis Will start patient on subcu Lovenox, for GI prophylaxis will start IV Protonix #9 Pneumothorax status post chest tube placement. Prognosis is extremely guarded due to age, severity of illness requiring intubation and mechanical ventilation, and underlying medical problems Will follow closely
[2020-01-22 18:00] LABS: Glucose,Whole Blood 192 mg/dL (75-99)
--- NOTE | 2020-01-22 18:44 | PN ---
PROGRESS NOTE DATE OF SERVICE: 01/22/2020 REASON FOR FOLLOWUP: Pneumonia. INTERVAL HISTORY: The patient is currently afebrile. The patient is hemodynamically stable. FiO2 is currently 60%. No significant purulent secretion through the ET or any worsening diarrhea reported by the nursing staff. Patient remains intubated on the vent. PHYSICAL EXAMINATION: Blood pressure 118/65 with a pulse of 90, temperature 98.7. She is 91% on 60% FiO2. General description is an elderly female lying in bed in no distress. RESPIRATORY SYSTEM: Unlabored breathing with decreased breath sounds at the base. No wheeze. HEART: S1, S2. Regular rate and rhythm. ABDOMEN: Soft. No distention. LABS: Hemoglobin is 12.1, white count 11.8. BUN of 40, creatinine 0.86. DIAGNOSTIC IMPRESSION AND PLAN: 1. Patient with acute respiratory failure, likely multifactorial, with a possible component of pneumonia and possible COVID that has been treated. Currently covered with Zosyn; to continue along with steroid and monitor clinical course closely. 2. Patient with urinary tract infection, with yeast, covered with Diflucan. White count is normal. Continue with supportive care. MMODL / IJN: [id number] /
[2020-01-22] MEDS: LATANOPROST 0.005% OPHTH DROPS 2.5 ML BTL LEFT EYE SCH (21:38)
[2020-01-22 23:51] LABS: Glucose,Whole Blood 133 mg/dL (75-99)
[2020-01-23] MEDS: INSULIN ASPART (NovoLOG) 100 UNIT/ML VIAL SQ SCH ×4 (00:19→17:27)
[2020-01-23] MEDS: PIPERACILLIN-TAZOBACTAM 3.375 GM in SODIUM CHLORIDE 0.9% 100 ML IVPB SCH ×3 (00:20→17:20)
[2020-01-23] MEDS: FUROSEMIDE 10 MG/ML 4 ML VIAL IV SCH ×3 (00:23→17:21)
[2020-01-23 05:42] LABS: ABG Base Excess 3.1 mmol/L; ABG HCO3 26 mmol/L (21-25); ABG Oxygen Saturation 96.2 % (94-97); ABG PCO2 29 mmHg (35-45); ABG PH 7.55 (7.35-7.45); ABG PO2 73 mmHg (83-108); ABG TCO2 26 mmol/L (19-24); Allen Test Performed? Yes
[2020-01-23 05:54] LABS: Glucose,Whole Blood 131 mg/dL (75-99)
[2020-01-23 06:43] LABS: Basophils % (A) 0 %; Eosinophils % (A) 0 %; HCT 37.7 % (34.0-46.0); HGB 12.6 gm/dL (11.4-16.0); Lymphocytes # (A) 0.6 k/uL (1.0-4.8); Lymphocytes % (A) 4 %; MCH 31.8 pg (25.0-35.0); MCHC 33.4 g/dL (31.0-37.0); MCV 95.4 fL (80.0-100.0); Monocytes # (A) 0.3 k/uL (0-1.0); Monocytes % (A) 2 %; Neutrophils # (A) 12.2 k/uL (1.3-7.7); Neutrophils % (A) 93 %; Platelet Count 395 k/uL (150-450); RBC 3.96 m/uL (3.80-5.40); RDW 15.9 % (11.5-15.5); WBC 13.1 k/uL (3.8-10.6)
[2020-01-23 07:04] LABS: Albumin 2.3 g/dL (3.5-5.0); Calcium 8.3 mg/dL (8.4-10.2); Potassium 3.8 mmol/L (3.5-5.1); Total Bilirubin 0.5 mg/dL (0.2-1.3); Total Protein 4.9 g/dL (6.3-8.2)
[2020-01-23] MEDS ORDERED: Potassium Replacement Protocol 1 EACH MISC MISCELLANE PRN (07:07)
--- NOTE | 2020-01-23 07:41 | XR ---
EXAMINATION TYPE: XR chest 1V portable DATE OF EXAM: 01/23/2020 Comparison: 01/22/2020 Clinical History: 84-year-old female Chest tube, ET tube, OG tube placement Findings: ET tube tip is low, 5 mm from the gen. This could be pulled back 3 cm and reassessed at follow-up. NG tube courses below the diaphragm. Left CVC tip lower SVC region. Right-sided chest tube and subcu taneous emphysema along the right hemithorax. Previous right apical pneumothorax no longer identified . Patchy and confluent bilateral airspace opacity persists. There seems to be some improvement in aer ation in the left lower lung. Impression: 1. The ET tube remains low, tip 5 mm from the gen. Pull back 3 cm and reassess at follow-up. 2. Right-sided chest tube and right-sided subcutaneous emphysema. The previously seen right apical pn eumothorax is no longer identified. 3. Continued diffuse bilateral airspace disease with improving aeration at the left base. A [place] level critical message alert (in regards to the ET tube tip position) has been initiated for Charli Warren MD~[id number] via the [employer] Critical Results System on 01/23/2020 7:37 AM. This message alert has been sent to Charli Warren MD~[id number] via the preferences provided by the clinician for the receipt of Radiology Critical Findings. Message ID [id number].
[2020-01-23 07:42] LABS: ABG PO2 59 mmHg (83-108)
[2020-01-23] MEDS ORDERED: POTASSIUM BICARBONATE/CIT AC 20 MEQ TABLET.EFF NG-TUBE SCH (08:00)
[2020-01-23] MEDS: PANTOPRAZOLE 40 MG/10 ML VIAL IVP SCH (08:18)
[2020-01-23] MEDS: CHLORHEXIDINE GLUCONATE 15 ML CUP MUCOUS MEM SCH ×2 (08:18→21:00)
[2020-01-23] MEDS: methylPREDNISolone SOD SUCCI 40 MG/ML 1 ML VIAL IV SCH ×2 (08:18→21:14)
[2020-01-23] MEDS: ASCORBIC ACID 500 MG TAB OG-TUBE SCH ×2 (08:18→21:00)
[2020-01-23] MEDS: ENOXAPARIN 40 MG/0.4 ML SYRINGE SQ SCH (08:19)
[2020-01-23] MEDS: CHOLESTYRAMINE (WITH SUGAR) 4 GM PACKET OG-TUBE SCH ×2 (08:19→17:21)
[2020-01-23] MEDS: ZINC SULFATE 220 MG CAP PO SCH (08:19)
[2020-01-23] MEDS: DORZOLAMIDE HCL 2% DROPS 10 ML BTL LEFT EYE SCH ×2 (08:43→21:01)
[2020-01-23] MEDS: FLUCONAZOLE ORAL SUSP 1,400 MG/35 ML BOTTLE PO SCH (08:45)
[2020-01-23 11:00] VITALS: BMI 35.4
[2020-01-23 11:57] LABS: Glucose,Whole Blood 113 mg/dL (75-99)
--- NOTE | 2020-01-23 12:43 | P.PN ---
Subjective Progress Note Date: 01/23/20 Ekta Yañez is an 84-year-old female patient of Dr. Oquendo who presented to [facility] emergency room with a chief complaint of generalized weakness and fall, patient also was complaining of shortness of breath, she was alert and oriented in the emergency room and was able to answer questions appropriately however she was getting more hypoxic, she had fever with a temperature of 100.1 testing in the emergency room included influenza A and B and Covid 19 which were all negative. However her clinical picture, computed tomography scan results, and lab results were all typical of Covid 19 illness. Patient decompensated while in emergency room. Blood gas revealed evidence of PO2 of 55 she was intubated in the emergency room and was admitted to intensive care unit consultation for Dr. Ariza was initiated for critical care and pulmonary management, consultation for Dr. Harman was initiated for infectious disease treatment. Currently patient is in the intensive care unit she is intubated sedated maintained on mechanical ventilation, Dr. Ariza reason assisting the patient and placing central line. Computed tomography scan of the chest with contrast was done in the emergency room and was negative for pulmonary embolism, however it revealed diffuse groundglass opacities throughout both lungs. Computed tomography scan of the head and neck without contrast was done in the emergency room due to fall and did not reveal any significant abnormality. Pelvic x-ray was done due to fall and did not reveal any obvious fracture. From chart review patient has history of dermatomyositis, she was admitted to the hospital in November for IV steroid course. 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 Wilson. On 01/12/2020 patient was seen and examined in the intensive care unit she is intubated sedated maintained on mechanical ventilation, she is oxygenating better today and PEEP was decreased from 10 down to 5 by intensive care. ABG was done and revealed pH of 7.35 pCO2 36 PaO2 135 chest x-ray was reviewed and was stable from yesterday echocardiogram done and revealed normal left ventricular systolic function with ejection fraction of 55-60% On 01/13/2020 Patient was seen and examined in the ICU she is still intubated, sedated, maintained on mechanical ventilation, PEEP was increased to 10 today, PaO2 is 51 pCO2 31 she is still on IV pressure support. With Levophed On 01/14/2020 patient was seen and examined in the ICU she is intubated sedated maintained on mechanical ventilation, ABG today reveals pH of 7.39 PaO2 69 pCO2 37 patient is still maintained on a PEEP of 10 and FiO2 of 50% critical care are following, patient receiving IV Zithromax, IV Solu-Medrol, and hydroxychloroquine through NG tube. On 01/15/2020 Patient was seen and examined in the ICU she is still intubated, sedated, maintained on mechanical ventilation. She failed weaning trial this morning per nurse. She is off vasopressors at this time. On 01/16/2020 patient was seen and examined in the intensive care unit she is intubated sedated maintained on mechanical ventilation, ABG today reveals a pH of 7.35 pCO2 14 PaO2 98 FiO2 is 50% temperature is 97.4 blood pressure 126/64 respiration 20 On 01/17/2020 patient was seen and examined in the intensive care unit she is intubated sedated maintained on mechanical ventilation she is not on any vasopressors at this time. ABG reveals a pH of 7.31 pCO2 41 PaO2 71 on FiO2 of 50% potassium is 3.4 white blood count 8.9 hemoglobin 11.5 On 01/18/2020 patient was seen and examined in the ICU she is intubated sedated maintained on mechanical ventilation she is not on any vasopressors. A trial to decrease sedation this morning failed due to decreased O2 sat duration and tachypnea. ABG this morning reveals a pH of 7.38 pCO2 36 PaO2 62 FiO2 is 50% On 01/19/2020 patient was seen and examined in the ICU she is still intubated sedated maintained on mechanical ventilation she is not on vasopressors at this time. Sedation was stopped for about 1 hour today but was resumed to due to decreased O2 sat duration and tachypnea. EEG was done today. Temperature is 97.2 pulse 62 respiration 23 blood pressure 160/62 ABG reveals a pH of 7.36 pCO2 38 CO2 57 FiO2 is 50% and PEEP is being decreased to gradually from 10-5 On 01/20/2020 patient was seen and examined in the ICU she is intubated, sedated, maintained on mechanical ventilation no significant change in condition since yesterday, temperature is 97.6 pulse 64 respiration 24 blood pressure 154/60 pulse ox is 88% on an FiO2 of 90% ABG reveals a pH of 7.31 pCO2 47 PO2 88 On 01/21/2020 Patient was seen and examined in the ICU, she is intubated, kelly andres, maintained on mechanical ventilation, she is not on any pressure support at this time. she had evidence of pneumothorax and had a chest tube inserted. ABG reveals PH 7.39 PCO2 41 PO2 65 FIO2 70% On 01/22/2020 Patient was seen and examined in the ICU, she is intubated sedated maintained on mechanical ventilation. ABG reveals PH 7.49 PCO2 35 PO2 59 FIO2 60 % Chest tube in place. No significant change in condition On 01/23/2020 patient was seen and examined in the ICU she is intubated sedated maintained on mechanical ventilation. ABG this morning reveals pH 7.55 pCO2 29 PaO2 73 FiO2 60% patient will have a sedation holiday today to assess her mental function chest tube is still in place Objective - Vital Signs Vital signs: Vital Signs Temp 98.9 F 01/23/20 04:00 Pulse 81 01/23/20 11:00 Resp 28 H 01/23/20 11:00 BP 126/67 01/21/20 11:00 Pulse Ox 95 01/23/20 11:00 Intake & Output 01/22/20 01/23/20 01/23/20 18:59 06:59 18:59 Intake Total 384.193 632.002 180 Output Total 1087 1260 810 Balance -702.807 -627.998 -630 Weight 89.2 kg 85.1 kg 85.1 kg Intake: IV 260 523 180 Piperacillin-Tazobactam 3 100 100 .375 gm In Sodium Chloride 0.9% 100 ml @ 25 mls/hr IVPB Q8HR [facility]ANT[facility] Rx# :[id number] Sodium Chloride 0.9% 1, 100 360 150 000 ml @ 30 mls/hr IV . Q24H [facility] Rx#:[id number] pressure bags 60 63 30 Intake, IV Titration 78.193 109.002 Amount Propofol 1,000 mg In 78.193 109.002 Empty Bag 1 bag @ Titrate IV .Q0M [facility]ANT[facility] Rx#: [id number] Oral 0 Tube Feeding 46 0 0 Other 0 Output: Chest Tube Drainage 25 0 right pleural 25 0 Urine 1062 1260 310 Stool 500 Other: Voiding Method Indwelling Catheter Indwelling Catheter Indwelling Catheter ABP, PAP, CO, CI - Last Documented Arterial Blood Pressure 123/53 - Exam In general patient is intubated sedated maintained on mechanical ventilation HEENT head normocephalic and atraumatic Neck is supple no JVD no goiter no lymphadenopathy Chest exam reveals coarse crackles in both lung olson Cardiac exam reveals regular heart sounds no gallops no murmurs Abdomen is soft nontender no organomegaly with normal bowel sounds Extremity exam reveals 2+ edema no cyanosis or clubbing - Labs CBC & Chem 7: 01/23/20 04:30 01/23/20 04:30 Labs: Abnormal Lab Results - Last 24 Hours (Table) 01/22/20 01/22/20 01/22/20 Range/Units 05:26 16:55 17:59 WBC (3.8-10.6) k/uL RDW (11.5-15.5) % Neutrophils # (1.3-7.7) k/uL Lymphocytes # (1.0-4.8) k/uL ABG pH 7.55 H (7.35-7.45) ABG pCO2 30 L (35-45) mmHg ABG pO2 59 L* 60 L (83-108) mmHg ABG HCO3 26 H (21-25) mmol/L ABG Total CO2 27 H (19-24) mmol/L ABG O2 Saturation 93.7 L (94-97) % Chloride (98-107) mmol/L BUN (7-17) mg/dL Glucose (74-99) mg/dL POC Glucose (mg/dL) 192 H (75-99) mg/dL Calcium (8.4-10.2) mg/dL AST (14-36) U/L ALT (4-34) U/L Total Protein (6.3-8.2) g/dL Albumin (3.5-5.0) g/dL 01/22/20 01/23/20 01/23/20 Range/Units 23:50 04:30 04:30 WBC 13.1 H (3.8-10.6) k/uL RDW 15.9 H (11.5-15.5) % Neutrophils # 12.2 H (1.3-7.7) k/uL Lymphocytes # 0.6 L (1.0-4.8) k/uL ABG pH (7.35-7.45) ABG pCO2 (35-45) mmHg ABG pO2 (83-108) mmHg ABG HCO3 (21-25) mmol/L ABG Total CO2 (19-24) mmol/L ABG O2 Saturation (94-97) % Chloride 108 H (98-107) mmol/L BUN 50 H (7-17) mg/dL Glucose 134 H (74-99) mg/dL POC Glucose (mg/dL) 133 H (75-99) mg/dL Calcium 8.3 L (8.4-10.2) mg/dL AST 67 H (14-36) U/L ALT 85 H (4-34) U/L Total Protein 4.9 L (6.3-8.2) g/dL Albumin 2.3 L (3.5-5.0) g/dL 01/23/20 01/23/20 01/23/20 Range/Units 05:39 05:52 11:55 WBC (3.8-10.6) k/uL RDW (11.5-15.5) % Neutrophils # (1.3-7.7) k/uL Lymphocytes # (1.0-4.8) k/uL ABG pH 7.55 H (7.35-7.45) ABG pCO2 29 L (35-45) mmHg ABG pO2 73 L (83-108) mmHg ABG HCO3 26 H (21-25) mmol/L ABG Total CO2 26 H (19-24) mmol/L ABG O2 Saturation (94-97) % Chloride (98-107) mmol/L BUN (7-17) mg/dL Glucose (74-99) mg/dL POC Glucose (mg/dL) 131 H 113 H (75-99) mg/dL Calcium (8.4-10.2) mg/dL AST (14-36) U/L ALT (4-34) U/L Total Protein (6.3-8.2) g/dL Albumin (3.5-5.0) g/dL Assessment and Plan Plan: #1 bilateral pneumonia most likely viral pneumonia due to Covid 19 virus despite negative instant test in the emergency room. #2 acute hypoxic respiratory failure requiring mechanical ventilation #3 sepsis, as evidenced by leukocytosis white blood count 18.8, fever temperature 100.1 lactic acid testing is pending. #4 mild elevation in liver enzymes likely related to acute illness, will monitor #5 underlying history of dermatomyositis #6 elevated d-dimer without evidence of pulmonary embolism on CT angiogram of the chest #7 mild elevation in troponin level, likely related to oxygen demand, supply mismatch, doubt acute myocardial infarction at this time, will monitor closely #8 for DVT prophylaxis Will start patient on subcu Lovenox, for GI prophylaxis will start IV Protonix #9 Pneumothorax status post chest tube placement. Prognosis is extremely guarded due to age, severity of illness requiring intubation and mechanical ventilation, and underlying medical problems Will follow closely
--- NOTE | 2020-01-23 17:09 | P.PN ---
Subjective Progress Note Date: 01/23/20 this is an 84- female patient who has been admitted to the hospital on 01/11/2020 4 shortness of breath. The patient is very well-known to me. The patient isknown to have dermatomyositis, hypertension,and irritable bowel syndrome and glaucoma. She has been maintained on high-dose prednisone 40 mg on a daily basis regarding her dermatomyositis. She also has no previous history of eye of the Note that the patient came into the hospital because of increased shortness of breath in the fall. She was complaining of worsening shortness of breath. Her initial Covid 19 evaluation came back negative and subsequently the test was read done and it came back positive. The patient was getting very weak. She was in the 100% nonrebreather. She was quite hypotensive and she was started on fluids and pressors in the emergency department and the chest x-ray showed bilateral only infiltrates. Subsequently she was intubated and placed on a mechanical ventilator and she's been intubated sincethe date of admission which is 01/11/2020. The patient had a CT angiogram that showed diffuse groundglass opacities bilaterally consistent with viral pneumonia. There was no evidence of any pulmonary embolism. There was evidence of cholelithiasisand the CAT scan of the brain has been negative. During the course of the treatment, the patient completed Plaquenil treatment and the patient is on IV Solu-Medrol 40 mg every 12 hours by mouth the patient is receiving therapeutic doses of Lovenox 80 mg subcu every 12 hours as the patient's d-dimer was elevated at 6.89 at the time of admission with subsequent improvement dropped down to 2.4. She was also covered with IV Zosyn for empiric antibiotic coverage for suspected nosocomial infection/pneumonia. She remains intubated on a mechanical ventilator. At times she was becoming markedly agitated and the EEG that was done on 01/17/2020 showed a burst suppression patternthis is often seen with hypoxic encephalopathy. The patient was seen by neurology and their input was appreciated as possible hypoxic encephalopathy versus medication effectand furt her follow-up was recommended. For now, the patient is sedated with propofol running at 50 g per KG pigmented. She is on a mechanical ventilator on assist control mode with a tidal volume of 400 and the rate of 20 with an FiO2 of 50% and a PEEP of 10. Chest x-ray still showing diffuse bilateral pulmonary infiltrates and there is some worsening in the patchy infiltrates bilaterally. ET tube was within position and the patient has a left IJ triple-lumen catheter in place and the NG tube is in place as the patient is receiving enteral feeding for nal support in the form of vital AF at the r 25 mL an hour which is at goal. She continues to have a low-grade fever. The temperature from yesterday was 100.4. She remains on IV Zosyn. The Diflucan was also added to the regimen as the patient was found to have some Patti sputum. She remains on IV Protonix. IV fluids running at 30 mL an hour. On today's evaluation of 01/19/2020, the patient remains on a mechanical ventilator. Ventilator settings were essentially unchanged and the patient has been on a assist-control mode at the rate of 20 with a tidal volume of 400 and FiO2 of 50% and a PEEP was still at 10. The blood gas showed a pH of 7.36 with a pCO2 of 38 and pO2 of 57. The patient has shown significant amount of fluid overload. The patient is recommended related 1.2 L over the past 24 hours. Her weight was essentially a 79 kg and currently is up to 92 kg indicating extensive fluid overload and the patient has developed significant amount of edema in all 4 extremities. The LDH remains elevation at 1014. C-reactive protein is down to 324. The patient is afebrile for now. The patient is receiving vital AF for enteral feeding and nutritional support. The patient also receiving free water with Alaina. She is sedated with propofol. On today's evaluation of 01/20/2020, the patient is being seen for a follow-up in the intensive care unit. The patient remains intubated on a mechanical ventilator. The patient is still sedated with propofol running at 50 mg per KG per minute. Earlier this morning, the patient was an assist-control mode at the rate of 20 with a tidal volume of 400 and the patient was desaturating and based on that the FiO2 has been increased up to 80% and the patient also is on a PEEP of 5. The chest x-ray from this morning showed interstitial infiltrates bilaterally and the patient had a right-sided pneumothorax that was estimated to be 40% and his with a new finding compared to yesterday's chest x-ray. There is still diffuse interstitial markings bilaterally. Based on that, I inserted a immediate 28-Indonesian chest tube and there was complete occlusion of the right- sided pneumothorax. There is still some minimal residual air leak on the Pleur-evac. note that the patient had an elevated peak air pressure of 35 with a plateau pressure of 31 on today's evaluation. the patient is being diuresis IV Lasix. The neck fluid balance -1.3 L over the past 24 hours. When the process of weaning this patient's FiO2 down post chest tube insertion. Otherwise, the patient remains hemodynamically stable. The patient on Lovenox prophylactic dose for DVT prophylaxis. The patient remains on IV Solu-Medrol. The patient is on IV Zosyn as an empiric antibiotic coverage. The patient also is on Diflucan. On 01/21/2020 on seeing this patient in follow-up in intensive care unit. This morning this morning is sedated with propofol and she is calm and comfortable symptoms with the mechanical ventilator. She remains assist-control mode at the rate of 20 with a tidal volume of 400 with a PEEP of 5 and FiO2 of 70%. The blood gases from today shows a pH of 7.39 with a pCO2 of 45 and a pO2 of 65. The patient has a right-sided chest tube with direct pressure is 34. Ventricu lar pressure 32. The patient remains sedated. Propofol is running at 30 g per KG per minute. The chest x-ray showing a very tiny right apical pneumothorax. Chest tube is in a good location. ET tube is in a good location. The patient has diffuse bilateral interstitial pulmonary infiltrates. The patient remains in the fluid overload. The patient was receiving IV Lasix with good response. Nevertheless, we decided that she would benefit further from diuresis. She was in a negative fluid balance of 1.3 L. We are going to diabetes and more aggressively and I will increase the Lasix to 40 mg every 8 hours [id number]. She still has a significant swelling in all 4 extremities. The white cell count is at 10.0. Rest of the blood work and electrodes are all within normal limits. I contacted the family. I discussed the case with her daughter. I the family showed great concern and interested in repeating the test as this was very important for them to have a closure and no final diagnoses and exact cause reasoned that put the patient respiratory failure. as such, I think is reasonable to recheck her full code 19 infection as long as this was not negative originally and this may be helpful also in terms of future planning should there be any plans to do further procedures such as tracheostomy or PEG tube insertion. He was still doing universal precaution this patient and patient remains in the upper precaution. The patient remains on IV Zosyn. The patient remains on IV Solu Medrol 40 mg every 12 hours. She is on Lovenox for DVT prophylaxis. She is tolerating her enteral feeding for nutritional support. On 01/22/2020, I took this patient off sedation to assess her underlying mental status. This patient has been on propofol. She has been also on mechanical ventilation. Propofol is running at 30 mg per KG per minute. The patient also is an assist-control mode at the rate of 20 with a tidal volume of 400 and FiO2 of 60% with a PEEP of 5. The blood gases from today showed a pH of 7.49 with a pCO2 of 35 and a pO2 of 59. Chest x-ray shows that the ET tube was low in the trachea and it had to be pulled back by around 1 cm and this was done at the bedside. There is diffuse bilateral pulmonary infiltrates seen and examined unchanged compared to yesterday. The patient remains on diuretics and the patient is receiving IV Lasix 40 mg every 8 hours. Net fluid balance is negative for more than liters over the past 24 hours. She is still on IV Zosyn as an empiric antibiotic coverage pH she remains on normal saline at the rate of 30 mL an hour. She is on IV Solu Medrol 40 mg every 12 hours. She is receiving enteral feeding for nutritional support. She continues to have extensive edema in all 4 extremities and she'll be kept on diuretics for now. Meanwhile, it's important to assess the patient's mental status and for that reason I took her off the sedation. After making this adjustment, the patient became tachypneic and for that reason I had to switch her to a VC plus mode at the same tidal volume with a nighttime of 1 s which helped her quite a bit with her Synchrony and tachypnea that was noted on a mechanical ventilator. Nevertheless, the patient has not shown any meaningful or reasonable recovery off sedation and she is being monitored very closely in ICU. She is on Lovenox for prophylaxis. No other significant events otherwise. A repeat Covid 19 19 evaluation was done and came back negative. On 01/23/2020, stop the sedation again to assess the patient's mental status. A sedation holiday yesterday wasn't successful as the patient did not show significant neurologic recovery or responsiveness. Overnight she had to be placed back on propofol for comfort reasons and earlier this morning with a bit of the propofol. She is currently on no sedation and upon repeated stimulation she continues to be unresponsive. She is currently on assist control mode at the rate of 20 with a tidal volume of 420 FiO2 of 80% with a PEEP of 8. Blood gases today showed a pH of 7.55 and a pCO2 of 29 and pO2 73. I dropped FiO2 down to 60%. Peak airway pressure 38 with a plateau pressure of 34. The chest x-ray shows the ET tube remains low and needs to be positioned and appropriate positioning was done. There is a right-sided chest tube and the right-sided subcutaneous emphysema and there is no evidence of any pneumothorax. There is diffuse bilateral pulmonary infiltrates with some improving aeration the left lung base on today's chest x-ray. The patient is afebrile today. The patient white cell count is 13.4. Renal function stable with a creatinine of 1.0. Her BMs at 50. She is at least 1.5 L fluid balance negative over the past 24 hours as the patient is being diuresed with IV Lasix 40 mg every 8 hours. No seizure activity has been noted. She does not open her eyes spontaneously. She does not withdraw to do any painful stimulation. I'm going to give her another 24 hours off sedation and monitor her progress. Objective - Vital Signs Vital signs: Vital Signs Temp 98.9 F 01/23/20 04:00 Pulse 81 01/23/20 11:00 Resp 28 H 01/23/20 11:00 BP 126/67 01/21/20 11:00 Pulse Ox 95 01/23/20 11:00 Intake & Output 01/22/20 01/23/20 01/23/20 18:59 06:59 18:59 Intake Total 384.193 632.002 180 Output Total 1087 1260 810 Balance -702.807 -627.998 -630 Weight 89.2 kg 85.1 kg 85.1 kg Intake: IV 260 523 180 Piperacillin-Tazobactam 3 100 100 .375 gm In Sodium Chloride 0.9% 100 ml @ 25 mls/hr IVPB Q8HR [facility] Rx# :[id number] Sodium Chloride 0.9% 1, 100 360 150 000 ml @ 30 mls/hr IV . Q24H [facility] Rx#:[id number] pressure bags 60 63 30 Intake, IV Titration 78.193 109.002 Amount Propofol 1,000 mg In 78.193 109.002 Empty Bag 1 bag @ Titrate IV .Q0M [facility] Rx#: [id number] Oral 0 Tube Feeding 46 0 0 Other 0 Output: Chest Tube Drainage 25 0 right pleural 25 0 Urine 1062 1260 310 Stool 500 Other: Voiding Method Indwelling Catheter Indwelling Catheter Indwelling Catheter ABP, PAP, CO, CI - Last Documented Arterial Blood Pressure 123/53 - Exam Physical Exam: Revealed 84-year-old female intubated, on mechanical ventilation, sedated, on propofol. The patient is been taken off the propofol this morning and she is being monitored very closely in terms of her mental status. She remains unresponsiv Head: Atraumatic, normocephalic. And the tracheal tube and orogastric tube are intact. Neck was supple and without jugular venous distension, thyromegaly, or carotid bruits. Carotids were easily palpable bilaterally. There was no adenopathy. Chest: Fine crackles at the bases, no rhonchi no wheezes, symmetrical chest expansion is noted. The patient has a right-sided chest tube in place. There is no subcutaneous emphysema. There is minimal amount of air leak and the Pleur-evac. Breath sounds are equal and symmetrical for now. Cardiac Exam: [Normal S1 and S2, no S3 gallop, no murmur. Abdomen: [Soft, nontender, no megaly, no rebound, no guarding, normal bowel sounds. Extremities: [No clubbing, 2+ bipedal edema, no cyanosis. Neurological Exam: Unresponsive off propofol Psychiatric: Could not be assessed. Skin: No areas of erythema or cellulitis. Lymphatics: No cervical lymphadenopathy. - Labs CBC & Chem 7: 01/23/20 04:30 01/23/20 04:30 Labs: Abnormal Lab Results - Last 24 Hours (Table) 01/22/20 01/22/20 01/22/20 Range/Units 05:26 17:59 23:50 WBC (3.8-10.6) k/uL RDW (11.5-15.5) % Neutrophils # (1.3-7.7) k/uL Lymphocytes # (1.0-4.8) k/uL ABG pH (7.35-7.45) ABG pCO2 (35-45) mmHg ABG pO2 59 L* (83-108) mmHg ABG HCO3 (21-25) mmol/L ABG Total CO2 (19-24) mmol/L Chloride (98-107) mmol/L BUN (7-17) mg/dL Glucose (74-99) mg/dL POC Glucose (mg/dL) 192 H 133 H (75-99) mg/dL Calcium (8.4-10.2) mg/dL AST (14-36) U/L ALT (4-34) U/L Total Protein (6.3-8.2) g/dL Albumin (3.5-5.0) g/dL 01/23/20 01/23/20 01/23/20 Range/Units 04:30 04:30 05:39 WBC 13.1 H (3.8-10.6) k/uL RDW 15.9 H (11.5-15.5) % Neutrophils # 12.2 H (1.3-7.7) k/uL Lymphocytes # 0.6 L (1.0-4.8) k/uL ABG pH 7.55 H (7.35-7.45) ABG pCO2 29 L (35-45) mmHg ABG pO2 73 L (83-108) mmHg ABG HCO3 26 H (21-25) mmol/L ABG Total CO2 26 H (19-24) mmol/L Chloride 108 H (98-107) mmol/L BUN 50 H (7-17) mg/dL Glucose 134 H (74-99) mg/dL POC Glucose (mg/dL) (75-99) mg/dL Calcium 8.3 L (8.4-10.2) mg/dL AST 67 H (14-36) U/L ALT 85 H (4-34) U/L Total Protein 4.9 L (6.3-8.2) g/dL Albumin 2.3 L (3.5-5.0) g/dL 01/23/20 01/23/20 Range/Units 05:52 11:55 WBC (3.8-10.6) k/uL RDW (11.5-15.5) % Neutrophils # (1.3-7.7) k/uL Lymphocytes # (1.0-4.8) k/uL ABG pH (7.35-7.45) ABG pCO2 (35-45) mmHg ABG pO2 (83-108) mmHg ABG HCO3 (21-25) mmol/L ABG Total CO2 (19-24) mmol/L Chloride (98-107) mmol/L BUN (7-17) mg/dL Glucose (74-99) mg/dL POC Glucose (mg/dL) 131 H 113 H (75-99) mg/dL Calcium (8.4-10.2) mg/dL AST (14-36) U/L ALT (4-34) U/L Total Protein (6.3-8.2) g/dL Albumin (3.5-5.0) g/dL Assessment and Plan Plan: 1 acute pneumonia/Covid 19 pneumonia was suspected and the results came back negative. Nevertheless the patient is highly suspicious as there was diffuse but the pulmonary infiltrates and acute hypoxic respiratory failureand the patient has been intubated on a mechanical ventilator since 01/11/2020. Also, the rest of the inflammatory markers were highly suspicious for Covid 19 her presentation was also highly suspicious. The patient completed Plaquenil. She remains on IV Solu-Medrol. She remains on therapeutic dose of Lovenox. Inflammatory markers including LDH remains elevated. C-reactive protein is elevated. D-dimer has improved.her now would also having difficulties with the patient's mental status and the patient has difficultiescoming off sedation the patient had an EEG that showing abnormalities including burst suppression which could potentially indicate the possibility of hypoxic encephalopathy versus drug effect. On 01/23/2020, the patient's condition is essentially unchanged. Of significance is the lack of neurologic recovery of sedation. This is obviously at poor prognostic sign. The patient was taken off the sedation more than 12 hours yesterday and she's been off sedation since early this morning. I do not see any significant neurologic recovery at this point, the patient remains unresponsive. No seizure activity has been noted. We'll keep her off sedation. We'll keep her on a mechanical ventilator. Chest x-ray was noted. Right- sided chest tube was noted. There is no evidence of a right-sided pneumothorax. There is some limited appearance emphysema on the right. There is still bilateral diffuse pulmonary infiltrates. The patient is still being diuresed with IV Lasix to achieve a negative fluid balance. Renal function is stable. Still having significant amount of edema in the upper and lower extremities which has somewhat improved with aggressive diuresis. Nevertheless, the progn osis remains poor as the patient has a prolonged respiratory failure and the patient has also had no significant neurologic recovery of sedation. 2 fever, currently afebrile and the patient is on IV Zosyn as an emperic Antibiotic coverage also on Diflucan 3 history of dermatomyositis/somewhat erythematous maintained on high-dose prednisone outpatient basis 4 hypertension 5 glucoma 6 mild transaminitis improved 7 history of shingles 8 history of irritable bowel disease 9 severe lymphopenia secondary to Covid 19 infection PLAN Continue ventilator support, and drop the FiO2 down to 60% Keep the patient's right-sided chest tube in place and monitor the air leak and the right-sided pneumothorax. On today's chest x-ray there is no evidence of any pneumothorax. There is subcutaneous emphysema on the right chest. Keep the PEEP at 8 IV fluids to KVO Lovenox with prophylactic dose Continue the Diflucan and the Zosyn per ID Repeat the Covid 19 evaluation was negative Continue enteral feeding for nutritional support Continue IV Lasix and the patient is a negative fluid balance Keep the patient off sedation and assess mental status CAT scan of the brain by tomorrow there is no reasonable neurologic recovery Prognosis remains poor. Family will be updated. Critically care evaluation was done and morning 30 minutes.
--- NOTE | 2020-01-23 17:24 | PN ---
PROGRESS NOTE DATE OF SERVICE: 01/23/2020 REASON FOR FOLLOWUP: Pneumonia. INTERVAL HISTORY: The patient is currently afebrile. The patient is hemodynamically stable. FiO2 is currently 60%. No significant purulent secretion in the ET or worsening diarrhea reported. PHYSICAL EXAMINATION: Blood pressure 123/53 with a pulse of 81, temperature of 98.9. She is 95% on 60% FiO2. General description is an elderly female lying in bed in no distress. RESPIRATORY SYSTEM: Unlabored breathing with decreased breath sounds at the base. No wheeze. HEART: S1, S2. Regular rate and rhythm. ABDOMEN: Soft. No distention. LABS: Hemoglobin is 12.6, white count of 13.1, BUN of 50, creatinine 1.03. DIAGNOSTIC IMPRESSION AND PLAN: 1. Patient with acute respiratory failure which is multifactorial, possible component of pneumonia. Patient is covered with Zosyn. Cultures have been negative for resistant pathogen. 2. Yeast urinary tract infection, covered with Diflucan. Continue with supportive care. MMODL / IJN: [id number] /
[2020-01-23 17:27] LABS: Glucose,Whole Blood 118 mg/dL (75-99)
[2020-01-23] MEDS: LATANOPROST 0.005% OPHTH DROPS 2.5 ML BTL LEFT EYE SCH (21:13)
[2020-01-23] MEDS: SODIUM CHLORIDE 0.9% 1,000 ML IV SCH (21:14)
[2020-01-24 00:15] LABS: Glucose,Whole Blood 137 mg/dL (75-99)
[2020-01-24] MEDS: PIPERACILLIN-TAZOBACTAM 3.375 GM in SODIUM CHLORIDE 0.9% 100 ML IVPB SCH ×3 (00:25→16:03)
[2020-01-24] MEDS: FUROSEMIDE 10 MG/ML 4 ML VIAL IV SCH ×3 (00:26→16:03)
[2020-01-24] MEDS: INSULIN ASPART (NovoLOG) 100 UNIT/ML VIAL SQ SCH ×4 (00:26→18:34)
[2020-01-24 04:47] LABS: Anisocytosis Slight; Basophils % (A) 0 %; Eosinophils % (A) 0 %; HCT 42.1 % (34.0-46.0); HGB 13.8 gm/dL (11.4-16.0); Hypochromasia Slight; Lymphocytes # (A) 0.6 k/uL (1.0-4.8); Lymphocytes % (A) 4 %; MCH 31.6 pg (25.0-35.0); MCHC 32.9 g/dL (31.0-37.0); MCV 96.1 fL (80.0-100.0); Mean Platelet Volume 11.4; Monocytes # (A) 0.4 k/uL (0-1.0); Monocytes % (A) 3 %; Neutrophils # (A) 14.1 k/uL (1.3-7.7); Neutrophils % (A) 93 %; Platelet Count 480 k/uL (150-450); RBC 4.38 m/uL (3.80-5.40); WBC 15.2 k/uL (3.8-10.6)
[2020-01-24 04:59] LABS: Albumin 2.6 g/dL (3.5-5.0); Calcium 8.5 mg/dL (8.4-10.2); Potassium 3.8 mmol/L (3.5-5.1); Total Bilirubin 0.7 mg/dL (0.2-1.3); Total Protein 5.4 g/dL (6.3-8.2)
[2020-01-24 05:05] LABS: ABG Base Excess -0.4 mmol/L; ABG HCO3 23 mmol/L (21-25); ABG Oxygen Saturation 97.4 % (94-97); ABG PCO2 28 mmHg (35-45); ABG PH 7.52 (7.35-7.45); ABG PO2 88 mmHg (83-108); ABG TCO2 23 mmol/L (19-24); Allen Test Performed? Yes
[2020-01-24 05:50] LABS: Glucose,Whole Blood 170 mg/dL (75-99)
[2020-01-24] MEDS ORDERED: Potassium Replacement Protocol 1 EACH MISC MISCELLANE PRN (05:57)
[2020-01-24] MEDS ORDERED: POTASSIUM BICARBONATE/CIT AC 20 MEQ TABLET.EFF NG-TUBE SCH (06:00)
--- NOTE | 2020-01-24 06:32 | XR ---
EXAMINATION TYPE: XR chest 1V portable DATE OF EXAM: 01/24/2020 HISTORY: intubated. REFERENCE: Previous study dated 01/23/2020. FINDINGS: The patient's ET tube has been withdrawn slightly and is now 5 cm from the gen in good p osition. An NG tube and left internal jugular catheter remain in place unchanged in appearance. There is a right pleural drain in place. No definite pneumothorax is seen at this time. There is worsening subcutaneous emphysema on the right. Heart size is mildly prominent. There is dense consolidation behind the left heart. There is patchy, bilateral airspace disease. I cannot exclude a small left effusion. IMPRESSION: 1. ET TUBE IS NOW IN GOOD POSITION. 2. WORSENING SUBCUTANEOUS EMPHYSEMA. 3. CONTINUING BILATERAL AIRSPACE DISEASE, UNCHANGED FROM PREVIOUS.
[2020-01-24] MEDS: PANTOPRAZOLE 40 MG/10 ML VIAL IVP SCH (08:26)
[2020-01-24] MEDS: CHLORHEXIDINE GLUCONATE 15 ML CUP MUCOUS MEM SCH ×2 (08:26→21:15)
[2020-01-24] MEDS: ZINC SULFATE 220 MG CAP PO SCH (08:27)
[2020-01-24] MEDS: DORZOLAMIDE HCL 2% DROPS 10 ML BTL LEFT EYE SCH ×2 (08:27→21:17)
[2020-01-24] MEDS: ASCORBIC ACID 500 MG TAB OG-TUBE SCH ×2 (08:27→21:15)
[2020-01-24] MEDS: FLUCONAZOLE ORAL SUSP 1,400 MG/35 ML BOTTLE PO SCH (08:27)
[2020-01-24] MEDS: methylPREDNISolone SOD SUCCI 40 MG/ML 1 ML VIAL IV SCH ×2 (08:27→21:15)
[2020-01-24] MEDS: ENOXAPARIN 40 MG/0.4 ML SYRINGE SQ SCH (08:27)
[2020-01-24] MEDS: CHOLESTYRAMINE (WITH SUGAR) 4 GM PACKET OG-TUBE SCH ×2 (08:28→16:04)
--- NOTE | 2020-01-24 11:11 | CT ---
EXAMINATION TYPE: CT brain wo con DATE OF EXAM: 01/24/2020 COMPARISON: Previous study dated 01/11/2020 HISTORY: Suspect COVID CT DLP: 1087.4 mGycm Automated exposure control for dose reduction was used. FINDINGS: There are generalized changes of sulcal prominence and ventriculomegaly, compatible with atrophic karena nge. There is mild, diffuse periventricular white matter lucency, compatible with small vessel ischem ic change. There is no acute focal lesion, mass effect or midline shift identified. I do not see evid ence of intracranial blood. Visualized portions of the paranasal sinuses and mastoids are clear. The bony calvarium is intact. IMPRESSION: 1. NO ACUTE INTRACRANIAL ABNORMALITY. 2. MILD DEGENERATIVE CHANGE.
[2020-01-24 13:00] LABS: Glucose,Whole Blood 84 mg/dL (75-99)
--- NOTE | 2020-01-24 13:29 | P.PN ---
Subjective Progress Note Date: 01/24/20 this is an 84- female patient who has been admitted to the hospital on 01/11/2020 4 shortness of breath. The patient is very well-known to me. The patient isknown to have dermatomyositis, hypertension,and irritable bowel syndrome and glaucoma. She has been maintained on high-dose prednisone 40 mg on a daily basis regarding her dermatomyositis. She also has no previous history of eye of the Note that the patient came into the hospital because of increased shortness of breath in the fall. She was complaining of worsening shortness of breath. Her initial Covid 19 evaluation came back negative and subsequently the test was read done and it came back positive. The patient was getting very weak. She was in the 100% nonrebreather. She was quite hypotensive and she was started on fluids and pressors in the emergency department and the chest x-ray showed bilateral only infiltrates. Subsequently she was intubated and placed on a mechanical ventilator and she's been intubated sincethe date of admission which is 01/11/2020. The patient had a CT angiogram that showed diffuse groundglass opacities bilaterally consistent with viral pneumonia. There was no evidence of any pulmonary embolism. There was evidence of cholelithiasisand the CAT scan of the brain has been negative. During the course of the treatment, the patient completed Plaquenil treatment and the patient is on IV Solu-Medrol 40 mg every 12 hours by mouth the patient is receiving therapeutic doses of Lovenox 80 mg subcu every 12 hours as the patient's d-dimer was elevated at 6.89 at the time of admission with subsequent improvement dropped down to 2.4. She was also covered with IV Zosyn for empiric antibiotic coverage for suspected nosocomial infection/pneumonia. She remains intubated on a mechanical ventilator. At times she was becoming markedly agitated and the EEG that was done on 01/17/2020 showed a burst suppression patternthis is often seen with hypoxic encephalopathy. The patient was seen by neurology and their input was appreciated as possible hypoxic encephalopathy versus medication effectand furt her follow-up was recommended. For now, the patient is sedated with propofol running at 50 g per KG pigmented. She is on a mechanical ventilator on assist control mode with a tidal volume of 400 and the rate of 20 with an FiO2 of 50% and a PEEP of 10. Chest x-ray still showing diffuse bilateral pulmonary infiltrates and there is some worsening in the patchy infiltrates bilaterally. ET tube was within position and the patient has a left IJ triple-lumen catheter in place and the NG tube is in place as the patient is receiving enteral feeding for nal support in the form of vital AF at the r 25 mL an hour which is at goal. She continues to have a low-grade fever. The temperature from yesterday was 100.4. She remains on IV Zosyn. The Diflucan was also added to the regimen as the patient was found to have some Patti sputum. She remains on IV Protonix. IV fluids running at 30 mL an hour. On today's evaluation of 01/19/2020, the patient remains on a mechanical ventilator. Ventilator settings were essentially unchanged and the patient has been on a assist-control mode at the rate of 20 with a tidal volume of 400 and FiO2 of 50% and a PEEP was still at 10. The blood gas showed a pH of 7.36 with a pCO2 of 38 and pO2 of 57. The patient has shown significant amount of fluid overload. The patient is recommended related 1.2 L over the past 24 hours. Her weight was essentially a 79 kg and currently is up to 92 kg indicating extensive fluid overload and the patient has developed significant amount of edema in all 4 extremities. The LDH remains elevation at 1014. C-reactive protein is down to 324. The patient is afebrile for now. The patient is receiving vital AF for enteral feeding and nutritional support. The patient also receiving free water with Alaina. She is sedated with propofol. On today's evaluation of 01/20/2020, the patient is being seen for a follow-up in the intensive care unit. The patient remains intubated on a mechanical ventilator. The patient is still sedated with propofol running at 50 mg per KG per minute. Earlier this morning, the patient was an assist-control mode at the rate of 20 with a tidal volume of 400 and the patient was desaturating and based on that the FiO2 has been increased up to 80% and the patient also is on a PEEP of 5. The chest x-ray from this morning showed interstitial infiltrates bilaterally and the patient had a right-sided pneumothorax that was estimated to be 40% and his with a new finding compared to yesterday's chest x-ray. There is still diffuse interstitial markings bilaterally. Based on that, I inserted a immediate 28-[place] chest tube and there was complete occlusion of the right- sided pneumothorax. There is still some minimal residual air leak on the Pleur-evac. note that the patient had an elevated peak air pressure of 35 with a plateau pressure of 31 on today's evaluation. the patient is being diuresis IV Lasix. The neck fluid balance -1.3 L over the past 24 hours. When the process of weaning this patient's FiO2 down post chest tube insertion. Otherwise, the patient remains hemodynamically stable. The patient on Lovenox prophylactic dose for DVT prophylaxis. The patient remains on IV Solu-Medrol. The patient is on IV Zosyn as an empiric antibiotic coverage. The patient also is on Diflucan. On 01/21/2020 on seeing this patient in follow-up in intensive care unit. This morning this morning is sedated with propofol and she is calm and comfortable symptoms with the mechanical ventilator. She remains assist-control mode at the rate of 20 with a tidal volume of 400 with a PEEP of 5 and FiO2 of 70%. The blood gases from today shows a pH of 7.39 with a pCO2 of 45 and a pO2 of 65. The patient has a right-sided chest tube with direct pressure is 34. Ventricu lar pressure 32. The patient remains sedated. Propofol is running at 30 g per KG per minute. The chest x-ray showing a very tiny right apical pneumothorax. Chest tube is in a good location. ET tube is in a good location. The patient has diffuse bilateral interstitial pulmonary infiltrates. The patient remains in the fluid overload. The patient was receiving IV Lasix with good response. Nevertheless, we decided that she would benefit further from diuresis. She was in a negative fluid balance of 1.3 L. We are going to diabetes and more aggressively and I will increase the Lasix to 40 mg every 8 hours [id number]. She still has a significant swelling in all 4 extremities. The white cell count is at 10.0. Rest of the blood work and electrodes are all within normal limits. I contacted the family. I discussed the case with her daughter. I the family showed great concern and interested in repeating the test as this was very important for them to have a closure and no final diagnoses and exact cause reasoned that put the patient respiratory failure. as such, I think is reasonable to recheck her full code 19 infection as long as this was not negative originally and this may be helpful also in terms of future planning should there be any plans to do further procedures such as tracheostomy or PEG tube insertion. He was still doing universal precaution this patient and patient remains in the upper precaution. The patient remains on IV Zosyn. The patient remains on IV Solu Medrol 40 mg every 12 hours. She is on Lovenox for DVT prophylaxis. She is tolerating her enteral feeding for nutritional support. On 01/22/2020, I took this patient off sedation to assess her underlying mental status. This patient has been on propofol. She has been also on mechanical ventilation. Propofol is running at 30 mg per KG per minute. The patient also is an assist-control mode at the rate of 20 with a tidal volume of 400 and FiO2 of 60% with a PEEP of 5. The blood gases from today showed a pH of 7.49 with a pCO2 of 35 and a pO2 of 59. Chest x-ray shows that the ET tube was low in the trachea and it had to be pulled back by around 1 cm and this was done at the bedside. There is diffuse bilateral pulmonary infiltrates seen and examined unchanged compared to yesterday. The patient remains on diuretics and the patient is receiving IV Lasix 40 mg every 8 hours. Net fluid balance is negative for more than liters over the past 24 hours. She is still on IV Zosyn as an empiric antibiotic coverage pH she remains on normal saline at the rate of 30 mL an hour. She is on IV Solu Medrol 40 mg every 12 hours. She is receiving enteral feeding for nutritional support. She continues to have extensive edema in all 4 extremities and she'll be kept on diuretics for now. Meanwhile, it's important to assess the patient's mental status and for that reason I took her off the sedation. After making this adjustment, the patient became tachypneic and for that reason I had to switch her to a VC plus mode at the same tidal volume with a nighttime of 1 s which helped her quite a bit with her Synchrony and tachypnea that was noted on a mechanical ventilator. Nevertheless, the patient has not shown any meaningful or reasonable recovery off sedation and she is being monitored very closely in ICU. She is on Lovenox for prophylaxis. No other significant events otherwise. A repeat Covid 19 19 evaluation was done and came back negative. On 01/23/2020, stop the sedation again to assess the patient's mental status. A sedation holiday yesterday wasn't successful as the patient did not show significant neurologic recovery or responsiveness. Overnight she had to be placed back on propofol for comfort reasons and earlier this morning with a bit of the propofol. She is currently on no sedation and upon repeated stimulation she continues to be unresponsive. She is currently on assist control mode at the rate of 20 with a tidal volume of 420 FiO2 of 80% with a PEEP of 8. Blood gases today showed a pH of 7.55 and a pCO2 of 29 and pO2 73. I dropped FiO2 down to 60%. Peak airway pressure 38 with a plateau pressure of 34. The chest x-ray shows the ET tube remains low and needs to be positioned and appropriate positioning was done. There is a right-sided chest tube and the right-sided subcutaneous emphysema and there is no evidence of any pneumothorax. There is diffuse bilateral pulmonary infiltrates with some improving aeration the left lung base on today's chest x-ray. The patient is afebrile today. The patient white cell count is 13.4. Renal function stable with a creatinine of 1.0. Her BMs at 50. She is at least 1.5 L fluid balance negative over the past 24 hours as the patient is being diuresed with IV Lasix 40 mg every 8 hours. No seizure activity has been noted. She does not open her eyes spontaneously. She does not withdraw to do any painful stimulation. I'm going to give her another 24 hours off sedation and monitor her progress. On the morning of 01/24/2020, the patient is doing poorly. The patient remains unresponsive pH is been off sedation for more than 24 hours and she is not showing any significant neurologic recovery or any meaningful neurologic response. Family has been updated with that. I still think that there may be some drug-related encephalopathy and will continuing to monitor the patient's mental status and the plan is to proceed with a CAT scan of the brain today. The patient is currently on IV Lasix pH is being diuresed with IV Lasix and she continues to have significant amount of edema in all 4 extremities and the patient has fluid seeping from skin surfaces. She is on VC plus mode of mechanical ventilation at the rate of 20 with tidal volume of 420 and FiO2 of 50% and a PEEP of 5. Blood gases showed a pH of 7.52 with a pCO2 of 28 and pO2 of 88. The patient's chest x-ray shows worsening in the subcutaneous emphysema bilaterally. There is a right-sided chest tube with positive air leak and the patient has no evidence of pneumothorax on the right side of the lung. ET tube is in a good location. Lasix is 40 mg IV every 8 hours. She is on Lovenox 43 prophylaxis. She is on empiric antibiotic coverage utilizing a combination of Zosyn and Diflucan. No fever. No chills. The most recent urine culture from 01/18/2020 was positive for Patti albicans and the patient is covered with Diflucan. The net fluid balance over the past 24 hours has been -1.3 L and another 2.7 L negative over the past 8 hours. Objective - Vital Signs Vital signs: Vital Signs Temp 100.0 F H 01/24/20 12:00 Pulse 83 01/24/20 12:00 Resp 21 01/24/20 12:00 BP 126/67 01/21/20 11:00 Pulse Ox 97 01/24/20 12:00 Intake & Output 01/23/20 01/24/20 01/24/20 18:59 06:59 18:59 Intake Total 392.328 422 280 Output Total 1185 2360 300 Balance -792.672 -1938 -20 Weight 85.1 kg 84.5 kg Intake: IV 362 422 280 Piperacillin-Tazobactam 3 100 .375 gm In Sodium Chloride 0.9% 100 ml @ 25 mls/hr IVPB Q8HR [facility] Rx# :[id number] Sodium Chloride 0.9% 1, 290 350 150 000 ml @ 30 mls/hr IV . Q24H [facility] Rx#:[id number] pressure bags 72 72 30 Intake, IV Titration 30.328 Amount Propofol 1,000 mg In 30.328 Empty Bag 1 bag @ Titrate IV .Q0M [facility] Rx#: [id number] Oral 0 Tube Feeding 0 0 Output: Urine 685 1360 300 Stool 500 1000 Other: Voiding Method Indwelling Catheter Indwelling Catheter Indwelling Catheter ABP, PAP, CO, CI - Last Documented Arterial Blood Pressure 121/72 - Exam Physical Exam: Revealed 84-year-old female intubated, on mechanical ventilation, sedated, on propofol. The patient is been taken off the propofol this morning and she is being monitored very closely in terms of her mental status. She remains unresponsive, the patient has developed subcutaneous emphysema in the face and the neck and upper chest area bilaterally. The patient has a right- sided chest tube in place. The patient remains unresponsive. She does not grimace or reactive any deep painful stimulation. She's been off propofol for around 48 hrs. for now. Head: Atraumatic, normocephalic. And the tracheal tube and orogastric tube are intact. Neck was supple and without jugular venous distension, thyromegaly, or carotid bruits. Carotids were easily palpable bilaterally. There was no adenopathy. Chest: Fine crackles at the bases, no rhonchi no wheezes, symmetrical chest expansion is noted. The patient has a right-sided chest tube in place. There is no subcutaneous emphysema. There is minimal amount of air leak and the Pleur-evac. Breath sounds are equal and symmetrical for now. Cardiac Exam: [Normal S1 and S2, no S3 gallop, no murmur. Abdomen: [Soft, nontender, no megaly, no rebound, no guarding, normal bowel sounds. Extremities: [No clubbing, 2+ bipedal edema, no cyanosis. Neurological Exam: Unresponsive off propofol Psychiatric: Could not be assessed. Skin: No areas of erythema or cellulitis. Lymphatics: No cervical lymphadenopathy. - Labs CBC & Chem 7: 01/24/20 04:30 01/24/20 04:30 Labs: Abnormal Lab Results - Last 24 Hours (Table) 01/23/20 01/24/20 01/24/20 Range/Units 17:25 00:14 04:30 WBC 15.2 H (3.8-10.6) k/uL RDW 16.0 H (11.5-15.5) % Plt Count 480 H (150-450) k/uL Neutrophils # 14.1 H (1.3-7.7) k/uL Lymphocytes # 0.6 L (1.0-4.8) k/uL ABG pH (7.35-7.45) ABG pCO2 (35-45) mmHg ABG O2 Saturation (94-97) % Chloride (98-107) mmol/L BUN (7-17) mg/dL Creatinine (0.52-1.04) mg/dL Glucose (74-99) mg/dL POC Glucose (mg/dL) 118 H 137 H (75-99) mg/dL AST (14-36) U/L ALT (4-34) U/L Total Protein (6.3-8.2) g/dL Albumin (3.5-5.0) g/dL 01/24/20 01/24/20 01/24/20 Range/Units 04:30 05:00 05:49 WBC (3.8-10.6) k/uL RDW (11.5-15.5) % Plt Count (150-450) k/uL Neutrophils # (1.3-7.7) k/uL Lymphocytes # (1.0-4.8) k/uL ABG pH 7.52 H (7.35-7.45) ABG pCO2 28 L (35-45) mmHg ABG O2 Saturation 97.4 H (94-97) % Chloride 108 H (98-107) mmol/L BUN 61 H (7-17) mg/dL Creatinine 1.31 H (0.52-1.04) mg/dL Glucose 151 H (74-99) mg/dL POC Glucose (mg/dL) 170 H (75-99) mg/dL AST 44 H (14-36) U/L ALT 88 H (4-34) U/L Total Protein 5.4 L (6.3-8.2) g/dL Albumin 2.6 L (3.5-5.0) g/dL Assessment and Plan Plan: 1 acute pneumonia/Covid 19 pneumonia was suspected and the results came back negative. Nevertheless the patient is highly suspicious as there was diffuse but the pulmonary infiltrates and acute hypoxic respiratory failureand the patient has been intubated on a mechanical ventilator since 01/11/2020. Also, the rest of the inflammatory markers were highly suspicious for Covid 19 her presentation was also highly suspicious. The patient completed Plaquenil. She remains on IV Solu-Medrol. She remains on therapeutic dose of Lovenox. Inflammatory markers including LDH remains elevated. C-reactive protein is elevated. D-dimer has improved.her now would also having difficulties with the patient's mental status and the patient has difficultiescoming off sedation the patient had an EEG that showing abnormalities including burst suppression which could potentially indicate the possibility of hypoxic encephalopathy versus drug effect. On 01/24/2020, the patient is still neurologically unresponsive. She'll be kept off sedation. The CAT scan of the brain will be obtained. I'm going to ask her to have another neurologic evaluation by the neurologist. This will be very important terms of establishing a prognosis and outcome which is obviously poor specially the patient does not show any reasonable neurologic recovery. Meanwhile, I updated the family on her condition. We'll continue vent support. Keep the right-sided chest tube in place. There is evidence of subcutaneous emphysema which has been noted. Nevertheless, there is no evidence of any pneumothorax and the patient continues to be on a PEEP of 8 with an FiO2 of 50%. Blood gases was noted. Chest x-ray was noted. The patient continues to be diuresed with IV Lasix. Rest of the treatment essentially supportive. 2 fever, currently afebrile and the patient is on IV Zosyn as an emperic Antibiotic coverage also on Diflucan for now underlying candidal UTI 3 history of dermatomyositis/somewhat erythematous maintained on high-dose prednisone outpatient basis 4 hypertension 5 glucoma 6 mild transaminitis improved 7 history of shingles 8 history of irritable bowel disease 9 extensive third spacing and edema in all 4 extremities currently on Lasix with some improvement in the volume status and drop in the body weight over the past 48-72 hours. PLAN Continue ventilator support, an the patient is currently on a PEEP of 8 with an FiO2 of 50% Keep the patient's right-sided chest tube in place and monitor the air leak and the right-sided pneumothorax. On today's chest x-ray there is no evidence of any pneumothorax. There is subcutaneous emphysema on the right chest. IV fluids to KVO Lovenox with prophylactic dose Continue the Diflucan and the Zosyn per ID Continue enteral feeding for nutritional support Continue IV Lasix and the patient is a negative fluid balance Keep the patient off sedation and assess mental status Asked the patient to have another neurologic evaluation by neurology. CAT scan of the brain will be repeated. We'll continue to follow. Prognosis poor. Keep the patient off sedation and assess the mother status and do hourly neurologic exams. We'll continue to follow. Prognosis remains poor. Family will be updated. Critically care evaluation was done and morning 30 minutes. Time with Patient: Greater than 30
--- NOTE | 2020-01-24 13:50 | P.PN ---
Subjective Progress Note Date: 01/24/20 Ekta Yañez is an 84-year-old female patient of Dr. Oquendo who presented to [facility] emergency room with a chief complaint of generalized weakness and fall, patient also was complaining of shortness of breath, she was alert and oriented in the emergency room and was able to answer questions appropriately however she was getting more hypoxic, she had fever with a temperature of 100.1 testing in the emergency room included influenza A and B and Covid 19 which were all negative. However her clinical picture, computed tomography scan results, and lab results were all typical of Covid 19 illness. Patient decompensated while in emergency room. Blood gas revealed evidence of PO2 of 55 she was intubated in the emergency room and was admitted to intensive care unit consultation for Dr. Ariza was initiated for critical care and pulmonary management, consultation for Dr. Harman was initiated for infectious disease treatment. Currently patient is in the intensive care unit she is intubated sedated maintained on mechanical ventilation, Dr. Ariza reason assisting the patient and placing central line. Computed tomography scan of the chest with contrast was done in the emergency room and was negative for pulmonary embolism, however it revealed diffuse groundglass opacities throughout both lungs. Computed tomography scan of the head and neck without contrast was done in the emergency room due to fall and did not reveal any significant abnormality. Pelvic x-ray was done due to fall and did not reveal any obvious fracture. From chart review patient has history of dermatomyositis, she was admitted to the hospital in November for IV steroid course. 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 Wilson. On 01/12/2020 patient was seen and examined in the intensive care unit she is intubated sedated maintained on mechanical ventilation, she is oxygenating better today and PEEP was decreased from 10 down to 5 by intensive care. ABG was done and revealed pH of 7.35 pCO2 36 PaO2 135 chest x-ray was reviewed and was stable from yesterday echocardiogram done and revealed normal left ventricular systolic function with ejection fraction of 55-60% On 01/13/2020 Patient was seen and examined in the ICU she is still intubated, sedated, maintained on mechanical ventilation, PEEP was increased to 10 today, PaO2 is 51 pCO2 31 she is still on IV pressure support. With Levophed On 01/14/2020 patient was seen and examined in the ICU she is intubated sedated maintained on mechanical ventilation, ABG today reveals pH of 7.39 PaO2 69 pCO2 37 patient is still maintained on a PEEP of 10 and FiO2 of 50% critical care are following, patient receiving IV Zithromax, IV Solu-Medrol, and hydroxychloroquine through NG tube. On 01/15/2020 Patient was seen and examined in the ICU she is still intubated, sedated, maintained on mechanical ventilation. She failed weaning trial this morning per nurse. She is off vasopressors at this time. On 01/16/2020 patient was seen and examined in the intensive care unit she is intubated sedated maintained on mechanical ventilation, ABG today reveals a pH of 7.35 pCO2 14 PaO2 98 FiO2 is 50% temperature is 97.4 blood pressure 126/64 respiration 20 On 01/17/2020 patient was seen and examined in the intensive care unit she is intubated sedated maintained on mechanical ventilation she is not on any vasopressors at this time. ABG reveals a pH of 7.31 pCO2 41 PaO2 71 on FiO2 of 50% potassium is 3.4 white blood count 8.9 hemoglobin 11.5 On 01/18/2020 patient was seen and examined in the ICU she is intubated sedated maintained on mechanical ventilation she is not on any vasopressors. A trial to decrease sedation this morning failed due to decreased O2 sat duration and tachypnea. ABG this morning reveals a pH of 7.38 pCO2 36 PaO2 62 FiO2 is 50% On 01/19/2020 patient was seen and examined in the ICU she is still intubated sedated maintained on mechanical ventilation she is not on vasopressors at this time. Sedation was stopped for about 1 hour today but was resumed to due to decreased O2 sat duration and tachypnea. EEG was done today. Temperature is 97.2 pulse 62 respiration 23 blood pressure 160/62 ABG reveals a pH of 7.36 pCO2 38 CO2 57 FiO2 is 50% and PEEP is being decreased to gradually from 10-5 On 01/20/2020 patient was seen and examined in the ICU she is intubated, sedated, maintained on mechanical ventilation no significant change in condition since yesterday, temperature is 97.6 pulse 64 respiration 24 blood pressure 154/60 pulse ox is 88% on an FiO2 of 90% ABG reveals a pH of 7.31 pCO2 47 PO2 88 On 01/21/2020 Patient was seen and examined in the ICU, she is intubated, kelly andres, maintained on mechanical ventilation, she is not on any pressure support at this time. she had evidence of pneumothorax and had a chest tube inserted. ABG reveals PH 7.39 PCO2 41 PO2 65 FIO2 70% On 01/22/2020 Patient was seen and examined in the ICU, she is intubated sedated maintained on mechanical ventilation. ABG reveals PH 7.49 PCO2 35 PO2 59 FIO2 60 % Chest tube in place. No significant change in condition On 01/23/2020 patient was seen and examined in the ICU she is intubated sedated maintained on mechanical ventilation. ABG this morning reveals pH 7.55 pCO2 29 PaO2 73 FiO2 60% patient will have a sedation holiday today to assess her mental function chest tube is still in place. On 01/24/2020 patient was seen and examined in the ICU she is intubated, she has been off sedation, she is maintained on mechanical ventilation, patient did not have any improvement in her mental status off sedation. Computed tomography scan of the brain was done and did not reveal any acute abnormality. Neurology consult was requested for reevaluation, family was contacted by Dr. Warren and comfort care measures were discussed, no change in CODE STATUS at this time yet per family. Input from Dr. Warren was reviewed. Dr. Oquendo will be updated regarding patient's condition. Objective - Vital Signs Vital signs: Vital Signs Temp 100.0 F H 01/24/20 12:00 Pulse 83 01/24/20 12:00 Resp 21 01/24/20 12:00 BP 126/67 01/21/20 11:00 Pulse Ox 97 01/24/20 12:00 Intake & Output 01/23/20 01/24/20 01/24/20 18:59 06:59 18:59 Intake Total 392.328 422 280 Output Total 1185 2360 300 Balance -792.672 -1938 -20 Weight 85.1 kg 84.5 kg Intake: IV 362 422 280 Piperacillin-Tazobactam 3 100 .375 gm In Sodium Chloride 0.9% 100 ml @ 25 mls/hr IVPB Q8HR [facility] Rx# :[id number] Sodium Chloride 0.9% 1, 290 350 150 000 ml @ 30 mls/hr IV . Q24H [facility] Rx#:[id number] pressure bags 72 72 30 Intake, IV Titration 30.328 Amount Propofol 1,000 mg In 30.328 Empty Bag 1 bag @ Titrate IV .Q0M [facility] Rx#: [id number] Oral 0 Tube Feeding 0 0 Output: Urine 685 1360 300 Stool 500 1000 Other: Voiding Method Indwelling Catheter Indwelling Catheter Indwelling Catheter ABP, PAP, CO, CI - Last Documented Arterial Blood Pressure 121/72 - Exam In general patient is intubated sedated maintained on mechanical ventilation HEENT head normocephalic and atraumatic Neck is supple no JVD no goiter no lymphadenopathy Chest exam reveals coarse crackles in both lung olson Cardiac exam reveals regular heart sounds no gallops no murmurs Abdomen is soft nontender no organomegaly with normal bowel sounds Extremity exam reveals 2+ edema no cyanosis or clubbing - Labs CBC & Chem 7: 01/24/20 04:30 01/24/20 04:30 Labs: Abnormal Lab Results - Last 24 Hours (Table) 01/23/20 01/24/20 01/24/20 Range/Units 17:25 00:14 04:30 WBC 15.2 H (3.8-10.6) k/uL RDW 16.0 H (11.5-15.5) % Plt Count 480 H (150-450) k/uL Neutrophils # 14.1 H (1.3-7.7) k/uL Lymphocytes # 0.6 L (1.0-4.8) k/uL ABG pH (7.35-7.45) ABG pCO2 (35-45) mmHg ABG O2 Saturation (94-97) % Chloride (98-107) mmol/L BUN (7-17) mg/dL Creatinine (0.52-1.04) mg/dL Glucose (74-99) mg/dL POC Glucose (mg/dL) 118 H 137 H (75-99) mg/dL AST (14-36) U/L ALT (4-34) U/L Total Protein (6.3-8.2) g/dL Albumin (3.5-5.0) g/dL 01/24/20 01/24/20 01/24/20 Range/Units 04:30 05:00 05:49 WBC (3.8-10.6) k/uL RDW (11.5-15.5) % Plt Count (150-450) k/uL Neutrophils # (1.3-7.7) k/uL Lymphocytes # (1.0-4.8) k/uL ABG pH 7.52 H (7.35-7.45) ABG pCO2 28 L (35-45) mmHg ABG O2 Saturation 97.4 H (94-97) % Chloride 108 H (98-107) mmol/L BUN 61 H (7-17) mg/dL Creatinine 1.31 H (0.52-1.04) mg/dL Glucose 151 H (74-99) mg/dL POC Glucose (mg/dL) 170 H (75-99) mg/dL AST 44 H (14-36) U/L ALT 88 H (4-34) U/L Total Protein 5.4 L (6.3-8.2) g/dL Albumin 2.6 L (3.5-5.0) g/dL Assessment and Plan Plan: #1 bilateral pneumonia most likely viral pneumonia due to Covid 19 virus despite negative instant test in the emergency room. #2 acute hypoxic respiratory failure requiring mechanical ventilation #3 sepsis, as evidenced by leukocytosis white blood count 18.8, fever temperature 100.1 lactic acid testing is pending. #4 mild elevation in liver enzymes likely related to acute illness, will monitor #5 underlying history of dermatomyositis #6 elevated d-dimer without evidence of pulmonary embolism on CT angiogram of the chest #7 mild elevation in troponin level, likely related to oxygen demand, supply mismatch, doubt acute myocardial infarction at this time, will monitor closely #8 for DVT prophylaxis Will start patient on subcu Lovenox, for GI prophylaxis will start IV Protonix #9 Pneumothorax status post chest tube placement. #10 patient is unresponsive despite being off sedation, computed tomography scan of the brain was done and did not reveal any acute abnormality, neurology consult will be requested. Prognosis is extremely guarded due to age, severity of illness requiring intubation and mechanical ventilation, and underlying medical problems Will follow closely
--- NOTE | 2020-01-24 17:25 | PN ---
PROGRESS NOTE DATE OF SERVICE: 01/24/2020 REASON FOR FOLLOWUP: Pneumonia. INTERVAL HISTORY: The patient is currently afebrile. The patient is hemodynamically stable, not on any pressor support. FiO2 is currently at 50. No worsening diarrhea has been reported. PHYSICAL EXAMINATION: Blood pressure 146/80 with a pulse of 83. She is 93% on 50% FiO2. General description is an elderly female lying in bed in no distress. Respiratory system: Unlabored breathing, decreased breath sounds in the bases. No wheeze. Heart S1, S2. Regular rate and rhythm. ABDOMEN: Soft, no distention. LABS: Hemoglobin 13.8, white count 15.2, BUN of 51, creatinine 1.31. DIAGNOSTIC IMPRESSION AND PLAN: Patient with acute respiratory failure which is multifactorial, possible component of pneumonia. Chest x-ray showing worsening subcutaneous emphysema, though apparently Line has been changed. The patient is covered with Zosyn. To continue and monitor clinical course closely. MMODL / DOLLYN: [id number] / MTDD
[2020-01-24 18:28] LABS: Glucose,Whole Blood 149 mg/dL (75-99)
[2020-01-24 19:08] VITALS: BP 121/57
[2020-01-24] MEDS: SODIUM CHLORIDE 0.9% 1,000 ML IV SCH (21:16)
[2020-01-24] MEDS: LATANOPROST 0.005% OPHTH DROPS 2.5 ML BTL LEFT EYE SCH (21:18)
[2020-01-25] MEDS: PIPERACILLIN-TAZOBACTAM 3.375 GM in SODIUM CHLORIDE 0.9% 100 ML IVPB SCH ×2 (00:03→08:49)
[2020-01-25] MEDS: FUROSEMIDE 10 MG/ML 4 ML VIAL IV SCH ×2 (00:04→08:51)
[2020-01-25 00:21] VITALS: TEMP 98.6
[2020-01-25 00:59] LABS: Glucose,Whole Blood 163 mg/dL (75-99)
[2020-01-25] MEDS: INSULIN ASPART (NovoLOG) 100 UNIT/ML VIAL SQ SCH ×3 (01:01→13:59)
[2020-01-25 04:36] LABS: ABG Base Excess -2.1 mmol/L; ABG HCO3 21 mmol/L (21-25); ABG Oxygen Saturation 90.2 % (94-97); ABG PCO2 24 mmHg (35-45); ABG PH 7.54 (7.35-7.45); ABG TCO2 21 mmol/L (19-24); Allen Test Performed? Yes
[2020-01-25 04:39] LABS: ABG PO2 54 mmHg (83-108)
[2020-01-25 04:56] LABS: Albumin 2.7 g/dL (3.5-5.0); Calcium 8.5 mg/dL (8.4-10.2); Potassium 4.1 mmol/L (3.5-5.1); Total Bilirubin 0.8 mg/dL (0.2-1.3); Total Protein 5.6 g/dL (6.3-8.2)
[2020-01-25 05:11] LABS: Anisocytosis Slight; Hypochromasia Slight; MCH 31.1 pg (25.0-35.0); MCHC 33.4 g/dL (31.0-37.0); MCV 93.1 fL (80.0-100.0); Mean Platelet Volume 11.1; Platelet Count 522 k/uL (150-450); RBC 4.52 m/uL (3.80-5.40); RDW 16.1 % (11.5-15.5); WBC 15.2 k/uL (3.8-10.6)
[2020-01-25 05:27] LABS: Band Neutrophils % 3 %; Lymphocytes # (M) 0.46 k/uL (1.0-4.8); Monocytes # (M) 0.15 k/uL (0-1.0); Neutrophils % (M) 93 %; Nucleated Red Blood Cells 0 /100 WBC (0-0); Total Cells Counted 100
[2020-01-25 05:28] LABS: Large Platelets Present; Polychromasia Present; Toxic Vacuolation Present
--- NOTE | 2020-01-25 06:28 | XR ---
EXAMINATION TYPE: XR chest 1V portable DATE OF EXAM: 01/25/2020 HISTORY: intubated. REFERENCE: Previous study dated 01/24/2020. FINDINGS: The patient's ET tube and NG tube remain in place unchanged in appearance. A left internal jugular catheter remains in place. A right pleural drain is in place. There is worsening subcutaneous emphysema. The heart is enlarged. Subcutaneous emphysema obscures muc h of the lung parenchyma but I believe there are continuing peripheral infiltrates bilaterally. These appear unchanged. IMPRESSION: WORSENING SUBCUTANEOUS EMPHYSEMA.
[2020-01-25] MEDS: PANTOPRAZOLE 40 MG/10 ML VIAL IVP SCH (08:49)
[2020-01-25] MEDS: ASCORBIC ACID 500 MG TAB OG-TUBE SCH (08:50)
[2020-01-25] MEDS: methylPREDNISolone SOD SUCCI 40 MG/ML 1 ML VIAL IV SCH (08:50)
[2020-01-25] MEDS: CHOLESTYRAMINE (WITH SUGAR) 4 GM PACKET OG-TUBE SCH (08:51)
[2020-01-25] MEDS: ZINC SULFATE 220 MG CAP PO SCH (08:51)
[2020-01-25] MEDS: CHLORHEXIDINE GLUCONATE 15 ML CUP MUCOUS MEM SCH (08:51)
[2020-01-25] MEDS: DORZOLAMIDE HCL 2% DROPS 10 ML BTL LEFT EYE SCH (08:52)
[2020-01-25] MEDS ORDERED: ENOXAPARIN 30 MG/0.3 ML SYRINGE SQ SCH (09:00)
[2020-01-25] MEDS: FLUCONAZOLE ORAL SUSP 1,400 MG/35 ML BOTTLE PO SCH (11:14)
[2020-01-25 12:57] LABS: Glucose,Whole Blood 186 mg/dL (75-99)
--- NOTE | 2020-01-25 13:11 | P.PN ---
Subjective Progress Note Date: 01/25/20 Ekta Yañez is an 84-year-old female patient of Dr. Oquendo who presented to [facility] emergency room with a chief complaint of generalized weakness and fall, patient also was complaining of shortness of breath, she was alert and oriented in the emergency room and was able to answer questions appropriately however she was getting more hypoxic, she had fever with a temperature of 100.1 testing in the emergency room included influenza A and B and Covid 19 which were all negative. However her clinical picture, computed tomography scan results, and lab results were all typical of Covid 19 illness. Patient decompensated while in emergency room. Blood gas revealed evidence of PO2 of 55 she was intubated in the emergency room and was admitted to intensive care unit consultation for Dr. Ariza was initiated for critical care and pulmonary management, consultation for Dr. Harman was initiated for infectious disease treatment. Currently patient is in the intensive care unit she is intubated sedated maintained on mechanical ventilation, Dr. Ariza reason assisting the patient and placing central line. Computed tomography scan of the chest with contrast was done in the emergency room and was negative for pulmonary embolism, however it revealed diffuse groundglass opacities throughout both lungs. Computed tomography scan of the head and neck without contrast was done in the emergency room due to fall and did not reveal any significant abnormality. Pelvic x-ray was done due to fall and did not reveal any obvious fracture. From chart review patient has history of dermatomyositis, she was admitted to the hospital in November for IV steroid course. 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 Wilson. On 01/12/2020 patient was seen and examined in the intensive care unit she is intubated sedated maintained on mechanical ventilation, she is oxygenating better today and PEEP was decreased from 10 down to 5 by intensive care. ABG was done and revealed pH of 7.35 pCO2 36 PaO2 135 chest x-ray was reviewed and was stable from yesterday echocardiogram done and revealed normal left ventricular systolic function with ejection fraction of 55-60% On 01/13/2020 Patient was seen and examined in the ICU she is still intubated, sedated, maintained on mechanical ventilation, PEEP was increased to 10 today, PaO2 is 51 pCO2 31 she is still on IV pressure support. With Levophed On 01/14/2020 patient was seen and examined in the ICU she is intubated sedated maintained on mechanical ventilation, ABG today reveals pH of 7.39 PaO2 69 pCO2 37 patient is still maintained on a PEEP of 10 and FiO2 of 50% critical care are following, patient receiving IV Zithromax, IV Solu-Medrol, and hydroxychloroquine through NG tube. On 01/15/2020 Patient was seen and examined in the ICU she is still intubated, sedated, maintained on mechanical ventilation. She failed weaning trial this morning per nurse. She is off vasopressors at this time. On 01/16/2020 patient was seen and examined in the intensive care unit she is intubated sedated maintained on mechanical ventilation, ABG today reveals a pH of 7.35 pCO2 14 PaO2 98 FiO2 is 50% temperature is 97.4 blood pressure 126/64 respiration 20 On 01/17/2020 patient was seen and examined in the intensive care unit she is intubated sedated maintained on mechanical ventilation she is not on any vasopressors at this time. ABG reveals a pH of 7.31 pCO2 41 PaO2 71 on FiO2 of 50% potassium is 3.4 white blood count 8.9 hemoglobin 11.5 On 01/18/2020 patient was seen and examined in the ICU she is intubated sedated maintained on mechanical ventilation she is not on any vasopressors. A trial to decrease sedation this morning failed due to decreased O2 sat duration and tachypnea. ABG this morning reveals a pH of 7.38 pCO2 36 PaO2 62 FiO2 is 50% On 01/19/2020 patient was seen and examined in the ICU she is still intubated sedated maintained on mechanical ventilation she is not on vasopressors at this time. Sedation was stopped for about 1 hour today but was resumed to due to decreased O2 sat duration and tachypnea. EEG was done today. Temperature is 97.2 pulse 62 respiration 23 blood pressure 160/62 ABG reveals a pH of 7.36 pCO2 38 CO2 57 FiO2 is 50% and PEEP is being decreased to gradually from 10-5 On 01/20/2020 patient was seen and examined in the ICU she is intubated, sedated, maintained on mechanical ventilation no significant change in condition since yesterday, temperature is 97.6 pulse 64 respiration 24 blood pressure 154/60 pulse ox is 88% on an FiO2 of 90% ABG reveals a pH of 7.31 pCO2 47 PO2 88 On 01/21/2020 Patient was seen and examined in the ICU, she is intubated, kelly anrdes, maintained on mechanical ventilation, she is not on any pressure support at this time. she had evidence of pneumothorax and had a chest tube inserted. ABG reveals PH 7.39 PCO2 41 PO2 65 FIO2 70% On 01/22/2020 Patient was seen and examined in the ICU, she is intubated sedated maintained on mechanical ventilation. ABG reveals PH 7.49 PCO2 35 PO2 59 FIO2 60 % Chest tube in place. No significant change in condition On 01/23/2020 patient was seen and examined in the ICU she is intubated sedated maintained on mechanical ventilation. ABG this morning reveals pH 7.55 pCO2 29 PaO2 73 FiO2 60% patient will have a sedation holiday today to assess her mental function chest tube is still in place. On 01/24/2020 patient was seen and examined in the ICU she is intubated, she has been off sedation, she is maintained on mechanical ventilation, patient did not have any improvement in her mental status off sedation. Computed tomography scan of the brain was done and did not reveal any acute abnormality. Neurology consult was requested for reevaluation, family was contacted by Dr. Warren and comfort care measures were discussed, no change in CODE STATUS at this time yet per family. Input from Dr. Warren was reviewed. Dr. Oquendo will be updated regarding patient's condition. On 01/25/2020 patient was seen and examined in the ICU she is intubated she remains off sedation however she is not responsive, EEG was ordered for today to assess brain function, chest x-ray revealed some worsening in her condition. Dr. Warren is communicating with family regarding comfort care. ABG this morning reveals a pH of 7.54 pCO2 24 PaO2 54 FiO2 40% temperature 98.6 pulse 89 respiration 31 blood pressure 148/67 Objective - Vital Signs Vital signs: Vital Signs Temp 98.6 F 01/25/20 00:00 Pulse 85 01/25/20 11:00 Resp 27 H 01/25/20 11:00 BP 121/57 01/24/20 19:00 Pulse Ox 99 01/25/20 11:00 Intake & Output 01/24/20 01/25/20 01/25/20 18:59 06:59 18:59 Intake Total 859 760 432 Output Total 1090 030 910 Balance -231 190 -478 Weight 86.4 kg Intake: IV 668 396 180 Piperacillin-Tazobactam 3 200 .375 gm In Sodium Chloride 0.9% 100 ml @ 25 mls/hr IVPB Q8HR [facility] Rx# :[id number] Sodium Chloride 0.9% 1, 390 330 150 000 ml @ 30 mls/hr IV . Q24H [facility] Rx#:[id number] pressure bags 78 66 30 Oral 0 Tube Feeding 161 334 192 Other 30 30 60 Output: Chest Tube Drainage 0 50 right pleural 0 50 Urine 1090 950 260 Stool 600 Other: Voiding Method Indwelling Catheter Indwelling Catheter Indwelling Catheter ABP, PAP, CO, CI - Last Documented Arterial Blood Pressure 165/74 - Exam In general patient is intubated sedated maintained on mechanical ventilation HEENT head normocephalic and atraumatic Neck is supple no JVD no goiter no lymphadenopathy Chest exam reveals coarse crackles in both lung olson Cardiac exam reveals regular heart sounds no gallops no murmurs Abdomen is soft nontender no organomegaly with normal bowel sounds Extremity exam reveals 2+ edema no cyanosis or clubbing - Labs CBC & Chem 7: 01/25/20 04:33 01/25/20 04:33 Labs: Abnormal Lab Results - Last 24 Hours (Table) 01/24/20 01/25/20 01/25/20 Range/Units 18:27 00:57 04:32 WBC (3.8-10.6) k/uL RDW (11.5-15.5) % Plt Count (150-450) k/uL Neutrophils # (Manual) (1.3-7.7) k/uL Lymphocytes # (Manual) (1.0-4.8) k/uL ABG pH 7.54 H (7.35-7.45) ABG pCO2 24 L (35-45) mmHg ABG pO2 54 L* (83-108) mmHg ABG O2 Saturation 90.2 L (94-97) % Chloride (98-107) mmol/L Carbon Dioxide (22-30) mmol/L BUN (7-17) mg/dL Creatinine (0.52-1.04) mg/dL Glucose (74-99) mg/dL POC Glucose (mg/dL) 149 H 163 H (75-99) mg/dL AST (14-36) U/L ALT (4-34) U/L Total Protein (6.3-8.2) g/dL Albumin (3.5-5.0) g/dL 01/25/20 01/25/20 01/25/20 Range/Units 04:33 04:33 12:56 WBC 15.2 H (3.8-10.6) k/uL RDW 16.1 H (11.5-15.5) % Plt Count 522 H (150-450) k/uL Neutrophils # (Manual) 14.50 H (1.3-7.7) k/uL Lymphocytes # (Manual) 0.46 L (1.0-4.8) k/uL ABG pH (7.35-7.45) ABG pCO2 (35-45) mmHg ABG pO2 (83-108) mmHg ABG O2 Saturation (94-97) % Chloride 109 H (98-107) mmol/L Carbon Dioxide 20 L (22-30) mmol/L BUN 75 H (7-17) mg/dL Creatinine 1.40 H (0.52-1.04) mg/dL Glucose 226 H (74-99) mg/dL POC Glucose (mg/dL) 186 H (75-99) mg/dL AST 46 H (14-36) U/L ALT 102 H (4-34) U/L Total Protein 5.6 L (6.3-8.2) g/dL Albumin 2.7 L (3.5-5.0) g/dL Assessment and Plan Plan: #1 bilateral pneumonia most likely viral pneumonia due to Covid 19 virus despite negative instant test in the emergency room. #2 acute hypoxic respiratory failure requiring mechanical ventilation #3 sepsis, as evidenced by leukocytosis white blood count 18.8, fever temperature 100.1 lactic acid testing is pending. #4 mild elevation in liver enzymes likely related to acute illness, will monitor #5 underlying history of dermatomyositis #6 elevated d-dimer without evidence of pulmonary embolism on CT angiogram of the chest #7 mild elevation in troponin level, likely related to oxygen demand, supply mismatch, doubt acute myocardial infarction at this time, will monitor closely #8 for DVT prophylaxis Will start patient on subcu Lovenox, for GI prophylaxis will start IV Protonix #9 Pneumothorax status post chest tube placement. #10 patient is unresponsive despite being off sedation, computed tomography scan of the brain was done and did not reveal any acute abnormality, neurology consult will be requested. Prognosis is extremely guarded due to age, severity of illness requiring intubation and mechanical ventilation, and underlying medical problems Will follow closely
--- NOTE | 2020-01-25 13:48 | P.PN ---
Subjective Progress Note Date: 01/25/20 this is an 84- female patient who has been admitted to the hospital on 01/11/2020 4 shortness of breath. The patient is very well-known to me. The patient isknown to have dermatomyositis, hypertension,and irritable bowel syndrome and glaucoma. She has been maintained on high-dose prednisone 40 mg on a daily basis regarding her dermatomyositis. She also has no previous history of eye of the Note that the patient came into the hospital because of increased shortness of breath in the fall. She was complaining of worsening shortness of breath. Her initial Covid 19 evaluation came back negative and subsequently the test was read done and it came back positive. The patient was getting very weak. She was in the 100% nonrebreather. She was quite hypotensive and she was started on fluids and pressors in the emergency department and the chest x-ray showed bilateral only infiltrates. Subsequently she was intubated and placed on a mechanical ventilator and she's been intubated sincethe date of admission which is 01/11/2020. The patient had a CT angiogram that showed diffuse groundglass opacities bilaterally consistent with viral pneumonia. There was no evidence of any pulmonary embolism. There was evidence of cholelithiasisand the CAT scan of the brain has been negative. During the course of the treatment, the patient completed Plaquenil treatment and the patient is on IV Solu-Medrol 40 mg every 12 hours by mouth the patient is receiving therapeutic doses of Lovenox 80 mg subcu every 12 hours as the patient's d-dimer was elevated at 6.89 at the time of admission with subsequent improvement dropped down to 2.4. She was also covered with IV Zosyn for empiric antibiotic coverage for suspected nosocomial infection/pneumonia. She remains intubated on a mechanical ventilator. At times she was becoming markedly agitated and the EEG that was done on 01/17/2020 showed a burst suppression patternthis is often seen with hypoxic encephalopathy. The patient was seen by neurology and their input was appreciated as possible hypoxic encephalopathy versus medication effectand furt her follow-up was recommended. For now, the patient is sedated with propofol running at 50 g per KG pigmented. She is on a mechanical ventilator on assist control mode with a tidal volume of 400 and the rate of 20 with an FiO2 of 50% and a PEEP of 10. Chest x-ray still showing diffuse bilateral pulmonary infiltrates and there is some worsening in the patchy infiltrates bilaterally. ET tube was within position and the patient has a left IJ triple-lumen catheter in place and the NG tube is in place as the patient is receiving enteral feeding for nal support in the form of vital AF at the r 25 mL an hour which is at goal. She continues to have a low-grade fever. The temperature from yesterday was 100.4. She remains on IV Zosyn. The Diflucan was also added to the regimen as the patient was found to have some Patti sputum. She remains on IV Protonix. IV fluids running at 30 mL an hour. On today's evaluation of 01/19/2020, the patient remains on a mechanical ventilator. Ventilator settings were essentially unchanged and the patient has been on a assist-control mode at the rate of 20 with a tidal volume of 400 and FiO2 of 50% and a PEEP was still at 10. The blood gas showed a pH of 7.36 with a pCO2 of 38 and pO2 of 57. The patient has shown significant amount of fluid overload. The patient is recommended related 1.2 L over the past 24 hours. Her weight was essentially a 79 kg and currently is up to 92 kg indicating extensive fluid overload and the patient has developed significant amount of edema in all 4 extremities. The LDH remains elevation at 1014. C-reactive protein is down to 324. The patient is afebrile for now. The patient is receiving vital AF for enteral feeding and nutritional support. The patient also receiving free water with Alaina. She is sedated with propofol. On today's evaluation of 01/20/2020, the patient is being seen for a follow-up in the intensive care unit. The patient remains intubated on a mechanical ventilator. The patient is still sedated with propofol running at 50 mg per KG per minute. Earlier this morning, the patient was an assist-control mode at the rate of 20 with a tidal volume of 400 and the patient was desaturating and based on that the FiO2 has been increased up to 80% and the patient also is on a PEEP of 5. The chest x-ray from this morning showed interstitial infiltrates bilaterally and the patient had a right-sided pneumothorax that was estimated to be 40% and his with a new finding compared to yesterday's chest x-ray. There is still diffuse interstitial markings bilaterally. Based on that, I inserted a immediate 28-Israeli chest tube and there was complete occlusion of the right- sided pneumothorax. There is still some minimal residual air leak on the Pleur-evac. note that the patient had an elevated peak air pressure of 35 with a plateau pressure of 31 on today's evaluation. the patient is being diuresis IV Lasix. The neck fluid balance -1.3 L over the past 24 hours. When the process of weaning this patient's FiO2 down post chest tube insertion. Otherwise, the patient remains hemodynamically stable. The patient on Lovenox prophylactic dose for DVT prophylaxis. The patient remains on IV Solu-Medrol. The patient is on IV Zosyn as an empiric antibiotic coverage. The patient also is on Diflucan. On 01/21/2020 on seeing this patient in follow-up in intensive care unit. This morning this morning is sedated with propofol and she is calm and comfortable symptoms with the mechanical ventilator. She remains assist-control mode at the rate of 20 with a tidal volume of 400 with a PEEP of 5 and FiO2 of 70%. The blood gases from today shows a pH of 7.39 with a pCO2 of 45 and a pO2 of 65. The patient has a right-sided chest tube with direct pressure is 34. Ventricu lar pressure 32. The patient remains sedated. Propofol is running at 30 g per KG per minute. The chest x-ray showing a very tiny right apical pneumothorax. Chest tube is in a good location. ET tube is in a good location. The patient has diffuse bilateral interstitial pulmonary infiltrates. The patient remains in the fluid overload. The patient was receiving IV Lasix with good response. Nevertheless, we decided that she would benefit further from diuresis. She was in a negative fluid balance of 1.3 L. We are going to diabetes and more aggressively and I will increase the Lasix to 40 mg every 8 hours [id number]. She still has a significant swelling in all 4 extremities. The white cell count is at 10.0. Rest of the blood work and electrodes are all within normal limits. I contacted the family. I discussed the case with her daughter. I the family showed great concern and interested in repeating the test as this was very important for them to have a closure and no final diagnoses and exact cause reasoned that put the patient respiratory failure. as such, I think is reasonable to recheck her full code 19 infection as long as this was not negative originally and this may be helpful also in terms of future planning should there be any plans to do further procedures such as tracheostomy or PEG tube insertion. He was still doing universal precaution this patient and patient remains in the upper precaution. The patient remains on IV Zosyn. The patient remains on IV Solu Medrol 40 mg every 12 hours. She is on Lovenox for DVT prophylaxis. She is tolerating her enteral feeding for nutritional support. On 01/22/2020, I took this patient off sedation to assess her underlying mental status. This patient has been on propofol. She has been also on mechanical ventilation. Propofol is running at 30 mg per KG per minute. The patient also is an assist-control mode at the rate of 20 with a tidal volume of 400 and FiO2 of 60% with a PEEP of 5. The blood gases from today showed a pH of 7.49 with a pCO2 of 35 and a pO2 of 59. Chest x-ray shows that the ET tube was low in the trachea and it had to be pulled back by around 1 cm and this was done at the bedside. There is diffuse bilateral pulmonary infiltrates seen and examined unchanged compared to yesterday. The patient remains on diuretics and the patient is receiving IV Lasix 40 mg every 8 hours. Net fluid balance is negative for more than liters over the past 24 hours. She is still on IV Zosyn as an empiric antibiotic coverage pH she remains on normal saline at the rate of 30 mL an hour. She is on IV Solu Medrol 40 mg every 12 hours. She is receiving enteral feeding for nutritional support. She continues to have extensive edema in all 4 extremities and she'll be kept on diuretics for now. Meanwhile, it's important to assess the patient's mental status and for that reason I took her off the sedation. After making this adjustment, the patient became tachypneic and for that reason I had to switch her to a VC plus mode at the same tidal volume with a nighttime of 1 s which helped her quite a bit with her Synchrony and tachypnea that was noted on a mechanical ventilator. Nevertheless, the patient has not shown any meaningful or reasonable recovery off sedation and she is being monitored very closely in ICU. She is on Lovenox for prophylaxis. No other significant events otherwise. A repeat Covid 19 19 evaluation was done and came back negative. On 01/23/2020, stop the sedation again to assess the patient's mental status. A sedation holiday yesterday wasn't successful as the patient did not show significant neurologic recovery or responsiveness. Overnight she had to be placed back on propofol for comfort reasons and earlier this morning with a bit of the propofol. She is currently on no sedation and upon repeated stimulation she continues to be unresponsive. She is currently on assist control mode at the rate of 20 with a tidal volume of 420 FiO2 of 80% with a PEEP of 8. Blood gases today showed a pH of 7.55 and a pCO2 of 29 and pO2 73. I dropped FiO2 down to 60%. Peak airway pressure 38 with a plateau pressure of 34. The chest x-ray shows the ET tube remains low and needs to be positioned and appropriate positioning was done. There is a right-sided chest tube and the right-sided subcutaneous emphysema and there is no evidence of any pneumothorax. There is diffuse bilateral pulmonary infiltrates with some improving aeration the left lung base on today's chest x-ray. The patient is afebrile today. The patient white cell count is 13.4. Renal function stable with a creatinine of 1.0. Her BMs at 50. She is at least 1.5 L fluid balance negative over the past 24 hours as the patient is being diuresed with IV Lasix 40 mg every 8 hours. No seizure activity has been noted. She does not open her eyes spontaneously. She does not withdraw to do any painful stimulation. I'm going to give her another 24 hours off sedation and monitor her progress. On the morning of 01/24/2020, the patient is doing poorly. The patient remains unresponsive pH is been off sedation for more than 24 hours and she is not showing any significant neurologic recovery or any meaningful neurologic response. Family has been updated with that. I still think that there may be some drug-related encephalopathy and will continuing to monitor the patient's mental status and the plan is to proceed with a CAT scan of the brain today. The patient is currently on IV Lasix pH is being diuresed with IV Lasix and she continues to have significant amount of edema in all 4 extremities and the patient has fluid seeping from skin surfaces. She is on VC plus mode of mechanical ventilation at the rate of 20 with tidal volume of 420 and FiO2 of 50% and a PEEP of 5. Blood gases showed a pH of 7.52 with a pCO2 of 28 and pO2 of 88. The patient's chest x-ray shows worsening in the subcutaneous emphysema bilaterally. There is a right-sided chest tube with positive air leak and the patient has no evidence of pneumothorax on the right side of the lung. ET tube is in a good location. Lasix is 40 mg IV every 8 hours. She is on Lovenox 43 prophylaxis. She is on empiric antibiotic coverage utilizing a combination of Zosyn and Diflucan. No fever. No chills. The most recent urine culture from 01/18/2020 was positive for Patti albicans and the patient is covered with Diflucan. The net fluid balance over the past 24 hours has been -1.3 L and another 2.7 L negative over the past 8 hours. On 01/25/2020, the patient is still doing very poorly. We haven't seen any neurologic recovery in this patient. She is going to have an EEG done today. The CAT scan of the brain that was done yesterday showed no evidence of any acute intracranial abnormalities. There was mild degenerative changes. There was diffuse periventricular white matter lucency compatible with small vessel ischemic change. No focal lesions or masses or abnormalities noted. In terms of vent support, the patient remains on a VC plus mode with a tidal volume of 420, FiO2 of 40% with a PEEP of 8 and a rate of 20. The blood gas showed a pH of 7.54 with a pCO2 of 24 and pO2 of 54. I increased FiO2 up to 60% which improved the patient's oxygen saturation. Chest x-ray shows worsening of the diffuse appearance emphysema. The patient has a right-sided chest tube in place. There is evidence of intermittent leaking from the right-sided chest tube. Remains on IV Lasix. She had been tolerating diuresis well. However, I'm seeing some increase in the creatinine which is up to 1.4 and a BUN of 75. The patient's fluid balance over the past 48 hours has been -3 L. She remains on IV Zosyn. She remains on Diflucan. She remains on IV Solu-Medrol. Her skin as weeping. There is some mild leukocytosis with a white cell count of 15.2. In terms of her neurologic function is, the patient has been off sedation for the past 3 days. She does not grimace to any painful stimulation. She does not withdraw to painful stimulation. He does not respond to any verbal stimulation. She remains completely unresponsive. She has a positive cough and a gag and she has a positive response. EEG is in progress this morning. Objective - Vital Signs Vital signs: Vital Signs Temp 98.6 F 01/25/20 00:00 Pulse 68 01/25/20 13:00 Resp 22 01/25/20 13:00 BP 121/57 01/24/20 19:00 Pulse Ox 99 01/25/20 13:00 Intake & Output 01/24/20 01/25/20 01/25/20 18:59 06:59 18:59 Intake Total 859 760 600 Output Total 1090 950 880 Balance -231 -190 -280 Weight 86.4 kg Intake: IV 668 396 252 Piperacillin-Tazobactam 3 200 .375 gm In Sodium Chloride 0.9% 100 ml @ 25 mls/hr IVPB Q8HR [facility] Rx# :[id number] Sodium Chloride 0.9% 1, 390 330 210 000 ml @ 30 mls/hr IV . Q24H [facility] Rx#:[id number] pressure bags 78 66 42 Oral 0 Tube Feeding 161 334 288 Other 30 30 60 Output: Chest Tube Drainage 0 50 right pleural 0 50 Urine 1090 950 430 Stool 400 Other: Voiding Method Indwelling Catheter Indwelling Catheter Indwelling Catheter ABP, PAP, CO, CI - Last Documented Arterial Blood Pressure 129/73 - Exam Physical Exam: Revealed 84-year-old female intubated, on mechanical ventilation. She remains unresponsive, the patient has developed subcutaneous emphysema in the face and the neck and upper chest area bilaterally. The patient has a right-sided chest tube in place. The patient remains unresponsive. She does not grimace or reactive any deep painful stimulation. She's been off propofol for around 48 hrs. for now. Head: Atraumatic, normocephalic. And the tracheal tube and orogastric tube are intact. Neck was supple and without jugular venous distension, thyromegaly, or carotid bruits. Carotids were easily palpable bilaterally. There was no adenopathy. Chest: Fine crackles at the bases, no rhonchi no wheezes, symmetrical chest expansion is noted. The patient has a right-sided chest tube in place. There is no subcutaneous emphysema. There is minimal amount of air leak and the Pleur-evac. Breath sounds are equal and symmetrical for now. Cardiac Exam: [Normal S1 and S2, no S3 gallop, no murmur. Abdomen: [Soft, nontender, no megaly, no rebound, no guarding, normal bowel sounds. Extremities: [No clubbing, 2+ bipedal edema, no cyanosis. Neurological Exam: Unresponsive, not responding to any verbal or painful stimulation. No response at all to deep painful stimulation. Psychiatric: Could not be assessed. Skin: No areas of erythema or cellulitis. Lymphatics: No cervical lymphadenopathy. - Labs CBC & Chem 7: 01/25/20 04:33 01/25/20 04:33 Labs: Abnormal Lab Results - Last 24 Hours (Table) 01/24/20 01/25/20 01/25/20 Range/Units 18:27 00:57 04:32 WBC (3.8-10.6) k/uL RDW (11.5-15.5) % Plt Count (150-450) k/uL Neutrophils # (Manual) (1.3-7.7) k/uL Lymphocytes # (Manual) (1.0-4.8) k/uL ABG pH 7.54 H (7.35-7.45) ABG pCO2 24 L (35-45) mmHg ABG pO2 54 L* (83-108) mmHg ABG O2 Saturation 90.2 L (94-97) % Chloride (98-107) mmol/L Carbon Dioxide (22-30) mmol/L BUN (7-17) mg/dL Creatinine (0.52-1.04) mg/dL Glucose (74-99) mg/dL POC Glucose (mg/dL) 149 H 163 H (75-99) mg/dL AST (14-36) U/L ALT (4-34) U/L Total Protein (6.3-8.2) g/dL Albumin (3.5-5.0) g/dL 01/25/20 01/25/20 01/25/20 Range/Units 04:33 04:33 12:56 WBC 15.2 H (3.8-10.6) k/uL RDW 16.1 H (11.5-15.5) % Plt Count 522 H (150-450) k/uL Neutrophils # (Manual) 14.50 H (1.3-7.7) k/uL Lymphocytes # (Manual) 0.46 L (1.0-4.8) k/uL ABG pH (7.35-7.45) ABG pCO2 (35-45) mmHg ABG pO2 (83-108) mmHg ABG O2 Saturation (94-97) % Chloride 109 H (98-107) mmol/L Carbon Dioxide 20 L (22-30) mmol/L BUN 75 H (7-17) mg/dL Creatinine 1.40 H (0.52-1.04) mg/dL Glucose 226 H (74-99) mg/dL POC Glucose (mg/dL) 186 H (75-99) mg/dL AST 46 H (14-36) U/L ALT 102 H (4-34) U/L Total Protein 5.6 L (6.3-8.2) g/dL Albumin 2.7 L (3.5-5.0) g/dL Assessment and Plan Plan: 1 acute pneumonia/Covid 19 pneumonia was suspected and the results came back negative. Nevertheless the patient is highly suspicious as there was diffuse but the pulmonary infiltrates and acute hypoxic respiratory failure and the patient has been intubated on a mechanical ventilator since 01/11/2020. Also, the rest of the inflammatory markers were highly suspicious for Covid 19 her presentation was also highly suspicious. The patient completed Plaquenil. She remains on IV Solu-Medrol. The patient's mental status and the patient has difficulties coming off sedation the patient had an EEG that showing abnormalities including burst suppression which could potentially indicate the possibility of hypoxic encephalopathy versus drug effect. On 01/25/2020, the patient is being seen after being off sedation for more than 72 hours. Unfortunately, I'm not seeing any signs of neurologic recovery. Neurology was asked to reevaluate the patient. EEG will be done this morning. CAT scan of the brain was repeated and showed diffuse white matter ischemic changes without any acute abnormalities. The patient does not show any signs of neurologic recovery. This is probably related to hypoxic encephalopathy more than a drug effect. Family has been informed. They want to wait another 24-48 hours to confirm these findings. Pending neurology evaluation. We'll continue vent support. Keep the right-sided chest tube in place. There is evidence of subcutaneous emphysema which has been noted. There is worsening and subcutaneous emphysema. Nevertheless, there is no evidence of any pneumothorax and the patient continues to be on a PEEP of 8 with an FiO2 of 60%. Blood gases was noted. Chest x-ray was noted. The patient continues to be diuresed with IV Lasix. Rest of the treatment essentially supportive. The patient developed an acute kidney injury with aggressive diuresis as the patient has been main taining negative fluid balance. 2 fever, currently afebrile and the patient is on IV Zosyn as an emperic Antibiotic coverage also on Diflucan for now underlying candidal UTI 3 history of dermatomyositis/somewhat erythematous maintained on high-dose prednisone outpatient basis 4 hypertension 5 glucoma 6 mild transaminitis improved 7 history of shingles 8 history of irritable bowel disease 9 extensive third spacing and edema in all 4 extremities currently on Lasix with some improvement in the volume status 10 acute kidney injury with a creatinine of 1.4 PLAN Continue ventilator support, an the patient is currently on a PEEP of 8 with an FiO2 of 60% Keep the patient's right-sided chest tube in place and monitor the air leak and the right-sided pneumothorax. On today's chest x-ray there is no evidence of any pneumothorax and there is worsening in its appearance emphysema. The right chest tube is still showing evidence of leak. IV fluids to KVO Lovenox with prophylactic dose Continue the Diflucan and the Zosyn per ID Continue enteral feeding for nutritional support Continue IV Lasix and the patient is a negative fluid balance , monitor fluid balance and the monitor the creatinine Keep the patient off sedation and assess mental status Asked the patient to have another neurologic evaluation by neurology. CAT scan of the brain was repeated and findings are consistent with chronic ischemic white matter disease. EEG was also done this morning and there is also still pending. We'll continue to follow. Prognosis poor. Keep the patient off sedation and assess the mother status and do hourly neurologic exams. We'll continue to follow. Prognosis remains poor. Family will be updated. Critically care evaluation was done and morning 30 minutes. I have made recommendations for the family to proceed with comfort care measures. The family opted to wait for a few more days prior to making that decision. The active issue forher unresponsiveness and lack of neurologic recovery while being off sedation. Time with Patient: Greater than 30
--- NOTE | 2020-01-25 15:16 | EEG ---
ELECTROENCEPHALOGRAM REPORT DATE OF EEG STUDY: 01/25/2020. HISTORY: This is a followup EEG performed on an 84-year-old female who was admitted in acute respiratory failure and has continued to be ventilator dependent over the last several weeks. The patient has history of dermatomyositis. This EEG is the third in the series. MEDICATIONS: Keppra. TECHNICAL REPORT: This is an inpatient EEG performed on the Fixational EEG monitor with electrodes placed according to the International 10-20 system and a single EKG channel. Simultaneous video EEG monitoring was performed. This EEG was reviewed in both longitudinal bipolar, common average referential and transverse montages. Photic stimulation was performed. Hyperventilation was not performed. The recording begins with a well modulated synchronous background consisting of 6-7 hertz theta potentials. Low amplitude beta activity is prominent over the anterior and central head regions. There is a discrete irregular heart rate noted throughout the recording appearing as PVCs. At times, there is some background asymmetry noted with slower frequencies noted on the right posterior head region compared to the left. At times, the patient's background does reach up to 8 hertz which is consistent with an alpha rhythm. At 10:01:14 the patient is stimulated over her right lower extremity. There is no grimacing or withdrawal noted. No activity in the EEG. By this time sedation had now been off for 26 minutes. At 13:40:20 there is some spontaneous mild head movement with pain stimulation but no withdrawal of the right upper extremity and no clear change in the background other than some light motion artifact. Photic stimulation was performed at various flash frequencies and did not elicit a consistent driving response. There was noted some intermittent increased muscle activity in the frontal electrode placements. By now, the sedation has been off for 49 minutes. At 14:03:07 there is a slight buildup of muscle movement/muscle tension in the frontal electrode placement. This is not associated with any overt clinical event. The technologist claps loudly to the patient but there is no immediate change in the background until 20 seconds later there is some slight muscle artifact again noted in the frontal leads. No deeper stages of sleep were achieved in this study. IMPRESSION: This EEG is considered abnormal due to the following. 1. Abnormal EKG with frequent PVCs. 2. Minimal reactivity to tactile stimulation. 3. The background consists primarily of drowsiness. At times there was some asymmetry noted in the right background being slightly less frequencies than the left. CLINICAL CORRELATION: This EEG did not show any evidence of electrographic seizures or epileptiform activity or clinical seizures. Due to this patient's clinical condition this EEG could suggest possibly a locked-in state due to a cerebral stroke and possibly an alpha coma. However, the background frequencies this patient primarily sustained were between 6-7 hertz consistent with drowsiness. There were only brief times when the actual background rhythm increased to 8 hertz which is consistent with wakefulness. RECOMMENDATIONS: Neuro imaging studies are recommended along with serial EEGs. If clinically indicated, a more prolonged overnight study could provide additional information. MMODL / IJN: [id number] / MTDD
[2020-01-25 19:23] VITALS: PULSE 161; RESP 29
[2020-01-26] MEDS ORDERED: FLUCONAZOLE ORAL SUSP 1,400 MG/35 ML BOTTLE PO SCH (09:00)
--- NOTE | 2020-01-27 10:08 | CDI ---
Documentation Clarification Form Date: 01/27/20 From: Marii Lechuga Phone: If you have a question about this query, please contact Kathy Motley [employer] Office Instructor at [phone] between 8am and 5pm. Admit Date: 01/11/20 Discharge Date:01/25/20 Patient Name: Ekta Yañez Visit Number: [id number] ATTENTION: The Clinical Documentation Specialists (CDI) and [facility] Coding Staff appreciate your assistance in clarifying documentation. Please respond to the clarification below the line at the bottom and electronically sign. The CDI & [facility] Coding staff will review the response and follow-up if needed. Please note: Queries are made part of the Legal Health Record. If you have any questions, please contact the author of this message via ITS. Dear Dr. Hamilton New onset atrial fibrillation is documented in the ED note. History/Risk Factors: Hypertension, [place] type 2, Clinical Indicators: Elevated pulse rate EKG/telemetry: Atrial fibrillation with rapid ventricular response Treatment: No meds given In your professional opinion, can you please clarify the type of Atrial Fibrillation, if known? Atrial fibrillation Ruled Out Chronic/Permanent Paroxysmal Persistent Other, please specify Unable to determine MTDD
--- NOTE | 2020-01-27 10:24 | CDI ---
Documentation Clarification Form Date: 01/27/20 From: Marii Lechuga Phone: If you have a question about this query, please contact Kathy Motley, Tray Packer at [phone] between 8am and 5pm. Admit Date: 01/11/20 Discharge Date:01/25/20 Patient Name: Ekta Yañez Visit Number: [id number] ATTENTION: The Clinical Documentation Specialists (CDI) and [facility] Coding Staff appreciate your assistance in clarifying documentation. Please respond to the clarification below the line at the bottom and electronically sign. The CDI & [facility] Coding staff will review the response and follow-up if needed. Please note: Queries are made part of the Legal Health Record. If you have any questions, please contact the author of this message via ITS. Dear Dr. Hamilton I strongly suspect a significant component of diastolic congestive heart failure is documented in Dr. Ariza's consult note but not continued thru the rest of the chart. History/Risk Factors: Hypertension, Covid pneumonia, acute respiratory failure Clinical Indicators: Shortness of breath, fluid overload VS/Pulse OX: T. 100.1, P. 111, R. 22, BP 130/94 BNP: 8040 Echocardiogram Results: Overall left ventricular systolic function is normal with an EF between 55 - 60%. Chest X Ray: 01/10: 1. Cardiomegaly. 2. Patchy bilateral infiltrates Treatment: IV Lasix 40 mg In your professional opinion, can you please clarify the the following if known? CHF Ruled Out Diastolic Heart Failure: Acute Chronic Acute on Chronic Unable to Determine Other, please specify Acute diastolic CHF MTDD
--- NOTE | 2020-01-30 10:54 | P.DS ---
Providers Date of admission: 01/11/20 09:50 Expected date of discharge: 01/27/20 Attending physician: Juany Hamilton Consults: 01/11/20 09:51 Consult Physician Stat Consulting Provider: Ana Maria Ariza Consult Reason/Comments: suspected covid, hypoxic, new onset atrial fib/heart failure Do you want consulting provider notified?: Already Contacted 01/11/20 13:36 Consult Physician Routine Consulting Provider: Roger Harman Consult Reason/Comments: pneumonia Do you want consulting provider notified?: Yes 01/18/20 08:24 Consult Physician Routine Consulting Provider: Selena Galvez Consult Reason/Comments: abnormal eeg Do you want consulting provider notified?: Already Contacted [facility] Course: Ekta Yañez is an 84-year-old female who presented to [facility] emergency room with generalized weakness and fall patient was also having progressive shortness of breath and low-grade fever. Testing in the emergency room for influenza A and B and Covid 19 were negative however patient developed acute respiratory failure she was intubated and sedated in the emergency room and admitted to intensive care unit. She was treated as possible Covid 19 pneumonia despite negative testing she was followed by pulmonary and critical care throughout this admission, her condition worsened patient developed pneumothorax with subcutaneous emphysema, she had evidence of sepsis, her family were approached by inspector subassembly and her CODE STATUS was switched to comfort care only and hospice care, she on 01/25/2020. Patient Condition at Discharge: Serious Plan - Discharge Summary Discharge Rx Participant: Yes New Discharge Prescriptions: No Action Latanoprost 1 drop LEFT EYE HS Acetaminophen Tab [Tylenol] 1,000 mg PO Q6H PRN PRN Reason: Pain Dorzolamide HCl [Trusopt 2%] 1 drop LEFT EYE BID Loperamide HCl [Imodium A-D] 4 mg PO DAILY PRN PRN Reason: Diarrhea predniSONE [Deltasone] 20 mg PO BID Discharge Medication List Acetaminophen Tab [Tylenol] 1,000 mg PO Q6H PRN 02/25/16 [History] Latanoprost 1 drop LEFT EYE HS 02/25/16 [History] Dorzolamide HCl [Trusopt 2%] 1 drop LEFT EYE BID 06/11/18 [History] Loperamide HCl [Imodium A-D] 4 mg PO DAILY PRN 11/16/19 [History] predniSONE [Deltasone] 20 mg PO BID 01/11/20 [History] Follow up Appointment(s)/Referral(s): Tamika Oquendo MD [Primary Care Provider] - 1-2 days Discharge Disposition: - Preliminary Cause of Preliminary Cause of : sepsis
--- NOTE | 2020-02-05 10:47 | CDI ---
Documentation Clarification Form Date: 02/05/20 From: Marii Lechuga Phone: If you have a question about this query, please contact Kathy Motley Manager Managed Care at [phone] between 8am and 5pm. Admit Date: 01/11/20 Discharge Date:01/15/20 Patient Name: Ekta Yañez Visit Number: [id number] ATTENTION: The Clinical Documentation Specialists (CDI) and [facility] Coding Staff appreciate your assistance in clarifying documentation. Please respond to the clarification below the line at the bottom and electronically sign. The CDI & [facility] Coding staff will review the response and follow-up if needed. Please note: Queries are made part of the Legal Health Record. If you have any questions, please contact the author of this message via ITS. Dear Dr. Hamilton Thank you for signing the previous query. Please document a response before signing this query. New onset atrial fibrillation is documented in the ED note. History/Risk Factors: Hypertension, [place] type 2, Clinical Indicators: Elevated pulse rate EKG/telemetry: Atrial fibrillation with rapid ventricular response Treatment: No meds given In your professional opinion, can you please clarify the type of Atrial Fibrillation, if known? Atrial fibrillation Ruled Out Chronic/Permanent Paroxysmal Persistent Other, please specify Unable to determine parox ysmal atrial fibrillation MTDD
== END 2020-01-25 22:57 | disposition expired | DRG 870 ==
LOC: EC 07:23 → 2SICU 09:50
PROVIDERS: ADMIT Internal Medicine; ATTEND Internal Medicine
PROC: 5A1955Z Respiratory Ventilation, Greater than 96 Consecutive Hours (ICD-10-PCS; principal; 2020-01-11)
PROC: 0BH17EZ Insertion of Endotracheal Airway into Trachea, Via Natural or Artificial Opening (ICD-10-PCS; principal; 2020-01-11)
PROC: 3E033XZ Introduction of Vasopressor into Peripheral Vein, Percutaneous Approach (ICD-10-PCS; 2020-01-11)
PROC: 05HM33Z Insertion of Infusion Device into Right Internal Jugular Vein, Percutaneous Approach (ICD-10-PCS; 2020-01-11)
PROC: 03HB33Z Insertion of Infusion Device into Right Radial Artery, Percutaneous Approach (ICD-10-PCS; 2020-01-11)
PROC: 03HY32Z Insertion of Monitoring Device into Upper Artery, Percutaneous Approach (ICD-10-PCS; 2020-01-16)
PROC: 05HN33Z Insertion of Infusion Device into Left Internal Jugular Vein, Percutaneous Approach (ICD-10-PCS; 2020-01-16)
PROC: 0W9930Z Drainage of Right Pleural Cavity with Drainage Device, Percutaneous Approach (ICD-10-PCS; 2020-01-20)
DX: A41.89 Other specified sepsis (principal); U07.1 COVID-19; J12.89 Other viral pneumonia; J96.01 Acute respiratory failure with hypoxia; G92 Toxic encephalopathy; R65.21 Severe sepsis with septic shock; I21.A1 Myocardial infarction type 2; J69.0 Pneumonitis due to inhalation of food and vomit; I50.31 Acute diastolic (congestive) heart failure; B37.49 Other urogenital candidiasis; E87.2 Acidosis; G93.1 Anoxic brain damage, not elsewhere classified; J93.82 Other air leak; J93.9 Pneumothorax, unspecified; M33.13 Other dermatomyositis without myopathy; N17.9 Acute kidney failure, unspecified; K52.1 Toxic gastroenteritis and colitis; D68.8 Other specified coagulation defects; Z51.5 Encounter for palliative care; Z66 Do not resuscitate; D89.9 Disorder involving the immune mechanism, unspecified; I11.0 Hypertensive heart disease with heart failure; K58.0 Irritable bowel syndrome with diarrhea; M06.9 Rheumatoid arthritis, unspecified; I48.0 Paroxysmal atrial fibrillation; T50.905A Adverse effect of unspecified drugs, medicaments and biological substances, initial encounter; T36.95XA Adverse effect of unspecified systemic antibiotic, initial encounter; J98.2 Interstitial emphysema; H40.9 Unspecified glaucoma; K80.20 Calculus of gallbladder without cholecystitis without obstruction; M19.90 Unspecified osteoarthritis, unspecified site; R74.8 Abnormal levels of other serum enzymes; Z79.52 Long term (current) use of systemic steroids; Z79.899 Other long term (current) drug therapy; Z90.710 Acquired absence of both cervix and uterus; Z90.49 Acquired absence of other specified parts of digestive tract; Z86.19 Personal history of other infectious and parasitic diseases; Z98.42 Cataract extraction status, left eye; Z98.41 Cataract extraction status, right eye; Z84.1 Family history of disorders of kidney and ureter; W19.XXXA Unspecified fall, initial encounter
CPT/HCPCS: 31500; 36415; 36600; 70450; 71045; 71275; 72125; 72170; 74018; 80048; 80053; 81001; 81003; 82550; 82728; 82805; 83605; 83615; 83735; 83880; 84132; 84145; 84450; 84460; 84484; 85025; 85027; 85379; 85610; 85730; 86140; 87040; 87070; 87077; 87086; 87186; 87205; 87324; 87502; 87635; 93005; 93306; 94002; 94003; 95816; 95819; 96365; 96368; 96375; 99291